=== PATIENT | male | born 1950 | race Caucasian/White ===

== ENCOUNTER 2016-10-28 01:04 | Emergency (ER) | payer MEDICARE ==
--- NOTE | 2016-10-28 02:23 | ED ---
Luz Maria Costello Edward, scribed for Gus Jernigan MD on 10/28/16 at 0125 . GI/ HPI - HPI Summary HPI Summary: 66 y/o male presents to ED c/o gastrostomy tube problems earlier tonight. Pt flushed G-tube this afternoon and had no problems; this evening the pt was trying to push his evening meds into the tube and it would not flush. Denies pain. - History of Current Complaint Chief Complaint: EDGeneral Stated Complaint: PROBLEM WITH PORT Hx Obtained From: Patient Onset/Duration: Started Hours Ago, Still Present Timing: Constant Pain Intensity: 0 Associated Signs and Symptoms: Positive: Other: - No pain - Additional Pertinent History Primary Care Physician: [id number] - Allergy/Home Medications Allergies/Adverse Reactions: Allergies Allergy/AdvReac Type Severity Reaction Status Date / Time Sulfamethoxazole Allergy Intermediate Rash Verified 11/24/14 17:35 w/Trimethoprim [From Bactrim] PMH/Surg Hx/FS Hx/Imm Hx Endocrine/Hematology History: Reports: Hx Thyroid Disease Denies: Hx Diabetes Cardiovascular History: Denies: Hx Congestive Heart Failure, Hx Hypertension, Hx Pacemaker/ICD GI History: Reports: Other GI Disorders - PEG tube tube in place History: Denies: Hx Renal Disease Musculoskeletal History: Reports: Hx Arthritis Sensory History: Reports: Hx Contacts or Glasses Denies: Hx Hearing Aid Opthamlomology History: Reports: Hx Contacts or Glasses Psychiatric History: Denies: Hx Panic Disorder - Cancer History Cancer Type, 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, 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: Yes - DONE - Surgical History Surgery Procedure, Year, and Place: mandible Infectious Disease History: No Infectious Disease History: Denies: Traveled Outside the [place] in Last 30 Days - Social History Alcohol Use: None Substance Use Type: Reports: None Smoking Status (MU): Former Smoker Review of Systems Constitutional: Negative Eyes: Negative ENT: Negative Cardiovascular: Negative Respiratory: Negative Gastrointestinal: Other - G-tube can't flush Genitourinary: Negative Musculoskeletal: Negative Skin: Negative Neurological: Negative Psychological: Normal All Other Systems Reviewed And Are Negative: Yes Physical Exam Triage Information Reviewed: Yes Vital Signs On Initial Exam: Initial Vitals Temp Pulse Resp BP Pulse Ox 97.7 F 59 16 108/59 96 10/28/16 01:07 10/28/16 01:07 10/28/16 01:07 10/28/16 01:07 10/28/16 01:07 Vital Signs Reviewed: Yes Appearance: Positive: No Pain Distress, Thin Skin: Positive: Warm Head/Face: Positive: Normal Head/Face Inspection Eyes: Positive: SANA Respiratory/Lung Sounds: Positive: Breath Sounds Present Abdomen Description: Positive: Soft, Other: - lester button in place Musculoskeletal: Positive: Strength/ROM Intact Neurological: Positive: Alert, Oriented to Person Place, Time Diagnostics - Vital Signs Vital Signs Temp Pulse Resp BP Pulse Ox 10/28/16 01:18 98.2 F 56 16 127/70 96 10/28/16 01:07 97.7 F 59 16 108/59 96 - Laboratory Lab Statement: Any lab studies that have been ordered have been reviewed, and results considered in the medical decision making process. Re-Evaluation - Re-Evaluation 1 Re-Evaluation Time: 02:20 Comment: unable to fix/replace lester button at night, offered pt choice of remaining in ed till morning and see gi then. pt states wants to go home and f/ u with GI in the morning GIGU Course/Dx - Course Assessment/Plan: 66 y/o male presents to ED c/o G-tube problems earlier tonight. Pt flushed G-tube this afternoon and had no problems; this evening the pt was trying to push his evening meds into the tube and it would not flush. Denies pain. Pt will be d/c home with f/u with GI in the morning. - Diagnoses Provider Diagnoses: Malfunction of gastrostomy tube Discharge - Discharge Plan Condition: Stable Disposition: HOME Patient Education Materials: How to Use and Care for Your PEG Tube (ED) Referrals: Bhanu Palacios MD [Medical Doctor] - 1 Day (Please call and f/u in the morning ) The documentation as recorded by the Luz Maria kam Edward accurately reflects the service I personally performed and the decisions made by me, Gus Jernigan MD.
[2016-10-28 02:43] VITALS: BP 99/75
== END 2016-10-28 02:43 | disposition home or self-care (01) ==
LOC: ED 01:04
DX: K94.23 Gastrostomy malfunction (principal)
CPT/HCPCS: 99211; 99282; G0463

== ENCOUNTER 2016-10-28 10:14 | Emergency (ER) | payer MEDICARE ==
[2016-10-28 10:18] VITALS: BP 131/68
--- NOTE | 2016-10-28 12:13 | RAD ---
INDICATION: Leaking PEG tube COMPARISON: None TECHNIQUE: Erect and supine views of the abdomen are submitted. FINDINGS: Bones: There are no acute bony findings. A peg tube is not identified. Soft tissues: The soft tissues appear normal. The psoas margins are sharp. Bowel gas pattern: There is large amount retained stool throughout the colon Calcifications: There are no abnormal calcifications. Other: None IMPRESSION: RETAINED STOOL.
--- NOTE | 2016-10-29 03:34 | PRO ---
DATE: 10/28/16 - EMERGENCY DEPT REFERRING PHYSICIAN: Kiet Sauceda* PROCEDURE: Low profile gastrostomy feeding implant replacement with Betancur catheter. 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 When he came to the emergency room, perception was that the irrigation was rejected or was not working, but that was not the case. There was no vomiting, fever, or abdominal pain. Since the inability to flush the device has occurred , he has had essentially no oral intake. He has not fainted. Exam - his abdomen is flat. Bowel sounds are positive. He is nontender. There is leakage when fluid is put in the Mihai-Bowser device. It is an 18-[place] 2.5 cm device. The only similar device in stock is 2 cm and thus at this time the only option is to place a Betancur catheter and this was reviewed with the patient and accepted. The prior device had its 5 cc balloon deflated. A Betancur catheter was tested 18- libyan 30 cc. It was inserted and accepted 8cc and was marked 3 cm from the skin surface during gentle retraction, so that the possibility of pyloric occlusion would be reduced. The skin around the stoma appeared healthy in general. IMPRESSION: Replacement of a malfunctioning Mihai-Bowser low profile device with the Betancur catheter. The device of his size will be ordered and it is suggested that a second backup item be kept in stock. He may private purchase that if that is the only practical way to accomplish that goal. [id number]/CPS #: [id number] PARVIZ
--- NOTE | 2016-11-10 15:14 | ED ---
Chino Costello Benjamin, scribed for Jone Mo MD on 10/28/16 at 1049 . Abdominal Pain/Male - HPI Summary HPI Summary: 66yo male with a feeding tube in place comes to ED for feeding tube problems. Pt states that she thinks his feeding tube might be broke and contents are leaking since yesterday afternoon. Pt reports burning pain around the tube inserted area. Last nourishment was yesterday afternoon and pt was seen last [place] [facility] [place] returns this morning. Pt has surgical hx of mandible removal s/p mandible CA. - History of Current Complaint Chief Complaint: EDGeneral Stated Complaint: FEEDING TUBE ISSUE Time Seen by Provider: 10/28/16 10:30 Hx Obtained From: Patient, Family/[employer] Work[employer] - friend Onset/Duration: Sudden Onset, Lasting Hours, Still Present Timing: Constant Severity Initially: Mild Severity Currently: Mild Location: Umbilical Radiates: No Character: Burning Aggravating Factor(s): Nothing Alleviating Factor(s): Nothing Associated Signs And Symptoms: Positive: Negative - Allergies/Home Medications Allergies/Adverse Reactions: Allergies Allergy/AdvReac Type Severity Reaction Status Date / Time Sulfamethoxazole Allergy Intermediate Rash Verified 10/31/16 15:52 w/Trimethoprim [From Bactrim] PMH/Surg Hx/FS Hx/Imm Hx Endocrine/Hematology History: Reports: Hx Thyroid Disease Denies: Hx Diabetes Cardiovascular History: Denies: Hx Congestive Heart Failure, Hx Hypertension, Hx Pacemaker/ICD GI History: Reports: Other GI Disorders - PEG tube tube in place History: Denies: Hx Renal Disease Musculoskeletal History: Reports: Hx Arthritis Sensory History: Reports: Hx Contacts or Glasses Denies: Hx Hearing Aid Opthamlomology History: Reports: Hx Contacts or Glasses Psychiatric History: Denies: Hx Panic Disorder - Cancer History Cancer Type, 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 Negative: Nausea Negative: dysuria, hematuria Negative: Edema Negative: Rash Neurological: Other - negative - dizziness Psychological: Normal All Other Systems Reviewed And Are Negative: Yes Physical Exam Triage Information Reviewed: Yes Vital Signs On Initial Exam: Initial Vitals Temp Pulse Resp BP Pulse Ox 97.4 F 50 18 131/68 98 10/28/16 10:15 10/28/16 10:15 10/28/16 10:15 10/28/16 10:15 10/28/16 10:15 Vital Signs Reviewed: Yes Appearance: Positive: Well-Appearing, Well-Nourished, Pain Distress - mild Skin: Positive: Warm, Skin Color Reflects Adequate Perfusion Head/Face: Positive: Normal Head/Face Inspection Eyes: Positive: Conjunctiva Clear ENT: Positive: Normal ENT inspection Neck: Positive: Supple, Nontender, No Lymphadenopathy, Other: - (-) JVD, (-) Stridor, (-) Tracheal deviation Respiratory/Lung Sounds: Positive: Clear to Auscultation, Breath Sounds Present. Negative: Rales, Rhonchi, Wheezes Cardiovascular: Positive: RRR, Pulses are Symmetrical in both Upper and Lower Extremities. Negative: Murmur Abdomen Description: Positive: No Organomegaly, Soft, Other: - PEG tube in place with cutaneous drainage around it. Musculoskeletal: Negative: Edema Left, Edema Right Neurological: Positive: Alert, Oriented to Person Place, Time Psychiatric: Positive: Affect/Mood Appropriate Diagnostics - Vital Signs Vital Signs Temp Pulse Resp BP Pulse Ox 10/28/16 10:15 97.4 F 50 18 131/68 98 - Laboratory Lab Statement: Any lab studies that have been ordered have been reviewed, and results considered in the medical decision making process. Abdominal Pain Fem Course/Dx - Course Course Of Treatment: Reviewed pts medication and allergy lists. Discussed with GI Office at 10:49. Dr. Harrington will come in to evaluate the pt. Dr. Harrington wants Abdominal XR order on the pt. GI put a claloway in since there weren t any permanent tube available. Advised pt to f/u with Dr. Matute for permanent tube replacement. GI service flushed the tube. - Diagnoses Provider Diagnoses: Malfunction of gastrostomy tube Discharge - Discharge Plan Condition: Stable Disposition: HOME Patient Education Materials: How to Use and Care for Your PEG Tube (ED), [place] Catheter Placement and Care (ED) Referrals: Kiet Sauceda MD [Primary Care Provider] - Evan Matute MD [Medical Doctor] - 2 Days Additional Instructions: RETURN TO THE EMERGENCY DEPARTMENT FOR CHANGING OR WORSENING SYMPTOMS. The documentation as recorded by the Chino kam Benjamin accurately reflects the service I personally performed and the decisions made by , Jone Mo MD.
== END 2016-10-28 14:10 | disposition home or self-care (01) ==
LOC: ED 10:14
DX: K94.23 Gastrostomy malfunction (principal); Z87.891 Personal history of nicotine dependence; R10.9 Unspecified abdominal pain
CPT/HCPCS: 74020; 99282

== ENCOUNTER 2017-05-12 13:14 | Emergency (ER) | payer MEDICARE ==
--- OUTSIDE RECORDS SUMMARY | 2017-05-12 13:31 | XMS REPORT ---
:1950 External Reference #:[id number] Author Organization [facility] Address [address] [address] Phone [phone] Care Team Providers Name Role Phone Kiet Sauceda MD Primary Care Physician Unavailable Payers Type Date Identification Numbers Payment Provider Subscriber Health Maintenance Policy Number: Medicare Blue o Joseph Harman (O) [id number] [employer] Number: [id number] [address] [address] PayID: [id number] [place] [address] Problems Date Description Provider Status Onset: 01/08/2016 Paroxysmal atrial fibrillation Jordan Iyer M.D., FACP Active Onset: 12/19/2014 Atrial paroxysmal tachycardia Joseph Rosen M.D. Active Onset: 12/19/2014 Malignant neoplasm of mandible Joseph Rosen M.D. Active Onset: 09/03/2015 Hypothyroidism Kiet Sauceda M.D. Active Onset: 09/03/2015 Gastroesophageal reflux disease Kiet Sauceda M.D. Active Onset: 09/03/2015 Brachial neuritis Kiet Sauceda M.D. Active Onset: 12/18/2015 Cervical radiculopathy Jordan Iyer M.D.,FACP Active Note: bilat nerve impingement on NCS Onset: 12/28/2015 Subdural hemorrhage Guero Yu M.D. Active Onset: 03/28/2016 Inflammatory disorder of jaw Kiet Sauceda M.D. Active region Onset: 08/26/2016 Chronic obstructive lung disease Jordan Iyer M.D., FACP Active Note: suspect on CXR Onset: 11/18/2016 Weight decreased Kiet Sauceda M.D. Active Onset: 11/18/2016 Unilateral recurrent simple Kiet Sauceda M.D. Active inguinal hernia Onset: 12/10/2014 Paroxysmal atrial fibrillation Apryl Moreira M.D. Inactive Inactive: 12/19/2014 Family History Date Family Member(s) Problem(s) Comments General Diabetes : (age 73 Years) Father due to Colon cancer : (age 84 Years) Mother due to Unknown reason Mother Diabetes Social History Type Date Description Comments Marital Status Marital Status 08/23/2016 july Lives With Occupation Retired. [employer] Cigarette Use Former Cigarette Smoker Pt denies use of cigar, pipe, e-cigarettes, or chewing tobacco. Quit end ETOH Use consumed 1-2 beers per day Quit 1996. Recreational Drug Use Denies Drug Use Smoking Patient is a former smoker Daily Caffeine Does Not Consume Caffeine Exercise Type/Frequency Exercises regularly General Hx Text Allergies, Adverse Reactions, Alerts Date Description Reaction Status Severity Comments 12/10/2014 Bactrim rash active Medications Medication Date Status Form Strength Qnty SIG Indications Ordering Provider Jevity 1.5 11/18/ Active Liquid 270un R63.4 Kiet Dave/Fiber 2017 its Channing Sauceda Levothyroxine 08/26/ Active Tablets 137mcg 30tab 1 by E03.9 Jordan Banuelos s arsalan Iyer, every day M.DJulian,FACP Multaq 04/01/ Active Tablets 400mg 60tab 1 by Apryl 2016 s mouth Lillie, twice a M.D. day Ranitidine HCL 02/08/ Active Tablets 150mg 60tab take one K21.9 Kiet 2015 s tablet by Komal arriaza M.D. twice a day Tylenol 11/09/ Active Tablets 325mg 90tab 2 by Kiet 2015 s mouth 8 h Komal as needed Channing (pt is taking 1- 500mg tab daily) Jevity 1 Tenzin 01/20/ Active Liquid 279un 9 cans Kiet 2014 its per day Pachikara via , M.D. feeding tube Lactulose 09/23/ Active Solution 10GM/15ML 500ml take as Wily 2015 directed DJulian Cottrell M.D. Amoxicillin / Active Tablets 500mg 60tab 1 tab via M27.2 Wily Adams s peg twice D. daily Channing Cottrell Flagyl 03/14/ Hx Tablets 500mg 30tab 1 tab by Wily 2017 - s mouth 3 D. 03/28/ times Chepe, 2017 daily x M.D. 10 days Flagyl 03/03/ Hx Tablets 500mg 30tab 1 tab by Wily 2017 - s mouth 3 D. 03/06/ times Chepe2016 daily x M.D. 10 days Amoxicillin/Cla 02/13/ Hx Tablets 875-125mg 30tab take 1 M27.2 Wily vulanate 2016 - tablet D. Potassium 03/02/ twice a Chepe2016 day via M.DJulian peg tube Amoxicillin 12/23/ Hx Tablets 500mg 60tab 1 tab via M27.2 Wily 2016 - s peg twice D. 03/09/ daily Chepe2016 M.D. Alfuzosin HCL 08/31/ Hx Tablets ER 10mg 1 po qd Jordan HUTTON 2016 - 24HR Derek Iyer, 09/02/ M.D.,FACP 2016 Tamsulosin HCL 08/26/ Hx Capsules 0.4mg 30cap 1 by Jordan 2016 - s mouth Derek Iyer, 11/21/ every M.D.,FACP 2016 evening Synthroid 08/26/ Hx Tablets 150mcg 30tab 1 by E03.9 Jordan 2016 - s mouth Derek Iyer, 08/26/ every day M.D.,FACP 2016 Metoprolol 05/12/ Hx Tablets 25mg 30tab 1/2 tab I48.0 Kiet Tartrate 2016 - s by mouth Pachikara 07/26/ twice a , M.D. 2016 day Amoxicillin 05/09/ Hx Tablets 500mg 90tab 1 by M27.2 Wily 2016 - s mouth two D. 11/18/ times a Chepe, 2016 day M.D. please dispense tablets not capsules Amoxicillin 04/01/ Hx Tablets 500mg 90tab 1 tab via M27.2 Wily 2017 - s peg twice D. 07/08/ daily Lakisha Cottrell M.D. Amoxicillin/Cla 03/28/ Hx Suspension 600-42.9mg 225ml 1 tsp bid M27.2 Kiet whittington 2017 - Rec /5ML 3 weeks Pachikara Potassium 05/08/ , M.D. 2016 Ranitidine HCL 02/08/ Hx Capsules 150mg 60cap 1 tablet K21.9 Kiet 2015 - s by mouth Pachikara 02/08/ twice , M.D. 2015 daily Metoprolol 02/01/ Hx Tablets ER 25mg 30tab 1 by Kiet Succinate ER 2015 - 24HR s mouth Pachikara 05/12/ every day , M.D. 2016 Synthroid 10/26/ Hx Tablets 150mcg 90tab 1 by E03.9 Kiet 2015 - s mouth Pachikara 10/26/ every day , M.D. 2015 Synthroid 10/26/ Hx Tablets 125mcg 30tab every day E03.9 Kiet 2015 - s in in the Pachikara 08/26/ morning , M.DJulian 2016 in the empty stomach Warfarin Sodium 02/11/ Hx Tablets 5mg 100ta take 1.5 Kiet Valentin - estela tabs Pachikara 02/08/ daily ( , M.D. 2015 On Hold) Metoprolol 01/09/ Hx Tablets 25mg 60tab 1 by Jordan Tarnestor 2014 - s mouth D. [place], 02/01/ twice a M.D.,FACP 2015 day Synthroid 01/09/ Hx Tablets 137mcg 30tab 1 by E03.9 Kiet 2014 - s mouth Pachikara 10/26/ every day , M.D. 2015 Metoprolol 12/17/ Hx Tablets 50mg 60tab 1 by Apryl Alba 2014 - s mouth [place], 01/09/ twice a M.D. 2014 day Cardizem 12/08/ Hx Tablets 30mg 120ta 1 by Jamaal Pink 2014 - bs tube q 6 Lillie, 12/10/ hours. M.D. 2014 Augmentin / Hx Tablets one by Unknown 0000 - mouth 04/11/ every 12 2014 hours for ten days Lovenox / Hx Solution 80mg/0.8ML sc every Unknown 0000 - 12 hours 2014 Pepcid / Hx Tablets 20mg 1 by Unknown 0000 - mouth every day 2014 Lactulose / Hx prn Unknown 0000 - 2014 Synthroid / Hx Tablets 125mcg 1 by Unknown 0000 - mouth every day 2014 Metoprolol / Hx Tablets 25mg 180ta 2 tabs by Unknown Tartrate 0000 - bs mouth 12/17/ twice a 2014 day Coumadin / Hx as Rosen, 0000 - directed Joseph 02/11/ Channing 2014 Ranitidine HCL / Hx Syrup 15mg/ml 600ml take as Eden 0000 - directed Pachikara 02/08/ , Channing 2015 Augmentin / Hx Suspension 250-62.5mg 800 mg Unknown 0000 - Rec /5ML solution 01/09/ via Peg 2014 twice daily for 6 wks Testosterone / Hx Powder 2 Caps Unknown Cypionate OTC 0000 - Daily 2016 Amoxicillin/Cla / Hx Suspension 600-42.9mg 1 Unknown vulanate 0000 - Rec /5ML teaspoon Potassium 05/09/ twice a 2016 day 3 weeks Immunizations CPT Code Status Date Vaccine Lot # [id number] Given 01/08/2016 Pneumococcal Conjugate Vaccine 13 Valent For [id number] Intramuscular Use Vital Signs Date Vital Result Comment 04/06/2017 Height 75 inches 6'3" Weight 173.00 lb Heart Rate 64 /min BP Systolic Sitting 110 mmHg Rue reg cuff BP Diastolic Sitting 70 mmHg Rue reg cuff BP Systolic Standing 106 mmHg Rue BP Diastolic Standing 70 mmHg Rue Respiratory Rate 16 /min BMI (Body Mass Index) 21.6 kg/m2 Ejection Fraction 50-55% 11/25/14 02/13/2017 Height 75 inches 6'3" Weight 173.12 lb Heart Rate 60 /min BP Systolic Sitting 110 mmHg BP Diastolic Sitting 56 mmHg Respiratory Rate 14 /min Body Temperature 98.1 F BMI (Body Mass Index) 21.6 kg/m2 12/23/2016 Height 75 inches 6'3" Weight 167.12 lb Heart Rate 60 /min BP Systolic Sitting 114 mmHg BP Diastolic Sitting 58 mmHg Respiratory Rate 14 /min Body Temperature 97.2 F BMI (Body Mass Index) 20.9 kg/m2 11/22/2016 Height 75 inches 6'3" Weight 160.25 lb Heart Rate 60 /min BP Systolic Sitting 114 mmHg BP Diastolic Sitting 60 mmHg Respiratory Rate 14 /min Body Temperature 97.0 F BMI (Body Mass Index) 20.0 kg/m2 11/18/2016 Height 75 inches 6'3" Weight 163.00 lb Heart Rate 63 /min BP Systolic 108 mmHg BP Diastolic 62 mmHg Body Temperature 97.6 F O2 % BldC Oximetry 98 % BMI (Body Mass Index) 20.4 kg/m2 08/26/2016 Weight 159.50 lb Heart Rate 56 /min BP Systolic Sitting 126 mmHg BP Diastolic Sitting 62 mmHg Body Temperature 96.9 F O2 % BldC Oximetry 98 % 08/23/2016 Height 73 inches 6'1" Weight 166.00 lb with shoes Heart Rate 56 /min BP Systolic Sitting 108 mmHg Lue reg cuff BP Diastolic Sitting 60 mmHg Lue reg cuff BP Systolic Standing 98 mmHg Lue reg cuff BP Diastolic Standing 60 mmHg Lue reg cuff Respiratory Rate 17 /min BMI (Body Mass Index) 21.9 kg/m2 Ejection Fraction 50-55% 11/25/2014-echo 07/26/2016 Weight 168.00 lb with shoes Heart Rate 56 /min BP Systolic Sitting 90 mmHg Rue reg cuff BP Diastolic Sitting 54 mmHg Rue reg cuff BP Systolic Standing 98 mmHg Rue reg cuff BP Diastolic Standing 50 mmHg Rue reg cuff Ejection Fraction 55-60% date 11/25/2014 ECHO 07/08/2016 Weight 168.00 lb Heart Rate 64 /min BP Systolic Sitting 92 mmHg BP Diastolic Sitting 58 mmHg Body Temperature 97.7 F Pain Level 3 05/12/2016 Weight 171.00 lb Heart Rate 57 /min BP Systolic Sitting 122 mmHg BP Diastolic Sitting 56 mmHg Respiratory Rate 14 /min Body Temperature 98.0 F O2 % BldC Oximetry 97 % 05/09/2016 Height 73 inches 6'1" Weight 170.38 lb Heart Rate 60 /min BP Systolic Sitting 110 mmHg BP Diastolic Sitting 60 mmHg Respiratory Rate 14 /min Body Temperature 97.9 F BMI (Body Mass Index) 22.5 kg/m2 04/21/2016 Height 73 inches 6'1" Weight 171.50 lb with shoes Heart Rate 56 /min BP Systolic Sitting 94 mmHg Lue reg cuff BP Diastolic Sitting 56 mmHg Lue reg cuff BP Systolic Standing 92 mmHg Lue reg cuff BP Diastolic Standing 54 mmHg Lue reg cuff Respiratory Rate 17 /min BMI (Body Mass Index) 22.6 kg/m2 Ejection Fraction 50-55% 11/25/2014 echo 04/05/2016 Height 73 inches 6'1" Weight 168.00 lb Heart Rate 82 /min BP Systolic Sitting 122 mmHg BP Diastolic Sitting 58 mmHg Body Temperature 96.8 F O2 % BldC Oximetry 97 % BMI (Body Mass Index) 22.2 kg/m2 04/01/2016 Height 73 inches 6'1" Weight 166.00 lb Heart Rate 60 /min BP Systolic Sitting 100 mmHg BP Diastolic Sitting 58 mmHg Respiratory Rate 14 /min Body Temperature 97.9 F BMI (Body Mass Index) 21.9 kg/m2 03/28/2016 Weight 169.00 lb Heart Rate 68 /min BP Systolic Sitting 122 mmHg BP Diastolic Sitting 68 mmHg Body Temperature 98.2 F O2 % BldC Oximetry 93 % 02/16/2016 Weight 169.00 lb Heart Rate 60 /min BP Systolic Sitting 118 mmHg Ra reg cuff BP Diastolic Sitting 60 mmHg Ra reg cuff BP Systolic Standing 104 mmHg Ra BP Diastolic Standing 66 mmHg Ra Respiratory Rate 14 /min Ejection Fraction 50-55% 11/25/14 02/09/2016 Weight 170.00 lb Heart Rate 54 /min BP Systolic Sitting 106 mmHg BP Diastolic Sitting 60 mmHg Body Temperature 97.1 F O2 % BldC Oximetry 96 % 02/02/2016 Height 73 inches 6'1" Weight 164.00 lb without shoes Heart Rate 64 /min BP Systolic Sitting 94 mmHg R arm , reg cuff. BP Diastolic Sitting 60 mmHg R arm , reg cuff. BP Systolic Standing 100 mmHg BP Diastolic Standing 60 mmHg Respiratory Rate 18 /min BMI (Body Mass Index) 21.6 kg/m2 01/18/2016 Height 73 inches 6'1" Weight 170.00 lb Heart Rate 66 /min BP Systolic Sitting 122 mmHg BP Diastolic Sitting 70 mmHg Pain Level 0 BMI (Body Mass Index) 22.4 kg/m2 01/08/2016 Weight 170.00 lb Heart Rate 57 /min BP Systolic Sitting 107 mmHg BP Diastolic Sitting 62 mmHg Body Temperature 98.0 F O2 % BldC Oximetry 98 % 12/28/2015 Height 73 inches 6'1" Weight 155.00 lb BP Systolic Sitting 122 mmHg BP Diastolic Sitting 80 mmHg Pain Level 3 BMI (Body Mass Index) 20.4 kg/m2 11/17/2015 Weight 167.25 lb Heart Rate 71 /min BP Systolic Sitting 120 mmHg BP Diastolic Sitting 56 mmHg Body Temperature 98.0 F O2 % BldC Oximetry 96 % 11/06/2015 Height 74 inches 6'2" Weight 161.12 lb Heart Rate 67 /min BP Systolic 132 mmHg BP Diastolic 74 mmHg Body Temperature 98.4 F O2 % BldC Oximetry 98 % BMI (Body Mass Index) 20.7 kg/m2 10/20/2015 Height 74 inches 6'2" Weight 164.00 lb Heart Rate 60 /min BP Systolic Sitting 122 mmHg Ra reg cuff BP Diastolic Sitting 72 mmHg Ra reg cuff BP Systolic Standing 104 mmHg Ra BP Diastolic Standing 70 mmHg Ra Respiratory Rate 16 /min BMI (Body Mass Index) 21.1 kg/m2 Ejection Fraction 50-55% 11/25/14 10/13/2015 Height 76 inches 6'4" Heart Rate 54 /min BP Systolic Sitting 100 mmHg BP Diastolic Sitting 60 mmHg Body Temperature 97.1 F O2 % BldC Oximetry 98 % 09/03/2015 Height 76 inches 6'4" Heart Rate 51 /min BP Systolic Sitting 124 mmHg BP Diastolic Sitting 62 mmHg Body Temperature 97.1 F O2 % BldC Oximetry 96 % 07/23/2015 Height 76 inches 6'4" Weight 169.00 lb Heart Rate 60 /min BP Systolic Sitting 100 mmHg BP Diastolic Sitting 50 mmHg Body Temperature 97.2 F O2 % BldC Oximetry 94 % BMI (Body Mass Index) 20.6 kg/m2 04/07/2015 Height 76 inches 6'4" Weight 169.00 lb BP Systolic Sitting 98 mmHg BP Diastolic Sitting 76 mmHg Body Temperature 98.2 F BMI (Body Mass Index) 20.6 kg/m2 03/23/2015 Height 76 inches 6'4" Weight 170.00 lb Heart Rate 62 /min BP Systolic Sitting 116 mmHg BP Diastolic Sitting 62 mmHg Respiratory Rate 14 /min Body Temperature 98.2 F BMI (Body Mass Index) 20.7 kg/m2 02/09/2015 Height 76 inches 6'4" Weight 167.12 lb Heart Rate 63 /min BP Systolic Sitting 110 mmHg BP Diastolic Sitting 58 mmHg Body Temperature 97.8 F O2 % BldC Oximetry 98 % BMI (Body Mass Index) 20.3 kg/m2 01/19/2015 Height 76 inches 6'4" Weight 166.38 lb Heart Rate 64 /min BP Systolic Sitting 104 mmHg BP Diastolic Sitting 58 mmHg Respiratory Rate 14 /min Body Temperature 98.4 F BMI (Body Mass Index) 20.2 kg/m2 01/09/2015 Height 76 inches 6'4" Weight 167.00 lb Heart Rate 56 /min BP Systolic Sitting 100 mmHg BP Diastolic Sitting 56 mmHg Body Temperature 98.3 F O2 % BldC Oximetry 96 % BMI (Body Mass Index) 20.3 kg/m2 12/24/2014 Height 76 inches 6'4" Weight 162.00 lb with shoes Heart Rate 72 /min BP Systolic Sitting 108 mmHg LA, reg cuff BP Diastolic Sitting 66 mmHg LA, reg cuff BP Systolic Standing 98 mmHg LA BP Diastolic Standing 64 mmHg LA Respiratory Rate 14 /min BMI (Body Mass Index) 19.7 kg/m2 Ejection Fraction 50-55% 11/25/2014 12/19/2014 Height 76 inches 6'4" Weight 165.25 lb Heart Rate 88 /min BP Systolic Sitting 108 mmHg BP Diastolic Sitting 60 mmHg Body Temperature 97.6 F O2 % BldC Oximetry 91 % BMI (Body Mass Index) 20.1 kg/m2 12/17/2014 Height 76 inches 6'4" Weight 167.50 lb Heart Rate 65 /min BP Systolic Sitting 102 mmHg BP Diastolic Sitting 60 mmHg Respiratory Rate 16 /min Body Temperature 97.6 F BMI (Body Mass Index) 20.4 kg/m2 12/10/2014 Height 76 inches 6'4" Weight 164.00 lb w/o shoes Heart Rate 58 /min reg BP Systolic Sitting 100 mmHg Rue, reg cuff BP Diastolic Sitting 50 mmHg Rue, reg cuff BP Systolic Standing 90 mmHg Rue BP Diastolic Standing 56 mmHg Rue Respiratory Rate 18 /min BMI (Body Mass Index) 20.0 kg/m2 Ejection Fraction 50-55% as of 11/25/14 echo Results Test Date Test Result H/L Range Note Laboratory test 03/03/2017 C Difficile PCR SEE RESULT 1 finding BELOW Laboratory test 03/03/2017 Blood Urea Nitrogen 21 mg/dL 6-24 finding BUN Creatinine 03/03/2017 Creatinine 0.87 mg/dL 0.67-1.17 Egfr Non- 87.0 >60 Egfr 111.9 >60 2 Laboratory test finding 11/22/2016 C Reactive Protein 1.97 mg/L < 5.00 3 Laboratory test finding 10/20/2016 TSH (Thyroid Stim Horm) 2.86 mcIU/mL 0.34-5.60 Ua Routine 08/26/2016 Ua Specific [place] 1.015 Ua PH 7 Ua Color dark yellow Ua Appera clear Ua WBC neg Ua Protein trace Ua Glucose normal Ua Ketones neg Ua Bilirubin neg Ua Urobilinogen norm Ua Nitrite neg Ua Occult Blood neg Comp Metabolic Panel 08/26/2016 Sodium 136 mmol/L 133-145 Potassium 4.1 mmol/L 3.5-5.0 Chloride 102 mmol/L 101-111 Co2 Carbon Dioxide 29 mmol/L 22-32 Anion Gap 5 mmol/L 2-11 Glucose 81 mg/dL 70-100 Blood Urea Nitrogen 13 mg/dL 6-24 Creatinine 0.80 mg/dL 0.67-1.17 BUN/Creatinine Ratio 16.3 8-20 Calcium 9.5 mg/dL 8.6-10.3 Total Protein 7.2 g/dL 6.4-8.9 Albumin 4.1 g/dL 3.2-5.2 Globulin 3.1 g/dL 2-4 Albumin/Globulin Ratio 1.3 1-3 Total Bilirubin 1.20 mg/dL High 0.2-1.0 Alkaline Phosphatase 81 U/L 34-104 Alt 26 U/L 7-52 Ast 34 U/L 13-39 Egfr Non- 96.1 >60 Egfr 123.6 >60 4 Laboratory test finding 08/26/2016 Magnesium 2.3 mg/dL 1.9-2.7 5 TSH (Thyroid Stim Horm) 9.28 mcIU/mL High 0.34-5.60 6 Urine Culture And 08/26/2016 Urine Culture SEE RESULT BELOW 7 Sensitivities Comp Metabolic Panel 04/01/2016 Sodium 135 mmol/L 133-145 Potassium 4.4 mmol/L 3.5-5.0 Chloride 100 mmol/L Low 101-111 Co2 Carbon Dioxide 32 mmol/L 22-32 Anion Gap 3 mmol/L 2-11 Glucose 70 mg/dL 70-100 Blood Urea Nitrogen 14 mg/dL 6-24 Creatinine 0.72 mg/dL 0.67-1.17 BUN/Creatinine Ratio 19.4 8-20 Calcium 9.2 mg/dL 8.6-10.3 Total Protein 7.7 g/dL 6.4-8.9 Albumin 3.2 g/dL 3.2-5.2 Globulin 4.5 g/dL High 2-4 Albumin/Globulin Ratio 0.7 Low 1-3 Total Bilirubin 0.60 mg/dL 0.2-1.0 Alkaline Phosphatase 71 U/L 34-104 Alt 19 U/L 7-52 Ast 26 U/L 13-39 Egfr Non- 108.6 >60 Egfr 139.6 >60 8 CBC Auto Diff 03/28/2016 White Blood Count 9.7 10^3/uL 3.5-10.8 Red Blood Count 4.16 10^6/uL 4.0-5.4 Hemoglobin 13.9 g/dL Low 14.0-18.0 Hematocrit 41 % Low 42-52 Mean Corpuscular Volume 100 fL High 80-94 Mean Corpuscular Hemoglobin 34 pg High 27-31 Mean Corpuscular HGB Conc 34 g/dL 31-36 Red Cell Distribution Width 12 % 10.5-15 Platelet Count 264 10^3/uL 150-450 Mean Platelet Volume 9 um3 7.4-10.4 Abs Neutrophils 7.5 10^3/uL 1.5-7.7 Abs Lymphocytes 1.1 10^3/uL 1.0-4.8 Abs Monocytes 0.9 10^3/uL High 0-0.8 Abs Eosinophils 0.3 10^3/uL 0-0.6 Abs Basophils 0 10^3/uL 0-0.2 Abs Nucleated RBC 0 10^3/uL Granulocyte % 76.5 % 38-83 Lymphocyte % 11.0 % Low 25-47 Monocyte % 9.3 % High 1-9 Eosinophil % 2.8 % 0-6 Basophil % 0.4 % 0-2 Nucleated Red Blood Cells % 0 Laboratory test 03/28/2016 Erythrocyte Sed Rate 95 mm/Hr High 0-40 finding Wound Culture/Sensi 03/28/2016 Wound/Misc SEE RESULT BELOW 9 Culture-Gram Stain Inr/Protime 11/06/2015 Inr 2.99 High 0.89-1.11 Laboratory test 11/06/2015 Partial Thrombo Time 43.2 seconds High 26.0- 36.3 finding PTT Comp Metabolic Panel 11/06/2015 Sodium 136 mmol/L 133-145 Potassium 4.9 mmol/L 3.5-5.0 Chloride 100 mmol/L Low 101-111 Co2 Carbon Dioxide 32 mmol/L 22-32 Anion Gap 4 mmol/L 2-11 Glucose 93 mg/dL 70-100 Blood Urea Nitrogen 15 mg/dL 6-24 Creatinine 0.75 mg/dL 0.67-1.17 BUN/Creatinine Ratio 20.0 8-20 Calcium 10.0 mg/dL 8.6-10.3 Total Protein 7.7 g/dL 6.4-8.9 Albumin 4.0 g/dL 3.2-5.2 Globulin 3.7 g/dL 2-4 Albumin/Globulin Ratio 1.1 1-3 Total Bilirubin 1.40 mg/dL High 0.2-1.0 Alkaline Phosphatase 75 U/L 34-104 Alt 18 U/L 7-52 Ast 25 U/L 13-39 Egfr Non- 103.9 >60 Egfr 133.6 >60 10 CBC Auto Diff 11/06/2015 White Blood Count 7.0 10^3/uL 3.5-10.8 Red Blood Count 4.51 10^6/uL 4.0-5.4 Hemoglobin 15.1 g/dL 14.0-18.0 Hematocrit 45 % 42-52 Mean Corpuscular Volume 99 fL High 80-94 Mean Corpuscular Hemoglobin 33 pg High 27-31 Mean Corpuscular HGB Conc 34 g/dL 31-36 Red Cell Distribution Width 13 % 10.5-15 Platelet Count 143 10^3/uL Low 150-450 Mean Platelet Volume 9 um3 7.4-10.4 Abs Neutrophils 5.2 10^3/uL 1.5-7.7 Abs Lymphocytes 1.1 10^3/uL 1.0-4.8 Abs Monocytes 0.6 10^3/uL 0-0.8 Abs Eosinophils 0.2 10^3/uL 0-0.6 Abs Basophils 0 10^3/uL 0-0.2 Abs Nucleated RBC 0 10^3/uL Granulocyte % 73.4 % 38-83 Lymphocyte % 15.8 % Low 25-47 Monocyte % 8.1 % 1-9 Eosinophil % 2.2 % 0-6 Basophil % 0.5 % 0-2 Nucleated Red Blood Cells % 0.1 Laboratory test 11/06/2015 Erythrocyte Sed Rate 35 mm/Hr 0-40 finding Thyroid Panel 10/27/2015 Free T4 (Free 1.19 ng/dL High 0.61-1.12 11 Thyroxine) Thyroxine 8.73 ?g/dL 6.09-12.23 12 TSH (Thyroid Stim Horm) 3.88 mcIU/mL 0.34-5.60 13 Protime W/ Inr 10/13/2015 Prothrombin Time 27.0 Inr 2.3 Protime W/ Inr 09/24/2015 Prothrombin Time 29.2 Inr 2.4 Protime W/ Inr 09/17/2015 Prothrombin Time 20.3 Inr 1.7 Laboratory test finding 09/07/2015 PSA Screening 1.340 ng/mL 0-4.000 14 Comp Metabolic Panel 09/07/2015 Sodium 136 mmol/L 133-145 Potassium 4.5 mmol/L 3.5-5.0 Chloride 100 mmol/L Low 101-111 Co2 Carbon Dioxide 24 mmol/L 22-32 Anion Gap 12 mmol/L High 2-11 Glucose 80 mg/dL 70-100 Blood Urea Nitrogen 15 mg/dL 6-24 Creatinine 0.83 mg/dL 0.67-1.17 BUN/Creatinine Ratio 18.1 8-20 Calcium 9.5 mg/dL 8.6-10.3 Total Protein 7.3 g/dL 6.4-8.9 Albumin 4.0 g/dL 3.2-5.2 Globulin 3.3 g/dL 2-4 Albumin/Globulin Ratio 1.2 1-3 Total Bilirubin 1.10 mg/dL High 0.2-1.0 Alkaline Phosphatase 81 U/L 34-104 Alt 16 U/L 7-52 Ast 31 U/L 13-39 Egfr Non- 92.4 >60 Egfr 118.8 >60 15 Protime W/ Inr 09/03/2015 Prothrombin Time 22.7 Inr 1.9 Lipid Profile (Trig/Chol/HDL) 08/28/2015 Triglycerides 77 mg/dL 16 Cholesterol 118 mg/dL 17 HDL Cholesterol 43.7 mg/dL 18 LDL Cholesterol 59 mg/dL 19 Protime W/ Inr 08/27/2015 Prothrombin Time 35.3 Inr 2.9 Protime W/ Inr 08/13/2015 Prothrombin Time 29.4 Inr 2.4 Protime W/ Inr 07/30/2015 Prothrombin Time 37.7 Inr 3.1 Protime W/ Inr 07/23/2015 Prothrombin Time 19.7 Inr 1.6 Protime W/ Inr 07/17/2015 Prothrombin Time 13.3 Inr 1.1 Protime W/ Inr 07/09/2015 Prothrombin Time 29.9 Inr 2.5 Protime W/ Inr 06/17/2015 Prothrombin Time 29.7 Inr 2.5 Protime W/ Inr 06/04/2015 Prothrombin Time 22.6 Inr 1.9 Protime W/ Inr 05/06/2015 Prothrombin Time 24.9 Inr 2.1 Protime W/ Inr 04/07/2015 Prothrombin Time 31.2 Inr 2.6 Laboratory test finding 03/23/2015 C Reactive Protein 4.84 mg/L < 5.00 20 Protime W/ Inr 03/16/2015 Inr 2.5 CBC Auto Diff 03/11/2015 White Blood Count 6.2 10^3/uL 3.5-10.8 Red Blood Count 4.59 10^6/uL 4.0-5.4 Hemoglobin 15.6 g/dL 14.0-18.0 Hematocrit 47 % 42-52 Mean Corpuscular Volume 102 fL High 80-94 Mean Corpuscular Hemoglobin 34 pg High 27-31 Mean Corpuscular HGB Conc 33 g/dL 31-36 Red Cell Distribution Width 13 % 10.5-15 Platelet Count 149 10^3/uL Low 150-450 Mean Platelet Volume 9 um3 7.4-10.4 Abs Neutrophils 3.9 10^3/uL 1.5-7.7 Abs Lymphocytes 1.2 10^3/uL 1.0-4.8 Abs Monocytes 0.6 10^3/uL 0-0.8 Abs Eosinophils 0.4 10^3/uL 0-0.6 Abs Basophils 0 10^3/uL 0-0.2 Abs Nucleated RBC 0.01 10^3/uL Granulocyte % 63.6 % 38-83 Lymphocyte % 19.0 % Low 25-47 Monocyte % 9.9 % High 1-9 Eosinophil % 7.0 % High 0-6 Basophil % 0.5 % 0-2 Nucleated Red Blood Cells % 0.1 Comp Metabolic Panel 03/11/2015 Sodium 139 mmol/L 133-145 Potassium 4.3 mmol/L 3.5-5.0 Chloride 102 mmol/L 101-111 Co2 Carbon Dioxide 33 mmol/L High 22-32 Anion Gap 4 mmol/L 2-11 Glucose 81 mg/dL 70-100 Blood Urea Nitrogen 14 mg/dL 6-24 Creatinine 0.83 mg/dL 0.67-1.17 BUN/Creatinine Ratio 16.9 8-20 Calcium 9.4 mg/dL 8.6-10.3 Total Protein 7.1 g/dL 6.4-8.9 Albumin 3.9 g/dL 3.2-5.2 Globulin 3.2 g/dL 2-4 Albumin/Globulin Ratio 1.2 1-3 Total Bilirubin 1.20 mg/dL High 0.2-1.0 Alkaline Phosphatase 78 U/L 34-104 Alt 15 U/L 7-52 Ast 24 U/L 13-39 Egfr Non- 92.4 >60 Egfr 118.8 >60 21 Laboratory test finding 03/11/2015 TSH (Thyroid Stim Horm) 3.51 ?IU/mL 0.34-5.60 Laboratory test finding 02/09/2015 TSH (Thyroid Stim Horm) 3.45 ?IU/mL 0.34-5.60 Protime W/ Inr 02/09/2015 Prothrombin Time 26.7 Inr 2.2 Laboratory test finding 01/02/2015 TSH (Thyroid Stim 6.06 ?IU/mL High 0.34 -5.60 Horm) CBC Auto Diff 01/02/2015 White Blood Count 4.7 10^3/uL Low 4.8-10.8 Red Blood Count 4.19 10^6/uL 4.0-5.4 Hemoglobin 14.3 g/dL 14.0-18.0 Hematocrit 43 % 42-52 Mean Corpuscular Volume 103 fL High 80-94 Mean Corpuscular Hemoglobin 34 pg High 27-31 Mean Corpuscular HGB Conc 33 g/dL 31-36 Red Cell Distribution Width 13 % 10.5-15 Platelet Count 158 10^3/uL 150-450 Mean Platelet Volume 10 um3 7.4-10.4 Abs Neutrophils 2.7 10^3/uL 1.5-7.7 Abs Lymphocytes 1.2 10^3/uL 1.0-4.8 Abs Monocytes 0.4 10^3/uL 0-0.8 Abs Eosinophils 0.4 10^3/uL 0-0.6 Abs Basophils 0 10^3/uL 0-0.2 Abs Nucleated RBC 0.01 10^3/uL Granulocyte % 58.2 % 38-83 Lymphocyte % 24.7 % Low 25-47 Monocyte % 8.4 % 1-9 Eosinophil % 7.9 % High 0-6 Basophil % 0.8 % 0-2 Nucleated Red Blood Cells % 0.1 Comp Metabolic Panel 01/02/2015 Sodium 136 mmol/L 133-145 Potassium 4.5 mmol/L 3.5-5.0 Chloride 101 mmol/L 101-111 Co2 Carbon Dioxide 33 mmol/L High 22-32 Anion Gap 2 mmol/L 2-11 Glucose 76 mg/dL 70-100 Blood Urea Nitrogen 18 mg/dL 6-24 Creatinine 0.78 mg/dL 0.67-1.17 BUN/Creatinine Ratio 23.1 High 8-20 Calcium 9.2 mg/dL 8.6-10.3 Total Protein 7.1 g/dL 6.4-8.9 Albumin 3.7 g/dL 3.2-5.2 Globulin 3.4 g/dL 2-4 Albumin/Globulin Ratio 1.1 1-3 Total Bilirubin 0.90 mg/dL 0.2-1.0 Alkaline Phosphatase 83 U/L 34-104 Alt 24 U/L 7-52 Ast 30 U/L 13-39 Egfr Non- 99.6 >60 Egfr 128.1 >60 22 Laboratory test finding 12/17/2014 C Reactive Protein 14.40 mg/L High &lt ; 5.00 23 1 SEE RESULT BELOW Name: JOSEPH BYRNE : [address]: Wily Cottrell MD Acct: [id number] Unit: [id number] AGE: 67 Location: [facility] Re03/03/17 SEX: M Status: REG REF SPEC: [id number] JUSTIN: 03/03/[address] [facility] [address]: Wily Cottrell MD REQ: [id number] RECD: 03/03/17 STATUS: COMP _ SOURCE: STOOL SPDESC: ORDERED: C. diff PCR Procedure Result Reported Site Stool Specimen Description Final 03/03/17- 1700 ML Stool Color Brown Stool Form Nonformed Stool Consistency Liquid C. difficile PCR Final 03/03/17- 1744 ML Organism 1 027 Presumptive NEGATIVE Organism 2 Toxigenic C.diff NEGATIVE * ML - MAIN LAB ([facility]) . END OF REPORT * ML=Testing performed at Main Lab DEPARTMENT OF PATHOLOGY, [address] [place] [address] Lei Sellers M.D. Director [facility] # [id number] 2 Because ethnic data is not always readily available, this report includes an eGFR for both -Americans and non- Americans. The National Kidney Disease Education Program (NKDEP) does not endorse the use of the MDRD equation for patients that are not between the ages of 18 and 70, are , have extremes of body size, muscle mass, or nutritional status, or are non- or non-. According to the National Kidney Foundation, irrespective of diagnosis, the stage of the disease is based on the level of kidney function: Stage Description GFR(mL/min/1.73 m(2)) 1 Kidney damage with normal or decreased GFR 90 2 Kidney damage with mild decrease in GFR 60-89 3 Moderate decrease in GFR 30-59 4 Severe decrease in GFR 15-29 5 Kidney failure <15 (or dialysis) 3 Acute inflammation: >10.00 4 Because ethnic data is not always readily available, this report includes an eGFR for both -Americans and non- Americans. The National Kidney Disease Education Program (NKDEP) does not endorse the use of the MDRD equation for patients that are not between the ages of 18 and 70, are , have extremes of body size, muscle mass, or nutritional status, or are non- or non-. According to the National Kidney Foundation, irrespective of diagnosis, the stage of the disease is based on the level of kidney function: Stage Description GFR(mL/min/1.73 m(2)) 1 Kidney damage with normal or decreased GFR 90 2 Kidney damage with mild decrease in GFR 60-89 3 Moderate decrease in GFR 30-59 4 Severe decrease in GFR 15-29 5 Kidney failure <15 (or dialysis) 5 tomorrow 08/26/16 non-fasting ok CC: PMD 6 tomorrow 08/26/16 non-fasting ok CC: PMD 7 SEE RESULT BELOW Name: JOSEPH BYRNE : [address]: Greg Iyer MD Acct: [id number] Unit: [id number] AGE: 66 Location: [facility] Re08/26/16 SEX: M Status: REG REF SPEC: [id number] JUSTIN: 08/26/[address] [facility] [address]: Jordan Iyer MD REQ: [id number] RECD: 08/26/16 STATUS: COMP _ SOURCE: URINE SPDESC: ORDERED: Urine Culture COMMENTS: [id number] Procedure Result Reported Site Urine Culture Final 08/27/16- 1331 ML No Growth (<1,000 CFU/mL) * ML - MAIN LAB ([facility]) . END OF REPORT * ML=Testing performed at Main Lab DEPARTMENT OF PATHOLOGY, [address] [place] [address] Lei Sellers M.D. Director [facility] # [id number] 8 Because ethnic data is not always readily available, this report includes an eGFR for both -Americans and non- Americans. The National Kidney Disease Education Program (NKDEP) does not endorse the use of the MDRD equation for patients that are not between the ages of 18 and 70, are , have extremes of body size, muscle mass, or nutritional status, or are non- or non-. According to the National Kidney Foundation, irrespective of diagnosis, the stage of the disease is based on the level of kidney function: Stage Description GFR(mL/min/1.73 m(2)) 1 Kidney damage with normal or decreased GFR 90 2 Kidney damage with mild decrease in GFR 60-89 3 Moderate decrease in GFR 30-59 4 Severe decrease in GFR 15-29 5 Kidney failure <15 (or dialysis) 9 SEE RESULT BELOW Name: JOSEPH BYRNE : [address]: Kiet Sauceda MD Acct: [id number] Unit: [id number] AGE: 66 Location: [facility] Re03/28/16 SEX: M Status: REG REF SPEC: [id number] JUSTIN: 03/28/16-[address] [facility] [address]: Kiet Sauceda MD REQ: [id number] RECD: 03/28/16 STATUS: COMP _ SOURCE: WOUND SPDESC: ORDERED: Culture Stain COMMENTS: [id number] Verbal to JHOANA Serrano (DRS OFFICE) by [id number] at 1231 on 03/29/16. Results read back accurately. Specimen Description draining from mandible Procedure Result Reported Site Wound/Misc Gram Stain Final 03/29/16- 722 ML 3+ Epithelial Cells 1+ Neutrophils 3+ Gram Positive Cocci Wound/Misc Culture Final 03/31/16- 821 ML Organism 1 STREP PYOGENES (GRP A) Quantity 1+ 1. STREP PYOGENES (GRP A) M.I.C. RX --------- ------ Chloramphenicol 4 S Ampicillin <=0.06 S Penicillin <=0.03 S Cefepime <=0.25 S * Cefotaxime <=0.25 S Ceftriaxone <=0.25 S Levofloxacin 0.5 S Azithromycin >2 R Clindamycin >0.5 R Erythromycin >0.5 R CONTINUED ON NEXT PAGE * ML=Testing performed at Main Lab DEPARTMENT OF PATHOLOGY, [address] [place] [address] Lei Sellers M.D. Director [facility] # [id number] Patient: JOSEPH BYRNE [id number] (Continued) Specimen: [id number] Collected: 03/28/16 Received: 03/28/16 (Continued) Procedure Result Reported Site Wound/Misc Culture Final (continued) 03/31/16821 1. STREP PYOGENES (GRP A) (continued) M.I.C. RX --------- ------ Tetracycline >4 R Vancomycin 0.5 S * ML - MAIN LAB ([facility]) . END OF REPORT * ML=Testing performed at Main Lab DEPARTMENT OF PATHOLOGY, [address] [place] [address] Lei Sellers M.D. Director [facility] # [id number] 10 Because ethnic data is not always readily available, this report includes an eGFR for both -Americans and non- Americans. The National Kidney Disease Education Program (NKDEP) does not endorse the use of the MDRD equation for patients that are not between the ages of 18 and 70, are , have extremes of body size, muscle mass, or nutritional status, or are non- or non-. According to the National Kidney Foundation, irrespective of diagnosis, the stage of the disease is based on the level of kidney function: Stage Description GFR(mL/min/1.73 m(2)) 1 Kidney damage with normal or decreased GFR 90 2 Kidney damage with mild decrease in GFR 60-89 3 Moderate decrease in GFR 30-59 4 Severe decrease in GFR 15-29 5 Kidney failure <15 (or dialysis) 11 Copy Result to: KIET SAUCEDA ([id number]) 12 Copy Result to: KIET SAUCEDA ([id number]) 13 Copy Result to: KIET SAUCEDA ([id number]) 14 Serum levels of PSA measured using the [employer] DXI Hybritech immunoassay should not be interpreted as absolute evidence of the presence or absence of disease. The PSA value should be used in conjunction with other pertinent clinical diagnostic procedures. The values obtained with different assay methods or kits cannot be used interchangeably. 15 Because ethnic data is not always readily available, this report includes an eGFR for both -Americans and non- Americans. The National Kidney Disease Education Program (NKDEP) does not endorse the use of the MDRD equation for patients that are not between the ages of 18 and 70, are , have extremes of body size, muscle mass, or nutritional status, or are non- or non-. According to the National Kidney Foundation, irrespective of diagnosis, the stage of the disease is based on the level of kidney function: Stage Description GFR(mL/min/1.73 m(2)) 1 Kidney damage with normal or decreased GFR 90 2 Kidney damage with mild decrease in GFR 60-89 3 Moderate decrease in GFR 30-59 4 Severe decrease in GFR 15-29 5 Kidney failure <15 (or dialysis) 16 Desirable <150 Borderline high 150-199 High 200-499 Very High >500 17 Desirable <200 Borderline high 200-239 High >239 18 Low <40 Desirable: 40-60 High: >60 19 Desirable: <100 mg/dL Near Optimal: 100-129 mg/dL Borderline High: 130-159 mg/dL High: 160-189 mg/dL Very High: >189 mg/dL 20 Acute inflammation: >10.00 21 Because ethnic data is not always readily available, this report includes an eGFR for both -Americans and non- Americans. The National Kidney Disease Education Program (NKDEP) does not endorse the use of the MDRD equation for patients that are not between the ages of 18 and 70, are , have extremes of body size, muscle mass, or nutritional status, or are non- or non-. According to the National Kidney Foundation, irrespective of diagnosis, the stage of the disease is based on the level of kidney function: Stage Description GFR(mL/min/1.73 m(2)) 1 Kidney damage with normal or decreased GFR 90 2 Kidney damage with mild decrease in GFR 60-89 3 Moderate decrease in GFR 30-59 4 Severe decrease in GFR 15-29 5 Kidney failure <15 (or dialysis) 22 Because ethnic data is not always readily available, this report includes an eGFR for both -Americans and non- Americans. The National Kidney Disease Education Program (NKDEP) does not endorse the use of the MDRD equation for patients that are not between the ages of 18 and 70, are , have extremes of body size, muscle mass, or nutritional status, or are non- or non-. According to the National Kidney Foundation, irrespective of diagnosis, the stage of the disease is based on the level of kidney function: Stage Description GFR(mL/min/1.73 m(2)) 1 Kidney damage with normal or decreased GFR 90 2 Kidney damage with mild decrease in GFR 60-89 3 Moderate decrease in GFR 30-59 4 Severe decrease in GFR 15-29 5 Kidney failure <15 (or dialysis) 23 Acute inflammation: >10.00 Procedures Date CPT Code Description Status Comment 04/13/2017 38340 Implantable Cardio System Loop Recorder Sys Completed [employer] Acquist[employer] 04/13/2017 49745 Interrogation Dev Loop Recorder Incl Physician Completed Analysis,Rev,Repor 04/06/2017 81721 EKG Tracing & Interpretation Completed 03/13/2017 39188 Implantable Cardio System Loop Recorder Sys Completed [employer] 03/13/2017 60161 Interrogation Dev Loop Recorder Incl Physician Completed Analysis,Rev,Repor 02/10/2017 44624 Implantable Cardio System Loop Recorder Sys Completed [employer] 02/10/2017 10161 Interrogation Dev Loop Recorder Incl Physician Completed Analysis,Rev,Repor 01/10/2017 73278 Implantable Cardio System Loop Recorder Sys Completed [employer] 01/10/2017 45851 Interrogation Dev Loop Recorder Incl Physician Completed Analysis,Rev,Repor 12/10/2016 05756 Implantable Cardio System Loop Recorder Sys Completed [employer] 12/10/2016 95517 Interrogation Dev Loop Recorder Incl Physician Completed Analysis,Rev,Repor 11/09/2016 58480 Interrogation Dev Loop Recorder Incl Physician Completed Analysis,Rev,Repor 11/09/2016 27134 Implantable Cardio System Loop Recorder Sys Completed [employer] 10/09/2016 09545 Implantable Cardio System Loop Recorder Sys Completed [employer] 10/09/2016 75031 Interrogation Dev Loop Recorder Incl Physician Completed Analysis,Rev,Repor 09/08/2016 26247 Implantable Cardio System Loop Recorder Sys Completed [employer] 09/08/2016 14938 Interrogation Dev Loop Recorder Incl Physician Completed Analysis,Rev,Repor 08/23/2016 29583 EKG Tracing & Interpretation Completed 08/23/2016 85933 EKG Tracing & Interpretation Completed 08/08/2016 92971 Implantable Cardio System Loop Recorder Sys Completed [employer] 08/08/2016 05816 Interrogation Dev Loop Recorder Incl Physician Completed Analysis,Rev,Repor 07/26/2016 97237 EKG Tracing & Interpretation Completed 07/08/2016 41717 Implantable Cardio System Loop Recorder Sys Completed [employer] 07/08/2016 44864 Interrogation Dev Loop Recorder Incl Physician Completed Analysis,Rev,Repor 06/07/2016 89607 Interrogation Dev Loop Recorder Incl Physician Completed Analysis,Rev,Repor 06/07/2016 72260 Implantable Cardio System Loop Recorder Sys Completed [employer] 05/07/2016 38335 Implantable Cardio System Loop Recorder Sys Completed [employer] 05/07/2016 37765 Interrogation Dev Loop Recorder Incl Physician Completed Analysis,Rev,Repor 04/21/2016 82824 EKG Tracing & Interpretation Completed 04/06/2016 05515 Implantable Cardio System Loop Recorder Sys Completed [employer] 04/06/2016 09371 Interrogation Dev Loop Recorder Incl Physician Completed Analysis,Rev,Repor 03/06/2016 76209 Implantable Cardio System Loop Recorder Sys Completed [employer] 03/06/2016 19078 Interrogation Dev Loop Recorder Incl Physician Completed Analysis,Rev,Repor 02/16/2016 61493 Loop Recorder Device Eval W/Iterative Adj Completed Implant Loop Recorder 02/03/2016 90529 Implant Cardiac Loop Recorder Completed 02/02/2016 57002 EKG Tracing & Interpretation Completed 01/31/2016 12923 ECHO Transthorasic Realtime 2D W Doppler & Completed [facility] 10/27/2015 50978 Needle Electromyography Complete, Five Or More Completed Muscles Studied 10/27/2015 54689 Nerve Conduction 07-08 Studies Completed 12/24/2014 38858 EKG Tracing & Interpretation Completed 12/24/2014 24731 EKG Tracing & Interpretation Completed 12/10/2014 43509 EKG Tracing & Interpretation Completed 11/27/2014 78808 EKG, Interpretation Only Completed 11/25/2014 04677 ECHO Transthorasic Realtime 2D W Doppler & Completed [facility] 11/25/2014 41940 EKG, Interpretation Only Completed 02/26/2010 21470 Color Flow Doppler/Interp & Reprt Completed 02/26/2010 46170 Pulse Wave/Continuous-Interp.RPT Completed 02/26/2010 27892 ECHO Transthorasic Realtime 2D W Doppler & Completed [facility] 2010 41519 ECHO Transthorasic Realtime 2D W Doppler & Completed [facility] 03/20/2008 Colonoscopy Completed Normal Encounters Type Date Location Provider CPT E/M Dx Office Visit 04/06/2017 2:40p [facility] Apryl Moreira M.D. 46184 I48.0 [facility] Z95.818 I95.1 Office Visit 02/13/2017 3:00p [facility] Shilo Reed 38718 L03.211 Infectious Diseases Channing Cottrell M27.2 Office Visit 12/23/2016 10:30a [facility] Shilo Cottrell, 31943 M27.2 Infectious Diseases Channing Z79.2 Office Visit 11/22/2016 2:40p [facility] Shilo Cottrell, 10022 M27.2 Infectious Diseases Channing Z79.2 Office Visit 08/26/2016 9:00a [facility] Internal Medicine Jordan Iyer, 95270 R30.0 - [place] Snell,FACP R07.89 I48.0 Office Visit 08/23/2016 2:30p [facility] NALINI Hernandez 40014ONX I48.0 Z95.818 Office Visit 07/26/2016 11:15a [facility] Apryl Moreira M.D. 18544 I48.0 [facility] Z95.818 I95.1 R07.89 Office Visit 07/08/2016 10:30a [facility] Wily Cottrell, 44038 M27.2 Infectious Diseases M.D. Z79.2 Office Visit 05/12/2016 11:20a [facility] Internal Kiet Sauceda M.D. 27147 I48.0 Medicine - [address] E03.9 K21.9 N48.89 Office Visit 05/09/2016 2:20p [facility] Wily Cottrell, 56932 M27.2 Infectious Diseases M.D. Office Visit 04/21/2016 2:30p [facility] Apryl Moreira M.D. 38195 I48.0 [facility] Office Visit 04/05/2016 10:20a [facility] Internal Medicine Kiet Sauceda, 01793 M27.2 - [address] M.D. Office Visit 04/01/2016 10:10a [facility] Wily Cottrell, 27524 M27.2 Infectious Diseases M.D. Office Visit 03/28/2016 1:40p [facility] Internal Medicine Kiet Sauceda, 20488 M27.2 - [address] M.D. Office Visit 02/09/2016 10:00a [facility] Internal Medicine Kiet Sauceda, 23342 I48.0 - [address] M.D. E03.9 K21.9 I62.00 Office Visit 02/02/2016 1:00p [facility] Apryl Moreira M.D. 27826 I48.0 [facility] I62.00 F52.21 Office Visit 01/18/2016 10:45a [facility] Guero Yu, 49961 I62.00 Of Training Consultant M.D. Office Visit 01/08/2016 2:40p [facility] Internal Medicine - Jordan Iyer, [address] M.D.,FACP I62.00 Z23 Office Visit 12/28/2015 11:00a [facility] Guero Yu, 10598 I62.00 Of [facility] M.D. I62.02 Office Visit 11/17/2015 10:40a [facility] Internal Kiet Sauceda, 42435 I62.00 Medicine - [address] M.Derek I48.0 E03.9 K21.9 Office Visit 11/09/2015 2:28p [facility] Guero Yu, 54259 I62.00 Of Kinga Snell R51 Office Visit 11/09/2015 10:06a [facility], Josh Sauceda M.D. 56748 I62.00 Hospitalists I48.2 E03.8 Z85.819 Office Visit 11/08/2015 10:05a [facility], Josh Sauceda M.D. 36064 I62.00 Hospitalists I48.2 E03.8 Z85.819 Office Visit 11/08/2015 1:39p [facility] Guero Yu, 00433 I62.00 Of [place]a Snell R51 Z79.01 Office Visit 11/07/2015 7:00a [facility] Guero Yu, 19070 I62.00 Of Kinga Snell R51 I48.91 Z79.01 Z85.830 Office Visit 11/06/2015 10:04[facility] [place] [address] I62.00 Assoc, Hospitalists MAlfa I48.2 E03.8 Z85.819 Office Visit 11/06/2015 4:20p [facility] Internal Medicine Kiet Sauceda, 05199 R51 - [address] M.DJulian Office Visit 10/20/2015 1:30p [facility] Apryl Moreira M.D. 22654 I48.0 [facility] I95.1 H54.2 E03.9 Office Visit 10/13/2015 10:00a [facility] Internal Kiet Sauceda, 42733 Z79.01 Medicine - [address] M.DJulian I48.0 M54.12 Office Visit 07/23/2015 11:20a [facility] Internal Kiet Sauceda, 10649 Z79.01 Medicine - [address] M.DJulian I48.0 M79.672 E03.9 K21.9 Office Visit 04/07/2015 2:20p [facility] Internal Medicine Joseph Rosen M.D. 51883 I48.0 - [address] Z79.01 E03.8 C10.9 Z93.1 E03.9 Z85.819 Office Visit 03/23/2015 1:40p [facility] Wily Cottrell, 91825 M86.28 Infectious Diseases M.D. K02.9 M27.2 Office Visit 02/09/2015 1:40p [facility] Internal Medicine Joseph Rosen M.D. 77816 I48.0 - [address] Z79.01 E03.8 M86.28 C10.9 Z93.1 F17.218 E03.9 Z85.830 M27.2 Office Visit 01/19/2015 1:40p [facility] Wily Cottrell, 27717 M86.28 Infectious Diseases M.D. M27.2 Office Visit 01/09/2015 2:20p [facility] Internal Medicine Joseph Rsoen M.D. 63664 I48.0 - [address] Z79.01 E03.9 M86.28 R19.7 C10.9 Z93.1 F17.218 M27.2 Z85.819 Office Visit 12/24/2014 2:30p [facility] NALINI Hernandez 87677TIN I48.0 E03.9 Z79.01 Office Visit 12/19/2014 11:00a [facility] Internal Medicine Joseph Rosen M.D. 98465 I48.0 - [address] Z79.01 E03.9 M86.28 R19.7 C10.9 C41.1 Z93.1 M27.2 Z85.830 Z85.819 Office Visit 12/17/2014 2:20p [facility] Wily Cottrell, 24635 M86.28 Infectious Diseases M.D. M27.2 Office Visit 12/10/2014 3:00p [facility] Apryl Moreira M.D. 70879 I48.0 [facility] C41.1 Z72.0 R94.31 Office Visit 11/28/2014 2:07p [facility]oc, Krystyna Adams, 35054 V44.1 Hospitalists MAlfa 244.9 427.31 526.4 Office Visit 11/27/2014 1:26p [facility] Apryl Moreira M.D. 96277 427.31 [facility] Office Visit 11/27/2014 2:06p [facility] Krystyna Hohn, 56627 V44.1 Assoc,pc Hospitalists MAlfa 244.9 526.4 427.31 Office Visit 11/26/2014 11:20a [facility] Wily Cottrell, 43940 526.4 Infectious Diseases M.Derek 239.0 Office Visit 11/26/2014 2:06p [facility], Krystyna Adams, 94335 V44.1 Hospitalists MAlfa 244.9 526.4 427.31 Office Visit 11/25/2014 2:04p [facility], Krystyna Adams, 40137 V44.1 Hospitalists MAlfa 244.9 427.31 526.4 Office Visit 11/24/2014 2:03p [facility] Tatiana Torres, 50881 V44.1 Assoc,pc N.P. Hospitalists 244.9 427.31 526.4 Plan of Care Future Appointment(s):05/16/2017 11:40 am - Kiet Sauceda M.D. at [facility] Internal Medicine - [address]06/26/2017 1:40 pm - Wily Cottrell M.D. at [facility] Infectious Irofigyc74/18/2018 - Apryl Moreira M.D.I48.0 Paroxysmal atrial fibrillationFollow up:6 months [employer] or Lillie w/ ECGRecommendations:Continue Multaq 400mg BIDZ95.818 Presence of other cardiac implants and graftsRecommendations:Continue monthly downloads.I95.1 Orthostatic hypotensionRecommendations:Take position changes slowly especially from crouching on the floor to standing. Notify us if symptoms worsen.
[2017-05-12 13:37] VITALS: BP 97/45
--- NOTE | 2017-05-12 14:12 | UC ---
Knee Pain HPI - HPI Summary HPI Summary: Pt presents with left knee redness and swelling for the last week. He is currently on an amoxicillin for cellulitis of his left cheek. He tells me that he thinks he hit his knee on something and sustained a puncture wound to the area 7 days ago. Denies fever, chills, or decreased ROM. - History of Current Complaint Chief Complaint: UCSkin Stated Complaint: FB IN KNEE Time Seen by Provider: 05/12/17 14:12 Hx Obtained From: Patient Onset/Duration: Gradual Onset Severity Initially: Mild Severity Currently: Mild Pain Intensity: 3 Pain Scale Used: 0-10 Numeric Character: Aching, Stiffness Aggravating Factor(s): Movement, Weight Bearing Alleviating Factor(s): Rest - Allergies/Home Medications Allergies/Adverse Reactions: Allergies Allergy/AdvReac Type Severity Reaction Status Date / Time sulfamethoxazole Allergy Rash Verified 05/12/17 13:26 [From Bactrim] trimethoprim [From Bactrim] Allergy Rash Verified 05/12/17 13:26 Home Medications: Home Medications Amoxicillin PO (*) [Amoxicillin 500 MG CAP*] 500 mg PEG TUBE Q12H 05/12/17 [ History Confirmed 05/12/17] Dronedarone TAB* [Multaq TAB*] 400 mg PO BID 05/12/17 [History Confirmed ] PMH/Surg Hx/FS Hx/Imm Hx Endocrine History: Hypothyroidism - Surgical History Surgical History: Yes Surgery Procedure, Year, and Place: mandible, [employer] - Family History Known Family History: Positive: Unknown - Social History Lives: Alone Alcohol Use: None Substance Use Type: None Smoking Status (MU): Former Smoker - Immunization History Most Recent Influenza Vaccination: none Most Recent Tetanus Shot: <5yrs Most Recent Pneumonia Vaccination: none Review of Systems Constitutional: Negative Skin: Other - Redness and swelling above left knee Respiratory: Negative Cardiovascular: Negative Neurological: Negative Psychological: Negative All Other Systems Reviewed And Are Negative: Yes Physical Exam Triage Information Reviewed: Yes Appearance: Well-Appearing, No Pain Distress, Well-Nourished Vital Signs: Initial Vital Signs Temp 98.5 F 05/12/17 13:24 Pulse 64 05/12/17 13:24 Resp 18 05/12/17 13:24 BP 97/45 05/12/17 13:24 Pulse Ox 98 05/12/17 13:24 Vital Signs Reviewed: Yes Neck: Positive: Supple, Nontender, No Lymphadenopathy Respiratory: Positive: Lungs clear, Normal breath sounds, No respiratory distress, No accessory muscle use Cardiovascular: Positive: RRR, No Murmur, Pulses Normal Musculoskeletal: Positive: Strength Intact - Left knee, ROM Intact - Left knee, No Edema - Left knee Neurological: Positive: Alert, Other: - Sensations intact left LE Psychological: Positive: Age Appropriate Behavior Skin: Positive: Other - Area of moderate erythema and scant discharge just superior to the left patella. Mild warmth to touch and edema. No induration, fluctuance, streaking, or ecchymosis. Knee Pain Course/Dx - Course Course Of Treatment: XR: IMPRESSION: SUSPECT CELLULITIC RESPONSE ANTERIOR DISTAL THIGH. NO FOREIGN BODY. Suspect abscess vs. cellulitis vs septic bursitis. He currently sees Dr. Cottrell for repetitive infections. I will cover him with Clindamycin and have him f/u with Dr. Cottrell. I spoke with Dr. Rogers of Orthopedics regarding this plan and she was in agreement - she we will him in follow up on Monday. - Differential Dx/Diagnosis Provider Diagnoses: Left knee cellulitis Discharge - Discharge Plan Condition: Stable Disposition: HOME Prescriptions: Clindamycin Oral SOLUTION* [Clindamycin 75 MG/5 ML SOLUTION*] 20 ml PO TID #420 ml Patient Education Materials: Cellulitis (DC) Referrals: Kiet Sauceda MD [Primary Care Provider] - Paulette Roche MD [Medical Doctor] - 05/15/17 Additional Instructions: If you develop a fever, shortness of breath, chest pain, new or worsening symptoms - please call your PCP or go to the ED. 1) Please follow up with Orthopedics on Monday05/15/17 at 8:30am with Dr. Roche.
--- NOTE | 2017-05-12 14:41 | RAD ---
INDICATION: Left knee pain. Cellulitis anterior lower thigh COMPARISON: None TECHNIQUE: AP, lateral, tunnel, and sunrise views were obtained. FINDINGS: There is no acute bony change. 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 There is benign sclerotic change involving the tibial metaphysis. The knee articulates normally. There is no joint effusion. There is simultaneous edema in the anterior distal thigh with skin thickening. There is no radiopaque foreign body. IMPRESSION: SUSPECT CELLULITIC RESPONSE ANTERIOR DISTAL THIGH. NO FOREIGN BODY
--- NOTE | 2017-05-14 21:33 | UC ---
- Progress Note Progress Note: Pt wound culture with positive MRSA and Staph. MRSA is susceptible to Clindamycin, which he was placed on - in addition to his Amoxicillin. He also has a follow up upcoming with Dr. Cottrell. No change.
== END 2017-05-12 15:55 | disposition home or self-care (01) ==
LOC: UCEAST 13:14
DX: L03.116 Cellulitis of left lower limb (principal); B95.62 Methicillin resistant Staphylococcus aureus infection as the cause of diseases classified elsewhere; E03.9 Hypothyroidism, unspecified; Z88.1 Allergy status to other antibiotic agents; Z88.2 Allergy status to sulfonamides; Z87.891 Personal history of nicotine dependence
CPT/HCPCS: 87070; 87077; 87186; 87205; 87640; 87641; 99212; G0463

== ENCOUNTER 2017-05-15 09:48 | Inpatient (IN) | payer MEDICARE ==
[2017-05-15] MEDS ORDERED: Morphine INJ* 4 MG/ML 1 ML CARPUJECT IV PRN (11:26)
[2017-05-15] MEDS ORDERED: Magnesium Hydroxide LIQ* 30 ML UDC PO PRN (11:26)
[2017-05-15] MEDS ORDERED: Morphine INJ* 2 MG/ML 1 ML CARPUJECT IV PRN (11:26)
[2017-05-15] MEDS ORDERED: oxyCODONE TAB* 5 MG TAB PO PRN (11:26)
[2017-05-15] MEDS ORDERED: Docusate CAP* 100 MG PO PRN (11:26)
[2017-05-15] MEDS ORDERED: oxyCODONE/Acetamin 5/325 MG* TAB PO PRN ×2 (11:26)
[2017-05-15] MEDS ORDERED: diPHENhydraMINE IV* 50 MG/ML 1 ml VIAL (BENADRYL) IV PRN (11:26)
[2017-05-15] MEDS ORDERED: Acetaminophen TAB* 325 MG PO PRN (11:26)
[2017-05-15] MEDS ORDERED: Vancomycin per Pharmacy* NOTE FOLLOW UP SCH (12:00)
[2017-05-15] MEDS ORDERED: Vancomycin(*) 1,250 MG IV x ONCE IVPB ONE ×2 (12:30)
[2017-05-15] MEDS ORDERED: NS 0.9% 1000 ML* 1,000 ML IV SCH (12:45)
--- NOTE | 2017-05-15 13:15 | RAD ---
INDICATION: Atrial fibrillation COMPARISON: August 26, 2016 TECHNIQUE: An AP portable view obtained at 1257 hours is submitted. FINDINGS: Bones/Soft Tissues: There are no acute bony findings. Cardiomediastinal: The cardiomediastinal silhouette is normal. Lungs: There are no infiltrates. There is hyperinflation Pleura: There are no pleural effusions. Other: None IMPRESSION: HYPERINFLATION. NO ACTIVE DISEASE
[2017-05-15] MEDS ORDERED: Buffered Lidocaine 0.9% SYRIN* 5 ML/SYR SYRINGE INTRADERM ONE (14:34)
[2017-05-15 16:12] LABS: ABS Basophils 0.1 10^3/ul (0-0.2); ABS Eosinophils 0.4 10^3/ul (0-0.6); ABS Monocytes 0.5 10^3/ul (0-0.8); ABS Neutrophils 3.8 10^3/ul (1.5-7.7); ABS Nucleated RBC 0 10^3/ul; Eosinophil % 6.1 % (0-6); Hematocrit 46 % (42-52); Hemoglobin 15.8 g/dl (14.0-18.0); Lymphocyte % 17.8 % (25-47); Mean Corpuscular HGB Conc 35 g/dl (31-36); Mean Corpuscular Hemoglobin 35 pg (27-31); Mean Corpuscular Volume 101 fL (80-94); Mean Platelet Volume 9 um3 (7.4-10.4); Nucleated Red Blood Cells % 0.1; Platelet Count 176 10^3/ul (150-450); Red Cell Distribution Width 13 % (10.5-15); White Blood Count 5.7 10^3/ul (3.5-10.8)
[2017-05-15 16:26] LABS: EGFR Non-African American 97.2 (>60)
--- NOTE | 2017-05-15 16:32 | HP ---
HISTORY AND PHYSICAL: DATE OF ADMISSION/SURGERY: 05/15/17. DATE OF OFFICE VISIT: 05/15/17. SURGEON: Paulette Roche MD.* (DICTATED BY NALINI MOBLEY) PROCEDURE: Left knee bursa I and D. CHIEF COMPLAINT: Left knee pain. HISTORY OF PRESENT ILLNESS: Mr. Haney is a 67-year-old gentleman with a one- week history of left knee pain, swelling and redness. He was seen at [facility] on Monday and was given a prescription for clindamycin and has some wound cultures and blood work drawn. He is coming in today for a followup. 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 He is a patient of Dr. Cotterll. He is on chronic amoxicillin for suppression therapy. He reports no injury to the left knee. Approximately we week ago, he started having increased left superior anterior knee pain, developed redness, swelling, and then the area started draining thick serosanguineous drainage. He denies any recent fever, shakes or chills. PAST MEDICAL HISTORY: AFib, heart disease, hypothyroidism, mandible cancer. PAST SURGICAL HISTORY: Surgery on his mandible. Feeding tube placement. CURRENT MEDICATIONS: 1. Clindamycin 75 mg 3 times a day. 2. Amoxicillin 500 mg via PEG twice a day. 3. Levothyroxine 137 micrograms daily. 4. Jevity 1 ellie, 9 cans per day via feeding tube. 5. Tylenol 325 every 8 hours as needed. 6. Ranitidine 150 mg twice a day. 7. Jevity 1.5 ellie for fiber. 8. Multaq 400 mg twice a day. ALLERGIES: BACTRIM. FAMILY HISTORY: Diabetes, high blood pressure, heart disease, stroke and cancer. SOCIAL HISTORY: He is a 67-year-old gentleman. 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 He quit approximately 2-1/2 years ago. He denies the use of illicit drugs. REVIEW OF SYSTEMS: A complete 14-point review of systems was reviewed with the patient. It was all negative and noncontributory. PHYSICAL EXAMINATION GENERAL: Well-developed, well-nourished in no acute distress. VITAL SIGNS: He stands 6 feet 3 inches tall, weighs 183 pounds. His blood pressure was 118/70, his heart rate 60, his temperature was 97.5. HEENT: Normocephalic, atraumatic. His mandible has been removed. No palpable lymph nodes. NECK: Supple. PULMONARY: The lungs are clear to auscultation bilaterally. CARDIO: Regular rate and rhythm. ABDOMEN: Soft, nontender, nondistended. MUSCULOSKELETAL: Left lower extremity, there is an area of anterosuperior aspect of the left knee, significantly red with swelling and there is active thick purulent drainage. He has full range of motion of the left knee. There is 2+ dorsalis pedis pulses. He has intact sensation in his lower extremities. Muscle strength is intact at 5/5. LAB DATA: Wound cultures taken on 05/12 positive for staph aureus and MRSA. ASSESSMENT AND PLAN: Mr. Haney is a 67-year-old gentleman with a one- week history of left anterior knee pain, swelling and redness with active purulent drainage. He was seen at [facility] on Monday, had wound cultures taken which were positive for methicillin-resistant Staphylococcus aureus. He is currently on prescription for clindamycin. He also has a chronic jaw infection which Dr. Cottrell is treating with chronic suppression therapy with amoxicillin. He is afebrile at today's visit; however, we are sending him into the hospital for a direct admit and Dr. Roche plans on doing an I and D of the left knee bursa tomorrow afternoon. We are going to start him on vancomycin 1 g every 12 hours and we are requesting a Hospitalist consult for medical clearance. He will be n.p.o. after midnight for his planned procedure tomorrow. NALINI MOBLEY [id number]/[facility] #: [id number] PARVIZ
--- NOTE | 2017-05-15 18:52 | CONS ---
CC: Dr. Sauceda; Dr. Roche; Dr. Cottrell * CONSULTATION REPORT: DATE OF CONSULTATION: 05/15/17 PRIMARY CARE PROVIDER: Dr. Sauceda. ATTENDING PHYSICIAN WHILE IN THE HOSPITAL: Reinier Solo MD (report dictated by Rafal Zimmerman NP). REQUESTING PHYSICIAN FOR CONSULT: Dr. Roche. CONSULTING ID SPECIALIST: Dr. Cottrell. REASON FOR MEDICAL CONSULTATION: Evaluation of comorbid medical problems and perioperative risk stratification. HISTORY OF PRESENT ILLNESS: I will refer you to Dr. Roche's H and P for further details. In short, Mr. Byrne is a 67-year-old male patient. He has a history of AFib. He has had a history of subdural hematoma in the setting of warfarin use for the AFib, which he is no longer taking. He has a history of jaw and throat cancer status post radical neck dissection and mandibulectomy. He has a G-tube now in place. He has a history of hypothyroidism and GERD. He comes into the hospital today after being referred here by Dr. Roche. The patient noted that last week sometime, he had an episode where his left knee was itching, so he scratched it. He noticed on Monday that he was having some redness and swelling and it looked like he had a boil formation there. He went to urgent care. He was evaluated there. He had a culture obtained. He was started on clindamycin and he was referred to Dr. Roche for further evaluation. He states that he has not had any chills or any fevers noted. He states that most of the pain is really when he goes to stand on the knee. He states the swelling was not getting any better. The erythema was not going beyond the dov, but there was concern because of the location of this abscess and cellulitis. Given the proximity of the knee, he was seen by Dr. Roche today who felt that he would require IV antibiotics and I and D, so he was sent to the hospital today. Because of his medical complexity , we were asked to evaluate for consult. PAST MEDICAL HISTORY: Significant for: 1. AFib. 2. Subdural hematoma. 3. Throat and jaw cancer. 4. Hypothyroidism. 5. GERD. 6. Chronic osteomyelitis of the left jaw when he is on chronic suppression therapy and he follows up with Dr. Cottrell for this. PAST SURGICAL HISTORY: He has had a radical neck dissection and a mandibulectomy. He has had a G-tube placement and he has had a loop recorder placement. MEDICATIONS: The home meds according to the list that he provided us include: 1. Clindamycin 20 cc p.o. t.i.d. 2. Amoxicillin 500 mg twice a day. 3. Tylenol 650 mg every 6 hours as needed. 4. Jevity 1 can via G-tube as directed. 5. Synthroid 137 mcg daily. 6. Multaq 400 mg twice a day. 7. Zantac 150 G-tube b.i.d. ALLERGIES TO MEDICATIONS: Include BACTRIM. FAMILY HISTORY: His mother has a history of AFib. Father had a history of colon cancer. SOCIAL HISTORY: He does not smoke. He does not drink alcohol. Surrogate decision maker is his brother. REVIEW OF SYSTEMS: There is no documented fever. He denied having any significant weight change. No double vision. No ear discharge. He denies having any rhinorrhea. No sore throat. No thyroid enlargement. He denies having any chest pain. There was no orthopnea. He denies having any nocturnal dyspnea. There was no again abdominal pain. No nausea. No vomiting. No dysuria. No frequency. There was no seizure. No loss of consciousness. No pruritus and no skin ulcerations. Review of 14 systems completed. All others negative. PHYSICAL EXAMINATION: Vital Signs: Blood pressure of 127/65 with a pulse of 65 , respirations were 18, his O2 sat 99%, temperature 98.4. Generally, at this time, Mr. Byrne is a 67-year-old male patient. He is cachectic appearing. He is chronically ill appearing. He does not appear to be in any acute distress. HEENT: Head atraumatic, normocephalic. Eyes, EOMs are intact. Sclerae anicteric and not pale. Neck: Supple. Throat: Oral mucosa appears to be dry. No oropharyngeal erythema. Heart: Sounds S1, S2. Regular rate and rhythm. No murmurs, rubs, or gallops. Lungs: Clear to auscultation bilaterally. No wheezes, rales, or rhonchi. Abdomen: Soft, flat, nontender. Bowel sounds were present. He does have a G-tube in place. Extremities: Pulses were 2+ throughout. He is moving all 4 extremities with 5/5 strength. He does have pain in the left knee when he bears weight to it, but he does have full range of motion to the knee. There is no tenderness or pain with moving of the joint. Neurologically, he is awake, he is alert, he is oriented x3. He had no gross focal deficits. His skin is intact with exception to the left knee, he has an area of induration and swelling noted to the top of the knee. There is some discharge noted that appears to be purulent , otherwise skin is intact. LABORATORY DATA/DIAGNOSTIC STUDIES: Labs are pending from today. Last labs I have are from a year ago and at that point, his white count was 9.7, RBC 4.16, hemoglobin 13.9, hematocrit 41, his platelets were 264. His sodium again was over a year ago as well 136, potassium 4.1, chloride 102, his bicarb was 29, BUN 21, creatinine 0.87. His old medical records were reviewed. He did have a knee x-ray on 05/12/17 and suspect cellulitic response in anterior to distal thigh. No foreign body. ASSESSMENT AND PLAN: Mr. Byrne is a 67-year-old male patient coming into the hospital today with complaints of again swelling, worsening, redness of his knee over the last week and again now found to have on cultures based off of urgent care visit on Monday found to have MRSA. He was evaluated by Dr. Roche who felt that he will require I and D. We were asked to evaluate in consult and recommendations at this point are: 1. Left knee cellulitis what appears to be also an abscess formation. We will defer management to Dr. oRche. Also, I am getting involved with Dr. Cottrell. I would recommend vancomycin. He has a history of chronic osteomyelitis, so at this point we will hold his amoxicillin. He is going to be on vanco and we will get further recommendations from Dr. Cottrell and we will continue to follow. 2. Atrial fibrillation. Continue the Multaq. 3. History of subdural hematoma. Not an active issue currently. 4. History of mandibular and throat cancer. At this point, continue following his primary. 5. Gastroesophageal reflux disease. Continue his Zantac. 6. Hypothyroidism. Continue his Synthroid. 7. DVT prophylaxis. I will defer to the primary team. I would at this point just recommend SCDs. Given the history of subdural hematoma, it would be prudent to avoid blood thinners. 8. Code status. Full code. 9. Fluids, electrolytes, and nutrition. I will continue his Jevity for the time being. He will be n.p.o. after midnight with normal saline at 100 when he is n.p.o. I am also getting a nutrition consult as his calorie requirement may increase with the active infection. TIME SPENT: Time spent on consult 60 minutes, greater than half that time was spent [id number] with the patient obtaining my history and physical, the other half time was spent going over the plan of care with the patient, implementing the plan of care. I did discuss the plan of care with my attending, Dr. Solo, he is in agreement. RAFAL ZIMMERMAN, SURAJ [id number]/[facility] #: [id number] PARVIZ
[2017-05-15] MEDS: Dronedarone TAB* 400 MG PO SCH (21:51)
[2017-05-15] MEDS: Lansoprazole susp Kit 3 MG/ML (30 MG = 10 ML) G TUBE SCH (21:55)
[2017-05-15] MEDS: Magnesium Hydroxide LIQ* 30 ML UDC PO SCH (22:05)
[2017-05-15] MEDS: Vancomycin(*) 1,000 MG in NS 0.9% 250 ML* 250 ML IVPB SCH (22:07)
[2017-05-16 05:25] LABS: ABS Basophils 0 10^3/ul (0-0.2); ABS Eosinophils 0.5 10^3/ul (0-0.6); ABS Lymphocytes 1.2 10^3/ul (1.0-4.8); ABS Monocytes 0.6 10^3/ul (0-0.8); ABS Neutrophils 3.2 10^3/ul (1.5-7.7); ABS Nucleated RBC 0 10^3/ul; Eosinophil % 9.2 % (0-6); Hematocrit 41 % (42-52); Hemoglobin 14.3 g/dl (14.0-18.0); Lymphocyte % 22.1 % (25-47); Mean Corpuscular HGB Conc 35 g/dl (31-36); Mean Corpuscular Hemoglobin 35 pg (27-31); Mean Corpuscular Volume 101 fL (80-94); Mean Platelet Volume 9 um3 (7.4-10.4); Nucleated Red Blood Cells % 0.1; Platelet Count 164 10^3/ul (150-450); Red Blood Count 4.03 10^6/ul (4.0-5.4); Red Cell Distribution Width 12 % (10.5-15); White Blood Count 5.6 10^3/ul (3.5-10.8)
[2017-05-16 05:40] LABS: EGFR Non-African American 106.5 (>60)
[2017-05-16] MEDS: Vancomycin(*) 1,000 MG in NS 0.9% 250 ML* 250 ML IVPB SCH ×3 (05:57→22:49)
[2017-05-16] MEDS ORDERED: Famotidine IV* 10 MG/ML 2 ML (20 mg) IV ONE (06:00)
--- NOTE | 2017-05-16 07:26 | PN ---
Progress Note - Progress Note Date of Service: 05/16/17 SOAP: Subjective: Pt. reports moderate pain left knee. Objective: LLE - open wound with purulent drainage on L anterior knee. Minimal effusion at knee, 10-130 ROM at knee with minimal pain. distally nvi. Erythema improving. Vital Signs: Temp Pulse Resp BP Pulse Ox 98.7 F 59 18 118/50 97 05/16/17 04:44 05/16/17 04:44 05/16/17 04:44 05/16/17 04:44 05/16/17 04:44 Laboratory Results - last 24 hr 05/15/17 05/15/17 05/16/17 16:02 16:02 05:10 WBC 5.7 5.6 RBC 4.50 4.03 Hgb 15.8 14.3 Hct 46 41 L MCV 101 H 101 H MCH 35 H 35 H MCHC 35 35 RDW 13 12 Plt Count 176 164 MPV 9 9 Neut % (Auto) 65.9 57.7 Lymph % (Auto) 17.8 L 22.1 L [place] % (Auto) 8.9 H 10.4 H Eos % (Auto) 6.1 H 9.2 H Baso % (Auto) 1.3 0.6 Absolute Neuts (auto) 3.8 3.2 Absolute Lymphs (auto) 1.0 1.2 Absolute Monos (auto) 0.5 0.6 Absolute Eos (auto) 0.4 0.5 Absolute Basos (auto) 0.1 0 Absolute Nucleated RBC 0 0 Nucleated RBC % 0.1 0.1 ESR 30 Sodium 135 Potassium 3.9 Chloride 100 L Carbon Dioxide 33 H Anion Gap 2 BUN 18 Creatinine 0.79 Est GFR ( Amer) 125.1 Est GFR (Non-Af Amer) 97.2 BUN/Creatinine Ratio 22.8 H Glucose 60 L Calcium 9.6 Total Bilirubin 0.80 AST 28 ALT 17 Alkaline Phosphatase 75 C-Reactive Protein 10.73 H Total Protein 7.4 Albumin 3.7 Globulin 3.7 Albumin/Globulin Ratio 1.0 05/16/17 05:10 WBC RBC Hgb Hct MCV MCH MCHC RDW Plt Count MPV Neut % (Auto) Lymph % (Auto) [place] % (Auto) Eos % (Auto) Baso % (Auto) Absolute Neuts (auto) Absolute Lymphs (auto) Absolute Monos (auto) Absolute Eos (auto) Absolute Basos (auto) Absolute Nucleated RBC Nucleated RBC % ESR Sodium 137 Potassium 4.2 Chloride 106 Carbon Dioxide 30 Anion Gap 1 L BUN 17 Creatinine 0.73 Est GFR ( Amer) 137.0 Est GFR (Non-Af Amer) 106.5 BUN/Creatinine Ratio 23.3 H Glucose 64 L Calcium 8.9 Total Bilirubin AST ALT Alkaline Phosphatase C-Reactive Protein Total Protein Albumin Globulin Albumin/Globulin Ratio Assessment: 67 yo M with L knee infected prepatellar bursa - wound cultures + MRSA Plan: NPO Plan formal I and D L knee today in OR IV Vanco ID consult
[2017-05-16] MEDS: Magnesium Hydroxide LIQ* 30 ML UDC PO SCH ×2 (08:06→22:40)
[2017-05-16] MEDS: Lansoprazole susp Kit 3 MG/ML (30 MG = 10 ML) G TUBE SCH ×2 (08:10→22:30)
[2017-05-16] MEDS: Dronedarone TAB* 400 MG PO SCH ×2 (08:10→22:25)
[2017-05-16] MEDS: Levothyroxine TAB* 137 MCG TAB G TUBE SCH (08:10)
--- NOTE | 2017-05-16 12:34 | HP ---
ADMISSION HISTORY AND PHYSICAL: DATE OF ADMISSION: 05/15/17 I have assessed Mr. Byrne. I have read NALINI Herring's full H and P and I agree with all the recommendations. CHIEF COMPLAINT: Left knee pain and drainage. HISTORY OF PRESENT ILLNESS: Mr. Byrne is a 67-year-old gentleman with 1- week history of left knee pain, swelling and redness. He had no obvious trauma to the knee. He developed swelling, erythema, and warmth. He went to [facility] care on 05/12/17, had some wound cultures, blood work and was given clindamycin for prepatellar bursitis. He came to my office as an outpatient early in the morning on 05/15/17. He was found to have purulent drainage with infected prepatellar bursitis. I did decide to send him for a direct admission to [facility]. We discussed an open irrigation and debridement of the infected prepatellar bursa and he agreed to move forward. The patient has significant past medical history for jaw cancer, throat cancer with traumatic excision and he does have some communication difficulty. He has a feeding tube. PAST MEDICAL HISTORY: 1. Atrial fibrillation. 2. Heart disease. 3. Hypothyroidism. 4. Mandibular cancer. PAST SURGICAL HISTORY: 1. Mandibular excision. 2. Throat cancer surgery. 3. Feeding tube placement. HOME MEDICATIONS: 1. Clindamycin 75 mg p.o. t.i.d. 2. Amoxicillin 500 mg via PEG twice a day. 3. Levothyroxine 137 mcg p.o. daily. 4. Jevity 9 cans per day via feeding tube. 5. Tylenol 325 q.8 hours p.r.n. 6. Ranitidine 150 mg p.o. b.i.d. 7. Jevity 1.5 ellie for fiber. 8. Multaq 400 mg b.i.d. ALLERGIES: BACTRIM. FAMILY HISTORY: Diabetes, hypertension, heart disease, stroke, cancer. SOCIAL HISTORY: The patient is a 67-year-old gentleman. 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 Denies the use of recreational drugs and alcohol. REVIEW OF SYSTEMS: Fourteen systems reviewed with the patient, positive for the left knee pain, swelling, erythema, and drainage. Positive for the chronic mandibular infection, which he takes amoxicillin and sees Dr. Cottrell for. Negative for fevers, chills, chest pain, shortness of breath. Otherwise, the patient reports review of systems is negative or not relevant. PHYSICAL EXAMINATION GENERAL: The patient is a well-nourished male, in no apparent distress. Alert and oriented x3, pleasant mood and appropriate affect. VITAL SIGNS: Temperature 98.7, heart rate 59, blood pressure 118/50. HEENT: The patient has no obvious trauma around the face. He has the chronic abnormal mandibular region where he had his mandible removed. LUNGS: Clear to auscultation bilaterally in all lung love. No wheezes, rales , or rhonchi. HEART: S1, S2. ABDOMEN: He has a feeding tube. Soft, nontender, nondistended. EXTREMITIES: Left lower extremity: The patient's skin has an open wound along the prepatellar bursa. There is some surrounding cellulitis and warmth. There is a thick purulent drainage from an open wound here. He has 5 to 130 degrees of flexion at the knee with minimal effusion and minimal pain. No varus or valgus instability. Distally, he is neurovascularly intact. GAIT: The patient's gait is antalgic, favoring the left lower extremity. He ambulates independently. Balance normal. Coordination normal. LABORATORY DATA: Wound cultures from 05/12/17 are positive for MRSA. labs show white blood cell 5.6, hematocrit 41, platelets 164. Sodium 137, potassium 4.2, chloride 106. BUN and creatinine 17 and 0.73. CRP 10.73. ESR 30. ASSESSMENT AND PLAN: Mr. Byrne is a 67-year-old gentleman with 1 week of increasingly severe infection of the left prepatellar bursa. At this time, I do not feel that he has a septic knee. His cultures were positive for methicillin- resistant Staphylococcus aureus. He has purulent drainage from an open wound. I discussed with the patient that my best recommendation would be to formally wash this out in the operating room. He was direct admitted yesterday on to [facility]. Hospitalist group has graciously consulted and will help us to manage his feeding tube especially. We plan to consult Dr. Wily Cottrell of Infectious Disease for future recommendations. He will be n.p.o. now and we will plan an open I and D of the left infected prepatellar bursitis today. [id number]/[facility] #: [id number] [facility]ERS[facility]phen
[2017-05-16] MEDS ORDERED: Midazolam* 1 MG/ML 5 ML VIAL (5 MG) ONE (14:15)
[2017-05-16] MEDS ORDERED: fentaNYL* 50 MCG/ML 2 ML VIAL (100 MCG VIAL) ONE (14:15)
[2017-05-16] MEDS ORDERED: KETAMINE HCL* 50 MG/ML 10 ML VIAL ONE (14:15)
[2017-05-16] MEDS ORDERED: Bupivacaine 0.5% SDV PF* 10-30ML VIAL ONE ×2 (15:20→16:16)
[2017-05-16] MEDS ORDERED: methylPREDNISolone ACETATE 80* 80 MG/ML 1 ML VIAL ONE (15:20)
[2017-05-16] MEDS ORDERED: Ondansetron INJ* 2 MG/ML VIAL ONE (16:25)
[2017-05-16] MEDS ORDERED: Propofol* 10 MG/ML 20 ML BTL IV PUSH ONE (16:25)
[2017-05-16] MEDS ORDERED: Ketorolac INJ* 30 MG/ML 1 ML VIAL ONE (16:25)
[2017-05-16] MEDS ORDERED: oxyCODONE TAB* 5 MG TAB PO PRN (17:07)
[2017-05-16] MEDS ORDERED: Naloxone* 0.4 MG/ML 1 ML VIAL IV PRN (17:07)
[2017-05-16] MEDS ORDERED: Acetaminophen TAB* 325 MG PO PRN (17:07)
--- NOTE | 2017-05-16 23:35 | PN ---
Subjective Date of Service: 05/16/17 Interval History: Mr. Byrne reports that he is tired but denies other complaint. He reports his knee pain is well controlled. He denies chest pain, SOB, nausea, or abdominal pain. Objective Active Medications: Acetaminophen (Tylenol Tab*) 650 mg PO Q4H PRN Aspirin (Aspirin Tab*) 325 mg PO DAILY HERMAN Diphenhydramine HCl (Benadryl Iv*) 12.5 mg IV Q6H PRN Docusate Sodium (Colace Cap*) 100 mg PO BID PRN Dronedarone (Multaq Tab*) 400 mg PO BID HERMAN Vancomycin HCl 1,000 mg/ (Sodium Chloride) 250 mls @ 166.667 mls/hr IVPB Q8HR HERMAN Lactated Ringer's (Lactated Ringers 1000 Ml Bag*) 1,000 mls @ 100 mls/hr IV PER RATE HERMAN Lansoprazole (Lansoprazole Susp Kit) 30 mg G TUBE BID HERMAN Levothyroxine Sodium (Synthroid Tab*) 137 mcg G TUBE DAILY HERMAN Magnesium Hydroxide (Milk Of Magnesia Liq*) 30 ml PO BID HERMAN Magnesium Hydroxide (Milk Of Magnesia Liq*) 30 ml PO Q6H PRN Morphine Sulfate (Morphine Inj (Syringe)*) 2 mg IV Q2H PRN Morphine Sulfate (Morphine Inj (Syringe)*) 4 mg IV Q2H PRN Oxycodone HCl (Roxycodone Tab*) 10 mg PO Q4H PRN Oxycodone/Acetaminophen (Percocet 5/325 Tab*) 2 tab PO Q4H PRN Oxycodone/Acetaminophen (Percocet 5/325 Tab*) 1 tab PO Q4H PRN Pharmacy Consult (Vancomycin Per Pharmacy*) 1 note FOLLOW UP .VANC PER PHARMACY [facility] Pharmacy Profile Note (Vancomycin Trough Check) 1 note FOLLOW UP ONCE ONE Vital Signs: Temp Pulse Resp BP Pulse Ox 97.4 F 51 15 149/71 99 05/16/17 17:40 05/16/17 17:40 05/16/17 17:40 05/16/17 17:40 05/16/17 17:40 Oxygen Devices in Use Now: None Appearance: Male sitting up in bed in NAD Eyes: No Scleral Icterus Ears/Nose/Mouth/Throat: Mucous Membranes Moist, - - stigmata of jaw and throat cancer Neck: Trachea Midline Respiratory: Symmetrical Chest Expansion and Respiratory Effort, Clear to Auscultation Cardiovascular: NL Sounds; No Murmurs; No JVD, No Edema Abdominal: NL Sounds; No Tenderness; No Distention Lymphatic: No Cervical Adenopathy Extremities: No Edema Skin: No Rash or Ulcers Neurological: Alert and Oriented x 3, NL Muscle Strength and Tone Nutrition: Taking PO's Result Diagrams: 05/16/17 05:10 05/16/17 05:10 Microbiology and Other Data: Microbiology 05/16/17 16:18 Skin and Soft Tissue MRSA/MSSA (PCR - Final Knee Left Mrsa Positive S.aureus Positive Gram Stain - Preliminary 05/15/17 16:02 Aerobic Blood Culture - Preliminary Blood Venous No Growth Day 1 Anaerobic Blood Culture - Preliminary No Growth Day 1 05/15/17 16:02 Aerobic Blood Culture - Preliminary Blood Venous No Growth Day 1 Anaerobic Blood Culture - Preliminary No Growth Day 1 Assess/Plan/Problems-Billing Assessment: Mr. Byrne is a 67 yo male with a PMH of jaw and throat cancer, afin, SDH who was admitted by ortho for infected prepatellar bursitis with MRSA. - Patient Problems (1) Other infective bursitis, left knee Comment: - No clear source of injury or trauma. - To OR for washout with Dr. Roche today. - Culture with MRSA. - Continue vancomycin. - ID consulted. (2) Afib Comment: - Remains in SR. - Continue multaq. (3) Hypothyroidism Comment: - Stable. - Continue synthroid. (4) DVT prophylaxis Comment: - SCDs (5) Full code status Status and Disposition: Inpatient with disposition per ortho.
[2017-05-17] MEDS ORDERED: Vancomycin Trough Check NOTE FOLLOW UP ONE (05:30)
[2017-05-17 05:51] LABS: Hematocrit 41 % (42-52); Hemoglobin 14.2 g/dl (14.0-18.0); Mean Platelet Volume 9 um3 (7.4-10.4); Platelet Count 144 10^3/ul (150-450)
[2017-05-17] MEDS: Vancomycin(*) 1,000 MG in NS 0.9% 250 ML* 250 ML IVPB SCH ×3 (06:20→22:01)
[2017-05-17] MEDS: Lansoprazole susp Kit 3 MG/ML (30 MG = 10 ML) G TUBE SCH ×2 (08:19→22:01)
[2017-05-17] MEDS: Levothyroxine TAB* 137 MCG TAB G TUBE SCH (08:20)
[2017-05-17] MEDS: Magnesium Hydroxide LIQ* 30 ML UDC PO SCH ×2 (08:20→19:23)
[2017-05-17] MEDS: Dronedarone TAB* 400 MG PO SCH ×2 (08:20→22:03)
--- NOTE | 2017-05-17 11:58 | PN ---
Progress Note - Progress Note Date of Service: 05/17/17 SOAP: Subjective: []Patient was seen at bedside. His left knee pain is well controlled. He has been up walking around without difficulty. He denies fever, chills, CP, SOB. He desires to discharge today. Objective: [] Vital Signs Temp 98.7 F 05/17/17 11:19 Pulse 66 05/17/17 11:19 Resp 16 05/17/17 11:19 BP 145/48 05/17/17 11:19 Pulse Ox 97 05/17/17 11:19 Intake & Output 05/16/17 05/17/17 05/17/17 18:59 06:59 18:59 Intake Total 1803 913 Output Total 097 593 5060 Balance 828 538 -1600 Weight 168 lb 14.4 oz 183 lb 4.8 oz Intake: IV Fluids 1538 913 LR 655 NS (0.9%) 1038 Vanco 258 lr 500 IVPB 265 Vanco 265 Oral 0 Output: Urine 360 345 6876 Laboratory Last Values WBC 5.6 10^3/ul (3.5-10.8) 05/16/17 05:10 RBC 4.03 10^6/ul (4.0-5.4) 05/16/17 05:10 Hgb 14.2 g/dl (14.0-18.0) 05/17/17 05:40 Hct 41 % (42-52) L 05/17/17 05:40 MCV 101 fL (80-94) H 05/16/17 05:10 MCH 35 pg (27-31) H 05/16/17 05:10 MCHC 35 g/dl (31-36) 05/16/17 05:10 RDW 12 % (10.5-15) 05/16/17 05:10 Plt Count 144 10^3/ul (150-450) L 05/17/17 05:40 MPV 9 um3 (7.4-10.4) 05/17/17 05:40 Neut % (Auto) 57.7 % (38-83) 05/16/17 05:10 Lymph % (Auto) 22.1 % (25-47) L 05/16/17 05:10 Harrison % (Auto) 10.4 % (0-7) H 05/16/17 05:10 Eos % (Auto) 9.2 % (0-6) H 05/16/17 05:10 Baso % (Auto) 0.6 % (0-2) 05/16/17 05:10 Absolute Neuts (auto) 3.2 10^3/ul (1.5-7.7) 05/16/17 05:10 Absolute Lymphs (auto) 1.2 10^3/ul (1.0-4.8) 05/16/17 05:10 Absolute Monos (auto) 0.6 10^3/ul (0-0.8) 05/16/17 05:10 Absolute Eos (auto) 0.5 10^3/ul (0-0.6) 05/16/17 05:10 Absolute Basos (auto) 0 10^3/ul (0-0.2) 05/16/17 05:10 Absolute Nucleated RBC 0 10^3/ul 05/16/17 05:10 Nucleated RBC % 0.1 05/16/17 05:10 ESR 30 mm/Hr (0-40) 05/15/17 16:02 Sodium 137 mmol/L (133-145) 05/16/17 05:10 Potassium 4.2 mmol/L (3.5-5.0) 05/16/17 05:10 Chloride 106 mmol/L (101-111) 05/16/17 05:10 Carbon Dioxide 30 mmol/L (22-32) 05/16/17 05:10 Anion Gap 1 mmol/L (2-11) L 05/16/17 05:10 BUN 17 mg/dL (6-24) 05/16/17 05:10 Creatinine 0.73 mg/dL (0.67-1.17) 05/16/17 05:10 Est GFR ( Amer) 137.0 (>60) 05/16/17 05:10 Est GFR (Non-Af Amer) 106.5 (>60) 05/16/17 05:10 BUN/Creatinine Ratio 23.3 (8-20) H 05/16/17 05:10 Glucose 64 mg/dL (70-100) L 05/16/17 05:10 Calcium 8.9 mg/dL (8.6-10.3) 05/16/17 05:10 Total Bilirubin 0.80 mg/dL (0.2-1.0) 05/15/17 16:02 AST 28 U/L (13-39) 05/15/17 16:02 ALT 17 U/L (7-52) 05/15/17 16:02 Alkaline Phosphatase 75 U/L (34-104) 05/15/17 16:02 C-Reactive Protein 10.73 mg/L (< 5.00) H 05/15/17 16:02 Total Protein 7.4 g/dL (6.4-8.9) 05/15/17 16:02 Albumin 3.7 g/dL (3.2-5.2) 05/15/17 16:02 Globulin 3.7 g/dL (2-4) 05/15/17 16:02 Albumin/Globulin Ratio 1.0 (1-3) 05/15/17 16:02 Vancomycin Trough 13.4 mcg/mL 05/17/17 05:40 General: Well appearing, NAD LLE: packing pulled from wound. Wound edges are well approximated with open area only where packing was pulled, no drainage. Wound with erythema surrounding , receding from marked outline and with no streaking. Knee is not hot to touch. Patient actively flexing and extending his knee. Calf is supple and nontender without erythema, edema or palpable cords. 2+ DP pulse. Sensation intact and capillary refill brisk distally RLE: Calf supple and nontender without erythema or palpable cords. Assessment: []POD 1 S/P I&D left knee 05/16 Dr Roche Plan: []WBAT PT/OT ID consult Plan for D/C once home antibiotic plan in place
[2017-05-17] MEDS: Aspirin TAB* 325 MG PO SCH (12:57)
--- NOTE | 2017-05-17 16:16 | OP ---
DATE OF OPERATION: 05/16/17 - ROOM #341 DATE OF : 46 ATTENDING SURGEON: Paulette Roche MD EXERCISE SPECIALIST: NALINI Herring. Ms. Julian did help throughout the procedure with preparation of the leg, wound retraction, manipulation, holding retractors , and wound closure. ANESTHESIOLOGIST: Dr. Stewart. ANESTHESIA: Low MAC with local 0.5% Marcaine 20 cc. PRE-OP DIAGNOSIS: Left infected prepatellar bursa, positive for Methicillin- resistant Staphylococcus aureus. POST-OP DIAGNOSIS: Left infected prepatellar bursa, positive for Methicillin- resistant Staphylococcus aureus. OPERATIVE PROCEDURE: Incision and drainage with irrigation and debridement of the left knee infected prepatellar bursa. COMPLICATIONS: None. SPECIMENS: Multiple culture swabs obtained from the wound and sent to pathology for cultures and sensitivities. ESTIMATED BLOOD LOSS: Less than 50 cc. BRIEF HISTORY/INDICATION: Mr. Byrne is a 67-year-old gentleman with 1 week of increasingly severe pain and swelling and erythema around his left superior patellar region. He was seen in convenient care and a wound culture showed MRSA growth. He followed up with me in clinic on 05/15/17. This was the first time I saw the patient, he was draining purulent material from a clearly infected left prepatellar bursa. He had no evidence on physical exam of septic knee joint. He had full range of motion with minimal pain. The patient and I discussed his options and he wished to move forward with an open I and D of the infected prepatellar bursa with some IV antibiotics. He was direct admitted to [facility] on 05/15/17. He was seen by the hospitalist and cleared for surgery today. Informed consent was obtained from the patient. He understands the risks of surgery include, but are not limited to bleeding, infection, damage to nearby structures, continued pain, need for further surgery, continued infection, advancement of the infection, stroke, heart attack, blood clot and . He wishes to proceed. INTRAOPERATIVE FINDINGS: Intraoperatively, the patient was noted to have an infected prepatellar bursa. There was no communication with the knee joint. DESCRIPTION OF PROCEDURE: Mr. Byrne was identified in the preanesthesia unit. His left lower extremity was marked as the correct operative side. Informed consent was signed and placed in the chart. The patient was taken to the operating room and placed under low MAC anesthesia. The left lower extremity was prepped and draped in the usual sterile fashion. Preop time-out was made to correctly identify the patient's side and site. Appropriate perioperative antibiotics were not given since the patient had been placed on IV vancomycin upon admission to the hospital. A 20 cc of 0.5% Marcaine was used for local anesthesia. A 5-cm incision was made directly over the area that appeared to be an abscess of the prepatellar bursa. Purulent material was expressed and this was collected with culture swabs and sent for aerobic and anaerobic cultures and sensitivities. Tenotomies were used to dissect down to the extensor mechanism. Probing of the extensor mechanism showed no communication with the knee joint. The wound had any purulent debris removed with either a curette or a rongeur. The wound and prepatellar bursa area was then copiously irrigated with 3 L of sterile saline. Loose interrupted 3-0 nylon sutures were used to reapproximate the wound and the wound was packed with iodoform. This was covered with a sterile dry dressing. The patient's anesthesia was reversed without difficulty and he was taken to the PACU in stable condition. Intended weightbearing will be weightbearing as tolerated. We will continue IV vancomycin and we have an Infectious Disease consult with Dr. Cottrell pending. I plan 24 to 48 hours of IV antibiotics and home on p.o. antibiotics, but we will of course wait for Dr. Cottrell's instructions. [id number]/[facility] #: [id number] MTDD
--- NOTE | 2017-05-17 17:57 | PN ---
Subjective Date of Service: 05/17/17 Interval History: Patient seen and examined at bedside. Denies fever, chills, shortness of breath , chest discomfort, N/V/D. He reports that the pain in his knee is controlled. Family History: Unchanged from Admission Social History: Unchanged from Admission Past Medical History: Unchanged from Admission Objective Active Medications: Acetaminophen (Tylenol Tab*) 650 mg PO Q4H PRN Reason: FEVER/PAIN Aspirin (Aspirin Tab*) 325 mg PO DAILY HERMAN Diphenhydramine HCl (Benadryl Iv*) 12.5 mg IV Q6H PRN Reason: PRURITIS Docusate Sodium (Colace Cap*) 100 mg PO BID PRN Reason: CONSTIPATION Dronedarone (Multaq Tab*) 400 mg PO BID HERMAN Vancomycin HCl 1,000 mg/ (Sodium Chloride) 250 mls @ 166.667 mls/hr IVPB Q8HR HERMAN Lactated Ringer's (Lactated Ringers 1000 Ml Bag*) 1,000 mls @ 100 mls/hr IV PER RATE HERMAN Lansoprazole (Lansoprazole Susp Kit) 30 mg G TUBE BID HERMAN Levothyroxine Sodium (Synthroid Tab*) 137 mcg G TUBE DAILY HERMAN Magnesium Hydroxide (Milk Of Magnesia Liq*) 30 ml PO BID HERMAN Magnesium Hydroxide (Milk Of Magnesia Liq*) 30 ml PO Q6H PRN Reason: constipation Morphine Sulfate (Morphine Inj (Syringe)*) 2 mg IV Q2H PRN Reason: PAIN - UNCONTROLLED Morphine Sulfate (Morphine Inj (Syringe)*) 4 mg IV Q2H PRN Reason: PAIN - UNRELIEVED Oxycodone HCl (Roxycodone Tab*) 10 mg PO Q4H PRN Reason: PAIN - SEVERE Oxycodone/Acetaminophen (Percocet 5/325 Tab*) 2 tab PO Q4H PRN Reason: PAIN - MODERATE TO SEVERE Oxycodone/Acetaminophen (Percocet 5/325 Tab*) 1 tab PO Q4H PRN Reason: PAIN - MILD TO MODERATE Pharmacy Consult (Vancomycin Per Pharmacy*) 1 note FOLLOW UP .VANC PER [facility]Y [facility] Pharmacy Profile Note (Vancomycin Trough Check) 1 note FOLLOW UP 05 ONE Stop: 05/19/17 05:31 Vital Signs - 8 hr 05/17/17 05/17/17 05/17/17 11:13 11:19 15:39 Temperature 98.6 F 98.7 F 98.4 F Pulse Rate 64 66 59 Respiratory 18 16 19 Rate Blood Pressure 117/58 145/48 122/54 (mmHg) O2 Sat by Pulse 97 97 99 Oximetry Oxygen Devices in Use Now: None Appearance: NAD, sitting up in bed Ears/Nose/Mouth/Throat: Mucous Membranes Moist Respiratory: Symmetrical Chest Expansion and Respiratory Effort, Clear to Auscultation Cardiovascular: NL Sounds; No Murmurs; No JVD, RRR Abdominal: NL Sounds; No Tenderness; No Distention Extremities: No Edema Skin: - - Dressing to left knee clean, dry and intact Neurological: Alert and Oriented x 3, NL Muscle Strength and Tone Lines/Tubes/Other Access: Clean, Dry and Intact Peripheral IV - site benign Nutrition: Taking PO's Result Diagrams: 05/17/17 05:40 05/16/17 05:10 Microbiology and Other Data: Microbiology 05/16/17 16:18 Skin and Soft Tissue MRSA/MSSA (PCR - Final Knee Left Mrsa Positive S.aureus Positive Gram Stain - Preliminary 05/15/17 16:02 Aerobic Blood Culture - Preliminary Blood Venous No Growth Day 1 Anaerobic Blood Culture - Preliminary No Growth Day 1 05/15/17 16:02 Aerobic Blood Culture - Preliminary Blood Venous No Growth Day 1 Anaerobic Blood Culture - Preliminary No Growth Day 1 Assess/Plan/Problems-Billing Assessment: Mr. Byrne is a 67 yo male with a PMH of jaw and throat cancer, afib, and SDH who was admitted by ortho for an infected prepatellar bursitis with MRSA. - Patient Problems (1) Other infective bursitis, left knee Code(s): M71.162 - OTHER INFECTIVE BURSITIS, LEFT KNEE SNOMED Code(s): 378800571 Comment: - No clear source of injury or trauma. - S/P washout with Dr. Roche, POD #1. - Culture with MRSA. - Continue vancomycin. - ID consult, pending. (2) Afib Code(s): I48.91 - UNSPECIFIED ATRIAL FIBRILLATION SNOMED Code(s): 85494504 Comment: - Heart rate regular. - Continue multaq. (3) Hypothyroidism Code(s): E03.9 - HYPOTHYROIDISM, UNSPECIFIED SNOMED Code(s): 85990064 Comment: - Stable. - Continue synthroid. (4) CHF (congestive heart failure) Code(s): I50.9 - HEART FAILURE, UNSPECIFIED SNOMED Code(s): 20836502 Comment: - Hx systolic (5) GERD (gastroesophageal reflux disease) Code(s): K21.9 - GASTRO-ESOPHAGEAL REFLUX DISEASE WITHOUT ESOPHAGITIS SNOMED Code(s): 945283412 Comment: - Continue lansoprazol (6) History of throat cancer Code(s): Z85.819 - PRSNL HX OF MALIG NEOPLM OF UNSP SITE LIP,ORAL CAV,& PHARYNX SNOMED Code(s): 241057812 (7) DVT prophylaxis Code(s): BGX5183 - SNOMED Code(s): 923133249 Comment: - SCDs (8) Full code status Code(s): Z78.9 - OTHER SPECIFIED HEALTH STATUS SNOMED Code(s): 349770907 Status and Disposition: Inpatient. Disposition per ortho.
[2017-05-18] MEDS: Vancomycin(*) 1,000 MG in NS 0.9% 250 ML* 250 ML IVPB SCH (05:46)
[2017-05-18 06:18] LABS: Hematocrit 40 % (42-52); Hemoglobin 13.9 g/dl (14.0-18.0); Mean Platelet Volume 9 um3 (7.4-10.4); Platelet Count 154 10^3/ul (150-450)
[2017-05-18] MEDS: Lansoprazole susp Kit 3 MG/ML (30 MG = 10 ML) G TUBE SCH (08:02)
[2017-05-18] MEDS: Dronedarone TAB* 400 MG PO SCH (08:02)
[2017-05-18] MEDS: Aspirin TAB* 325 MG PO SCH (08:02)
[2017-05-18] MEDS: Levothyroxine TAB* 137 MCG TAB G TUBE SCH (08:02)
[2017-05-18] MEDS: Magnesium Hydroxide LIQ* 30 ML UDC PO SCH (08:03)
--- NOTE | 2017-05-18 08:40 | PN ---
Subjective Date of Service: 05/18/17 Interval History: Patient seen and examined at bedside. Denies fever, chills, shortness of breath , chest discomfort, N/V/D. Pt states that he still has pain in the back of his left knee, but the pain is controlled. Family History: Unchanged from Admission Social History: Unchanged from Admission Past Medical History: Unchanged from Admission Objective Active Medications: Acetaminophen (Tylenol Tab*) 650 mg PO Q4H PRN Reason: FEVER/PAIN Aspirin (Aspirin Tab*) 325 mg PO DAILY HERMAN Diphenhydramine HCl (Benadryl Iv*) 12.5 mg IV Q6H PRN Reason: PRURITIS Docusate Sodium (Colace Cap*) 100 mg PO BID PRN Reason: CONSTIPATION Dronedarone (Multaq Tab*) 400 mg PO BID HERMAN Vancomycin HCl 1,000 mg/ (Sodium Chloride) 250 mls @ 166.667 mls/hr IVPB Q8HR HERMAN Lactated Ringer's (Lactated Ringers 1000 Ml Bag*) 1,000 mls @ 100 mls/hr IV PER RATE HERMAN Lansoprazole (Lansoprazole Susp Kit) 30 mg G TUBE BID HERMAN Levothyroxine Sodium (Synthroid Tab*) 137 mcg G TUBE DAILY HERMAN Magnesium Hydroxide (Milk Of Magnesia Liq*) 30 ml PO BID HERMAN Magnesium Hydroxide (Milk Of Magnesia Liq*) 30 ml PO Q6H PRN Reason: constipation Morphine Sulfate (Morphine Inj (Syringe)*) 2 mg IV Q2H PRN Reason: PAIN - UNCONTROLLED Morphine Sulfate (Morphine Inj (Syringe)*) 4 mg IV Q2H PRN Reason: PAIN - UNRELIEVED Oxycodone HCl (Roxycodone Tab*) 10 mg PO Q4H PRN Reason: PAIN - SEVERE Oxycodone/Acetaminophen (Percocet 5/325 Tab*) 2 tab PO Q4H PRN Reason: PAIN - MODERATE TO SEVERE Oxycodone/Acetaminophen (Percocet 5/325 Tab*) 1 tab PO Q4H PRN Reason: PAIN - MILD TO MODERATE Pharmacy Consult (Vancomycin Per Pharmacy*) 1 note FOLLOW UP .VANC PER PHARMACY [facility] Pharmacy Profile Note (Vancomycin Trough Check) 1 note FOLLOW UP 05 ONE Stop: 05/19/17 05:31 Vital Signs - 8 hr 05/18/17 03:42 Temperature 98.3 F Pulse Rate 51 Respiratory 16 Rate Blood Pressure 115/45 (mmHg) O2 Sat by Pulse 96 Oximetry Oxygen Devices in Use Now: None Appearance: NAD, laying in bed Ears/Nose/Mouth/Throat: Mucous Membranes Moist Respiratory: Symmetrical Chest Expansion and Respiratory Effort, Clear to Auscultation Cardiovascular: NL Sounds; No Murmurs; No JVD, RRR Abdominal: NL Sounds; No Tenderness; No Distention Extremities: - - Left LE edema Skin: - - Dressing to left knee clean, dry, and intact Neurological: Alert and Oriented x 3, NL Muscle Strength and Tone Lines/Tubes/Other Access: Clean, Dry and Intact Peripheral IV - site bengin Nutrition: Taking PO's Result Diagrams: 05/18/17 05:15 05/16/17 05:10 Microbiology and Other Data: Microbiology 05/16/17 16:18 Skin and Soft Tissue MRSA/MSSA (PCR - Final Knee Left Mrsa Positive S.aureus Positive Gram Stain - Preliminary 05/15/17 16:02 Aerobic Blood Culture - Preliminary Blood Venous No Growth Day 1 Anaerobic Blood Culture - Preliminary No Growth Day 1 05/15/17 16:02 Aerobic Blood Culture - Preliminary Blood Venous No Growth Day 1 Anaerobic Blood Culture - Preliminary No Growth Day 1 Assess/Plan/Problems-Billing Assessment: Mr. Byrne is a 67 yo male with a PMH of jaw and throat cancer, afib, and SDH who was admitted by ortho for an infected prepatellar bursitis with MRSA. - Patient Problems (1) Other infective bursitis, left knee Code(s): M71.162 - OTHER INFECTIVE BURSITIS, LEFT KNEE SNOMED Code(s): 886143903 Comment: - No clear source of injury or trauma. - S/P washout and I+D with Dr. Roche, POD #2. - Culture with MRSA. - Continue vancomycin. Change to Linezolid 600 mg crushed trhough G-tube BID for 3 weeks at discharge. - ID consult, input appreciated. (2) Afib Code(s): I48.91 - UNSPECIFIED ATRIAL FIBRILLATION SNOMED Code(s): 86537346 Comment: - Heart rate regular. - Continue multaq. (3) Hypothyroidism Code(s): E03.9 - HYPOTHYROIDISM, UNSPECIFIED SNOMED Code(s): 69370048 Comment: - Stable. - Continue synthroid. (4) CHF (congestive heart failure) Code(s): I50.9 - HEART FAILURE, UNSPECIFIED SNOMED Code(s): 11541132 Comment: - Hx systolic (5) GERD (gastroesophageal reflux disease) Code(s): K21.9 - GASTRO-ESOPHAGEAL REFLUX DISEASE WITHOUT ESOPHAGITIS SNOMED Code(s): 605103777 Comment: - Resume home ranitidine (6) History of throat cancer Code(s): Z85.819 - PRSNL HX OF MALIG NEOPLM OF UNSP SITE LIP,ORAL CAV,& PHARYNX SNOMED Code(s): 538144131 (7) DVT prophylaxis Code(s): BYX5044 - SNOMED Code(s): 777131502 Comment: - SCDs (8) Full code status Code(s): Z78.9 - OTHER SPECIFIED HEALTH STATUS SNOMED Code(s): 407390165 Status and Disposition: Inpatient. Disposition per ortho, possible discharge today.
[2017-05-18 09:03] VITALS: BP 122/56
--- NOTE | 2017-05-18 09:09 | PN ---
Progress Note - Progress Note Date of Service: 05/18/17 SOAP: Subjective: []Patient seen this morning. He was feeling well with 4/10 left knee pain controlled with tylenol. He denies fever or chills and desires DC home. Objective: [] Vital Signs Temp 98.5 F 05/18/17 07:24 Pulse 46 05/18/17 07:24 Resp 20 05/18/17 08:00 BP 122/56 05/18/17 07:24 Pulse Ox 97 05/18/17 07:24 Intake & Output 05/17/17 05/18/17 05/18/17 18:59 06:59 18:59 Intake Total 2696 Output Total 1999 1350 800 Balance -1999 1346 -800 Weight 181 lb 1.6 oz Intake: IV Fluids 1485 LR 985 Vanco 500 Oral 0 Tube Feeding 711 Tube Feeding Flush Amount 500 Output: Urine 1999 1350 800 Laboratory Last Values WBC 5.6 10^3/ul (3.5-10.8) 05/16/17 05:10 RBC 4.03 10^6/ul (4.0-5.4) 05/16/17 05:10 Hgb 13.9 g/dl (14.0-18.0) L 05/18/17 05:15 Hct 40 % (42-52) L 05/18/17 05:15 MCV 101 fL (80-94) H 05/16/17 05:10 MCH 35 pg (27-31) H 05/16/17 05:10 MCHC 35 g/dl (31-36) 05/16/17 05:10 RDW 12 % (10.5-15) 05/16/17 05:10 Plt Count 154 10^3/ul (150-450) 05/18/17 05:15 MPV 9 um3 (7.4-10.4) 05/18/17 05:15 Neut % (Auto) 57.7 % (38-83) 05/16/17 05:10 Lymph % (Auto) 22.1 % (25-47) L 05/16/17 05:10 Taylor % (Auto) 10.4 % (0-7) H 05/16/17 05:10 Eos % (Auto) 9.2 % (0-6) H 05/16/17 05:10 Baso % (Auto) 0.6 % (0-2) 05/16/17 05:10 Absolute Neuts (auto) 3.2 10^3/ul (1.5-7.7) 05/16/17 05:10 Absolute Lymphs (auto) 1.2 10^3/ul (1.0-4.8) 05/16/17 05:10 Absolute Monos (auto) 0.6 10^3/ul (0-0.8) 05/16/17 05:10 Absolute Eos (auto) 0.5 10^3/ul (0-0.6) 05/16/17 05:10 Absolute Basos (auto) 0 10^3/ul (0-0.2) 05/16/17 05:10 Absolute Nucleated RBC 0 10^3/ul 05/16/17 05:10 Nucleated RBC % 0.1 05/16/17 05:10 ESR 30 mm/Hr (0-40) 05/15/17 16:02 Sodium 137 mmol/L (133-145) 05/16/17 05:10 Potassium 4.2 mmol/L (3.5-5.0) 05/16/17 05:10 Chloride 106 mmol/L (101-111) 05/16/17 05:10 Carbon Dioxide 30 mmol/L (22-32) 05/16/17 05:10 Anion Gap 1 mmol/L (2-11) L 05/16/17 05:10 BUN 17 mg/dL (6-24) 05/16/17 05:10 Creatinine 0.73 mg/dL (0.67-1.17) 05/16/17 05:10 Est GFR ( Amer) 137.0 (>60) 05/16/17 05:10 Est GFR (Non-Af Amer) 106.5 (>60) 05/16/17 05:10 BUN/Creatinine Ratio 23.3 (8-20) H 05/16/17 05:10 Glucose 64 mg/dL (70-100) L 05/16/17 05:10 Calcium 8.9 mg/dL (8.6-10.3) 05/16/17 05:10 Total Bilirubin 0.80 mg/dL (0.2-1.0) 05/15/17 16:02 AST 28 U/L (13-39) 05/15/17 16:02 ALT 17 U/L (7-52) 05/15/17 16:02 Alkaline Phosphatase 75 U/L (34-104) 05/15/17 16:02 C-Reactive Protein 10.73 mg/L (< 5.00) H 05/15/17 16:02 Total Protein 7.4 g/dL (6.4-8.9) 05/15/17 16:02 Albumin 3.7 g/dL (3.2-5.2) 05/15/17 16:02 Globulin 3.7 g/dL (2-4) 05/15/17 16:02 Albumin/Globulin Ratio 1.0 (1-3) 05/15/17 16:02 Vancomycin Trough 13.4 mcg/mL 05/17/17 05:40 General: Well appearing, NAD LLE: Dressing changed. Slight bleeding from incision where packing was removed yesterday. Incision is clean, dry and intact otherwise. Erythema surrounding incision is much improved. No warmth of knee. Able to flex and extend knee well , walking around his room with a normal gait and no apparent discomfort. Assessment: []SP left knee I&D Plan: []WBAT DC today ABX per ID Linezolid 600 mg BID x 3 weeks crushed through G tube
--- NOTE | 2017-05-19 03:55 | CONS ---
CONSULTATION REPORT: DATE OF CONSULT: 05/18/17 REQUESTING PHYSICIAN: Dr. Roche. CONSULTING SERVICE: Infectious Disease. REASON FOR CONSULTATION: Prepatellar bursitis, septic of left knee. IMPRESSION: 1. Left septic prepatellar bursitis due to methicillin-resistant Staphylococcus aureus, status post incision and debridement with improvement in pain, swelling, and range of motion. There was not found to be any joint involvement. 2. Allergy to SULFA. 3. Chronic left mandible osteomyelitis. RECOMMENDATION: Linezolid 600 mg via the PEG tube twice a day, he can either have crushed the tablets up and put through the PEG tube or there is a liquid formulation whichever he prefers. We will plan on 3 weeks of that and I will see him in the office in the next week. We discussed that since he has had surgery and a decent course of antibiotics, there is a low risk for recurrence, but if it does and he has worsening pain, swelling, or redness, he should call me or Dr. Roche and/or proceed to the emergency room if it is getting worse rapidly. HISTORY OF PRESENT ILLNESS: This is a 67-year-old man admit with left knee pain and swelling. It had been present for a few days. He was seen in urgent care where he was prescribed clindamycin that he had started taking, but because of worsening pain and swelling, he saw Dr. Roche who recommended he come to the hospital and on the 05/16/17, she took him to the operating room for irrigation and debridement of the prepatellar bursa. Cultures growing MRSA. He has been on vancomycin here, tolerating well. The pain, swelling, and redness are improving. He is able to bear weight without pain now, which was not the case few days ago. PAST MEDICAL HISTORY: 1. Atrial fibrillation. 2. Coronary artery disease. 3. Hypothyroidism. 4. Left mandible cancer, status post excision of the mandible, treated with chemotherapy and radiation, complicated by osteomyelitis and chronic oral antibiotic suppression. 5. Status post G-tube placement. ALLERGIES: SULFA. MEDICATIONS: 1. Tylenol. 2. Aspirin. 3. Docusate. 4. Dronedarone. 5. Lansoprazole. 6. Levothyroxine. 7. Magnesium. 8. Morphine. 9. Oxycodone. 10. Vancomycin 1 g IV every 8 hours. SOCIAL HISTORY: He is a . He has no travel or sick contacts. FAMILY HISTORY: No recurrent infections. REVIEW OF SYSTEMS: All negative to a 14-point review of systems except as noted above. PHYSICAL EXAM: Vital Signs: Temperature 37, heart rate 50, respiratory rate 18 , blood pressure 120/50, oxygen saturation 97% on room air. In general, he is awake, not in distress. Neurologic: He is oriented and follows all commands. HEENT: There is no conjunctival hemorrhage. He has a surgically absent mandible with sclerotic oral mucosa. Neck: There is no mass. There is induration. Heart is regular rate and rhythm without murmurs, rubs, or gallops. Lungs are clear to auscultation bilaterally. Abdomen: Soft, nontender, nondistended. There are bowel sounds present. Skin: There is no rash or splinter hemorrhages. Musculoskeletal: There is no spine tenderness to palpation. Left knee - there is anterior mild erythema, warmth, induration, incision in the midst of it is intact. There is no crepitus or fluctuance. LABORATORY DATA: White blood cell count 5, hemoglobin 14, platelets 164. Creatinine is 0.7. Please see impressions and recommendations outlined above which I have discussed with Virgen Craft NP. Thank you for asking me to see Mr. Byrne in consultation. [id number]/[facility] #: [id number]
[2017-05-19] MEDS ORDERED: Vancomycin Trough Check NOTE FOLLOW UP ONE (05:30)
--- NOTE | 2017-05-19 13:40 | DS ---
DISCHARGE SUMMARY: DATE OF ADMISSION: 05/15/17 DATE OF DISCHARGE: 05/18/17 DATE OF OPERATION: 05/16/17 ATTENDING SURGEON: Dr. Paulette Roche* (dictated by NALINI Armijo). [employer] MANAGER: NALINI Herring PRE-OP DIAGNOSES: Left infected prepatellar bursa, positive for methicillin- resistant Staphylococcus aureus. OPERATIVE PROCEDURE: Incision and drainage with irrigation and debridement of the left knee infected prepatellar bursa. HISTORY: Mr. Byrne is a 67-year-old gentleman with 1-week of increasingly severe pain and swelling and erythema around his left superior patellar region. He was seen in [facility] and a wound culture showed MRSA growth. He followed up with me in clinic on 05/15/17. This was the first time I saw the patient. He was draining purulent material, having clearly infected left prepatellar bursa. He had no evidence on physical exam of a septic knee joint. He had full range of motion with minimal pain. The patient and I discussed his options. He wished to move forward with open I and D of the infected prepatellar bursa with some IV antibiotics. HOSPITAL COURSE: On 05/15/17, the patient was direct admitted to [facility]. He was seen by the hospitalist and cleared for surgery. Informed consent was obtained from the patient and risks of surgery were discussed. The patient underwent an incision and drainage with irrigation and debridement of the left knee infected prepatellar bursa, which he tolerated well. He recovered briefly in the PACU and then was transferred in stable condition to the short-stay surgical unit. He was seen on postop day 1, he is well appearing, no acute distress. Packing was pulled from the wound. The wound edges are well approximated with open area only where the packing had been pulled out with no drainage. Wound with surrounding erythema with the erythema reciting from the marked outline with no streaking. It was not hot to touch. The patient was actively flexing and extending the knee. He was walking on the floor without difficulty. Calves are supple and nontender without erythema, edema or palpable cords. He has +2 dorsalis pedis pulses. Sensation intact. Capillary refill brisk distally. Labs: Hemoglobin 14.2, hematocrit 41, white blood cell count 5.6. Postop day 2, the patient was seen at bedside. He is well appearing, no acute distress. His dressing was changed. He had slight bleeding from the incision where packing was pulled yesterday. Incision was clean, dry, and intact. Otherwise, erythema surrounding the incision is much improved. No warmth of the knee. Able to flex and extend the knee. Walking around his room with normal gait and no apparent discomfort. Hemoglobin 13.9, hemoglobin 40, white blood cell count 5.6. The patient was also seen by the hospitalist service as well as Infectious Disease. Infectious Disease recommends linezolid 600 mg p.o. b.i.d. for 3 weeks via G-tube. The patient is medically and orthopedically stable to discharge home. DISCHARGE MEDICATIONS: 1. Levothyroxine 137 mcg per G-tube daily. 2. Ranitidine 150 mg per G-tube b.i.d. 3. Jevity 1 can G-tube per instructions. 4. Acetaminophen 650 mg p.o. q.6 hours p.r.n. 5. Amoxicillin held until the patient is done with linezolid. 6. Multaq tab 100 mg p.o. b.i.d. 7. Aspirin 325 mg p.o. daily for 1 month. 8. Linezolid 600 mg via G-tube b.i.d. for 21 days. DISCHARGE INSTRUCTIONS: Weightbearing as tolerated. Keep the knee dressed with gauze and Low wraps. Keep clean, dry, and intact. Do not submerge the wound. Do not shower until the wound is fully closed. May wash the operative site with a soapy cloth after 05/20/17. Come to our office with increased pain , drainage, swelling, or fevers. Go to the emergency room with chest pain or shortness of breath. Linezolid 600 mg p.o. every 12 hours for 3 weeks, administered crushed through the G-tube. Hold amoxicillin while on linezolid. He may restart thereafter. Aspirin 325 mg p.o. daily for 30 days. Tylenol for pain over-the- counter, max daily dose of 4000 mg by mouth. Follow up with Dr. Roche within 10 days. Follow up with Dr. Cottrell as directed. NALINI GILLIS [id number]/[facility] #: [id number] MTDD
== END 2017-05-18 10:45 | disposition home or self-care (01) | DRG 502 ==
LOC: SSU 11:28
PROVIDERS: ADMIT Orthopaedic Surgery Adult Reconstructive Orthopaedic Surgery; ATTEND Orthopaedic Surgery Adult Reconstructive Orthopaedic Surgery
PROC: 0MBP0ZZ Excision of Left Knee Bursa and Ligament, Open Approach (ICD-10-PCS; principal; 2017-05-16 15:30)
DX: M71.062 Abscess of bursa, left knee (principal); I48.91 Unspecified atrial fibrillation; I50.9 Heart failure, unspecified; Z93.1 Gastrostomy status; B95.62 Methicillin resistant Staphylococcus aureus infection as the cause of diseases classified elsewhere; E03.9 Hypothyroidism, unspecified; M27.2 Inflammatory conditions of jaws; Z85.89 Personal history of malignant neoplasm of other organs and systems; Z79.2 Long term (current) use of antibiotics; Z79.1 Long term (current) use of non-steroidal anti-inflammatories (NSAID); Z79.899 Other long term (current) drug therapy; Z88.8 Allergy status to other drugs, medicaments and biological substances; Z83.3 Family history of diabetes mellitus; Z82.49 Family history of ischemic heart disease and other diseases of the circulatory system; Z82.3 Family history of stroke; Z87.891 Personal history of nicotine dependence; Z85.819 Personal history of malignant neoplasm of unspecified site of lip, oral cavity, and pharynx; Z88.2 Allergy status to sulfonamides; Z92.21 Personal history of antineoplastic chemotherapy; Z92.3 Personal history of irradiation; Z80.0 Family history of malignant neoplasm of digestive organs
CPT/HCPCS: 36415; 71045; 80048; 80053; 80202; 85014; 85018; 85025; 85049; 85652; 86140; 87040; 87070; 87073; 87077; 87186; 87205; 87640; 87641; 93005; 94760; A9270-GY; J1040; J1885; J2250; J2405; J2704; J3010; J3370

== ENCOUNTER 2018-02-27 11:13 | Emergency (ER) | payer MEDICARE ==
--- OUTSIDE RECORDS SUMMARY | 2018-02-27 11:19 | XMS REPORT | Continuity of Care Document ---
:1950 External Reference #:[id number] Author Name Omega Morejon Care Team Providers Name Role Phone Kiet Sauceda MD Primary Care Physician Unavailable Payers Type Date Identification Numbers Payment Provider Subscriber Effective: Policy Number: Medicare Blue Ppo Joseph Byrne 2016 [id number] Group Number: [id number] [address] [id number] PayID: [id number] [place] [address] Advance Directives Description No Information Available Problems Date Description Provider Status Onset: 01/08/2016 [...] Kiet Sauceda M.D. Active inguinal hernia Onset: 05/15/2017 Abscess of bursa of left knee Paulette Roche M.D. Active Onset: 01/17/2018 Shoulder joint pain Kiet Sauceda M.D. Active Onset: 01/17/2018 Carpal tunnel syndrome of right Kiet Sauceda M.D. Active wrist Onset: 12/10/2014 Paroxysmal atrial fibrillation Apryl Moerira M.D. Inactive Inactive: 12/19/2014 Family History Date Family Member(s) Problem(s) Comments General Diabetes General Heart Disease General Hypertension General Stroke General Cancer : (age 73 Years) Father due to Colon cancer : (age 84 Years) Mother due to Unknown reason Mother Diabetes Social History Type Date Description Comments Sex Unknown Marital Status Marital Status 08/23/2016 july Lives With Alone Occupation Retired. [employer] Tobacco Use Start: Unknown End: Former Cigarette Smoker Pt denies use of Unknown cigar, pipe, e-cigarettes, or chewing tobacco. Quit end Smoking Status Reviewed: 02/21/18 Former Cigarette Smoker Pt denies use of cigar, pipe, e-cigarettes, or chewing tobacco. Quit end ETOH Use consumed 1-2 beers per Quit 1996. day Recreational Drug Use Denies Drug Use Tobacco Use Start: Unknown End: Patient is a former Unknown smoker Exercise Type/Frequency Exercises regularly Allergies, Adverse Reactions, Alerts Date Description Reaction Status Severity Comments 12/10/2014 Bactrim rash Active Medications Medication Date Status Form Strength Qnty SIG Indications Ordering Provider Jevity 1.5 11/18/ Active Liquid 270un R63.4 Kiet Tenzin/Fiber 2017 its Channing Sauceda Levothyroxine 08/26/ Active Tablets 137mcg 30tab 1 by E03.9 Kiet Sodium 2017 s mouth [place] every day , M.D. Multaq 04/01/ Active Tablets 400mg 60tab 1 by Kiet Banuelos s mouth [place] twice a , M.D. day Ranitidine HCL 02/08/ Active Tablets 150mg 60tab take one K21.9 Kiet 2016 s tablet by Komal arriaza , MJulianDJulian twice a day Tylenol 11/09/ Active Tablets 325mg 90tab 2 by Kiet 2015 s mouth 4 Pachikara hrs as , M.D. needed, MDD 4000mg Jevity 1 Tenzin 01/20/ Active Liquid 279un 9 cans Kiet 2014 its per day Pachikara via , M.D. feeding tube Amoxicillin 07/31/ Hx Tablets 500mg 90tab 1 tab via M27.2 Wily 2017 - s Peg tube D. 09/06/ two times 2017 a day M.D. please dispense tablets not capsules Imodium A-D 05/24/ Hx Tablets 2mg 30tab OTC 1 tab Wily 2017 - s crushed D. 05/25/ via peg 2017 1-2 times M.D. daily as needed Linezolid 05/18/ Hx Tablets 600mg 42tab crush one Unknown 2017 - tab via G 06/02/ tube bid 2018 x 21 days Clindamycin HCL 05/12/ Hx Capsules 300mg 1 tabs by Unknown 2018 - mouth 3 05/22/ times a 2017 day x 10 days Flagyl 03/14/ Hx Tablets 500mg 30tab 1 tab by Wily 2016 - s mouth 3 D. 03/28/ times 2017 daily x M.D. 10 days Flagyl 03/03/ Hx Tablets 500mg 30tab 1 tab by Wily 2016 - s mouth 3 D. 03/06/ times 2016 daily x M.D. 10 days Amoxicillin/Cla 02/13/ Hx Tablets 875-125mg 30tab take 1 M27.2 Wily vulanate 2016 - s tablet D. Potassium 03/02/ twice a 2016 day via M.D. peg tube Amoxicillin 12/23/ Hx Tablets 500mg 60tab 1 tab via M27.2 Wily 2016 - s peg twice D. 03/09/ daily 2016 M.D. Alfuzosin HCL 08/31/ Hx Tablets ER 10mg 1 po qd Jordan HUTTON 2017 - 24HR Derek Iyer, 09/02/ M.DJulian,FACP 2016 Tamsulosin HCL 08/26/ Hx Capsules 0.4mg 30cap 1 by Jordan 2017 - s mouth DJulian Raphaeld, 11/21/ every M.D.,[facility] 2017 evening Synthroid 08/26/ Hx Tablets 150mcg 30tab 1 by E03.9 Jordan 2017 - s mouth Derek [place], 08/26/ every day M.D.,[facility] 2017 Metoprolol 05/12/ Hx Tablets 25mg 30tab 1/2 tab I48.0 Kiet Sheldontrate 2016 - s by mouth [place]ikara 07/26/ twice a , M.D. 2016 day Amoxicillin 05/09/ Hx Tablets 500mg 90tab 1 by M27.2 Wily 2017 - s mouth two D. 11/18/ times a [facility], 2016 day M.D. please dispense tablets not capsules Amoxicillin 04/01/ Hx Tablets 500mg 90tab 1 tab via M27.2 Wily 2017 - s peg twice D. 07/08/ daily Chepe 2016 M.D. Amoxicillin/Cla 03/28/ Hx Suspension 600-42.9mg 225ml 1 tsp bid M27.2 Kiet [place]itting[place] 2017 - Rec /5ML 3 weeks P[place]ikara Potassium 05/08/ , M.D. 2016 Ranitidine HCL 02/08/ Hx Capsules 150mg 60cap 1 tablet K21.9 Kiet 2015 - s by mouth [place] 02/08/ twice , M.D. 2016 daily Metoprolol 02/01/ Hx Tablets ER 25mg 30tab 1 by Kiet Succinate ER 2015 - 24HR s mouth P[place]ara 05/12/ every day , M.D. 2016 Synthroid 10/26/ Hx Tablets 150mcg 90tab 1 by E03.9 Kiet 2016 - s mouth [place] 10/26/ every day , M.D. 2016 Synthroid 10/26/ Hx Tablets 125mcg 30tab every day E03.9 Kiet 2015 - s in in the [place] 08/26/ morning , M.D. 2017 in the empty stomach Warfarin Sodium 02/11/ Hx Tablets 5mg 100ta take 1.5 Kiet 2015 - bs tabs [place] 02/08/ daily ( , M.D. 2015 On Hold) Metoprolol 01/09/ Hx Tablets 25mg 60tab 1 by Jordan Alba 2014 - s mouth DJulian Iyer, 02/01/ twice a M.D.,FACP 2015 Synthroid 01/09/ Hx Tablets 137mcg 30tab 1 by E03.9 Kiet 2014 - s mouth [place] 10/26/ every day , MAlysia. 2015 Metoprolol 12/17/ Hx Tablets 50mg 60tab 1 by Apryl Alba 2014 - s mouth [place], 01/09/ twice a M.D. 2014 Lactulose 12/10/ Hx Solution 10GM/15ML 500ml take as Wily 2014 - directed Derek 05/25/ Chepe, 2017 M.D. Cardizem 12/08/ Hx Tablets 30mg 120ta 1 by Jamaal Pink 2014 - bs tube q 6 Lillie, 12/10/ hours. M.D. 2014 Augmentin /00/ Hx Tablets one by Unknown 0000 - mouth every 2014 hours for ten days Lovenox / Hx Solution 80mg/0.8ML sc every Unknown 0000 - 12 hours 2014 Pepcid / Hx Tablets 20mg 1 by Unknown 0000 - mouth day 2014 Lactulose // Hx prn Unknown 0000 - 2014 Synthroid / Hx Tablets 125mcg 1 by Unknown 0000 - mouth day 2014 Metoprolol / Hx Tablets 25mg 180ta 2 tabs by Unknown Tartrate 0000 - bs mouth 12/17/ twice a 2014 day Coumadin / Hx as Silas 0000 - directed Joseph 02/11/ MAlfa 2014 Ranitidine HCL / Hx Syrup 15mg/ml 600ml take as Kiet 0000 - directed Pachikara 02/08/ , M.D. 2015 Augmentin /00/ Hx Suspension 250-62.5mg 800 mg Unknown 0000 - Rec /5ML solution 01/09/ via Peg 2014 twice daily for 6 wks Testosterone // Hx Powder 2 Caps Unknown Cypionate OTC 0000 - Daily 2016 Amoxicillin/Cla /00/ Hx Suspension 600-42.9mg 1 Unknown vulanate 0000 - Rec /5ML teaspoon Potassium 05/09/ twice a 2016 day 3 weeks Amoxicillin 00/00/ Hx Tablets 500mg 60tab 1 tab via M27.2 Wily 0000 - s peg twice D. 05/18/ daily Macque2017 M.D. Aspirin / Hx Tablets 325mg take 1 by Unknown 0000 - mouth 11/02/ once a 2018 day Medications Administered in Office Medication Date Status Form Strength Qnty SIG Indications Ordering Provider Inj, Administered Injection Ryan S. Regadenoson, 018 Rogers, DO 0.1 MG FACC Thallium Administered Injection Ryan S. 018 Rogers, DO FACC Immunizations CPT Code Status Date Vaccine Reaction Lot # [id number] Given 06/06/2017 Zoster (Zostavax) no reaction [id number] Given 06/06/2017 Pneumonia Vaccine pt tolerated well [id number] Given 01/08/2016 Pneumococcal Conjugate Vaccine [id number] Valent For Intramuscular Use Vital Signs Date Vital Result Comment 02/21/2018 11:07am Height 75 inches 6'3" Weight 206.00 lb Heart Rate 61 /min BP Systolic Sitting 110 mmHg BP Diastolic Sitting 60 mmHg O2 % BldC Oximetry 94 % BMI (Body Mass Index) 25.7 kg/m2 02/01/2018 12:50pm Height 75 inches 6'3" Weight 203.00 lb with shoes Heart Rate 60 /min BP Systolic Sitting 110 mmHg Lue reg cuff BP Diastolic Sitting 70 mmHg Lue reg cuff BP Systolic Standing 102 mmHg Lue reg cuff BP Diastolic Standing 60 mmHg Lue reg cuff Respiratory Rate 16 /min BMI (Body Mass Index) 25.4 kg/m2 01/17/2018 3:56pm Height 75 inches 6'3" Weight 198.00 lb Heart Rate 62 /min BP Systolic Sitting 122 mmHg BP Diastolic Sitting 68 mmHg O2 % BldC Oximetry 94 % BMI (Body Mass Index) 24.7 kg/m2 12/26/2017 10:24am Height 75 inches 6'3" Weight 197.12 lb Heart Rate 60 /min BP Systolic Sitting 108 mmHg BP Diastolic Sitting 58 mmHg Respiratory Rate 14 /min Body Temperature 97.2 F BMI (Body Mass Index) 24.6 kg/m2 11/03/2017 2:14pm Height 75 inches 6'3" Weight 194.00 lb with sandals Heart Rate 60 /min BP Systolic Sitting 110 mmHg Lue lg cuff BP Diastolic Sitting 54 mmHg Lue lg cuff BP Systolic Standing 94 mmHg Lue lg cuff BP Diastolic Standing 66 mmHg Lue lg cuff Respiratory Rate 16 /min BMI (Body Mass Index) 24.2 kg/m2 Ejection Fraction 50-55% date 11/25/2014 ECHO 09/15/2017 11:05am Height 75 inches 6'3" Weight 191.25 lb Heart Rate 60 /min BP Systolic Sitting 110 mmHg BP Diastolic Sitting 70 mmHg Respiratory Rate 14 /min Body Temperature 96.9 F BMI (Body Mass Index) 23.9 kg/m2 09/07/2017 11:49am Height 75 inches 6'3" Weight 189.00 lb Heart Rate 63 /min BP Systolic Sitting 100 mmHg BP Diastolic Sitting 60 mmHg O2 % BldC Oximetry 93 % BMI (Body Mass Index) 23.6 kg/m2 08/15/2017 3:01pm Height 75 inches 6'3" Weight 185.50 lb Heart Rate 72 /min BP Systolic Sitting 104 mmHg BP Diastolic Sitting 72 mmHg Respiratory Rate 14 /min Body Temperature 97.8 F BMI (Body Mass Index) 23.2 kg/m2 06/26/2017 1:40pm Height 75 inches 6'3" Weight 187.00 lb Heart Rate 72 /min BP Systolic Sitting 110 mmHg BP Diastolic Sitting 60 mmHg Respiratory Rate 14 /min Body Temperature 96.7 F BMI (Body Mass Index) 23.4 kg/m2 06/16/2017 10:16am Height 75 inches 6'3" Weight 182.00 lb Heart Rate 64 /min BP Systolic Sitting 102 mmHg BP Diastolic Sitting 64 mmHg Respiratory Rate 16 /min Pain Level 0 BMI (Body Mass Index) 22.7 kg/m2 06/06/2017 4:10pm Height 75 inches 6'3" Weight 182.00 lb Heart Rate 70 /min BP Systolic 130 mmHg BP Diastolic 50 mmHg Body Temperature 98.2 F O2 % BldC Oximetry 95 % BMI (Body Mass Index) 22.7 kg/m2 05/31/2017 9:09am Height 75 inches 6'3" Weight 178.38 lb Heart Rate 60 /min BP Systolic Sitting 100 mmHg BP Diastolic Sitting 60 mmHg Respiratory Rate 14 /min Body Temperature 97.3 F BMI (Body Mass Index) 22.3 kg/m2 05/29/2017 9:48am Height 75 inches 6'3" Heart Rate 69 /min BP Systolic 126 mmHg BP Diastolic 76 mmHg Respiratory Rate 17 /min Body Temperature 96.9 F Pain Level 6 05/25/2017 1:01pm Height 75 inches 6'3" Weight 183.00 lb Heart Rate 68 /min BP Systolic 120 mmHg BP Diastolic 72 mmHg Respiratory Rate 14 /min Body Temperature 96.9 F Pain Level 0 BMI (Body Mass Index) 22.9 kg/m2 05/15/2017 9:24am Height 75 inches 6'3" Weight 183.00 lb Heart Rate 60 /min BP Systolic 118 mmHg BP Diastolic 70 mmHg Body Temperature 97.5 F BMI (Body Mass Index) 22.9 kg/m2 04/06/2017 2:27pm Height 75 inches 6'3" Weight 173.00 lb Heart Rate 64 /min BP Systolic Sitting 110 mmHg Rue reg cuff BP Diastolic Sitting 70 mmHg Rue reg cuff BP Systolic Standing 106 mmHg Rue BP Diastolic Standing 70 mmHg Rue Respiratory Rate 16 /min BMI (Body Mass Index) 21.6 kg/m2 Ejection Fraction 50-55% 11/25/14 02/13/2017 2:51pm Height 75 inches 6'3" Weight 173.12 lb Heart Rate 60 /min BP Systolic Sitting 110 mmHg BP Diastolic Sitting 56 mmHg Respiratory Rate 14 /min Body Temperature 98.1 F BMI (Body Mass Index) 21.6 kg/m2 12/23/2016 10:36am Height 75 inches 6'3" Weight 167.12 lb Heart Rate 60 /min BP Systolic Sitting 114 mmHg BP Diastolic Sitting 58 mmHg Respiratory Rate 14 /min Body Temperature 97.2 F BMI (Body Mass Index) 20.9 kg/m2 11/22/2016 2:20pm Height 75 inches 6'3" Weight 160.25 lb Heart Rate 60 /min BP Systolic Sitting 114 mmHg BP Diastolic Sitting 60 mmHg Respiratory Rate 14 /min Body Temperature 97.0 F BMI (Body Mass Index) 20.0 kg/m2 11/18/2016 11:18am Height 75 inches 6'3" Weight 163.00 lb Heart Rate 63 /min BP Systolic 108 mmHg BP Diastolic 62 mmHg Body Temperature 97.6 F O2 % BldC Oximetry 98 % BMI (Body Mass Index) 20.4 kg/m2 08/26/2016 8:48am Weight 159.50 lb Heart Rate 56 /min BP Systolic Sitting 126 mmHg BP Diastolic Sitting 62 mmHg Body Temperature 96.9 F O2 % BldC Oximetry 98 % 08/23/2016 2:18pm Height 73 inches 6'1" Weight 166.00 lb with shoes Heart Rate 56 /min BP Systolic Sitting 108 mmHg Lue reg cuff BP Diastolic Sitting 60 mmHg Lue reg cuff BP Systolic Standing 98 mmHg Lue reg cuff BP Diastolic Standing 60 mmHg Lue reg cuff Respiratory Rate 17 /min BMI (Body Mass Index) 21.9 kg/m2 Ejection Fraction 50-55% 11/25/2014-echo 07/26/2016 10:54am Weight 168.00 lb with shoes Heart Rate 56 /min BP Systolic Sitting 90 mmHg Rue reg cuff BP Diastolic Sitting 54 mmHg Rue reg cuff BP Systolic Standing 98 mmHg Rue reg cuff BP Diastolic Standing 50 mmHg Rue reg cuff Ejection Fraction 55-60% date 11/25/2014 ECHO 07/08/2016 10:24am Weight 168.00 lb Heart Rate 64 /min BP Systolic Sitting 92 mmHg BP Diastolic Sitting 58 mmHg Body Temperature 97.7 F Pain Level 3 05/12/2016 11:18am Weight 171.00 lb Heart Rate 57 /min BP Systolic Sitting 122 mmHg BP Diastolic Sitting 56 mmHg Respiratory Rate 14 /min Body Temperature 98.0 F O2 % BldC Oximetry 97 % 05/09/2016 2:19pm Height 73 inches 6'1" Weight 170.38 lb Heart Rate 60 /min BP Systolic Sitting 110 mmHg BP Diastolic Sitting 60 mmHg Respiratory Rate 14 /min Body Temperature 97.9 F BMI (Body Mass Index) 22.5 kg/m2 04/21/2016 2:26pm Height 73 inches 6'1" Weight 171.50 lb with shoes Heart Rate 56 /min BP Systolic Sitting 94 mmHg Lue reg cuff BP Diastolic Sitting 56 mmHg Lue reg cuff BP Systolic Standing 92 mmHg Lue reg cuff BP Diastolic Standing 54 mmHg Lue reg cuff Respiratory Rate 17 /min BMI (Body Mass Index) 22.6 kg/m2 Ejection Fraction 50-55% 11/25/2014 echo 04/05/2016 10:16am Height 73 inches 6'1" Weight 168.00 lb Heart Rate 82 /min BP Systolic Sitting 122 mmHg BP Diastolic Sitting 58 mmHg Body Temperature 96.8 F O2 % BldC Oximetry 97 % BMI (Body Mass Index) 22.2 kg/m2 04/01/2016 10:46am Height 73 inches 6'1" Weight 166.00 lb Heart Rate 60 /min BP Systolic Sitting 100 mmHg BP Diastolic Sitting 58 mmHg Respiratory Rate 14 /min Body Temperature 97.9 F BMI (Body Mass Index) 21.9 kg/m2 03/28/2016 1:41pm Weight 169.00 lb Heart Rate 68 /min BP Systolic Sitting 122 mmHg BP Diastolic Sitting 68 mmHg Body Temperature 98.2 F O2 % BldC Oximetry 93 % 02/16/2016 1:45pm Weight 169.00 lb Heart Rate 60 /min BP Systolic Sitting 118 mmHg Ra reg cuff BP Diastolic Sitting 60 mmHg Ra reg cuff BP Systolic Standing 104 mmHg Ra BP Diastolic Standing 66 mmHg Ra Respiratory Rate 14 /min Ejection Fraction 50-55% 11/25/14 02/09/2016 9:50am Weight 170.00 lb Heart Rate 54 /min BP Systolic Sitting 106 mmHg BP Diastolic Sitting 60 mmHg Body Temperature 97.1 F O2 % BldC Oximetry 96 % 02/02/2016 12:58pm Height 73 inches 6'1" Weight 164.00 lb without shoes Heart Rate 64 /min BP Systolic Sitting 94 mmHg R arm , reg cuff. BP Diastolic Sitting 60 mmHg R arm , reg cuff. BP Systolic Standing 100 mmHg BP Diastolic Standing 60 mmHg Respiratory Rate 18 /min BMI (Body Mass Index) 21.6 kg/m2 01/18/2016 10:38am Height 73 inches 6'1" Weight 170.00 lb Heart Rate 66 /min BP Systolic Sitting 122 mmHg BP Diastolic Sitting 70 mmHg Pain Level 0 BMI (Body Mass Index) 22.4 kg/m2 01/08/2016 3:05pm Weight 170.00 lb Heart Rate 57 /min BP Systolic Sitting 107 mmHg BP Diastolic Sitting 62 mmHg Body Temperature 98.0 F O2 % BldC Oximetry 98 % 12/28/2015 10:48am Height 73 inches 6'1" Weight 155.00 lb BP Systolic Sitting 122 mmHg BP Diastolic Sitting 80 mmHg Pain Level 3 BMI (Body Mass Index) 20.4 kg/m2 11/17/2015 10:34am Weight 167.25 lb Heart Rate 71 /min BP Systolic Sitting 120 mmHg BP Diastolic Sitting 56 mmHg Body Temperature 98.0 F O2 % BldC Oximetry 96 % 11/06/2015 4:30pm Height 74 inches 6'2" Weight 161.12 lb Heart Rate 67 /min BP Systolic 132 mmHg BP Diastolic 74 mmHg Body Temperature 98.4 F O2 % BldC Oximetry 98 % BMI (Body Mass Index) 20.7 kg/m2 10/20/2015 1:37pm Height 74 inches 6'2" Weight 164.00 lb Heart Rate 60 /min BP Systolic Sitting 122 mmHg Ra reg cuff BP Diastolic Sitting 72 mmHg Ra reg cuff BP Systolic Standing 104 mmHg Ra BP Diastolic Standing 70 mmHg Ra Respiratory Rate 16 /min BMI (Body Mass Index) 21.1 kg/m2 Ejection Fraction 50-55% 11/25/14 10/13/2015 10:09am Height 76 inches 6'4" Heart Rate 54 /min BP Systolic Sitting 100 mmHg BP Diastolic Sitting 60 mmHg Body Temperature 97.1 F O2 % BldC Oximetry 98 % 09/03/2015 10:30am Height 76 inches 6'4" Heart Rate 51 /min BP Systolic Sitting 124 mmHg BP Diastolic Sitting 62 mmHg Body Temperature 97.1 F O2 % BldC Oximetry 96 % 07/23/2015 11:20am Height 76 inches 6'4" Weight 169.00 lb Heart Rate 60 /min BP Systolic Sitting 100 mmHg BP Diastolic Sitting 50 mmHg Body Temperature 97.2 F O2 % BldC Oximetry 94 % BMI (Body Mass Index) 20.6 kg/m2 04/07/2015 2:28pm Height 76 inches 6'4" Weight 169.00 lb BP Systolic Sitting 98 mmHg BP Diastolic Sitting 76 mmHg Body Temperature 98.2 F BMI (Body Mass Index) 20.6 kg/m2 03/23/2015 1:44pm Height 76 inches 6'4" Weight 170.00 lb Heart Rate 62 /min BP Systolic Sitting 116 mmHg BP Diastolic Sitting 62 mmHg Respiratory Rate 14 /min Body Temperature 98.2 F BMI (Body Mass Index) 20.7 kg/m2 02/09/2015 1:19pm Height 76 inches 6'4" Weight 167.12 lb Heart Rate 63 /min BP Systolic Sitting 110 mmHg BP Diastolic Sitting 58 mmHg Body Temperature 97.8 F O2 % BldC Oximetry 98 % BMI (Body Mass Index) 20.3 kg/m2 01/19/2015 1:36pm Height 76 inches 6'4" Weight 166.38 lb Heart Rate 64 /min BP Systolic Sitting 104 mmHg BP Diastolic Sitting 58 mmHg Respiratory Rate 14 /min Body Temperature 98.4 F BMI (Body Mass Index) 20.2 kg/m2 01/09/2015 2:23pm Height 76 inches 6'4" Weight 167.00 lb Heart Rate 56 /min BP Systolic Sitting 100 mmHg BP Diastolic Sitting 56 mmHg Body Temperature 98.3 F O2 % BldC Oximetry 96 % BMI (Body Mass Index) 20.3 kg/m2 12/24/2014 2:28pm Height 76 inches 6'4" Weight 162.00 lb with shoes Heart Rate 72 /min BP Systolic Sitting 108 mmHg LA, reg cuff BP Diastolic Sitting 66 mmHg LA, reg cuff BP Systolic Standing 98 mmHg LA BP Diastolic Standing 64 mmHg LA Respiratory Rate 14 /min BMI (Body Mass Index) 19.7 kg/m2 Ejection Fraction 50-55% 11/25/2014 12/19/2014 11:10am Height 76 inches 6'4" Weight 165.25 lb Heart Rate 88 /min BP Systolic Sitting 108 mmHg BP Diastolic Sitting 60 mmHg Body Temperature 97.6 F O2 % BldC Oximetry 91 % BMI (Body Mass Index) 20.1 kg/m2 12/17/2014 2:19pm Height 76 inches 6'4" Weight 167.50 lb Heart Rate 65 /min BP Systolic Sitting 102 mmHg BP Diastolic Sitting 60 mmHg Respiratory Rate 16 /min Body Temperature 97.6 F BMI (Body Mass Index) 20.4 kg/m2 12/10/2014 2:48pm Height 76 inches 6'4" Weight 164.00 lb w/o shoes Heart Rate 58 /min reg BP Systolic Sitting 100 mmHg Rue, reg cuff BP Diastolic Sitting 50 mmHg Rue, reg cuff BP Systolic Standing 90 mmHg Rue BP Diastolic Standing 56 mmHg Rue Respiratory Rate 18 /min BMI (Body Mass Index) 20.0 kg/m2 Ejection Fraction 50-55% as of 11/25/14 echo Results Test Date Facility Test Result H/L Range Note Basic Metabolic 11/03/2017 [facility] Sodium 136 mmol/L N 135- 145 Panel [address] [place] [address] [phone] Potassium 4.3 mmol/L N 3.5-5.0 Chloride 101 mmol/L N 101-111 Co2 Carbon Dioxide 31 mmol/L N 22-32 Anion Gap 4 mmol/L N 2-11 Glucose 65 mg/dL Low 70-100 Blood Urea Nitrogen 23 mg/dL N 6-24 Creatinine 0.85 mg/dL N 0.67-1.17 BUN/Creatinine Ratio 27.1 High 8-20 Calcium 9.0 mg/dL N 8.6-10.3 Egfr Non- 89.4 >60 Egfr 108.1 >60 1 Laboratory test 11/03/2017 [facility] Magnesium 2.3 mg/dL N 1.9-2.[address] [place] [address] [phone] CBC Auto Diff 09/12/2017 [facility] White Blood 5.9 N 3.5- 10.[address] Count 10^3/uL [place], [place] [id number] [phone] Red Blood Count 4.46 10^6/uL N 4.00-5.40 Hemoglobin 15.7 g/dL N 14.0-18.0 Hematocrit 45 % N 42-52 Mean Corpuscular Volume 100 fL High 80-94 Mean Corpuscular Hemoglobin 35 pg High 27-31 Mean Corpuscular HGB Conc 35 g/dL N 31-36 Red Cell Distribution Width 12 % N 10.5-15 Platelet Count 172 10^3/uL N 150-450 Mean Platelet Volume 9.0 um3 N 7.4-10.4 Abs Neutrophils 4.0 10^3/uL N 1.5-7.7 Abs Lymphocytes 1.0 10^3/uL N 1.0-4.8 Abs Monocytes 0.6 10^3/uL N 0-0.8 Abs Eosinophils 0.3 10^3/uL N 0-0.6 Abs Basophils 0.1 10^3/uL N 0-0.2 Abs Nucleated RBC 0 10^3/uL Granulocyte % 68.0 % N 38-83 Lymphocyte % 16.1 % Low 25-47 Monocyte % 10.1 % High 0-7 Eosinophil % 4.9 % N 0-6 Basophil % 0.9 % N 0-2 Nucleated Red Blood Cells % 0 Laboratory test 09/12/2017 [facility] C Difficile PCR SEE RESULT [address] [place] [address] [phone] Cyclospora Stain See Comment 3 Laboratory 06/07/2017 [facility] TSH (Thyroid 5.05 N 0.34- 5.60 test finding [address] Stim Horm) mcIU/mL [place], [place] [id number] [phone] Laboratory 05/23/2017 [facility] C Difficile SEE RESULT 4 test finding [address] [place] [address] [phone] Wound 05/12/2017 [facility] Wound/Misc SEE RESULT 5, 6 Culture/Sensi [address] [place] [address] Stain [phone] Laboratory 05/12/2017 [facility] MRSA/S. aureus SEE RESULT 7 test finding [address] [place] [address] [phone] Laboratory 03/03/2017 [facility] C Difficile SEE RESULT 8 test finding [address] [place] [address] [phone] Laboratory 03/03/2017 [facility] Blood Urea 21 mg/dL N 6-24 test finding [address] [place] [address] [phone] Creatinine 03/03/2017 [facility] Creatinine 0.87 mg/dL N 0.67- 1.[address] [place] [address] [phone] Egfr Non- 87.0 >60 Egfr 111.9 >60 9 Laboratory test 11/22/2016 [facility] C Reactive 1.97 mg/L N < 5.00 [address] [place] [address] [phone] Laboratory test 10/20/2016 [facility] TSH (Thyroid 2.86 N 0.34 -5.[address] Stim Horm) mcIU/[place] [address] [phone] Ua Routine 08/26/2016 [employer] [facility] Ua Specific 1.015 [place] Ua PH 7 Ua Color dark yellow Ua Appera clear Ua WBC neg Ua Protein trace Ua Glucose normal Ua Ketones neg Ua Bilirubin neg Ua Urobilinogen norm Ua Nitrite neg Ua Occult Blood neg Comp Metabolic Panel 08/26/2016 [facility] Sodium 136 mmol/L N 133-[address] [place] [address] [phone] Potassium 4.1 mmol/L N 3.5-5.0 Chloride 102 mmol/L N 101-111 Co2 Carbon Dioxide 29 mmol/L N 22-32 Anion Gap 5 mmol/L N 2-11 Glucose 81 mg/dL N 70-100 Blood Urea Nitrogen 13 mg/dL N 6-24 Creatinine 0.80 mg/dL N 0.67-1.17 BUN/Creatinine Ratio 16.3 N 8-20 Calcium 9.5 mg/dL N 8.6-10.3 Total Protein 7.2 g/dL N 6.4-8.9 Albumin 4.1 g/dL N 3.2-5.2 Globulin 3.1 g/dL N 2-4 Albumin/Globulin Ratio 1.3 N 1-3 Total Bilirubin 1.20 mg/dL High 0.2-1.0 Alkaline Phosphatase 81 U/L N 34-104 Alt 26 U/L N 7-52 Ast 34 U/L N 13-39 Egfr Non- 96.1 N >60 Egfr 123.6 N >60 11 Laboratory test 08/26/2016 [facility] Magnesium 2.3 mg/dL N 1.9-2.7 [address] [place] [address] [phone] TSH (Thyroid Stim Horm) 9.28 mcIU/mL High 0.34-5.60 13 Urine Culture And 08/26/2016 [facility] Urine Culture SEE RESULT [address] [place] [address] [phone] Comp Metabolic 04/01/2016 [facility] Sodium 135 mmol/L N 133- [address] [place] [address] [phone] Potassium 4.4 mmol/L N 3.5-5.0 Chloride 100 mmol/L Low 101-111 Co2 Carbon Dioxide 32 mmol/L N 22-32 Anion Gap 3 mmol/L N 2-11 Glucose 70 mg/dL N 70-100 Blood Urea Nitrogen 14 mg/dL N 6-24 Creatinine 0.72 mg/dL N 0.67-1.17 BUN/Creatinine Ratio 19.4 N 8-20 Calcium 9.2 mg/dL N 8.6-10.3 Total Protein 7.7 g/dL N 6.4-8.9 Albumin 3.2 g/dL N 3.2-5.2 Globulin 4.5 g/dL High 2-4 Albumin/Globulin Ratio 0.7 Low 1-3 Total Bilirubin 0.60 mg/dL N 0.2-1.0 Alkaline Phosphatase 71 U/L N 34-104 Alt 19 U/L N 7-52 Ast 26 U/L N 13-39 Egfr Non- 108.6 N >60 Egfr 139.6 N >60 15 CBC Auto Diff 03/28/2016 [facility] White Blood 9.7 10^3/uL N 3.5-10.[address] [place] [address] [phone] Red Blood Count 4.16 10^6/uL N 4.0-5.4 Hemoglobin 13.9 g/dL Low 14.0-18.0 Hematocrit 41 % Low 42-52 Mean Corpuscular Volume 100 fL High 80-94 Mean Corpuscular Hemoglobin 34 pg High 27-31 Mean Corpuscular HGB Conc 34 g/dL N 31-36 Red Cell Distribution Width 12 % N 10.5-15 Platelet Count 264 10^3/uL N 150-450 Mean Platelet Volume 9 um3 N 7.4-10.4 Abs Neutrophils 7.5 10^3/uL N 1.5-7.7 Abs Lymphocytes 1.1 10^3/uL N 1.0-4.8 Abs Monocytes 0.9 10^3/uL High 0-0.8 Abs Eosinophils 0.3 10^3/uL N 0-0.6 Abs Basophils 0 10^3/uL N 0-0.2 Abs Nucleated RBC 0 10^3/uL N Granulocyte % 76.5 % N 38-83 Lymphocyte % 11.0 % Low 25-47 Monocyte % 9.3 % High 1-9 Eosinophil % 2.8 % N 0-6 Basophil % 0.4 % N 0-2 Nucleated Red Blood Cells % 0 N Laboratory 03/28/2016 [facility] Erythrocyte Sed 95 mm/Hr High 0-40 test finding [address] [place] [address] [phone] Wound 03/28/2016 [facility] Wound/Misc SEE RESULT 16 Culture/Sensi [address] [place] [address] Stain [phone] Laboratory 11/06/2015 [facility] Partial Thrombo 43.2 High 26.0-36. test finding [address] Time PTT seconds 3 [place] [address] [phone] Inr/Protime 11/06/2015 [facility] Inr 2.99 High 0.89-1.[address] 1 [place] [address] [phone] Comp Metabolic 11/06/2015 [facility] Sodium 136 mmol/L N 133- [address] [place] [address] [phone] Potassium 4.9 mmol/L N 3.5-5.0 Chloride 100 mmol/L Low 101-111 Co2 Carbon Dioxide 32 mmol/L N 22-32 Anion Gap 4 mmol/L N 2-11 Glucose 93 mg/dL N 70-100 Blood Urea Nitrogen 15 mg/dL N 6-24 Creatinine 0.75 mg/dL N 0.67-1.17 BUN/Creatinine Ratio 20.0 N 8-20 Calcium 10.0 mg/dL N 8.6-10.3 Total Protein 7.7 g/dL N 6.4-8.9 Albumin 4.0 g/dL N 3.2-5.2 Globulin 3.7 g/dL N 2-4 Albumin/Globulin Ratio 1.1 N 1-3 Total Bilirubin 1.40 mg/dL High 0.2-1.0 Alkaline Phosphatase 75 U/L N 34-104 Alt 18 U/L N 7-52 Ast 25 U/L N 13-39 Egfr Non- 103.9 N >60 Egfr 133.6 N >60 17 CBC Auto Diff 11/06/2015 [facility] White Blood 7.0 10^3/uL N 3.5-10.[address] [place] [address] [phone] Red Blood Count 4.51 10^6/uL N 4.0-5.4 Hemoglobin 15.1 g/dL N 14.0-18.0 Hematocrit 45 % N 42-52 Mean Corpuscular Volume 99 fL High 80-94 Mean Corpuscular Hemoglobin 33 pg High 27-31 Mean Corpuscular HGB Conc 34 g/dL N 31-36 Red Cell Distribution Width 13 % N 10.5-15 Platelet Count 143 10^3/uL Low 150-450 Mean Platelet Volume 9 um3 N 7.4-10.4 Abs Neutrophils 5.2 10^3/uL N 1.5-7.7 Abs Lymphocytes 1.1 10^3/uL N 1.0-4.8 Abs Monocytes 0.6 10^3/uL N 0-0.8 Abs Eosinophils 0.2 10^3/uL N 0-0.6 Abs Basophils 0 10^3/uL N 0-0.2 Abs Nucleated RBC 0 10^3/uL N Granulocyte % 73.4 % N 38-83 Lymphocyte % 15.8 % Low 25-47 Monocyte % 8.1 % N 1-9 Eosinophil % 2.2 % N 0-6 Basophil % 0.5 % N 0-2 Nucleated Red Blood Cells % 0.1 N Laboratory test 11/06/2015 [facility] Erythrocyte Sed 35 mm/Hr N 0-[address] [place] [address] [phone] Thyroid Panel 10/27/2015 [facility] Free T4 (Free 1.19 High 0.61-1.[address] Thyroxine) ng/dL 2 [place] [address] [phone] Thyroxine 8.73 ?g/dL N 6.09-12.23 19 TSH (Thyroid Stim Horm) 3.88 mcIU/mL N 0.34-5.60 20 Protime W/ Inr 10/13/2015 [facility] Prothrombin Time 27.0 Inr 2.3 Protime W/ Inr 09/24/2015 [facility] Prothrombin Time 29.2 Inr 2.4 Protime W/ Inr 09/17/2015 [facility] Prothrombin Time 20.3 Inr 1.7 Comp Metabolic Panel 09/07/2015 [facility] Sodium 136 mmol/L N 133-[address] [place] [address] [phone] Potassium 4.5 mmol/L N 3.5-5.0 Chloride 100 mmol/L Low 101-111 Co2 Carbon Dioxide 24 mmol/L N 22-32 Anion Gap 12 mmol/L High 2-11 Glucose 80 mg/dL N 70-100 Blood Urea Nitrogen 15 mg/dL N 6-24 Creatinine 0.83 mg/dL N 0.67-1.17 BUN/Creatinine Ratio 18.1 N 8-20 Calcium 9.5 mg/dL N 8.6-10.3 Total Protein 7.3 g/dL N 6.4-8.9 Albumin 4.0 g/dL N 3.2-5.2 Globulin 3.3 g/dL N 2-4 Albumin/Globulin Ratio 1.2 N 1-3 Total Bilirubin 1.10 mg/dL High 0.2-1.0 Alkaline Phosphatase 81 U/L N 34-104 Alt 16 U/L N 7-52 Ast 31 U/L N 13-39 Egfr Non- 92.4 N >60 Egfr 118.8 N >60 21 Laboratory test 09/07/2015 [facility] PSA Screening 1.340 N 0- 4.000 [address] ng/[place] [address] [phone] Protime W/ Inr 09/03/2015 [facility] Prothrombin Time 22.7 Inr 1.9 Lipid Profile 08/28/2015 [facility] Triglycerides 77 mg/dL N 23 (Trig/Chol/HDL) [address] [place] [address] [phone] Cholesterol 118 mg/dL N 24 HDL Cholesterol 43.7 mg/dL N 25 LDL Cholesterol 59 mg/dL N 26 Protime W/ Inr 08/27/2015 [facility] Prothrombin Time 35.3 Inr 2.9 Protime W/ Inr 08/13/2015 [facility] Prothrombin Time 29.4 Inr 2.4 Protime W/ Inr 07/30/2015 [facility] Prothrombin Time 37.7 Inr 3.1 Protime W/ Inr 07/23/2015 [facility] Prothrombin Time 19.7 Inr 1.6 Protime W/ Inr 07/17/2015 [facility] Prothrombin Time 13.3 Inr 1.1 Protime W/ Inr 07/09/2015 [facility] Prothrombin Time 29.9 Inr 2.5 Protime W/ Inr 06/17/2015 [facility] Prothrombin Time 29.7 Inr 2.5 Protime W/ Inr 06/04/2015 [facility] Prothrombin Time 22.6 Inr 1.9 Protime W/ Inr 05/06/2015 [facility] Prothrombin Time 24.9 Inr 2.1 Protime W/ Inr 04/07/2015 [facility] Prothrombin Time 31.2 Inr 2.6 Laboratory test 03/23/2015 [facility] C Reactive 4.84 mg/L N < 5.00 [address] [place] [address] [phone] Protime W/ Inr 03/16/2015 [facility] Inr 2.5 CBC Auto Diff 03/11/2015 [facility] White Blood 6.2 N 3.5- 10.[address] Count 10^3/[place] [address] [phone] Red Blood Count 4.59 10^6/uL N 4.0-5.4 Hemoglobin 15.6 g/dL N 14.0-18.0 Hematocrit 47 % N 42-52 Mean Corpuscular Volume 102 fL High 80-94 Mean Corpuscular Hemoglobin 34 pg High 27-31 Mean Corpuscular HGB Conc 33 g/dL N 31-36 Red Cell Distribution Width 13 % N 10.5-15 Platelet Count 149 10^3/uL Low 150-450 Mean Platelet Volume 9 um3 N 7.4-10.4 Abs Neutrophils 3.9 10^3/uL N 1.5-7.7 Abs Lymphocytes 1.2 10^3/uL N 1.0-4.8 Abs Monocytes 0.6 10^3/uL N 0-0.8 Abs Eosinophils 0.4 10^3/uL N 0-0.6 Abs Basophils 0 10^3/uL N 0-0.2 Abs Nucleated RBC 0.01 10^3/uL N Granulocyte % 63.6 % N 38-83 Lymphocyte % 19.0 % Low 25-47 Monocyte % 9.9 % High 1-9 Eosinophil % 7.0 % High 0-6 Basophil % 0.5 % N 0-2 Nucleated Red Blood Cells % 0.1 N Comp Metabolic Panel 03/11/2015 [facility] Sodium 139 mmol/L N 133-[address] [place] [address] [phone] Potassium 4.3 mmol/L N 3.5-5.0 Chloride 102 mmol/L N 101-111 Co2 Carbon Dioxide 33 mmol/L High 22-32 Anion Gap 4 mmol/L N 2-11 Glucose 81 mg/dL N 70-100 Blood Urea Nitrogen 14 mg/dL N 6-24 Creatinine 0.83 mg/dL N 0.67-1.17 BUN/Creatinine Ratio 16.9 N 8-20 Calcium 9.4 mg/dL N 8.6-10.3 Total Protein 7.1 g/dL N 6.4-8.9 Albumin 3.9 g/dL N 3.2-5.2 Globulin 3.2 g/dL N 2-4 Albumin/Globulin Ratio 1.2 N 1-3 Total Bilirubin 1.20 mg/dL High 0.2-1.0 Alkaline Phosphatase 78 U/L N 34-104 Alt 15 U/L N 7-52 Ast 24 U/L N 13-39 Egfr Non- 92.4 N >60 Egfr 118.8 N >60 28 Laboratory test 03/11/2015 [facility] TSH (Thyroid 3.51 N 0.34 -5.[address] Stim Horm) ?IU/mL [place], [place] [address] [phone] Laboratory test 02/09/2015 [facility] TSH (Thyroid 3.45 N 0.34 -5.[address] Stim Horm) ?IU/[place] [address] [phone] Protime W/ Inr 02/09/2015 [facility] Prothrombin Time 26.7 Inr 2.2 Laboratory test 01/02/2015 [facility] TSH (Thyroid 6.06 High 0.34-5.[address] Stim Horm) ?IU/[place] [address] [phone] CBC Auto Diff 01/02/2015 [facility] White Blood 4.7 Low 4.8- 10.[address] Count 10^3/[place] [address] [phone] Red Blood Count 4.19 10^6/uL N 4.0-5.4 Hemoglobin 14.3 g/dL N 14.0-18.0 Hematocrit 43 % N 42-52 Mean Corpuscular Volume 103 fL High 80-94 Mean Corpuscular Hemoglobin 34 pg High 27-31 Mean Corpuscular HGB Conc 33 g/dL N 31-36 Red Cell Distribution Width 13 % N 10.5-15 Platelet Count 158 10^3/uL N 150-450 Mean Platelet Volume 10 um3 N 7.4-10.4 Abs Neutrophils 2.7 10^3/uL N 1.5-7.7 Abs Lymphocytes 1.2 10^3/uL N 1.0-4.8 Abs Monocytes 0.4 10^3/uL N 0-0.8 Abs Eosinophils 0.4 10^3/uL N 0-0.6 Abs Basophils 0 10^3/uL N 0-0.2 Abs Nucleated RBC 0.01 10^3/uL N Granulocyte % 58.2 % N 38-83 Lymphocyte % 24.7 % Low 25-47 Monocyte % 8.4 % N 1-9 Eosinophil % 7.9 % High 0-6 Basophil % 0.8 % N 0-2 Nucleated Red Blood Cells % 0.1 N Comp Metabolic Panel 01/02/2015 [facility] Sodium 136 mmol/L N 133-[address] [place] [address] [phone] Potassium 4.5 mmol/L N 3.5-5.0 Chloride 101 mmol/L N 101-111 Co2 Carbon Dioxide 33 mmol/L High 22-32 Anion Gap 2 mmol/L N 2-11 Glucose 76 mg/dL N 70-100 Blood Urea Nitrogen 18 mg/dL N 6-24 Creatinine 0.78 mg/dL N 0.67-1.17 BUN/Creatinine Ratio 23.1 High 8-20 Calcium 9.2 mg/dL N 8.6-10.3 Total Protein 7.1 g/dL N 6.4-8.9 Albumin 3.7 g/dL N 3.2-5.2 Globulin 3.4 g/dL N 2-4 Albumin/Globulin Ratio 1.1 N 1-3 Total Bilirubin 0.90 mg/dL N 0.2-1.0 Alkaline Phosphatase 83 U/L N 34-104 Alt 24 U/L N 7-52 Ast 30 U/L N 13-39 Egfr Non- 99.6 N >60 Egfr 128.1 N >60 29 Laboratory test 12/17/2014 [facility] C Reactive 14.40 mg/L High < 5.00 [address] [place] [address] [phone] 1 Because ethnic data is not always readily [...] 15-29 5 Kidney failure <15 (or dialysis) 2 SEE RESULT BELOW Name: JOSEPH BYRNE : [address]: Wily Cottrell MD Acct: [id number] Unit: [id number] AGE: 67 Location: [facility] Re09/12/17 SEX: M Status: REG REF SPEC: [id number] JUSTIN: 09/12/17-[address]: Wily Cottrell MD REQ: [id number] RECD: 09/12/17-1231 STATUS: COMP _ SOURCE: STOOL SPDESC: ORDERED: C. diff PCR, Stool Culture, O P: Giar/Crypt COMMENTS: Verbal to kaitlin saucedo by [id number] at 1450 on 09/12/17. Results read back accurately. Procedure Result Reported Site Stool Culture Final 09/14/17- 1018 ML Result No enteric pathogens isolated Testing for Salmonella, Shigella, Aeromonas, Plesiomonas, Yersinia and Campylobacter are included in a Stool Culture. Vibrio spp not routinely tested for in a stool culture. If testing is desired, please request specifically when placing test order. Sensitivities not routinely performed on stool isolates, as antibiotics may prolong the carriage rate of bacteria. Please contact the microbiology lab if sensitivities are required. Stool Specimen Description Final 09/12/17- 1253 ML Stool Color Brown Stool Form Nonformed Stool Consistency Soft Shiga Toxin 1 2 Final 09/13/17- 1358 ML Organism 1 Negative Shiga Toxin 1 2 Immunochromatographic Assay CONTINUED ON NEXT PAGE DEPARTMENT OF PATHOLOGY, [address] [place] [address] Lei Sellers M.D. Director [facility] # [id number] Patient: JOSEPH BYRNE [id number] (Continued) Specimen: [id number] Collected: 09/12/17 Received: 09/12/17 (Continued) Procedure Result Reported Site Shiga Toxin 1 2 Final (continued) 09/13/17- 1358 C. difficile PCR Final 09/12/17- 1429 ML Organism 1 027 Presumptive NEGATIVE Organism 2 Toxigenic C.diff POSITIVE O P: Giardia/Cryptospor Screen Final 09/13/17- 1232 ML Organism 1 Neg Cryptosporidium/Giardia Giardia and cryptosporidium antigen testing performed by enzyme immunoassay. If patient is immunocompromised or has traveled to or is from a developing country, a full ova and parasite exam with microscopic (OPMIC) is recommended. All samples will be held one month in case full ova and parasite testing is requested. Contact the Microbiology Department at [phone]. TEST LIMITATIONS: As with all diagnostic procedures, the results obtained should be used in conjunction with other clinical information available the physician, including confirmation by another method. Negative results can occur in samples containing antigen below lower limits of detection of the assay. One negative specimen does not rule out the possibility of a parasitic infection. To improve detection it is recommended that three specimens be collected on separate days over a period of not more than seven days. The use of colonic washes, aspirates or other diluted sample types has not been established and could affect the performance of the assay. Stool samples contaminated with an oily or particulate base (eg. Barium, mineral oil etc.) could interfere with the test and are not recommended. * - [facility] . END OF REPORT DEPARTMENT OF PATHOLOGY, [address] [place] [address] Lei Sellers M.D. Director [facility] # [id number] 3 SOURCE: STOOL CYCLOSPORA STAIN FINAL Negative. Test Performed by: [address] [address] 4 SEE RESULT BELOW Name: JOSEPH BYRNE : [address]: Wily Cottrell MD Acct: [id number] Unit: [id number] AGE: 67 Location: [facility] Re05/23/17 SEX: M Status: REG REF SPEC: [id number] JUSTIN: 05/23/17-[address]: Wily Cottrell MD REQ: [id number] RECD: 05/23/17 STATUS: COMP _ SOURCE: STOOL SPDESC: ORDERED: C. diff PCR Procedure Result Reported Site Stool Specimen Description Final 05/23/17- 1513 ML Stool Color Light Brown Stool Form Nonformed Stool Consistency Liquid C. difficile PCR Final 05/23/17- 1557 ML Organism 1 027 Presumptive NEGATIVE Organism 2 Toxigenic C.diff NEGATIVE * ML - Main Lab . END OF REPORT DEPARTMENT OF PATHOLOGY, [address] [place] [address] Lei Sellers M.D. Director [facility] # [id number] SEE RESULT BELOW Name: JOSEPH BYRNE : [address]: Marla Dixon MD Acct: [id number] Unit: [id number] AGE: 67 Location: [facility] Re05/12/17 SEX: M Status: DEP ER SPEC: [id number] JUSTIN: 05/12/[address] [facility] [address]: Ed GAYLE REQ: [id number] RECD: 05/12/17 STATUS: RES OTHR DR: Marla Sauceda MD _ SOURCE: KNEE,LEFT SPDESC: ORDERED: MRSA/SA SSTI, Culture Stain COMMENTS: [id number] Procedure Result Reported Site MRSA/S. aureus SSTI PCR PENDING Wound/Misc Gram Stain Final 05/13/17- 0751 ML 1+ Epithelial Cells No Neutrophils Observed No Organisms Seen Wound/Misc Culture Preliminary 05/13/17- 1107 ML Organism 1 STAPHYLOCOCCUS AUREUS Quantity 2+ * ML - MAIN LAB ([facility]) . END OF REPORT * ML=Testing performed at Main Lab DEPARTMENT OF PATHOLOGY, [address] [place] [address] Lei Sellers M.D. Director [facility] # [id number] 7 SEE RESULT BELOW Name: JOSEPH BYRNE : [address]: Marla Dixon MD Acct: [id number] Unit: [id number] AGE: 67 Location: [facility] Re05/12/17 SEX: M Status: DEP ER SPEC: [id number] JUSTIN: 05/12/17-[address] [facility] [address]: Ed GAYLE REQ: [id number] RECD: 05/12/17 STATUS: COMP OTHR DR: Marla Sauceda MD _ SOURCE: KNEE,LEFT SPDESC: ORDERED: MRSA/SA SSTI, Culture Stain COMMENTS: [id number] Verbal to shagufta by [id number] at 1239 on 05/13/17. Results read back accurately. Procedure Result Reported Site MRSA/S. aureus SSTI PCR Final 05/13/17- 1240 ML Organism 1 MRSA POSITIVE Organism 2 S.AUREUS POSITIVE Wound/Misc Gram Stain Final 05/13/17- 0751 ML 1+ Epithelial Cells No Neutrophils Observed No Organisms Seen Wound/Misc Culture Final 05/14/17- 0909 ML Organism 1 MRSA Quantity 2+ Consistent with previous results. 1. MRSA M.I.C. RX --------- ------ Penicillin >=0.5 R Clindamycin <=0.25 S Erythromycin >=8 R Gentamicin <=0.5 S Linezolid 2 S CONTINUED ON NEXT PAGE * ML=Testing performed at Main Lab DEPARTMENT OF PATHOLOGY, [address] [place] [address] Lei Sellers M.D. Director [facility] # [id number] Patient: JOSEPH BYRNE [id number] (Continued) Specimen: [id number] Collected: 05/12/17 Received: 05/12/17 (Continued) Procedure Result Reported Site Wound/Misc Culture Final (continued) 05/14/17908 1. MRSA (continued) M.I.C. RX --------- ------ Nitrofurantoin <=16 S Oxacillin >=4 R * Quinupristin/Dalfopristin 0.5 S Rifampin <=0.5 S Tetracycline <=1 S Doxycycline - Deduced S * Minocycline - Deduced S Trimethoprim/Sulfamethoxazole <=10 S Vancomycin 1 S Imipenem-Deduced R * Ampicillin/Sulbactam-Deduced R Cefazolin-Deduced R * These antibiotics are not available in the [facility] Formulary Contact the Microbiology Department for any additional antibiotic reporting. * ML - MAIN LAB ([facility]) . END OF REPORT * ML=Testing performed at Main Lab DEPARTMENT OF PATHOLOGY, [address] [place] [address] Lei Sellers M.D. Director [facility] # [id number] 8 SEE RESULT BELOW Name: JOSEPH BYRNE : [address]: Wily Cottrell MD Acct: [id number] Unit: [id number] AGE: 67 Location: [facility] Re03/03/17 SEX: M Status: REG REF SPEC: [id number] JUSTIN: 03/03/[address] [facility] [address]: Wily Cottrell MD REQ: [id number] RECD: 03/03/17 STATUS: COMP _ SOURCE: STOOL SPDESC: ORDERED: C. diff PCR Procedure Result Reported Site Stool Specimen Description Final 03/03/17- 1700 ML Stool Color Brown Stool Form Nonformed Stool Consistency Liquid C. difficile PCR Final 03/03/17- 1744 ML Organism 1 027 Presumptive NEGATIVE Organism 2 Toxigenic C.diff NEGATIVE * ML - MAIN LAB ([facility]) . END OF REPORT * ML=Testing performed at Main Lab DEPARTMENT OF PATHOLOGY, [address] [place] [address] Lei Sellers M.D. Director [facility] # [id number] 9 Because ethnic data is not always readily [...] 15-29 5 Kidney failure <15 (or dialysis) 10 Acute inflammation: >10.00 11 Because ethnic data is not always readily [...] 15-29 5 Kidney failure <15 (or dialysis) 12 tomorrow 08/26/16 non-fasting ok CC: PMD 13 tomorrow 08/26/16 non-fasting ok CC: PMD 14 SEE RESULT BELOW Name: JOSEPH BYRNE : [address]: Greg Iyer MD Acct: [id number] Unit: [id number] AGE: 66 Location: [facility] Re08/26/16 SEX: M Status: REG REF SPEC: [id number] JUSTIN: 08/26/[address] [facility] [address]: Jordan Iyer MD REQ: [id number] RECD: 08/26/16 STATUS: COMP _ SOURCE: URINE SPDESC: ORDERED: Urine Culture COMMENTS: [id number] Procedure Result Reported Site Urine Culture Final 08/27/16- 1331 ML No Growth (<1,000 CFU/mL) * ML - MAIN LAB ([facility]) . END OF REPORT * ML=Testing performed at Main Lab DEPARTMENT OF PATHOLOGY, [address] [place] [address] Lei Sellers M.D. Director [facility] # [id number] 15 Because ethnic data is not always [...] 5 Kidney failure <15 (or dialysis) 16 SEE RESULT BELOW Name: CESARJOSEPH E : [address]: Kiet Sauceda MD Acct: [id number] Unit: [id number] AGE: 66 Location: [facility] Re03/28/16 SEX: M Status: REG REF SPEC: [id number] JUSTIN: 03/28/16-[address] [facility] [address]: Kiet Sauceda MD REQ: [id number] RECD: 03/28/16 STATUS: COMP _ SOURCE: WOUND SPDESC: ORDERED: Culture Stain COMMENTS: [id number] Verbal to JHOANA Serrano (DRS OFFICE) by [id number] at 1231 on 03/29/16. Results read back accurately. Specimen Description draining from mandible Procedure Result Reported Site Wound/Misc Gram Stain Final 03/29/16722 ML 3+ Epithelial Cells 1+ Neutrophils 3+ [...] performed at Main Lab DEPARTMENT OF PATHOLOGY, [address] [place] [address] Lei Sellers M.D. Director [facility] # [id number] Patient: JOSEPH BYRNE [id number] (Continued) Specimen: [id number] Collected: 03/28/16 Received: 03/28/16 (Continued) Procedure Result Reported Site Wound/Misc Culture Final (continued) 03/31/16821 1. STREP PYOGENES (GRP A) (continued) M.I.C. RX --------- ------ Tetracycline >4 R Vancomycin 0.5 S * ML - MA[facility] LAB ([facility]) . END OF REPORT * ML=Testing performed at Main Lab DEPARTMENT OF PATHOLOGY, [address] [place] [address] Lei Sellers M.D. Director [facility] # [id number] 17 Because ethnic data is not always readily [...] 15-29 5 Kidney failure <15 (or dialysis) 18 Copy Result to: KIET SAUCEDA ([id number]) 19 Copy Result to: KIET SAUCEDA ([id number]) 20 Copy Result to: KIET SAUCEDA ([id number]) 21 Because ethnic data is not always [...] 5 Kidney failure <15 (or dialysis) 22 Serum levels of PSA measured using the [employer] DXI Hybritech immunoassay should not be interpreted as absolute evidence of the presence or absence of disease. The PSA value should be used in conjunction with other pertinent clinical diagnostic procedures. The values obtained with different assay methods or kits cannot be used interchangeably. 23 Desirable <150 Borderline high 150-199 High 200-499 Very High >500 24 Desirable <200 Borderline high 200-239 High >239 25 Low <40 Desirable: 40-60 High: >60 26 Desirable: <100 mg/dL Near Optimal: 100-129 mg/dL Borderline High: 130-159 mg/dL High: 160-189 mg/dL Very High: >189 mg/dL 27 Acute inflammation: >10.00 28 Because ethnic data is not always readily [...] 15-29 5 Kidney failure <15 (or dialysis) 29 Because ethnic data is not always readily [...] 15-29 5 Kidney failure <15 (or dialysis) 30 Acute inflammation: >10.00 Procedures Date Code Description Status 02/16/2018 14455 Nerve Conduction 03-04 Studies Completed 02/16/2018 82836 Needle Electromyography Complete, Five Or More Muscles Completed Studied 02/01/2018 01164 EKG Tracing & Interpretation Completed 01/23/2018 46814 Stress Test Completed 01/23/2018 36513 Myocardial Perfusion Imaging Tomographic (Spect) Completed Multiple Studies 01/17/2018 82341 Implantable Cardio System Loop Recorder Sys Remota Data Completed [facility] 01/17/2018 27685 Interrogation Dev Loop Recorder Incl Physician Completed Analysis,Rev,Repor 12/17/2017 76858 Implantable Cardio System Loop Recorder Sys Remota Data Completed [employer] 12/17/2017 74634 Interrogation Dev Loop Recorder Incl Physician Completed Analysis,Rev,Repor 11/16/2017 96023 Interrogation Dev Loop Recorder Incl Physician Completed Analysis,Rev,Repor 11/16/2017 87653 Implantable Cardio System Loop Recorder Sys Remota Data Completed [employer] 11/03/2017 23540 EKG Tracing & Interpretation Completed 11/03/2017 13583 EKG Tracing & Interpretation Completed 10/16/2017 84272 Implantable Cardio System Loop Recorder Sys Remota Data Completed [employer] 10/16/2017 79085 Interrogation Dev Loop Recorder Incl Physician Completed Analysis,Rev,Repor 09/15/2017 45686 Implantable Cardio System Loop Recorder Sys Remota Data Completed [employer] 09/15/2017 40079 Interrogation Dev Loop Recorder Incl Physician Completed Analysis,Rev,Repor 08/15/2017 79408 Implantable Cardio System Loop Recorder Sys Remota Data Completed [employer] 08/15/2017 48399 Interrogation Dev Loop Recorder Incl Physician Completed Analysis,Rev,Repor 07/15/2017 44481 Interrogation Dev Loop Recorder Incl Physician Completed Analysis,Rev,Repor 07/15/2017 29553 Implantable Cardio System Loop Recorder Sys Remota Data Completed [employer] 06/14/2017 11888 Implantable Cardio System Loop Recorder Sys Remota Data Completed [employer] 06/14/2017 19233 Interrogation Dev Loop Recorder Incl Physician Completed Analysis,Rev,Repor 05/16/2017 44317 I&D deep abscess,bursa or hematoma thigh or knee region Completed 05/16/2017 85365 I&D deep abscess,bursa or hematoma thigh or knee region Completed 05/16/2017 88075 I&D deep abscess,bursa or hematoma thigh or knee region Completed 05/16/2017 21445 I&D deep abscess,bursa or hematoma thigh or knee region Completed 05/14/2017 80905 Implantable Cardio System Loop Recorder Sys Remota Data Completed [employer] 05/14/2017 83203 Interrogation Dev Loop Recorder Incl Physician Completed Analysis,Rev,Repor 04/13/2017 34619 Interrogation Dev Loop Recorder Incl Physician Completed Analysis,Rev,Repor 04/13/2017 61868 Implantable Cardio System Loop Recorder Sys Remota Data Completed [employer] 04/06/2017 61273 EKG Tracing & Interpretation Completed 03/13/2017 16963 Implantable Cardio System Loop Recorder Sys Remota Data Completed [employer] 03/13/2017 41154 Interrogation Dev Loop Recorder Incl Physician Completed Analysis,Rev,Repor 02/10/2017 77003 Implantable Cardio System Loop Recorder Sys Remota Data Completed [facility] 02/10/2017 48104 Interrogation Dev Loop Recorder Incl Physician Completed Analysis,Rev,Repor 01/10/2017 09782 Implantable Cardio System Loop Recorder Sys Remota Data Completed [facility] 01/10/2017 98780 Interrogation Dev Loop Recorder Incl Physician Completed Analysis,Rev,Repor 12/10/2016 06718 Interrogation Dev Loop Recorder Incl Physician Completed Analysis,Rev,Repor 12/10/2016 34237 Implantable Cardio System Loop Recorder Sys Remota Data Completed [facility] 11/09/2016 64057 Implantable Cardio System Loop Recorder Sys Remota Data Completed [facility] 11/09/2016 19570 Interrogation Dev Loop Recorder Incl Physician Completed Analysis,Rev,Repor 10/09/2016 32089 Implantable Cardio System Loop Recorder Sys Remota Data Completed [facility] 10/09/2016 55718 Interrogation Dev Loop Recorder Incl Physician Completed Analysis,Rev,Repor 09/08/2016 09992 Implantable Cardio System Loop Recorder Sys Remota Data Completed [facility] 09/08/2016 75266 Interrogation Dev Loop Recorder Incl Physician Completed Analysis,Rev,Repor 08/23/2016 03842 EKG Tracing & Interpretation Completed 08/23/2016 66004 EKG Tracing & Interpretation Completed 08/08/2016 79893 Interrogation Dev Loop Recorder Incl Physician Completed Analysis,Rev,Repor 08/08/2016 61089 Implantable Cardio System Loop Recorder Sys Remota Data Completed [facility] 07/26/2016 49603 EKG Tracing & Interpretation Completed 07/08/2016 28825 Implantable Cardio System Loop Recorder Sys Remota Data Completed [facility] 07/08/2016 65891 Interrogation Dev Loop Recorder Incl Physician Completed Analysis,Rev,Repor 06/07/2016 94989 Implantable Cardio System Loop Recorder Sys Remota Data Completed [facility] 06/07/2016 04438 Interrogation Dev Loop Recorder Incl Physician Completed Analysis,Rev,Repor 05/07/2016 82223 Implantable Cardio System Loop Recorder Sys Remota Data Completed [facility] 05/07/2016 99512 Interrogation Dev Loop Recorder Incl Physician Completed Analysis,Rev,Repor 04/21/2016 03791 EKG Tracing & Interpretation Completed 04/06/2016 80707 Interrogation Dev Loop Recorder Incl Physician Completed Analysis,Rev,Repor 04/06/2016 48854 Implantable Cardio System Loop Recorder Sys Remota Data Completed [facility] 03/06/2016 23342 Implantable Cardio System Loop Recorder Sys Remota Data Completed [facility] 03/06/2016 54534 Interrogation Dev Loop Recorder Incl Physician Completed Analysis,Rev,Repor 02/16/2016 64070 Loop Recorder Device Eval W/Iterative Adj Implant Loop Completed Recorder 02/03/2016 52250 Implant Cardiac Loop Recorder Completed 02/02/2016 98609 EKG Tracing & Interpretation Completed 01/31/2016 63802 ECHO Transthorasic Realtime 2D W Doppler & Color Flow Completed Hosp 10/27/2015 23761 Nerve Conduction 07-08 Studies Completed 10/27/2015 56293 Needle Electromyography Complete, Five Or More Muscles Completed Studied 12/24/2014 59160 EKG Tracing & Interpretation Completed 12/24/2014 10589 EKG Tracing & Interpretation Completed 12/10/2014 42457 EKG Tracing & Interpretation Completed 11/27/2014 42038 EKG, Interpretation Only Completed 11/25/2014 10250 ECHO Transthorasic Realtime 2D W Doppler & Color Flow Completed Hosp 11/25/2014 95339 EKG, Interpretation Only Completed 02/26/2010 86417 Color Flow Doppler/Interp & Reprt Completed 02/26/2010 08307 Pulse Wave/Continuous-Interp.RPT Completed 02/26/2010 26779 ECHO Transthorasic Realtime 2D W Doppler & Color Flow Completed Hosp 2010 43414 ECHO Transthorasic Realtime 2D W Doppler & Color Flow Completed Hosp 03/20/2008 [id number] Colonoscopy Completed Encounters Type Date Location Provider Dx Diagnosis Office Visit 02/01/2018 [facility] Apryl Moreira, I48.0 Paroxysmal atrial 1:10p Of [facility] MJulianDJulian fibrillation M25.511 Pain in right shoulder F52.21 Male erectile disorder Office Visit 01/17/2018 [facility] Internal [place] E03.9 Hypothyroidism, 4:00p Wilder Sauceda M.D. unspecified [place] I48.0 Paroxysmal atrial fibrillation G56.01 Carpal tunnel syndrome, right upper limb M25.511 Pain in right shoulder R20.2 Paresthesia of skin Office Visit 12/26/2017 10:30a [facility] Wily Reed M27.2 Inflammatory For Infectious Channing Cottrell conditions of jaws Diseases Office Visit 11/03/2017 2:30p [facility] Carolyn Jacques, I48.0 Paroxysmal atrial Cardiology Of N.P. fibrillation [facility] I95.1 Orthostatic hypotension Office Visit 09/15/2017 11:10a [facility] Wily Reed K62.5 Hemorrhage of anus For Infectious Channing Cottrell and rectum Diseases Office Visit 09/07/2017 11:20a [facility] Internal [place] I48.0 Paroxysmal atrial Medicine - Apryl Sauceda M.D. fibrillation Rd E03.9 Hypothyroidism, unspecified K21.9 Gastro-esophageal reflux disease without esophagitis K62.5 Hemorrhage of anus and rectum Office Visit 08/15/2017 3:20p [facility] Wily Reed M27.2 Inflammatory For Infectious Channing Cottrell conditions of jaws Diseases R19.7 Diarrhea, unspecified Office Visit 06/26/2017 1:40p [facility] Shilo Reed M71.162 Other infective Infectious Channing Cottrell bursitis, left Diseases knee Z79.2 [facility] (current) use of antibiotics M27.2 Inflammatory conditions of jaws Office Visit 06/06/2017 4:20p [facility] Internal [place] I48.0 Paroxysmal atrial Medicine - Channing Sauceda fibrillation [address] E03.9 Hypothyroidism, unspecified K21.9 Gastro-esophageal reflux disease without esophagitis F17.210 Nicotine dependence, cigarettes, uncomplicated Z23 Encounter for immunization Office Visit 05/31/2017 9:10a [facility] Shilo Reed M71.162 Other infective Infectious Channing Cottrell bursitis, left Diseases knee M27.2 Inflammatory conditions of jaws R19.7 Diarrhea, unspecified Office Visit 05/18/2017 11:22a [facility] Shilo Reed M71.162 Other infective Infectious Channing Cottrell 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 M27.2 Inflammatory conditions of jaws Office Visit 05/18/2017 [facility] Virgen Garcia 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 fibrillation Z95.818 Presence of other cardiac implants and grafts I95.1 Orthostatic hypotension Office Visit 02/13/2017 3:00p [facility] Wily Reed L03.211 Cellulitis of For Infectious Chelsea Cottrell. face Diseases M27.2 Inflammatory conditions of jaws Office Visit 12/23/2016 10:30a [facility] Wily Reed M27.2 Inflammatory For Infectious [place], M.D. 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 fibrillation Z95.818 Presence of other cardiac implants and grafts I95.1 Orthostatic hypotension R07.89 Other chest pain Office Visit 07/08/2016 10:30a [facility] Wily Reed M27.2 Inflammatory For Infectious [place], M.D. 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 fibrillation [employer] Office Visit 04/05/2016 10:20a [facility] Internal [place] M27.2 Inflammatory Medicine - [place] Channing Sauceda conditions of jaws Rd Office Visit 04/01/2016 10:10a [facility] Wily Trevino7.2 Inflammatory For Infectious Channing Cottrell conditions of jaws Diseases Office Visit 03/28/2016 1:40p [facility] Internal [place] Trevino7.2 Inflammatory Medicine - Tbclaudio Sauceda M.D. conditions of jaws Rd Office Visit 02/09/2016 10:00a [facility] Internal [place] I48.0 Paroxysmal atrial Medicine - [place] Channing Sauceda fibrillation Rd E03.9 Hypothyroidism, unspecified K21.9 Gastro-esophageal reflux disease without esophagitis I62.00 Nontraumatic subdural hemorrhage, unspecified Office Visit 02/02/2016 1:00p [facility] Apryl Moreira I48.0 Paroxysmal atrial Of [employer] M.D. fibrillation I62.00 Nontraumatic subdural hemorrhage, unspecified F52.21 Male erectile disorder Office Visit 01/18/2016 Neuro[facility] Guero Yu, I62.00 Nontraumatic 10:45a Services Of [facility] M.D. subdural hemorrhage, unspecified Office Visit 01/08/2016 [facility] Internal [place] Reed I48.0 Paroxysmal atrial 2:40p Medicine - [place], fibrillation Rd M.D.,FACP I62.00 Nontraumatic subdural hemorrhage, unspecified Z23 Encounter for immunization Office Visit 12/28/2015 Neurosurgery Guero Yu, I62.00 Nontraumatic 11:00a Services Of [facility] M.D. subdural hemorrhage, unspecified I62.02 Nontraumatic subacute subdural hemorrhage Office Visit 11/17/2015 10:40a [facility] Internal [place] I62.00 Nontraumatic Medicine Luis A Sauceda M.D. subdural [address] hemorrhage, unspecified I48.0 Paroxysmal atrial fibrillation E03.9 Hypothyroidism, unspecified K21.9 Gastro-esophageal reflux disease without esophagitis Office Visit 11/09/2015 Neurosurgery Guero Yu, I62.00 Nontraumatic 2:28p Services Of [place] subdural hemorrhage, unspecified R51 Headache [facility] I62.00 Nontraumatic 10:06a monster Moore M.D. subdural Hospitalists hemorrhage, unspecified I48.2 Chronic atrial fibrillation E03.8 Other specified hypothyroidism Z85.819 Prsnl hx of malig neoplm of unsp site lip,oral cav,& pharynx Office Visit 11/08/2015 Neurosurgery Guero Yu, I62.00 Nontraumatic 1:39p Services Of [place] subdural hemorrhage, unspecified R51 Headache Z79.01 [facility] (current) use of anticoagulants Office Visit 11/08/2015 [facility], I62.00 Nontraumatic 10:05a monster Moore M.D. subdural Hospitalists hemorrhage, unspecified I48.2 Chronic atrial fibrillation E03.8 Other specified hypothyroidism Z85.819 Prsnl hx of malig neoplm of unsp site lip,oral cav,& pharynx Office Visit 11/07/2015 Neurosurgery Guero Yu, I62.00 Nontraumatic 7:00a Services Of [place] subdural hemorrhage, unspecified R51 Headache I48.91 Unspecified atrial fibrillation Z79.01 [facility] (current) use of anticoagulants Z85.830 Personal history of malignant neoplasm of bone Office Visit 11/06/2015 [facility] Ren Hernandez I62.00 Nontraumatic 10:04a Assmonster cintron II, M.D. subdural Hospitalists hemorrhage, unspecified I48.2 Chronic atrial fibrillation E03.8 Other specified hypothyroidism Z85.819 Prsnl hx of malig neoplm of unsp site lip,oral cav,& pharynx Office Visit 11/06/2015 [facility] Internal [place] R51 Headache 4:20p Medicine - Tbclaudio Sauceda M.D. Rd Office Visit 10/20/2015 Logan Bhagatsher, I48.0 Paroxysmal atrial 1:30p Cardiology Of M.D. fibrillation [facility] I95.1 Orthostatic hypotension H54.2 Low vision, both eyes E03.9 Hypothyroidism, unspecified Office Visit 10/13/2015 [facility] Internal [place] Z79.01 [facility] (current) 10:00a Wilder Sauceda M.D. use of [address] anticoagulants I48.0 Paroxysmal atrial fibrillation M54.12 Radiculopathy, cervical region Office Visit 07/23/2015 [facility] Internal [place] Z79.01 [facility] (current) 11:20a Wilder Sauceda M.D. 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 osteomyelitis, Diseases other site K02.9 Dental caries, unspecified M27.2 Inflammatory conditions of jaws Office Visit 02/09/2015 1:40p [facility] Internal Joseph Rosen, I48.0 Paroxysmal atrial Medicine - M.D. 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 osteomyelitis, Diseases other site M27.2 Inflammatory conditions of jaws Office Visit 01/09/2015 2:20p [facility] Internal Joseph Rosen, I48.0 Paroxysmal atrial Medicine - M.D. 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 osteomyelitis, Diseases other site M27.2 Inflammatory conditions of jaws Office Visit 12/10/2014 3:00p [facility] Apryl Moreira I48.0 Paroxysmal atrial Of [employer] M.D. 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 Opening Hospitalists Gastrostomy 244.9 Hypothyroidism Other Unspec 427.31 Atrial Fibrillation 526.4 Inflammatory Jaw Office Visit 11/27/2014 [facility] Apryl [place], 427.31 Atrial 1:26p Of [place] Fibrillation Office Visit 11/27/2014 [facility] Krystyna Adams, V44.1 Artificial 2:06p monster Moore M.D. Opening Hospitalists Gastrostomy 244.9 Hypothyroidism Other Unspec 526.4 Inflammatory Jaw 427.31 Atrial Fibrillation Office Visit 11/26/2014 11:20a [facility] Wily Reed 526.4 Inflammatory Jaw Infectious Channing Cottrell Diseases 239.0 Neoplasm Unspecified Digestive System [facility] V44.1 Artificial 2:06p monster Moore M.D. Opening Hospitalists Gastrostomy 244.9 Hypothyroidism Other Unspec 526.4 Inflammatory Jaw 427.31 Atrial Fibrillation [facility] V44.1 Artificial 2:04p monster Moore M.D. Opening Hospitalists Gastrostomy 244.9 Hypothyroidism Other Unspec 427.31 Atrial Fibrillation 526.4 Inflammatory Jaw Office 11/24/2014 [facility] V44.1 Artificial Visit 2:03p monster Moore N.Capri Opening Hospitalists Gastrostomy 244.9 Hypothyroidism Other Unspec 427.31 Atrial Fibrillation 526.4 Inflammatory Jaw Plan of Treatment Future Appointment(s):04/25/2018 10:00 am - Kiet Sauceda M.D. at [facility] Internal Medicine [facility]02/21/2018 - Kiet Sauceda M.D.M54.12 Radiculopathy, cervical regionNew Therapy:Physical TherapyFollow up:2 months / Medicare wellness [id number] Pain in right shoulderComments:Continue physical therapy
--- OUTSIDE RECORDS SUMMARY | 2018-02-27 11:20 | XMS REPORT | Continuity of Care Document ---
:1950 External Reference #:[id number] Author Name Miryam Quintero Care Team Providers Name Role Phone Kiet Sauceda MD Primary Care Physician Unavailable Payers Type Date Identification Numbers Payment Provider Subscriber Effective: Policy Number: Medicare Blue Ppo Joseph Byrne 2016 [id number] Group Number: [id number] [address] [address] PayID: [id number] [place] [address] Advance Directives Description No Information Available Problems [...] wrist Onset: 12/10/2014 Paroxysmal atrial fibrillation Apryl Moreira [...] chewing tobacco. Quit end Smoking Status Reviewed: 02/01/18 Former Cigarette Smoker Pt denies use of [...] - s mouth DJulian Raphaeld, 11/21/ every M.D.,[facility] 2017 evening Synthroid 08/26/ Hx Tablets 150mcg 30tab 1 by E03.9 Jordan 2017 - s mouth Derek [place], 08/26/ every day M.D.,[facility] 2017 Metoprolol 05/12/ Hx Tablets 25mg 30tab 1/2 tab I48.0 Kiet Sheldontrate 2016 - s by mouth [place] 07/26/ twice a , M.D. 2016 day Amoxicillin 05/09/ Hx Tablets 500mg 90tab 1 by M27.2 Wily 2017 - s mouth two D. 11/18/ times a [facility], 2016 day M.D. please dispense tablets [...] by Apryl Alba 2014 - s mouth [place], 01/09/ twice a M.D. 2014 Lactulose 12/10/ [...] - s peg twice D. 05/18/ daily Bisi 2017 M.D. Aspirin / Hx Tablets 325mg take 1 by Unknown 0000 - mouth 11/02/ once a 2018 day Medications Administered in Office Medication Date Status Form Strength Qnty SIG Indications Ordering Provider Inj, Administered Injection Ryan S. Regadenoson, 018 Rogers, DO 0.1 MG FACC Thallium Administered Injection Ryan S. 018 Rogers, DO FACC Immunizations CPT Code Status Date Vaccine Reaction Lot # [id number] Given 06/06/2017 Zoster (Zostavax) no reaction [id number] Given 06/06/2017 Pneumonia Vaccine pt tolerated well [id number] Given 01/08/2016 Pneumococcal Conjugate Vaccine [id number] Valent For Intramuscular Use Vital Signs Date Vital Result Comment 02/01/2018 12:50pm Height 75 inches 6'3" Weight [...] Result H/L Range Note Basic Metabolic 11/03/2017 [facility] Sodium 136 mmol/L N 135- 145 Panel [address] [place] [address] [phone] Potassium 4.3 mmol/L N 3.5-5.0 Chloride 101 mmol/L N 101-111 Co2 Carbon Dioxide 31 mmol/L N 22-32 Anion Gap 4 mmol/L N 2-11 Glucose 65 mg/dL Low 70-100 Blood Urea Nitrogen 23 mg/dL N 6-24 Creatinine 0.85 mg/dL N 0.67-1.17 BUN/Creatinine Ratio 27.1 High 8-20 Calcium 9.0 mg/dL N 8.6-10.3 Egfr Non- 89.4 >60 Egfr 108.1 >60 1 Laboratory test 11/03/2017 [facility] Magnesium 2.3 mg/dL N 1.9-2.[address] [place] [address] [phone] CBC Auto Diff 09/12/2017 [facility] White Blood 5.9 N 3.5- 10.[address] Count 10^3/[place] [address] [phone] Red Blood Count 4.46 10^6/uL N 4.00-5.40 [...] Blood Cells % 0 Laboratory test 09/12/2017 [facility] C Difficile PCR SEE RESULT [address] [place] [address] [phone] Cyclospora Stain See Comment 3 Laboratory 06/07/2017 [facility] TSH (Thyroid 5.05 N 0.34- 5.60 test finding [address] Stim Horm) mcIU/mL [place], [place] [address] [phone] Laboratory 05/23/2017 [facility] C Difficile SEE RESULT 4 test finding [address] [address] [phone] Wound 05/12/2017 [facility] Wound/Misc SEE RESULT 5, 6 Culture/Sensi [address] [place] [address] Stain [phone] Laboratory 05/12/2017 [facility] MRSA/S. aureus SEE RESULT 7 test finding [address] S[place] [address] [phone] Laboratory 03/03/2017 [facility] C Difficile SEE RESULT 8 test finding [address] [address] [phone] Laboratory 03/03/2017 [facility] Blood Urea 21 mg/dL N 6-[address] [address] [phone] Creatinine 03/03/2017 [facility] Creatinine 0.87 mg/dL N 0.67- 1.[address] [place] [address] [phone] Egfr Non- 87.0 >60 Egfr 111.9 >60 9 Laboratory test 11/22/2016 [facility] C Reactive 1.97 mg/L N < 5.[address] [place] [address] [phone] Laboratory test 10/20/2016 [facility] TSH (Thyroid 2.86 N 0.34 -5.[address] Stim Horm) mcIU/[place] [address] [phone] Ua Routine 08/26/2016 [facility] Ua Specific 1.015 [place] Ua PH 7 Ua Color dark yellow Ua Appera clear Ua WBC neg Ua Protein trace Ua Glucose normal Ua Ketones neg Ua Bilirubin neg Ua Urobilinogen norm Ua Nitrite neg Ua Occult Blood neg Comp Metabolic Panel 08/26/2016 [facility] Sodium 136 mmol/L N 133-[address] [place] [address] [phone] Potassium 4.1 mmol/L N 3.5-5.0 Chloride 102 [...] 123.6 N >60 11 Laboratory test 08/26/2016 [facility] Magnesium 2.3 mg/dL N 1.9-2.7 [address] [place] [address] [phone] TSH (Thyroid Stim Horm) 9.28 mcIU/mL High 0.34-5.60 13 Urine Culture And 08/26/2016 [facility] Urine Culture SEE RESULT [address] [place] [address] [phone] Comp Metabolic 04/01/2016 [facility] Sodium 135 mmol/L N 133- [address] [place] [address] [phone] Potassium 4.4 mmol/L N 3.5-5.0 Chloride 100 [...] N >60 Egfr 139.6 N >60 15 Wound 03/28/2016 [facility] Wound/Misc SEE RESULT 16 Culture/Sensi [address] [place] [address] Stain [phone] Laboratory test 03/28/2016 [facility] Erythrocyte Sed 95 mm/Hr High 0-[address] [place] [address] [phone] CBC Auto Diff 03/28/2016 [facility] White Blood 9.7 N 3.5- [address] Count 10^3/uL 10.8 [place] [address] [phone] Red Blood Count 4.16 10^6/uL N 4.0-5.4 [...] Nucleated Red Blood Cells % 0 N Inr/Protime 11/06/2015 [facility] Inr 2.99 High 0.89-1.[address] [place], [place] [address] [phone] Laboratory test 11/06/2015 [facility] Partial 43.2 High 26.0- 36.[address] [place] [address] Time PTT [phone] Comp Metabolic 11/06/2015 [facility] Sodium 136 mmol/L N 133- [address] [place] [address] [phone] Potassium 4.9 mmol/L N 3.5-5.0 Chloride 100 [...] N >60 17 CBC Auto Diff 11/06/2015 [facility] White Blood 7.0 10^3/uL N 3.5-10.[address] [place] [address] [phone] Red Blood Count 4.51 10^6/uL N 4.0-5.4 [...] Cells % 0.1 N Laboratory test 11/06/2015 [facility] Erythrocyte Sed 35 mm/Hr N 0-[address] [place] [address] [phone] Thyroid Panel 10/27/2015 [facility] Free T4 (Free 1.19 High 0.61-1.[address] Thyroxine) ng/dL 2 [place] [address] [phone] Thyroxine 8.73 ?g/dL N 6.09-12.23 19 TSH (Thyroid Stim Horm) 3.88 mcIU/mL N 0.34-5.60 20 Protime W/ Inr 10/13/2015 [facility] Prothrombin Time 27.0 Inr 2.3 Protime W/ Inr 09/24/2015 [facility] Prothrombin Time 29.2 Inr 2.4 Protime W/ Inr 09/17/2015 [facility] Prothrombin Time 20.3 Inr 1.7 Laboratory test 09/07/2015 [facility] PSA Screening 1.340 ng/mL N 0-4.000 [address] [place] [address] [phone] Comp Metabolic 09/07/2015 [facility] Sodium 136 mmol/L N 133- [address] [place] [address] [phone] Potassium 4.5 mmol/L N 3.5-5.0 Chloride 100 [...] 92.4 N >60 Egfr 118.8 N >60 22 Protime W/ Inr 09/03/2015 [facility] Prothrombin Time 22.7 Inr 1.9 Lipid Profile 08/28/2015 [facility] Triglycerides 77 mg/dL N 23 (Trig/Chol/HDL) [address] [place] [address] [phone] Cholesterol 118 mg/dL N 24 HDL Cholesterol 43.7 mg/dL N 25 LDL Cholesterol 59 mg/dL N 26 Protime W/ Inr 08/27/2015 [facility] Prothrombin Time 35.3 Inr 2.9 Protime W/ Inr 08/13/2015 [facility] Prothrombin Time 29.4 Inr 2.4 Protime W/ Inr 07/30/2015 [facility] Prothrombin Time 37.7 Inr 3.1 Protime W/ Inr 07/23/2015 [facility] Prothrombin Time 19.7 Inr 1.6 Protime W/ Inr 07/17/2015 [facility] Prothrombin Time 13.3 Inr 1.1 Protime W/ Inr 07/09/2015 [facility] Prothrombin Time 29.9 Inr 2.5 Protime W/ Inr 06/17/2015 [facility] Prothrombin Time 29.7 Inr 2.5 Protime W/ Inr 06/04/2015 [facility] Prothrombin Time 22.6 Inr 1.9 Protime W/ Inr 05/06/2015 [facility] Prothrombin Time 24.9 Inr 2.1 Protime W/ Inr 04/07/2015 [facility] Prothrombin Time 31.2 Inr 2.6 Laboratory test 03/23/2015 [facility] C Reactive 4.84 mg/L N < 5.00 [address] [place] [address] [phone] Protime W/ Inr 03/16/2015 [facility] Inr 2.5 Laboratory test 03/11/2015 [facility] TSH (Thyroid 3.51 N 0.34 -5.[address] Stim Horm) ?IU/[place] [address] [phone] Comp Metabolic 03/11/2015 [facility] Sodium 139 mmol/L N 133- [address] [place] [address] [phone] Potassium 4.3 mmol/L N 3.5-5.0 Chloride 102 [...] N >60 Egfr 118.8 N >60 28 CBC Auto Diff 03/11/2015 [facility] White Blood 6.2 10^3/uL N 3.5-10.[address] [place] [address] [phone] Red Blood Count 4.59 10^6/uL N 4.0-5.4 [...] Nucleated Red Blood Cells % 0.1 N Protime W/ Inr 02/09/2015 [facility] Prothrombin Time 26.7 Inr 2.2 Laboratory test 02/09/2015 [facility] TSH (Thyroid 3.45 ?IU/mL N 0.34-5.[address] Stim Horm) [place] [address] [phone] Comp Metabolic 01/02/2015 [facility] Sodium 136 mmol/L N 133- [address] [place] [address] [phone] Potassium 4.5 mmol/L N 3.5-5.0 Chloride 101 [...] N >60 Egfr 128.1 N >60 29 CBC Auto 01/02/2015 [facility] White Blood 4.7 10^3/uL Low 4.8 -10.[address] [place] [address] [phone] Red Blood Count 4.19 10^6/uL N 4.0-5.4 [...] Blood Cells % 0.1 N Laboratory test 01/02/2015 [facility] TSH (Thyroid 6.06 High 0.34-5.[address] Stim Horm) ?IU/[place] [address] [phone] Laboratory test 12/17/2014 [facility] C Reactive 14.40 mg/L High < 5.00 [address] [place] [address] [phone] 1 Because ethnic data is not always [...] [address]: Wily Cottrell MD Acct: [id number] Unit: [id number] AGE: 67 Location: [facility] Re09/12/17 SEX: M Status: REG REF SPEC: [id number] JUSTIN: 09/12/17-[address] [facility] [address]: Wily Cottrell MD REQ: [id number] RECD: 09/12/171231 STATUS: COMP _ SOURCE: STOOL SPDESC: ORDERED: C. diff PCR, Stool Culture, O P: Giar/Crypt COMMENTS: Verbal to kaitlin saucedo by [email or web address] at 1450 on 09/12/17. Results read back [...] CONTINUED ON NEXT PAGE DEPARTMENT OF PATHOLOGY, [address] [place] [address] Lei Sellers M.D. Director [facility] # [id number] Patient: JOSEPH BYRNE [id number] (Continued) Specimen: [id number] Collected: 09/12/17-0 Received: 09/12/17-123 (Continued) Procedure Result Reported Site Shiga Toxin [...] is requested. Contact the Microbiology Department at [phone]. TEST LIMITATIONS: As with all diagnostic procedures, [...] test and are not recommended. * - [facility] . END OF REPORT DEPARTMENT OF PATHOLOGY, [address] [place] [address] Lei Sellers M.D. Director [facility] # [id number] 3 SOURCE: STOOL CYCLOSPORA STAIN FINAL Negative. Test Performed by: [address] [address] 4 SEE RESULT BELOW Name: JOSEPH BYRNE : [address]: Wily Cottrell MD Acct: [id number] Unit: [id number] AGE: 67 Location: [facility] Re05/23/17 SEX: M Status: REG REF SPEC: [id number] JUSTIN: 05/23/17 [facility] [address]: Wily Cottrell MD REQ: [id number] RECD: 05/23/17406 STATUS: COMP _ SOURCE: STOOL SPDESC: ORDERED: C. diff PCR Procedure Result Reported Site Stool Specimen Description Final 05/23/17- 1513 ML Stool Color Light Brown Stool Form Nonformed Stool Consistency Liquid C. difficile PCR Final 05/23/17- 1557 ML Organism 1 027 Presumptive NEGATIVE Organism 2 Toxigenic C.diff NEGATIVE * ML - Main Lab . END OF REPORT DEPARTMENT OF PATHOLOGY, [address] [place] [address] Lei Sellers M.D. Director [facility] # [id number] SEE RESULT BELOW Name: JOSEPH BYRNE : [address]: Marla Dixon MD Acct: [id number] Unit: [id number] AGE: 67 Location: [facility] Re05/12/17 SEX: M Status: DEP ER SPEC: [id number] JUSTIN: 05/12/17-[address] [facility] [address]: Ed GAYLE REQ: [id number] RECD: 05/12/17 STATUS: RES OTHR DR: Marla Sauceda MD _ SOURCE: KNEE,LEFT SPDESC: ORDERED: MRSA/SA SSTI, Culture Stain COMMENTS: [id number] Procedure Result Reported Site MRSA/S. aureus SSTI PCR PENDING Wound/Misc Gram Stain Final 05/13/17- 0751 ML 1+ Epithelial Cells No Neutrophils Observed No Organisms Seen Wound/Misc Culture Preliminary 05/13/17- 1107 ML Organism 1 STAPHYLOCOCCUS AUREUS Quantity 2+ * ML - MAIN LAB ([facility]) . END OF REPORT * ML=Testing performed at Main Lab DEPARTMENT OF PATHOLOGY, [address] [place] [address] Lie Sellers M.D. Director [facility] # [id number] 7 SEE RESULT BELOW Name: JOSEPH BYRNE : [address]: Marla Dixon MD Acct: [id number] Unit: [id number] AGE: 67 Location: [facility] Re05/12/17 SEX: M Status: DEP ER SPEC: [id number] JUSTIN: 05/12/17-[address] [facility] [address]: Ed GAYLE REQ: [id number] RECD: 05/12/17 STATUS: COMP [facility] DR: Marla Sauceda MD _ SOURCE: KNEE,LEFT SPDESC: ORDERED: MRSA/SA SSTI, Culture Stain COMMENTS: [id number] Verbal to [email or web address] by [id number] at 1239 on 05/13/17. Results read back [...] performed at Main Lab DEPARTMENT OF PATHOLOGY, [address] [place] [address] Lei Sellers M.D. Director [facility] # [id number] Patient: JOSEPH BYRNE [id number] (Continued) Specimen: [id number] Collected: 05/12/17 Received: 05/12/17 (Continued) Procedure Result Reported Site Wound/Misc Culture Final (continued) 05/14/17- 908 1. MRSA (continued) M.I.C. RX --------- ------ Nitrofurantoin <=16 S Oxacillin >=4 R * Quinupristin/Dalfopristin 0.5 S Rifampin <=0.5 S Tetracycline <=1 S Doxycycline - Deduced S * Minocycline - Deduced S Trimethoprim/Sulfamethoxazole <=10 S Vancomycin 1 S Imipenem-Deduced R * Ampicillin/Sulbactam-Deduced R Cefazolin-Deduced R * These antibiotics are not available in the [facility] Formulary Contact the Microbiology Department for any additional antibiotic reporting. * ML - MAIN LAB ([facility]) . END OF REPORT * ML=Testing performed at Main Lab DEPARTMENT OF PATHOLOGY, [address] [place] [address] Lei Sellers M.D. Director [facility] # [id number] 8 SEE RESULT BELOW Name: JOSEPH BYRNE : [address]: Wily Cottrell MD Acct: [id number] Unit: [id number] AGE: 67 Location: [facility] Re03/03/17 SEX: M Status: REG REF SPEC: [id number] JUSTIN: 03/03/17-[address] [facility] [address]: Wily Cottrell MD REQ: [id number] RECD: 03/03/17 STATUS: COMP _ SOURCE: STOOL SPDESC: ORDERED: Arely fraire PCR Procedure Result Reported Site Stool Specimen Description Final 03/03/17- 1700 ML Stool Color Brown Stool Form Nonformed Stool Consistency Liquid C. difficile PCR Final 03/03/17- 1744 ML Organism 1 027 Presumptive NEGATIVE Organism 2 Toxigenic C.diff NEGATIVE * ML - MAIN LAB ([facility]) . END OF REPORT * ML=Testing performed at Main Lab DEPARTMENT OF PATHOLOGY, [address] [place] [address] Lei Sellers M.D. Director [facility] # [id number] 9 Because ethnic data is not always [...] [address]: Greg Iyer MD Acct: [id number] Unit: [id number] AGE: 66 Location: [facility] Re08/26/16 SEX: M Status: REG REF SPEC: [id number] JUSTIN: 08/26/[address] [facility] [address]: Jordan Iyer MD REQ: [id number] RECD: 08/26/16 STATUS: COMP _ SOURCE: URINE SPDESC: ORDERED: Urine Culture COMMENTS: [id number] Procedure Result Reported Site Urine Culture Final 08/27/16- 1331 ML No Growth (<1,000 CFU/mL) * ML - MAIN LAB ([facility]) . END OF REPORT * ML=Testing performed at Main Lab DEPARTMENT OF PATHOLOGY, [address] [place] [address] Lei Sellers M.D. Director [facility] # [id number] 15 Because ethnic data is not always [...] [address]: Kiet Sauceda MD Acct: [id number] Unit: [id number] AGE: 66 Location: [facility] Re03/28/16 SEX: M Status: REG REF SPEC: [id number] JUSTIN: 03/28/16969 [facility] DR: Kiet Sauceda MD REQ: [id number] RECD: 03/28/16 STATUS: COMP _ SOURCE: WOUND SPDESC: ORDERED: Culture Stain COMMENTS: [id number] Verbal to JHOANA Serrano (DRS OFFICE) by [id number] at 1231 on 03/29/16. Results read back accurately. Specimen Description draining from mandible Procedure Result Reported Site Wound/Misc Gram Stain Final 03/29/16722 ML 3+ Epithelial Cells 1+ Neutrophils 3+ Gram Positive Cocci Wound/Misc Culture Final 03/31/16821 ML Organism 1 STREP PYOGENES (GRP A) Quantity 1+ 1. STREP PYOGENES (GRP A) M.I.C. RX --------- ------ Chloramphenicol 4 S Ampicillin <=0.06 S Penicillin <=0.03 S Cefepime <=0.25 S * Cefotaxime <=0.25 S Ceftriaxone <=0.25 S Levofloxacin 0.5 S Azithromycin >2 R Clindamycin >0.5 R Erythromycin >0.5 R CONTINUED ON NEXT PAGE * ML=Testing performed at Main Lab DEPARTMENT OF PATHOLOGY, [address] [place] [address] Lei Sellers M.D. Director [facility] # [id number] Patient: JOSEPH BYRNE [id number] (Continued) Specimen: [id number] Collected: 03/28/16 Received: 03/28/16 (Continued) Procedure Result Reported Site Wound/Misc Culture Final (continued) 03/31/16821 1. STREP PYOGENES (GRP A) (continued) M.I.C. RX --------- ------ Tetracycline >4 R Vancomycin 0.5 S * ML - MAIN LAB ([facility]) . END OF REPORT * ML=Testing performed at Main Lab DEPARTMENT OF PATHOLOGY, [address] [place] [address] Lei Sellers M.D. Director [facility] # [id number] 17 Because ethnic data is not always [...] dialysis) 18 Copy Result to: KIET SAUCEDA ([id number]) 19 Copy Result to: KIET SAUCEDA ([id number]) 20 Copy Result to: KIET SAUCEDA ([id number]) 21 Serum levels of PSA measured using the [employer] [place] DXI Hybritech immunoassay should not be interpreted as absolute evidence of the presence or absence of disease. The PSA value should be used in conjunction with other pertinent clinical diagnostic procedures. The values obtained with different assay methods or kits cannot be used interchangeably. 22 Because ethnic data is not always [...] 5 Kidney failure <15 (or dialysis) 23 Desirable <150 Borderline high 150-199 High [...] inflammation: >10.00 Procedures Date Code Description Status 02/01/2018 89457 EKG Tracing & Interpretation Completed 01/23/2018 50202 Stress Test Completed 01/23/2018 97138 Myocardial Perfusion Imaging Tomographic (Spect) Completed Multiple Studies 12/17/2017 94222 Implantable Cardio System Loop Recorder Sys Remota Data Completed Acquistio 12/17/2017 56443 Interrogation Dev Loop Recorder Incl Physician Completed Analysis,Rev,Repor 11/16/2017 06456 Implantable Cardio System Loop Recorder Sys Remota Data Completed [facility] 11/16/2017 77856 Interrogation Dev Loop Recorder Incl Physician Completed Analysis,Rev,Repor 11/03/2017 87093 EKG Tracing & Interpretation Completed 11/03/2017 01776 EKG Tracing & Interpretation Completed 10/16/2017 07308 Interrogation Dev Loop Recorder Incl Physician Completed Analysis,Rev,Repor 10/16/2017 25924 Implantable Cardio System Loop Recorder Sys Remota Data Completed [employer] 09/15/2017 35380 Implantable Cardio System Loop Recorder Sys Remota Data Completed [employer] 09/15/2017 36730 Interrogation Dev Loop Recorder Incl Physician Completed Analysis,Rev,Repor 08/15/2017 42872 Implantable Cardio System Loop Recorder Sys Remota Data Completed [employer] 08/15/2017 37772 Interrogation Dev Loop Recorder Incl Physician Completed Analysis,Rev,Repor 07/15/2017 03736 Implantable Cardio System Loop Recorder Sys Remota Data Completed [facility] 07/15/2017 22501 Interrogation Dev Loop Recorder Incl Physician Completed Analysis,Rev,Repor 06/14/2017 65606 Interrogation Dev Loop Recorder Incl Physician Completed Analysis,Rev,Repor 06/14/2017 53082 Implantable Cardio System Loop Recorder Sys Remota Data Completed [facility] 05/16/2017 69810 I&D deep abscess,bursa or hematoma thigh or knee region Completed 05/16/2017 39621 I&D deep abscess,bursa or hematoma thigh or knee region Completed 05/16/2017 11421 I&D deep abscess,bursa or hematoma thigh or knee region Completed 05/16/2017 77728 I&D deep abscess,bursa or hematoma thigh or knee region Completed 05/14/2017 24252 Implantable Cardio System Loop Recorder Sys Remota Data Completed [facility] 05/14/2017 72940 Interrogation Dev Loop Recorder Incl Physician Completed Analysis,Rev,Repor 04/13/2017 68702 Implantable Cardio System Loop Recorder Sys Remota Data Completed [facility] 04/13/2017 43078 Interrogation Dev Loop Recorder Incl Physician Completed Analysis,Rev,Repor 04/06/2017 83813 EKG Tracing & Interpretation Completed 03/13/2017 07737 Implantable Cardio System Loop Recorder Sys Remota Data Completed [facility] 03/13/2017 16408 Interrogation Dev Loop Recorder Incl Physician Completed Analysis,Rev,Repor 02/10/2017 54462 Implantable Cardio System Loop Recorder Sys Remota Data Completed [facility] 02/10/2017 71200 Interrogation Dev Loop Recorder Incl Physician Completed Analysis,Rev,Repor 01/10/2017 53784 Implantable Cardio System Loop Recorder Sys Remota Data Completed [facility] 01/10/2017 94269 Interrogation Dev Loop Recorder Incl Physician Completed Analysis,Rev,Repor 12/10/2016 10183 Implantable Cardio System Loop Recorder Sys Remota Data Completed [facility] 12/10/2016 48570 Interrogation Dev Loop Recorder Incl Physician Completed Analysis,Rev,Repor 11/09/2016 39002 Interrogation Dev Loop Recorder Incl Physician Completed Analysis,Rev,Repor 11/09/2016 32786 Implantable Cardio System Loop Recorder Sys Remota Data Completed [facility] 10/09/2016 30913 Implantable Cardio System Loop Recorder Sys Remota Data Completed [facility] 10/09/2016 84008 Interrogation Dev Loop Recorder Incl Physician Completed Analysis,Rev,Repor 09/08/2016 69879 Implantable Cardio System Loop Recorder Sys Remota Data Completed [facility] 09/08/2016 54208 Interrogation Dev Loop Recorder Incl Physician Completed Analysis,Rev,Repor 08/23/2016 09907 EKG Tracing & Interpretation Completed 08/23/2016 66669 EKG Tracing & Interpretation Completed 08/08/2016 56213 Implantable Cardio System Loop Recorder Sys Remota Data Completed [facility] 08/08/2016 77937 Interrogation Dev Loop Recorder Incl Physician Completed Analysis,Rev,Repor 07/26/2016 14170 EKG Tracing & Interpretation Completed 07/08/2016 81108 Interrogation Dev Loop Recorder Incl Physician Completed Analysis,Rev,Repor 07/08/2016 11219 Implantable Cardio System Loop Recorder Sys Remota Data Completed [facility] 06/07/2016 30225 Implantable Cardio System Loop Recorder Sys Remota Data Completed [facility] 06/07/2016 79275 Interrogation Dev Loop Recorder Incl Physician Completed Analysis,Rev,Repor 05/07/2016 33558 Implantable Cardio System Loop Recorder Sys Remota Data Completed [facility] 05/07/2016 92569 Interrogation Dev Loop Recorder Incl Physician Completed Analysis,Rev,Repor 04/21/2016 37741 EKG Tracing & Interpretation Completed 04/06/2016 66448 Implantable Cardio System Loop Recorder Sys Remota Data Completed Acquistio 04/06/2016 70668 Interrogation Dev Loop Recorder Incl Physician Completed Analysis,Rev,Repor 03/06/2016 25989 Interrogation Dev Loop Recorder Incl Physician Completed Analysis,Rev,Repor 03/06/2016 86308 Implantable Cardio System Loop Recorder Sys Remota Data Completed Acquistio 02/16/2016 01948 Loop Recorder Device Eval W/Iterative Adj Implant Loop Completed Recorder 02/03/2016 06127 Implant Cardiac Loop Recorder Completed 02/02/2016 74176 EKG Tracing & Interpretation Completed 01/31/2016 83403 ECHO Transthorasic Realtime 2D W Doppler & Color Flow Completed Hosp 10/27/2015 82019 Nerve Conduction 07-08 Studies Completed 10/27/2015 19939 Needle Electromyography Complete, Five Or More Muscles Completed Studied 12/24/2014 22107 EKG Tracing & Interpretation Completed 12/24/2014 06771 EKG Tracing & Interpretation Completed 12/10/2014 44460 EKG Tracing & Interpretation Completed 11/27/2014 69243 EKG, Interpretation Only Completed 11/25/2014 19349 ECHO Transthorasic Realtime 2D W Doppler & Color Flow Completed Hosp 11/25/2014 97332 EKG, Interpretation Only Completed 02/26/2010 95298 Color Flow Doppler/Interp & Reprt Completed 02/26/2010 13815 Pulse Wave/Continuous-Interp.RPT Completed 02/26/2010 84935 ECHO Transthorasic Realtime 2D W Doppler & Color Flow Completed Hosp 2010 10184 ECHO Transthorasic Realtime 2D W Doppler & Color Flow Completed Hosp 03/20/2008 [id number] Colonoscopy Completed Encounters Type Date Location Provider Dx Diagnosis Office Visit 01/17/2018 [facility] [place] E03.9 Hypothyroidism, 4:00p Medicine - [place], M.D. 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 fibrillation [facility] I95.1 Orthostatic hypotension Office Visit 09/15/2017 11:10a [facility] iWly Reed K62.5 Hemorrhage of anus For Infectious Channing Cottrell and rectum Diseases Office Visit 09/07/2017 11:20a [facility] Internal [place] I48.0 Paroxysmal atrial Medicine - Tbclaudio Sauceda M.D. 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 fibrillation [address] E03.9 Hypothyroidism, unspecified K21.9 Gastro-esophageal reflux disease without esophagitis F17.210 Nicotine dependence, cigarettes, uncomplicated Z23 Encounter for immunization Office Visit 05/31/2017 9:10a [facility] Shilo Reed M71.162 Other infective Infectious Channing Cottrell bursitis, left Diseases knee M27.2 Inflammatory conditions of jaws R19.7 Diarrhea, unspecified Office Visit 05/18/2017 [facility] Virgen Garcia M00.9 Pyogenic 10:30a Assoc,pc Liliana, SAW GRINDER arthritis, Hospitalists unspecified I48.91 Unspecified atrial fibrillation 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, unspecified Office Visit 05/18/2017 11:22a [facility] Shilo Reed M71.162 Other infective Infectious Channing Cottrell 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 bursa, left knee M25.562 Pain in left knee Office Visit 05/15/2017 [facility] Keon M00.9 Pyogenic 10:27a Assoc,monster Zimmerman N.P. 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 bursa, left knee M25.562 Pain in left knee Office Visit 04/06/2017 2:40p [place] [facility] Apryl Moreira, I48.0 Paroxysmal atrial Of [employer] Operator M.D. fibrillation Z95.818 Presence of other cardiac implants and grafts I95.1 Orthostatic hypotension Office Visit 02/13/2017 3:00p [facility] Wily Reed L03.211 Cellulitis of For Infectious Channing Cottrell face Diseases M27.2 Inflammatory conditions of jaws Office Visit 12/23/2016 10:30a [facility] Wily Reed M27.2 Inflammatory For Infectious [place], M.D. 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 conditions of jaws Diseases Z79.2 skilled nursing (current) use of antibiotics Office Visit 08/26/2016 9:00a [facility] Internal Jordan Iyer, R30.0 Dysuria Medicine - [address] M.D.,FACP R07.89 Other chest pain I48.0 Paroxysmal atrial fibrillation Office Visit 08/23/2016 2:30p [place] [facility] Sarah Torrez, I48.0 Paroxysmal atrial Of [facility] PA fibrillation Z95.818 Presence of other cardiac implants and grafts Office Visit 07/26/2016 11:15a [place] [facility] Apryl Moreira, I48.0 Paroxysmal atrial Of [employer] Operator M.D. fibrillation Z95.818 Presence of other cardiac implants and grafts I95.1 Orthostatic hypotension R07.89 Other chest pain Office Visit 07/08/2016 10:30a [facility] Wily Reed M27.2 Inflammatory For Infectious Chelsea Cottrell. 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 conditions of jaws Diseases Office Visit 04/21/2016 2:30p [place] Apryl Moreira I48.0 Paroxysmal atrial Cardiology Of M.D. fibrillation [employer] Office Visit 04/05/2016 10:20a [facility] Internal K[place] M27.2 Inflammatory Medicine - [place] Cehlsea Sauceda. conditions of jaws Rd Office Visit 04/01/2016 10:10a [facility] Wily Reed M27.2 Inflammatory For Infectious Chelsea Cottrell. conditions of jaws Diseases Office Visit 03/28/2016 1:40p [facility] Internal Kiet M27.2 Inflammatory Medicine - Tbclaudio Sauceda M.D. conditions of jaws Rd Office Visit 02/09/2016 10:00a [facility] Internal [place] I48.0 Paroxysmal atrial Medicine - Tbclaudio Sauceda M.D. fibrillation Rd E03.9 Hypothyroidism, unspecified K21.9 Gastro-esophageal reflux disease without esophagitis I62.00 Nontraumatic subdural hemorrhage, unspecified Office Visit 02/02/2016 1:00p [place] [facility] Apryl Moreira, I48.0 Paroxysmal atrial Of [place] fibrillation I62.00 Nontraumatic subdural hemorrhage, unspecified F52.21 Male erectile disorder Office Visit 01/18/2016 Neurosurgery Guero Yu I62.00 Nontraumatic 10:45a Services Of [facility] Channing subdural hemorrhage, unspecified Office Visit 01/08/2016 [facility] Internal Jordan Reed I48.0 Paroxysmal atrial 2:40p Medicine - [place], fibrillation Rd Channing,FACP I62.00 Nontraumatic subdural hemorrhage, unspecified Z23 Encounter for immunization Office Visit 12/28/2015 Neurosurgery Guero Yu I62.00 Nontraumatic 11:00a Services Of [place] subdural hemorrhage, unspecified I62.02 Nontraumatic subacute subdural hemorrhage Office Visit 11/17/2015 10:40a [facility] Internal [place] I62.00 Nontraumatic Medicine Luis A Sauceda M.D. subdural [address] hemorrhage, unspecified I48.0 Paroxysmal atrial fibrillation E03.9 Hypothyroidism, unspecified K21.9 Gastro-esophageal reflux disease without esophagitis Office Visit 11/09/2015 Neurosurgery Guero Yu I62.00 Nontraumatic 2:28p Services Of [facility] Channing subdural hemorrhage, unspecified R51 Headache Office Visit 11/09/2015 [facility] Josh Sauceda, I62.00 Nontraumatic 10:06a Assmonster cintron M.D. subdural Hospitalists hemorrhage, unspecified I48.2 Chronic atrial fibrillation E03.8 Other specified hypothyroidism Z85.819 Prsnl hx of malig neoplm of [facility] site lip,oral cav,& pharynx Office Visit 11/08/2015 Neurosurgery Guero Gigi, I62.00 Nontraumatic 1:39p Services Of [facility] M.D. subdural hemorrhage, unspecified R51 Headache Z79.01 skilled nursing (current) use of anticoagulants Office Visit 11/08/2015 [facility] Josh Sauceda, I62.00 Nontraumatic 10:05a monster Moore M.D. subdural Hospitalists hemorrhage, unspecified I48.2 Chronic atrial fibrillation E03.8 Other specified hypothyroidism Z85.819 Prsnl hx of malig neoplm of unsp site lip,oral cav,& pharynx Office Visit 11/07/2015 Neurosurgery Guero Yu, I62.00 Nontraumatic 7:00a Services Of [facility] M.D. subdural hemorrhage, unspecified R51 Headache I48.91 Unspecified atrial fibrillation Z79.01 skilled nursing (current) use of anticoagulants Z85.830 Personal history of malignant neoplasm of bone Office Visit 11/06/2015 [facility] Ren Jasdusty I62.00 Nontraumatic 10:04a Assmonster cintron II, M.D. subdural Hospitalists hemorrhage, unspecified I48.2 Chronic atrial fibrillation E03.8 Other specified hypothyroidism Z85.819 Prsnl hx of malig neoplm of unsp site lip,oral cav,& pharynx Office Visit 11/06/2015 [facility] Ambrocio Santa R51 Headache 4:20p Wilder Sauceda M.D. Rd Office Visit 10/20/2015 [place], I48.0 Paroxysmal atrial 1:30p Cardiology Of M.D. 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 use of [address] anticoagulants I48.0 Paroxysmal atrial fibrillation M79.672 Pain in left foot E03.9 Hypothyroidism, unspecified K21.9 Gastro-esophageal reflux disease without esophagitis Office Visit 04/07/2015 2:20p [facility] Internal Joseph Rosen, I48.0 Paroxysmal atrial Medicine - M.D. 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 osteomyelitis, Diseases other site K02.9 Dental caries, unspecified M27.2 Inflammatory conditions of jaws Office Visit 02/09/2015 1:40p [facility] Internal Joseph Rosen, I48.0 Paroxysmal atrial Medicine - M.D. 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 osteomyelitis, Diseases other site M27.2 Inflammatory conditions of jaws Office Visit 01/09/2015 2:20p [facility] Internal Joseph Rosen, I48.0 Paroxysmal atrial Medicine - M.D. 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 Opening Hospitalists Gastrostomy 244.9 Hypothyroidism Other Unspec 427.31 Atrial Fibrillation 526.4 Inflammatory Jaw Office Visit 11/27/2014 [place] [facility] Apryl Moreira, 427.31 Atrial 1:26p Of [facility] M.D. Fibrillation Office Visit 11/27/2014 [facility] Krystyna Adams V44.1 Artificial 2:06p monster Moore M.D. Opening Hospitalists Gastrostomy 244.9 Hypothyroidism Other Unspec 526.4 Inflammatory Jaw 427.31 Atrial Fibrillation Office Visit 11/26/2014 11:20a [facility] Shilo Reed 526.4 Inflammatory Jaw Infectious Channing Cottrell Diseases 239.0 Neoplasm Unspecified Digestive System [facility] V44.1 Artificial 2:06p monster Moore M.D. Opening Hospitalists Gastrostomy 244.9 Hypothyroidism Other Unspec 526.4 Inflammatory Jaw 427.31 Atrial Fibrillation Office Visit 11/25/2014 [facility] Krystyna Adams, V44.1 Artificial 2:04p monster Moore M.D. Opening Hospitalists Gastrostomy 244.9 Hypothyroidism Other Unspec 427.31 Atrial Fibrillation 526.4 Inflammatory Jaw [facility] Visit 2:03p Assoc,monster Torres N.Capri Opening Hospitalists Gastrostomy 244.9 Hypothyroidism Other Unspec 427.31 Atrial Fibrillation 526.4 Inflammatory Jaw Plan of Treatment Future Appointment(s):02/21/2018 11:00 am - Kiet Sauceda M.D. at [facility] Internal Medicine [facility]02/01/2018 - Apryl Moreira M.D.I48.0 Paroxysmal atrial fibrillationComments:You are in the normal rhythm today, good rate control. Good intervals.No afib x 1 month on Linq event monitor.Follow up:6 months with ECG, MD or NPRecommendations:Continue Multaq for now, if more breakthroughs we can discuss changing.M25.511 Pain in right shoulderComments: Does not appear to be cardiac based on stress test.F52.21 Male erectile disorderComments:Viagra ok to take from cardiac standpoint, ensure you are hydrated, take your time going from lying to sitting to standing after use.
[2018-02-27 11:22] VITALS: BP 113/57
--- NOTE | 2018-02-27 12:32 | UC ---
General HPI - HPI Summary HPI Summary: Pleasant 68 yo gentleman presents accompanied by brother, sent by PCP Dr. Westbrook ( [facility]). C/o fever last couple nights up to 102F. Also abd pain, and nausea. 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 Hx atrial fibrillation, cad, osteomyelitis. No melena / brbpr. No urinary difficulties, unsure if color different, but w/o lima blood. + cough, min productive (uses suction). - History of Current Complaint Chief Complaint: UCGeneralIllness Stated Complaint: DEHYRATION,LOW BP Time Seen by Provider: 02/27/18 11:26 Hx Obtained From: Patient, Family/Tourist Camp Attendant Pain Intensity: 0 - Allergy/Home Medications Allergies/Adverse Reactions: Allergies Allergy/AdvReac Type Severity Reaction Status Date / Time sulfamethoxazole Allergy Rash Verified 02/27/18 11:38 [From Bactrim] trimethoprim [From Bactrim] Allergy Rash Verified 02/27/18 11:38 Home Medications: Home Medications Lactose-Reduced Food/Fiber [Jevity 1.5 Tenzin Liquid] 237 ml PO SEE INSTRUCTIONS [History Confirmed 02/27/18] PMH/Surg Hx/FS Hx/Imm Hx Previously Healthy: No - see pmh. also reviewed recent Cynny report(s) - Surgical History Surgical History: Yes Surgery Procedure, Year, and Place: mandibulectomy, + neck resection r/t CA,. LINQ EVENT MONITOR - Family History Known Family History: Positive: Unknown - Social History Alcohol Use: None Substance Use Type: None Smoking Status (MU): Former Smoker Have You Smoked in the Last Year: No - Immunization History Most Recent Influenza Vaccination: none Most Recent Tetanus Shot: <5yrs Most Recent Pneumonia Vaccination: 2017 Review of Systems All Other Systems Reviewed And Are Negative: Yes Constitutional: Positive: Fever Skin: Positive: Other - see hpi Eyes: Positive: Negative ENT: Positive: Other - see hpi Respiratory: Positive: Cough Cardiovascular: Positive: Other - see hpi Gastrointestinal: Positive: Other - see hpi Motor: Positive: Other - see hpi Neurovascular: Positive: Other - see hpi Musculoskeletal: Positive: Other: - see hpi Neurological: Positive: Other - see hpi Psychological: Positive: Negative Is Patient Immunocompromised?: No Physical Exam Triage Information Reviewed: Yes Appearance: Thin, Other: - sitting up, able to ambulate. Nondiaphoretic. Vital Signs: Initial Vital Signs Temp 97.3 F 02/27/18 11:16 Pulse 46 02/27/18 11:16 Resp 18 02/27/18 11:16 BP 113/57 02/27/18 11:16 Pulse Ox 95 02/27/18 11:16 Vital Signs Reviewed: Yes Eye Exam: Normal - grossly normal ENT Exam: Other - S/p surgery and radiation to neck / mouth / mandible. Oroph - pale, dry c/w xrt. Also fully J tube nutrition. Neck exam: Normal Neck: Positive: Supple Respiratory Exam: Other - Poor full insps. BS however, equal. Without noteworthy adventitious sounds. Cardiovascular Exam: Other - Irreg rhythm HR varies up to 120 (108 by ekg) correlates with L radial pulse Abdominal Exam: Other - Abd distended. Low bowel sounds. Generally tender R abdomen. Without lima abd mass, but exam limited d/t distension. + J tube in place, without redness. No cvat. Musculoskeletal Exam: Other - Gait steady, moves x 4 ext's. Neurological Exam: Other - grossly nonfocal (with the exception of facial issues ), detailed exam not performed. Psychological Exam: Normal - conversing easily and appropriately Skin Exam: Normal - no visible or reported rash. Nondiaphoretic. BLE mild edema, mild hemosideric. Course/Dx - Course Course Of Treatment: Atrial fibrillation at 108 bpm. Incomplete RBBB and LAFB, borderline low voltage, ext leads, probable as infarct. I spoke with Dr. Westbrook on just prior to my evaluation of pt. Reviewed my concerns of potential serious issue(s). Including albeit not limited to volume depletion, sepsis / infection, abdominal concern including pain, electrolyte imbalance. Reviewed my recommendation for evaluation and management in the Emergency Department. He and his brother carefully considered this, and will go to the ED. EMS declined, brother will drive. I spoke with Dr. Omalley, ED. Bld glucose 105mg / dl here. Questions as posed answered to the best of my ability. - Diagnoses Provider Diagnosis: Fever, Tachycardia, Abdominal pain Discharge - Sign-Out/Discharge Documenting (check all that apply): Patient Departure All imaging exams completed and their final reports reviewed: No Studies - Discharge Plan Condition: Guarded Disposition: HOME-RECOMMEND TO ED Patient Education Materials: Fever in Adults (ED), Acute Abdominal Pain (ED) Referrals: Kiet Sauceda MD [Primary Care Provider] - Additional Instructions: Please go directly to the Emergency Room. Call 911 if problems in the meantime. - Billing Disposition and Condition Condition: GUARDED Disposition: Home-Recommend to ED
== END 2018-02-27 12:22 | disposition home health service (06) ==
LOC: UCEAST 11:13
DX: R50.9 Fever, unspecified (principal); R00.0 Tachycardia, unspecified; C76.0 Malignant neoplasm of head, face and neck; Z87.891 Personal history of nicotine dependence; Z92.3 Personal history of irradiation; Z93.4 Other artificial openings of gastrointestinal tract status; Z88.1 Allergy status to other antibiotic agents
CPT/HCPCS: 93005; 99212; G0463

== ENCOUNTER 2018-02-27 12:42 | Inpatient (IN) | payer MEDICARE ==
[2018-02-27] MEDS ORDERED: NS 0.9% 1000 ML* 1,000 ML IV ONE (13:04)
--- OUTSIDE RECORDS SUMMARY | 2018-02-27 13:13 | XMS REPORT | Continuity of Care Document ---
:1950 External Reference #:[id number] Author Name Miracle Henry Care Team Providers Name Role Phone Kiet Sauceda MD Primary Care Physician Unavailable Payers Type Date Identification Numbers Payment Provider Subscriber Effective: Policy Number: Medicare Blue Ppo Joseph Byrne 2016 [id number] Group Number: [id number] [address] [address] PayID: [id number] [place] [address] Advance Directives Description No Information Available Problems [...] chewing tobacco. Quit end Smoking Status Reviewed: 02/27/18 Former Cigarette Smoker Pt denies use of [...] Active Tablets 400mg 60tab 1 by Kiet 2017 s mouth [place] twice a , M.D. day Ranitidine HCL 02/08/ Active Tablets 150mg 60tab take one K21.9 Kiet 2016 s tablet by Komal arriaza , M.DJulian twice a day Tylenol 11/09/ Active Tablets [...] 600mg 42tab crush one Unknown 2017 - s tab via G 06/02/ tube bid 2018 [...] 500mg 60tab 1 tab via M27.2 Wily 2017 - s peg twice D. 03/09/ daily 2016 M.D. Alfuzosin HCL 08/31/ Hx Tablets ER 10mg 1 po qd Jordan HUTTON 2017 - 24HR Derek Iyer, 09/02/ MAlfa,FACP 2016 Tamsulosin HCL 08/26/ Hx Capsules 0.4mg 30cap 1 by Jordan 2017 - s mouth Derek Iyer, 11/21/ every M.D.,[facility] 2017 evening Synthroid 08/26/ Hx Tablets 150mcg 30tab 1 by E03.9 Jordan 2016 - s mouth Derek Iyer, 08/26/ every day M.D.,[facility] 2017 Metoprolol 05/12/ Hx Tablets 25mg 30tab [...] 25mg 30tab 1 by Kiet Succinate ER 2016 - 24HR s mouth Pachikara 05/12/ every day , M.D. 2016 Synthroid 10/26/ Hx Tablets 150mcg 90tab 1 by E03.9 Kiet 2016 - s mouth Pachikara 10/26/ every day , M.D. 2016 Synthroid 10/26/ Hx Tablets 125mcg 30tab every day E03.9 Kiet 2016 - s in in the Pachikara 08/26/ morning , M.D. 2017 in the empty stomach Warfarin Sodium 02/11/ Hx Tablets 5mg 100ta take 1.5 Kiet 2015 - bs tabs Pachikara 02/08/ daily ( , M.D. 2015 On Hold) Metoprolol 01/09/ Hx Tablets 25mg 60tab 1 by Jordan Alba 2014 - s mouth Derek Iyer, 02/01/ twice a M.D.,FAC 2015 Synthroid 01/09/ Hx Tablets 137mcg 30tab 1 by E03.9 Kiet 2014 - s mouth Pachikara day , MAlfa 2015 Metoprolol 12/17/ Hx Tablets 50mg 60tab 1 by Apryl Alba 2014 - s mouth [place], 01/09/ twice a M.D. 2014 Lactulose 12/10/ Hx Solution 10GM/15ML 500ml take as Wily 2014 - directed Derek 05/25/ Chepe, 2017 M.D. Cardizem 12/08/ Hx Tablets 30mg 120ta 1 by Jamaal Pink 2014 - bs tube q 6 Lillie, 12/10/ hours. M.DJulian 2014 Augmentin /00/ Hx Tablets one by Unknown 0000 - mouth 04/11/ every 2014 hours for ten days Lovenox // Hx Solution 80mg/0.8ML sc every Unknown 0000 - 12 hours 2014 Pepcid / Hx Tablets 20mg 1 by Unknown 0000 - mouth every day 2014 Lactulose // Hx prn Unknown [...] twice a 2016 day 3 weeks Amoxicillin /00/ Hx Tablets 500mg 60tab 1 tab via M27.2 Wily 0000 - s peg twice D. 05/18/ daily Chepe 2017 M.DJulian Aspirin / Hx Tablets 325mg take 1 by Unknown 0000 - mouth 11/02/ once a 2018 day Medications Administered in Office Medication Date Status Form Strength Qnty SIG Indications Ordering Provider Inj, Administered Injection Ryan SJulian Regadenoson, 018 Rogers, DO 0.1 MG FACC Thallium Administered Injection Ryan S. 018 Rogers, DO FACC Immunizations CPT Code Status Date Vaccine Reaction Lot # 62500 Given 06/06/2017 Zoster (Zostavax) no reaction [id number] Given 06/06/2017 Pneumonia Vaccine pt tolerated well [id number] Given 01/08/2016 Pneumococcal Conjugate Vaccine [id number] Valent For Intramuscular Use Vital Signs Date Vital Result Comment 02/27/2018 10:31am Height 75 inches 6'3" Weight 198.00 lb Heart Rate 56 /min BP Systolic Sitting 86 mmHg BP Diastolic Sitting 40 mmHg Body Temperature 98.4 F O2 % BldC Oximetry 94 % BMI (Body Mass Index) 24.7 kg/m2 02/21/2018 11:07am Height 75 inches 6'3" Weight [...] Result H/L Range Note Basic Metabolic 11/03/2017 [facility] Sodium 136 mmol/L N 135- [address] [place] [address] [phone] Potassium 4.3 mmol/L N 3.5-5.0 Chloride 101 mmol/L N 101-111 Co2 Carbon Dioxide 31 mmol/L N 22-32 Anion Gap 4 mmol/L N 2-11 Glucose 65 mg/dL Low 70-100 Blood Urea Nitrogen 23 mg/dL N 6-24 Creatinine 0.85 mg/dL N 0.67-1.17 BUN/Creatinine Ratio 27.1 High 8-20 Calcium 9.0 mg/dL N 8.6-10.3 Egfr Non- 89.4 >60 Egfr 108.1 >60 1 Laboratory test 11/03/2017 [facility] Magnesium 2.3 mg/dL N 1.9-2.[address] [place] [address] [phone] CBC Auto Diff 09/12/2017 [facility] White Blood 5.9 N 3.5- 10.[address] Count 10^3/[place] [address] [phone] Red Blood Count 4.46 10^6/uL N 4.00-5.40 [...] Blood Cells % 0 Laboratory test 09/12/2017 [facility] C Difficile PCR SEE RESULT [address] [place] [address] [phone] Cyclospora Stain See Comment 3 Laboratory 06/07/2017 [facility] TSH (Thyroid 5.05 N 0.34- 5.60 test finding [address] Stim Horm) mcIU/[place] [address] [phone] Laboratory 05/23/2017 [facility] C Difficile SEE RESULT 4 test finding [address] [place] [address] [phone] Wound 05/12/2017 [facility] Wound/Misc SEE RESULT 5, 6 Culture/Sensi [address] [place] [address] Stain [phone] Laboratory 05/12/2017 [facility] MRSA/S. aureus SEE RESULT 7 test finding [address] [place] [address] [phone] Laboratory 03/03/2017 [facility] C Difficile SEE RESULT 8 test finding [address] [place] [address] [phone] Laboratory 03/03/2017 [facility] Blood Urea 21 mg/dL N 6-24 test finding [address] [place] [address] [phone] Creatinine 03/03/2017 [facility] Creatinine 0.87 mg/dL N 0.67- 1.[address] [place] [address] [phone] Egfr Non- 87.0 >60 Egfr 111.9 >60 9 Laboratory test 11/22/2016 [facility] C Reactive 1.97 mg/L N < 5.00 [address] [place] [address] [phone] Laboratory test 10/20/2016 [facility] TSH (Thyroid 2.86 N 0.34 -5.[address] Stim Horm) mcIU/mL [place], [place] [phone] Comp Metabolic 08/26/2016 [facility] Sodium 136 mmol/L N 133- [address] [place] [address] [phone] Potassium 4.1 mmol/L N 3.5-5.0 Chloride 102 [...] 123.6 N >60 11 Laboratory test 08/26/2016 [facility] Magnesium 2.3 mg/dL N 1.9-2.7 [address] [place] [address] [phone] TSH (Thyroid Stim Horm) 9.28 mcIU/mL High 0.34-5.60 13 Urine Culture And 08/26/2016 [facility] Urine Culture SEE RESULT [address] [place] [address] [phone] Ua Routine 08/26/2016 [facility] Ua Specific 1.015 [place] Ua PH 7 Ua Color dark yellow Ua Appera clear Ua WBC neg Ua Protein trace Ua Glucose normal Ua Ketones neg Ua Bilirubin neg Ua Urobilinogen norm Ua Nitrite neg Ua Occult Blood neg Comp Metabolic Panel 04/01/2016 [facility] Sodium 135 mmol/L N 133-[address] [place] [address] [phone] Potassium 4.4 mmol/L N 3.5-5.0 Chloride 100 [...] N >60 15 CBC Auto Diff 03/28/2016 [facility] White Blood 9.7 10^3/uL N 3.5-10.[address] [place] [address] [phone] Red Blood Count 4.16 10^6/uL N 4.0-5.4 [...] Red Blood Cells % 0 N Laboratory test 03/28/2016 [facility] Erythrocyte Sed 95 mm/Hr High 0-[address] [place] [address] [phone] Wound 03/28/2016 [facility] Wound/Misc SEE RESULT 16 Culture/Sensi [address] [place] [address] Stain [phone] Comp Metabolic 11/06/2015 [facility] Sodium 136 mmol/L N 133- [address] [place] [address] [phone] Potassium 4.9 mmol/L N 3.5-5.0 Chloride 100 [...] N >60 Egfr 133.6 N >60 17 Laboratory 11/06/2015 [facility] Partial Thrombo 43.2 High 26.0-36.3 test finding [address] [address] [phone] Inr/Protime 11/06/2015 [facility] Inr 2.99 High 0.89-1.[address] [place] [address] [phone] Laboratory 11/06/2015 [facility] Erythrocyte Sed 35 mm/Hr N 0- 40 test finding [address] [place] [address] [phone] CBC Auto Diff 11/06/2015 [facility] White Blood 7.0 N 3.5- 10.[address] Count 10^3/[place] [address] [phone] Red Blood Count 4.51 10^6/uL N 4.0-5.4 [...] Nucleated Red Blood Cells % 0.1 N Thyroid 10/27/2015 [facility] Free T4 (Free 1.19 ng/dL High 0.61-1.[address] Thyroxine) [place] [address] [phone] Thyroxine 8.73 ?g/dL N 6.09-12.23 19 TSH (Thyroid Stim Horm) 3.88 mcIU/mL N 0.34-5.60 20 Protime W/ Inr 10/13/2015 [facility] Prothrombin Time 27.0 Inr 2.3 Protime W/ Inr 09/24/2015 [facility] Prothrombin Time 29.2 Inr 2.4 Protime W/ Inr 09/17/2015 [facility] Prothrombin Time 20.3 Inr 1.7 Comp Metabolic Panel 09/07/2015 [facility] Sodium 136 mmol/L N 133-[address] [place] [address] [phone] Potassium 4.5 mmol/L N 3.5-5.0 Chloride 100 [...] 118.8 N >60 21 Laboratory test 09/07/2015 [facility] PSA Screening 1.340 N 0- 4.000 [address] ng/[place] [address] [phone] Protime W/ Inr 09/03/2015 [facility] Prothrombin Time 22.7 Inr 1.9 Lipid Profile 08/28/2015 [facility] Triglycerides 77 mg/dL N 23 (Trig/Chol/HDL) [address] [place] [address] [phone] Cholesterol 118 mg/dL N 24 HDL Cholesterol 43.7 mg/dL N 25 LDL Cholesterol 59 mg/dL N 26 Protime W/ Inr 08/27/2015 [facility] Prothrombin Time 35.3 Inr 2.9 Protime W/ Inr 08/13/2015 [facility] Prothrombin Time 29.4 Inr 2.4 Protime W/ Inr 07/30/2015 [facility] Prothrombin Time 37.7 Inr 3.1 Protime W/ Inr 07/23/2015 [facility] Prothrombin Time 19.7 Inr 1.6 Protime W/ Inr 07/17/2015 [facility] Prothrombin Time 13.3 Inr 1.1 Protime W/ Inr 07/09/2015 [facility] Prothrombin Time 29.9 Inr 2.5 Protime W/ Inr 06/17/2015 [facility] Prothrombin Time 29.7 Inr 2.5 Protime W/ Inr 06/04/2015 [facility] Prothrombin Time 22.6 Inr 1.9 Protime W/ Inr 05/06/2015 [facility] Prothrombin Time 24.9 Inr 2.1 Protime W/ Inr 04/07/2015 [facility] Prothrombin Time 31.2 Inr 2.6 Laboratory test 03/23/2015 [facility] C Reactive 4.84 mg/L N < 5.00 [address] [place] [address] [phone] Protime W/ Inr 03/16/2015 [facility] Inr 2.5 CBC Auto Diff 03/11/2015 [facility] White Blood 6.2 N 3.5- 10.[address] Count 10^3/[place] [address] [phone] Red Blood Count 4.59 10^6/uL N 4.0-5.4 [...] % 0.1 N Comp Metabolic Panel 03/11/2015 [facility] Sodium 139 mmol/L N 133-[address] [place] [address] [phone] Potassium 4.3 mmol/L N 3.5-5.0 Chloride 102 [...] 118.8 N >60 28 Laboratory test 03/11/2015 [facility] TSH (Thyroid 3.51 N 0.34 -5.[address] Stim Horm) ?IU/[place] [address] [phone] Laboratory test 02/09/2015 [facility] TSH (Thyroid 3.45 N 0.34 -5.[address] Stim Horm) ?IU/[place] [address] [phone] Protime W/ Inr 02/09/2015 [facility] Prothrombin Time 26.7 Inr 2.2 Comp Metabolic Panel 01/02/2015 [facility] Sodium 136 mmol/L N 133-[address] [place] [address] [phone] Potassium 4.5 mmol/L N 3.5-5.0 Chloride 101 [...] 128.1 N >60 29 CBC Auto 01/02/2015 [facility] White Blood 4.7 10^3/uL Low 4.8 -10.[address] [place] [address] [phone] Red Blood Count 4.19 10^6/uL N 4.0-5.4 [...] Cells % 0.1 N Laboratory test 01/02/2015 [facility] TSH (Thyroid 6.06 High 0.34-5.[address] Stim Horm) ?IU/[place] [address] [phone] Laboratory test 12/17/2014 [facility] C Reactive 14.40 mg/L High < 5.00 [address] [place] [address] [phone] 1 Because ethnic data is not always [...] 2 SEE RESULT BELOW Name: JOSEPH BYRNE Jose Miguel : [address]: Wily Cottrell MD Acct: [id number] Unit: [id number] AGE: 67 Location: [facility] Re09/12/17 SEX: M Status: REG REF SPEC: [id number] JUSTIN: 09/12/17-1030 [facility] DR: Wily Cottrell MD REQ: [id number] RECD: 09/12/17-1231 STATUS: COMP _ SOURCE: STOOL SPDESC: ORDERED: C. diff PCR, Stool Culture, O P: Giar/Crypt COMMENTS: Verbal to kaitlin saucedo by [id number] at 1450 on 09/12/17. Results read back [...] CONTINUED ON NEXT PAGE DEPARTMENT OF PATHOLOGY, [address] [place] [address] Lei Sellers M.D. Director JULIAN # [id number] Patient: JOSEPH BYRNE [id number] (Continued) Specimen: [id number] Collected: 09/12/17-0 Received: 09/12/17-1230 (Continued) Procedure Result Reported Site Shiga Toxin [...] is requested. Contact the Microbiology Department at [phone]. TEST LIMITATIONS: As with all diagnostic procedures, [...] test and are not recommended. * - [facility] . END OF REPORT DEPARTMENT OF PATHOLOGY, [address] [place] [address] Lei Sellers M.D. Director [facility] # [id number] 3 SOURCE: STOOL CYCLOSPORA STAIN FINAL Negative. Test Performed by: [address] [address] 4 SEE RESULT BELOW Name: JOSEPH BYRNE : [address]: Wily Cottrell MD Acct: [id number] Unit: [id number] AGE: 67 Location: [facility] Re05/23/17 SEX: M Status: REG REF SPEC: [id number] JUSTIN: 05/23/17 [facility] DR: Wily Cottrell MD REQ: [id number] RECD: 05/23/17 STATUS: COMP _ SOURCE: STOOL SPDESC: ORDERED: C. diff PCR Procedure Result Reported Site Stool Specimen Description Final 05/23/17- 1513 ML Stool Color Light Brown Stool Form Nonformed Stool Consistency Liquid C. difficile PCR Final 05/23/17- 1557 ML Organism 1 027 Presumptive NEGATIVE Organism 2 Toxigenic C.diff NEGATIVE * ML - Main Lab . END OF REPORT DEPARTMENT OF PATHOLOGY, [address] [place] [address] Lei Sellers M.D. Director JULIAN # [id number] SEE RESULT BELOW Name: JOSEPH BYRNE : [address]: Marla Dixon MD Acct: [id number] Unit: [id number] AGE: 67 Location: [facility] Re05/12/17 SEX: M Status: DEP ER SPEC: [id number] JUSTIN: 05/12/17-1453 [facility] DR: Ed GAYLE REQ: [id number] RECD: 05/12/17 STATUS: RES OTHR DR: Marla Sauceda MD _ SOURCE: KNEE,LEFT SPDESC: ORDERED: MRSA/SA SSTI, Culture Stain COMMENTS: [id number] Procedure Result Reported Site MRSA/S. aureus SSTI PCR PENDING Wound/Misc Gram Stain Final 05/13/17- 0751 ML 1+ Epithelial Cells No Neutrophils Observed No Organisms Seen Wound/Misc Culture Preliminary 05/13/17- 1107 ML Organism 1 STAPHYLOCOCCUS AUREUS Quantity 2+ * ML - MAIN LAB ([facility]) . END OF REPORT * ML=Testing performed at Main Lab DEPARTMENT OF PATHOLOGY, [address] [place] [address] Lei Sellers M.D. Director [facility] # [id number] 7 SEE RESULT BELOW Name: JOSEPH BYRNE : [address]: Marla Dixon MD Acct: [id number] Unit: [id number] AGE: 67 Location: [facility] Re05/12/17 SEX: M Status: DEP ER SPEC: [id number] JUSTIN: 05/12/17-1454 [facility] DR: Ed FITCHQ: [id number] RECD: 05/12/17 STATUS: COMP [facility] DR: Marla Sauceda MD _ SOURCE: KNEE,LEFT SPDESC: ORDERED: MRSA/SA SSTI, Culture Stain COMMENTS: [id number] Verbal to [id number] by [id number] at 1239 on 05/13/17. Results read back [...] performed at Main Lab DEPARTMENT OF PATHOLOGY, [address] [place] [address] Lei Sellers M.D. Director [facility] # [id number] Patient: JOSEPH BYRNE [id number] (Continued) Specimen: [id number] Collected: 05/12/17 Received: 05/12/17 (Continued) Procedure Result [...] These antibiotics are not available in the [facility] Formulary Contact the Microbiology Department for any additional antibiotic reporting. * ML - MAIN LAB ([facility]) . END OF REPORT * ML=Testing performed at Main Lab DEPARTMENT OF PATHOLOGY, [address] [place] [address] Lei Sellers M.D. Director [facility] # [id number] 8 SEE RESULT BELOW Name: JOSEPH BYRNE : [address]: Wily Cottrell MD Acct: [id number] Unit: [id number] AGE: 67 Location: [facility] Re03/03/17 SEX: M Status: REG REF SPEC: [id number] JUSTIN: 03/03/17-1440 [facility] DR: Wily Cottrell MD REQ: [id number] RECD: 03/03/17 STATUS: COMP _ SOURCE: STOOL SPDESC: ORDERED: C. diff PCR Procedure Result Reported Site Stool Specimen Description Final 03/03/17- 1700 ML Stool Color Brown Stool Form Nonformed Stool Consistency Liquid C. difficile PCR Final 03/03/17- 1744 ML Organism 1 027 Presumptive NEGATIVE Organism 2 Toxigenic C.diff NEGATIVE * ML - MAIN LAB ([facility]) . END OF REPORT * ML=Testing performed at Main Lab DEPARTMENT OF PATHOLOGY, [address] [place] [address] Lei Sellers M.D. Director [facility] # [id number] 9 Because ethnic data is not always [...] 14 SEE RESULT BELOW Name: JOSEPH BYRNE DOB: [address]: Greg Iyer MD Acct: [id number] Unit: [id number] AGE: 66 Location: [facility] Re08/26/16 SEX: M Status: REG REF SPEC: [id number] JUSTIN: 08/26/16-944 [facility] DR: Jordan Iyer MD REQ: [id number] RECD: 08/26/16120 STATUS: COMP _ SOURCE: URINE SPDESC: ORDERED: Urine Culture COMMENTS: [id number] Procedure Result Reported Site Urine Culture Final 08/27/16- 1331 ML No Growth (<1,000 CFU/mL) * ML - MAIN LAB ([facility]) . END OF REPORT * ML=Testing performed at Main Lab DEPARTMENT OF PATHOLOGY, [address] [place] [address] Lei Sellers M.D. Director [facility] # [id number] 15 Because ethnic data is not always [...] (or dialysis) 16 SEE RESULT BELOW Name: JOSEPH BYRNE : [address]: Kiet Sauceda MD Acct: [id number] Unit: [id number] AGE: 66 Location: [facility] Re03/28/16 SEX: M Status: REG REF SPEC: [id number] JUSTIN: 03/28/16-8859 [facility] DR: Kiet Sauceda MD REQ: [id number] RECD: 03/28/16 STATUS: COMP _ SOURCE: WOUND SPDESC: ORDERED: Culture Stain COMMENTS: [id number] Verbal to JHOANA Serrano (DRS OFFICE) by [id number] at 1231 on 03/29/16. Results read back [...] performed at Main Lab DEPARTMENT OF PATHOLOGY, [address] [place] [address] Lei Sellers M.D. Director MANISHAANNA MARIE # [id number] Patient: JOSEPH BYRNE [id number] (Continued) Specimen: [id number] Collected: 03/28/16 Received: 03/28/16 (Continued) Procedure Result Reported Site Wound/Misc Culture Final (continued) 03/31/16821 1. STREP PYOGENES (GRP A) (continued) M.I.C. RX --------- ------ Tetracycline >4 R Vancomycin 0.5 S * ML - MAIN LAB ([facility]) . END OF REPORT * ML=Testing performed at Main Lab DEPARTMENT OF PATHOLOGY, [address] [place] [address] Lei Sellers M.D. Director [facility] # [id number] 17 Because ethnic data is not always [...] dialysis) 18 Copy Result to: KIET SAUCEDA ([id number]) 19 Copy Result to: KIET SAUCEDA ([id number]) 20 Copy Result to: KIET SAUCEDA ([id number]) 21 Because ethnic data is not always [...] Serum levels of PSA measured using the [employer] DXI Hybritech immunoassay should not be interpreted [...] inflammation: >10.00 Procedures Date Code Description Status 02/17/2018 63428 Implantable Cardio System Loop Recorder Sys Remota Data Completed Acquistio 02/17/2018 87180 Interrogation Dev Loop Recorder Incl Physician Completed Analysis,Rev,Repor 02/16/2018 26035 Nerve Conduction 03-04 Studies Completed 02/16/2018 52453 Needle Electromyography Complete, Five Or More Muscles Completed Studied 02/01/2018 19090 EKG Tracing & Interpretation Completed 01/23/2018 18019 Stress Test Completed 01/23/2018 65697 Myocardial Perfusion Imaging Tomographic (Spect) Completed Multiple Studies 01/17/2018 13168 Implantable Cardio System Loop Recorder Sys Remota Data Completed Acquistio 01/17/2018 92606 Interrogation Dev Loop Recorder Incl Physician Completed Analysis,Rev,Repor 12/17/2017 04820 Interrogation Dev Loop Recorder Incl Physician Completed Analysis,Rev,Repor 12/17/2017 56573 Implantable Cardio System Loop Recorder Sys Remota Data Completed Acquistio 11/16/2017 18497 Implantable Cardio System Loop Recorder Sys Remota Data Completed Acquistio 11/16/2017 05296 Interrogation Dev Loop Recorder Incl Physician Completed Analysis,Rev,Repor 11/03/2017 08900 EKG Tracing & Interpretation Completed 11/03/2017 62442 EKG Tracing & Interpretation Completed 10/16/2017 90952 Implantable Cardio System Loop Recorder Sys Remota Data Completed Acquistio 10/16/2017 65751 Interrogation Dev Loop Recorder Incl Physician Completed Analysis,Rev,Repor 09/15/2017 71948 Implantable Cardio System Loop Recorder Sys Remota Data Completed Acquistio 09/15/2017 65868 Interrogation Dev Loop Recorder Incl Physician Completed Analysis,Rev,Repor 08/15/2017 55822 Interrogation Dev Loop Recorder Incl Physician Completed Analysis,Rev,Repor 08/15/2017 93143 Implantable Cardio System Loop Recorder Sys Remota Data Completed Acquistio 07/15/2017 63144 Implantable Cardio System Loop Recorder Sys Remota Data Completed Acquistio 07/15/2017 22545 Interrogation Dev Loop Recorder Incl Physician Completed Analysis,Rev,Repor 06/14/2017 43411 Implantable Cardio System Loop Recorder Sys Remota Data Completed Acquistio 06/14/2017 03207 Interrogation Dev Loop Recorder Incl Physician Completed Analysis,Rev,Repor 05/16/2017 37628 I&D deep abscess,bursa or hematoma thigh or knee region Completed 05/16/2017 65654 I&D deep abscess,bursa or hematoma thigh or knee region Completed 05/16/2017 80883 I&D deep abscess,bursa or hematoma thigh or knee region Completed 05/16/2017 98750 I&D deep abscess,bursa or hematoma thigh or knee region Completed 05/14/2017 13321 Interrogation Dev Loop Recorder Incl Physician Completed Analysis,Rev,Repor 05/14/2017 95768 Implantable Cardio System Loop Recorder Sys Remota Data Completed Acquistio 04/13/2017 93238 Implantable Cardio System Loop Recorder Sys Remota Data Completed Acquistio 04/13/2017 35285 Interrogation Dev Loop Recorder Incl Physician Completed Analysis,Rev,Repor 04/06/2017 21370 EKG Tracing & Interpretation Completed 03/13/2017 07369 Implantable Cardio System Loop Recorder Sys Remota Data Completed Acquistio 03/13/2017 43444 Interrogation Dev Loop Recorder Incl Physician Completed Analysis,Rev,Repor 02/10/2017 97944 Implantable Cardio System Loop Recorder Sys Remota Data Completed Acquistio 02/10/2017 57513 Interrogation Dev Loop Recorder Incl Physician Completed Analysis,Rev,Repor 01/10/2017 21558 Implantable Cardio System Loop Recorder Sys Remota Data Completed Acquistio 01/10/2017 25523 Interrogation Dev Loop Recorder Incl Physician Completed Analysis,Rev,Repor 12/10/2016 22937 Interrogation Dev Loop Recorder Incl Physician Completed Analysis,Rev,Repor 12/10/2016 98764 Implantable Cardio System Loop Recorder Sys Remota Data Completed Acquistio 11/09/2016 70496 Implantable Cardio System Loop Recorder Sys Remota Data Completed Acquistio 11/09/2016 58109 Interrogation Dev Loop Recorder Incl Physician Completed Analysis,Rev,Repor 10/09/2016 49599 Implantable Cardio System Loop Recorder Sys Remota Data Completed Acquistio 10/09/2016 39609 Interrogation Dev Loop Recorder Incl Physician Completed Analysis,Rev,Repor 09/08/2016 61947 Implantable Cardio System Loop Recorder Sys Remota Data Completed [facility]quistio 09/08/2016 29827 Interrogation Dev Loop Recorder Incl Physician Completed Analysis,Rev,Repor 08/23/2016 59827 EKG Tracing & Interpretation Completed 08/23/2016 21785 EKG Tracing & Interpretation Completed 08/08/2016 92223 Interrogation Dev Loop Recorder Incl Physician Completed Analysis,Rev,Repor 08/08/2016 19213 Implantable Cardio System Loop Recorder Sys Remota Data Completed Acquistio 07/26/2016 01166 EKG Tracing & Interpretation Completed 07/08/2016 25789 Implantable Cardio System Loop Recorder Sys Remota Data Completed Acquistio 07/08/2016 84661 Interrogation Dev Loop Recorder Incl Physician Completed Analysis,Rev,Repor 06/07/2016 10712 Implantable Cardio System Loop Recorder Sys Remota Data Completed Acquistio 06/07/2016 37210 Interrogation Dev Loop Recorder Incl Physician Completed Analysis,Rev,Repor 05/07/2016 06893 Implantable Cardio System Loop Recorder Sys Remota Data Completed [facility]io 05/07/2016 09190 Interrogation Dev Loop Recorder Incl Physician Completed Analysis,Rev,Repor 04/21/2016 36516 EKG Tracing & Interpretation Completed 04/06/2016 38347 Interrogation Dev Loop Recorder Incl Physician Completed Analysis,Rev,Repor 04/06/2016 27853 Implantable Cardio System Loop Recorder Sys Remota Data Completed [facility] 03/06/2016 83974 Implantable Cardio System Loop Recorder Sys Remota Data Completed Acquistio 03/06/2016 88215 Interrogation Dev Loop Recorder Incl Physician Completed Analysis,Rev,Repor 02/16/2016 02482 Loop Recorder Device Eval W/Iterative Adj Implant Loop Completed Recorder 02/03/2016 85898 Implant Cardiac Loop Recorder Completed 02/02/2016 42213 EKG Tracing & Interpretation Completed 01/31/2016 88957 ECHO Transthorasic Realtime 2D W Doppler & Color Flow Completed Hosp 10/27/2015 82664 Nerve Conduction 07-08 Studies Completed 10/27/2015 86426 Needle Electromyography Complete, Five Or More Muscles Completed Studied 12/24/2014 45254 EKG Tracing & Interpretation Completed 12/24/2014 34911 EKG Tracing & Interpretation Completed 12/10/2014 79358 EKG Tracing & Interpretation Completed 11/27/2014 77382 EKG, Interpretation Only Completed 11/25/2014 24997 ECHO Transthorasic Realtime 2D W Doppler & Color Flow Completed Hosp 11/25/2014 44600 EKG, Interpretation Only Completed 02/26/2010 62277 Color Flow Doppler/Interp & Reprt Completed 02/26/2010 32052 Pulse Wave/Continuous-Interp.RPT Completed 02/26/2010 44321 ECHO Transthorasic Realtime 2D W Doppler & Color Flow Completed Hosp 2010 05139 ECHO Transthorasic Realtime 2D W Doppler & Color Flow Completed Hosp 03/20/2008 [id number] Colonoscopy Completed Encounters Type Date Location Provider Dx Diagnosis Office Visit 02/01/2018 [facility] Apryl Moreira, I48.0 Paroxysmal atrial 1:10p Of [place] fibrillation M25.511 Pain in right shoulder F52.21 Male erectile disorder Office Visit 01/17/2018 [facility] [place] E03.9 Hypothyroidism, 4:00p Wilder Sauceda M.D. unspecified [place] I48.0 Paroxysmal atrial fibrillation G56.01 Carpal tunnel syndrome, right upper limb M25.511 Pain in right shoulder R20.2 Paresthesia of skin Office Visit 12/26/2017 10:30a [facility] Wily Reed M27.2 Inflammatory For Infectious Channing Cottrell conditions of jaws Diseases Office Visit 11/03/2017 2:30p [place] Carolyn Jacques I48.0 Paroxysmal atrial Cardiology Of N.P. fibrillation [facility] I95.1 Orthostatic hypotension Office Visit 09/15/2017 11:10a [facility] Wily Reed K62.5 Hemorrhage of anus For Han Cottrell M.D. and rectum Diseases Office Visit 09/07/2017 11:20a [facility] [place] I48.0 Paroxysmal atrial Medicine - Apryl Sauceda M.D. fibrillation Rd E03.9 Hypothyroidism, unspecified K21.9 Gastro-esophageal reflux disease without esophagitis K62.5 Hemorrhage of anus and rectum Office Visit 08/15/2017 3:20p [facility] Wily Reed M27.2 Inflammatory For Infectious Channing Cottrell conditions of jaws Diseases R19.7 Diarrhea, unspecified Office Visit 06/26/2017 1:40p [facility] Shilo Reed M71.162 Other infective Infectious Channing Cottrell bursitis, left Diseases knee Z79.2 MCC (current) use of antibiotics M27.2 Inflammatory conditions of jaws Office Visit 06/06/2017 4:20p [facility] [place] I48.0 Paroxysmal atrial Medicine - Channing Sauceda fibrillation [address] E03.9 Hypothyroidism, unspecified K21.9 Gastro-esophageal reflux disease without esophagitis F17.210 Nicotine dependence, cigarettes, uncomplicated Z23 Encounter for immunization Office Visit 05/31/2017 9:10a [facility] Shilo Reed M71.162 Other infective Infectious Channing Cottrell bursitis, left Diseases knee M27.2 Inflammatory conditions of jaws R19.7 Diarrhea, unspecified Office Visit 05/18/2017 11:22a [facility] Shilo Reed M71.162 Other infective Infectious Ch[place] Cottrell 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 [place] Cathy Zavala, M00.9 Pyogenic Assoc,pc N.P. 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 MJulianD. bursa, left knee M25.562 Pain in left knee Office Visit 05/15/2017 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 M.D. bursa, left knee M25.562 Pain in left knee Office Visit 04/06/2017 2:40p [facility] Apryl Moreira, I48.0 Paroxysmal atrial Of Marketing Effectiveness Manager M.D. fibrillation Z95.818 Presence of other cardiac implants and grafts I95.1 Orthostatic hypotension Office Visit 02/13/2017 3:00p [facility] Wily Reed L03.211 Cellulitis of For Infectious Channing Cottrell face Diseases M27.2 Inflammatory conditions of jaws Office Visit 12/23/2016 10:30a [facility] Wily Reed M27.2 Inflammatory For Infectious Channing Cottrell conditions of jaws Diseases Z79.2 MCC (current) use of antibiotics Office Visit 11/22/2016 2:40p [facility] Wily Reed M27.2 Inflammatory For Infectious Channing Cottrell conditions of jaws Diseases Z79.2 senior data modeler (current) use of antibiotics Office Visit 08/26/2016 9:00a [facility] Jordan Iyer, R30.0 Dysuria Medicine - [address] M.D.,FACP R07.89 Other chest pain I48.0 Paroxysmal atrial fibrillation Office Visit 08/23/2016 2:30p [facility] Sarah Torrez, I48.0 Paroxysmal atrial Of Marketing Effectiveness Manager PA fibrillation Z95.818 Presence of other cardiac implants and grafts Office Visit 07/26/2016 11:15a [facility] Apryl Moreira I48.0 Paroxysmal atrial Of Marketing Effectiveness Manager M.D. fibrillation Z95.818 Presence of other cardiac implants and grafts I95.1 Orthostatic hypotension R07.89 Other chest pain Office Visit 07/08/2016 10:30a [facility] Wily Reed M27.2 Inflammatory For Infectious Channing Cottrell conditions of jaws Diseases Z79.2 senior data modeler (current) use of antibiotics Office Visit 05/12/2016 11:20a [facility] [place] I48.0 Paroxysmal atrial Medicine - Channing Sauceda fibrillation [address] E03.9 Hypothyroidism, unspecified K21.9 Gastro-esophageal reflux disease without esophagitis N48.89 Other specified disorders of penis Office Visit 05/09/2016 2:20p [facility] Wily Reed M27.2 Inflammatory For Infectious Channing Cottrell conditions of jaws Diseases Office Visit 04/21/2016 2:30p [place] Apryl Moreira I48.0 Paroxysmal atrial Cardiology Of M.DJulian fibrillation Marketing Effectiveness Manager Office Visit 04/05/2016 10:20a [facility] [place] M27.2 Inflammatory Medicine - Tbclaudio Sauceda M.D. conditions of jaws Rd Office Visit 04/01/2016 10:10a [facility] Wily Reed M27.2 Inflammatory For Infectious Channing Cottrell conditions of jaws Diseases Office Visit 03/28/2016 1:40p [facility] [place] M27.2 Inflammatory Medicine - [place] Channing Sauceda conditions of jaws Rd Office Visit 02/09/2016 10:00a [facility] [place] I48.0 Paroxysmal atrial Medicine - [place] Channing Sauceda fibrillation Rd E03.9 Hypothyroidism, unspecified K21.9 Gastro-esophageal reflux disease without esophagitis I62.00 Nontraumatic subdural hemorrhage, unspecified Office Visit 02/02/2016 1:00p [facility] Apryl Moreira I48.0 Paroxysmal atrial Of [facility] M.DJulian fibrillation I62.00 Nontraumatic subdural hemorrhage, unspecified F52.21 Male erectile disorder Office Visit 01/18/2016 Neurosurgery Guero Yu, I62.00 Nontraumatic 10:45a Services Of [facility] Channing subdural hemorrhage, unspecified Office Visit 01/08/2016 [facility] Jordan Reed I48.0 Paroxysmal atrial 2:40p Medicine - [place], fibrillation Rd M.D.,FACP I62.00 Nontraumatic subdural hemorrhage, unspecified Z23 Encounter for immunization Office Visit 12/28/2015 Neurosurgery Guero Yu I62.00 Nontraumatic 11:00a Services Of [place] subdural hemorrhage, unspecified I62.02 Nontraumatic subacute subdural hemorrhage Office Visit 11/17/2015 10:40a [facility] [place] I62.00 Nontraumatic Medicine - Channing Sauceda subdural [address] hemorrhage, unspecified I48.0 Paroxysmal atrial fibrillation E03.9 Hypothyroidism, unspecified K21.9 Gastro-esophageal reflux disease without esophagitis Office Visit 11/09/2015 Neurosurgery Guero Yu I62.00 Nontraumatic 2:28p Services Of [place] subdural hemorrhage, unspecified R51 Headache Office Visit 11/09/2015 [facility] [place] Josh Sauceda, I62.00 Nontraumatic 10:06a Assmonster cintron M.D. subdural Hospitalists hemorrhage, unspecified I48.2 Chronic atrial fibrillation E03.8 Other specified hypothyroidism Z85.819 Prsnl hx of malig neoplm of unsp site lip,oral cav,& pharynx Office Visit 11/08/2015 Neurosurgery Guero Yu I62.00 Nontraumatic 1:39p Services Of [place] subdural hemorrhage, unspecified R51 Headache Z79.01 senior data modeler (current) use of anticoagulants Office Visit 11/08/2015 [facility] [place] Josh Sauceda, I62.00 Nontraumatic 10:05a Assmonster cintron M.D. subdural Hospitalists hemorrhage, unspecified I48.2 Chronic atrial fibrillation E03.8 Other specified hypothyroidism Z85.819 Prsnl hx of malig neoplm of unsp site lip,oral cav,& pharynx Office Visit 11/07/2015 Neurosurgery Guero Yu I62.00 Nontraumatic 7:00a Services Of [place] subdural hemorrhage, unspecified R51 Headache I48.91 Unspecified atrial fibrillation Z79.01 senior data modeler (current) use of anticoagulants Z85.830 Personal history of malignant neoplasm of bone Office Visit 11/06/2015 [facility] [place] Ren Hernandez I62.00 Nontraumatic 10:04a Assmonster cintron II, M.D. subdural Hospitalists hemorrhage, unspecified I48.2 Chronic atrial fibrillation E03.8 Other specified hypothyroidism Z85.819 Prsnl hx of malig neoplm of unsp site lip,oral cav,& pharynx Office Visit 11/06/2015 [facility] [place] R51 Headache 4:20p Medicine Luis A Sauceda M.D. Rd Office Visit 10/20/2015 [place] Apryl Bhagatsher, I48.0 Paroxysmal atrial 1:30p Cardiology Of M.D. fibrillation [facility] I95.1 Orthostatic hypotension H54.2 Low vision, both eyes E03.9 Hypothyroidism, unspecified Office Visit 10/13/2015 [facility] [place] Z79.01 MCC (current) 10:00a Wilder Sauceda M.D. use of [address] anticoagulants I48.0 Paroxysmal atrial fibrillation M54.12 Radiculopathy, cervical region Office Visit 07/23/2015 [facility] Ambrocio Santa Z79.01 MCC (current) 11:20a Wilder Sauceda M.D. use of [address] anticoagulants I48.0 Paroxysmal atrial fibrillation M79.672 Pain in left foot E03.9 Hypothyroidism, unspecified K21.9 Gastro-esophageal reflux disease without esophagitis Office Visit 04/07/2015 2:20p [facility] Joseph Rosen I48.0 Paroxysmal atrial Medicine - M.D. 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 M27.2 Inflammatory conditions of jaws Z85.830 Personal history of malignant neoplasm of bone Z85.819 Prsnl hx of malig neoplm of unsp site lip,oral cav,& pharynx Office Visit 12/17/2014 [facility] Wily Reed M86.28 Subacute 2:20p For Infectious Channing Cottrell osteomyelitis, Diseases other site M27.2 Inflammatory conditions of jaws Office Visit 12/10/2014 3:00p [facility] Apryl Moreira, I48.0 Paroxysmal atrial Of [facility] [place] fibrillation 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 Opening Hospitalists Gastrostomy 244.9 Hypothyroidism Other Unspec 427.31 Atrial Fibrillation 526.4 Inflammatory Jaw Office Visit 11/27/2014 [facility] Apryl Kumarer, 427.31 Atrial 1:26p Of [facility] [place] Fibrillation [facility] V[facility].1 Artificial 2:06p monster Moore M.D. Opening Hospitalists Gastrostomy 244.9 Hypothyroidism Other Unspec 526.4 Inflammatory Jaw 427.31 Atrial Fibrillation Office Visit 11/26/2014 11:20a [facility] Wily Reed 526.4 Inflammatory Jaw Infectious Channing Cottrell Diseases 239.0 Neoplasm Unspecified Digestive System [facility] V[facility].1 Artificial 2:06p monster Moore M.D. Opening Hospitalists Gastrostomy 244.9 Hypothyroidism Other Unspec 526.4 Inflammatory Jaw 427.31 Atrial Fibrillation [facility] V44.1 Artificial 2:04p monster Moore M.D. Opening Hospitalists Gastrostomy 244.9 Hypothyroidism Other Unspec 427.31 Atrial Fibrillation 526.4 Inflammatory Jaw Office 11/24/2014 [facility] V44.1 Artificial Visit 2:03p monster Moore N.[place] Opening Hospitalists Gastrostomy 244.9 Hypothyroidism Other Unspec 427.31 Atrial Fibrillation 526.4 Inflammatory Jaw Plan of Treatment Future Appointment(s):05/02/2018 2:00 pm - Kiet Sauceda M.D. at [facility]04/25/2018 10:00 am - Kiet Sauceda M.D. at [facility]08/15/2017 - Wily Cottrell M.D.M27.2 Inflammatory conditions of jawsR19.7 Diarrhea, unspecifiedComments:?abx or TF side effect vs infection vs inflammatory bowel
--- NOTE | 2018-02-27 13:20 | ED ---
Complex/Multi-Sys Presentation - HPI Summary HPI Summary: This patient is a 68 year old M presenting to [facility] accompanied by his brother with a chief complaint of general malaise that began 2 days ago. The patient rates the pain 0/10 in severity. Patient reports chills, GARCIA, 102.9 fever, and nausea. Patient denies pain, ABD bloating, urinary sx, trouble passing stool, unusual BM, SOB, and trouble breathing. Pt states he has been feeling better but does feel dehydrated. Pt does have a feeding tube in place and is unable to vomit. 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 No hx Afib. He did take Tylenol PSYCHIATRIC ASSISTANT. The patient still has his appendix. - History Of Current Complaint Chief Complaint: EDGeneral Time Seen by Provider: 02/27/18 13:01 Hx Obtained From: Patient, Family/President And Ceo Onset/Duration: Lasting Days, Still Present Timing: Constant, Days Severity Currently: Mild Associated Signs And Symptoms: Positive: Other - chills, GARCIA, 102.9 fever, urinary sx, and nausea. - Allergies/Home Medications Allergies/Adverse Reactions: Allergies Allergy/AdvReac Type Severity Reaction Status Date / Time sulfamethoxazole Allergy Rash Verified 02/27/18 13:04 [From Bactrim] trimethoprim [From Bactrim] Allergy Rash Verified 02/27/18 13:04 Home Medications: Home Medications Acetaminophen TAB* [Tylenol TAB*] 650 mg PO Q4HR PRN 02/27/18 [History Confirmed 02/27/18] Dronedarone TAB* [Multaq TAB*] 400 mg G TUBE BID 02/27/18 [History Confirmed 02/04] Lactose-Reduced Food/Fiber [Jevity 1 Tenzin Liquid] 2,133 ml FEED TUBE DAILY [History Confirmed 02/27/18] Ranitidine TAB (NF) [Zantac TAB (NF)] 150 mg G TUBE BID 02/27/18 [History Confirmed 02/27/18] PMH/Surg Hx/FS Hx/Imm Hx Endocrine/Hematology History: Reports: Hx Thyroid Disease Denies: Hx Diabetes Cardiovascular History: Reports: Hx Congestive Heart Failure Denies: Hx Hypertension, Hx Pacemaker/ICD Respiratory History: Reports: Other Respiratory Problems/Disorders - throat and mandiibular CA Denies: Hx Asthma, Hx Chronic Obstructive Pulmonary Disease (COPD) GI History: Reports: Other GI Disorders - PEG tube tube in place Denies: Hx Ulcer History: Denies: Hx Renal Disease Musculoskeletal History: Reports: Hx Arthritis Sensory History: Reports: Hx Contacts or Glasses Denies: Hx Hearing Aid Opthamlomology History: Reports: Hx Contacts or Glasses Neurological History: Reports: Other Neuro Impairments/Disorders - decreased sensation to bilateral feet R>L Psychiatric History: Denies: Hx Panic Disorder - Cancer History Cancer Type, 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, 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: Yes - Surgical History Surgery Procedure, Year, and Place: mandibulectomy, + neck resection r/t CA,. [employer] Hx Anesthesia Reactions: No - Immunization History Immunizations Up to Date: Yes Infectious Disease History: No Infectious Disease History: Reports: Hx Clostridium Difficile, Hx of Known/ Suspected MRSA Denies: Hx Hepatitis, Hx Human Immunodeficiency Virus (HIV), Traveled Outside the [place] in Last 30 Days - Family History Known Family History: Negative: Respiratory Disease, Seizure Disorder - Social History Lives: With Family Alcohol Use: None Substance Use Type: Reports: None Smoking Status (MU): Former Smoker Have You Smoked in the Last Year: No Review of Systems Constitutional: Other - dehydrated Positive: Fever, Chills, Other - general malaise Respiratory: Negative - trouble breathing Positive: Cough. Negative: Shortness Of Breath Gastrointestinal: Negative - bloating, trouble passing stool, unusual BM, SOB Positive: Abdominal Pain - TTP but not reported, Nausea. Negative: Vomiting Positive: no symptoms reported Musculoskeletal: Negative - pain Positive: Headache All Other Systems Reviewed And Are Negative: Yes Physical Exam - Summary Physical Exam Summary: Appearance: Ill appearing, no pain distress Skin: warm, dry, reflects adequate perfusion Head/face: normal Eyes: EOMI, SANA ENT: mucous membranes moist Neck: supple, non-tender Respiratory: fine crackles in the left base Cardiovascular: RRR, pulses symmetrical Abdomen: RLQ is TTP there is no rebound Bowel Sounds: hypoactive with occasional high pitched sounds Musculoskeletal: normal, strength/ROM intact Neuro: normal, sensory motor intact, A&Ox3 Triage Information Reviewed: Yes Vital Signs On Initial Exam: Initial Vitals Temp Pulse Resp BP Pulse Ox 99.2 F 59 20 105/58 95 02/27/18 12:45 02/27/18 12:45 02/27/18 12:45 02/27/18 12:45 02/27/18 12:45 Vital Signs Reviewed: Yes Diagnostics - Vital Signs Vital Signs Temp Pulse Resp BP Pulse Ox 02/27/18 12:45 99.2 F 59 20 105/58 95 - Laboratory Result Diagrams: 02/27/18 13:43 02/27/18 13:43 Lab Statement: Any lab studies that have been ordered have been reviewed, and results considered in the medical decision making process. - CT CT ABD/Pelvis CT Interpretation Completed By: Radiologist Summary of CT Findings: STATUS POST PERCUTANEOUS GASTROSTOMY. NO ACUTE CT PATHOLOGY OF THE VISUALIZED ABDOMEN OR. PELVIS. ED physician has reviewed this radiology report. - EKG 1320 Cardiac Rate: NL EKG Rhythm: Sinus Rhythm - at [address] Segment: Normal Summary of EKG Findings: PAC. Incomplete RBBB, poor R wave progression Complex Multi-Symp Course/Dx Course Of Treatment: Patient with a remote history of esophageal CA who presents with fever/sepsis syndrome as well as abdominal discomfort and a cough that is productive of yellowish sputum. X-rays negative for infiltrate. CT scan of the abdomen and pelvis is negative for acute inflammation. His tenderness is mostly in the right lower quadrant. It has improved with treatment here. IV antibiotics given and patient will be admitted for observation and further evaluation. - Diagnoses Differential Diagnoses/HQI/PQRI: Aspiration, Metabolic Abnormality, Sepsis, Urinary Tract Infection, Other - Pneumonia, gallbladder disease, appendicitis Provider Diagnoses: Sepsis, Cough, Abdominal pain - Physician Notifications Discussed Care Of Patient With: Tommy Garner Time Discussed With Above Provider: 15:25 Instructed by Provider To: Admit As Inpatient Discharge - Sign-Out/Discharge Documenting (check all that apply): Patient Departure - admitted - Discharge Plan Condition: Fair Disposition: ADMITTED TO [facility] - Billing Disposition and Condition Condition: FAIR Disposition: Admitted to [facility] - Attestation Statements Document Initiated by Scribe: Yes Documenting Scribe: Eros Ray Provider For Whom Scribe is Documenting (Include Credential): Nash Bell MD Scribe Attestation: Eros Costello , scribed for Nash Bell MD on 02/27/18 at 1956. Scribe Documentation Reviewed: Yes Provider Attestation: The documentation as recorded by the Eros kam accurately reflects the service I personally performed and the decisions made by me, Nash Bell MD Status of Girish Document: Viewed
[2018-02-27] MEDS ORDERED: Ondansetron INJ* 2 MG/ML VIAL IV ONE ×2 (13:21→23:43)
[2018-02-27 14:00] LABS: Hematocrit 47 % (42-52); Hemoglobin 16.2 g/dl (14.0-18.0); Mean Corpuscular HGB Conc 34 g/dl (31-36); Mean Corpuscular Hemoglobin 35 pg (27-31); Mean Corpuscular Volume 101 fL (80-94); Mean Platelet Volume 9.2 fL (7.4-10.4); Platelet Count 183 10^3/ul (150-450); Red Blood Count 4.65 10^6/ul (4.00-5.40); Red Cell Distribution Width 12 % (10.5-15); White Blood Count 20.2 10^3/ul (3.5-10.8)
[2018-02-27 14:12] LABS: INR 1.1 (0.77-1.02)
[2018-02-27 14:18] LABS: EGFR Non-African American 69.1 (>60)
[2018-02-27] MEDS ORDERED: Iohexol 300* (CONTRAST) 10 ML SDV IV ONE (14:26)
[2018-02-27] MEDS ORDERED: Piperacillin/Tazobac ADVAN(*) 3.375 GM in NS 0.9% 100 ML* 100 ML IVPB ONE (15:20)
[2018-02-27] MEDS ORDERED: Levofloxacin 750 MG IVPREMIX(* 750 MG/150 ML BAG IVPB ONE (15:21)
[2018-02-27 15:41] LABS: ABS Basophils 0 10^3/ul (0-0.2); ABS Eosinophils 0 10^3/ul (0-0.6); ABS Lymphocytes 1.4 10^3/ul (1.0-4.8); ABS Monocytes 1.6 10^3/ul (0-0.8); ABS Neutrophils 17.1 10^3/ul (1.5-7.7); ABS Nucleated RBC 0 10^3/ul; Eosinophil % 0.2 %; Lymphocyte % 6.7 %; Nucleated Red Blood Cells % 0
[2018-02-27] MEDS ORDERED: Acetaminophen TAB* 325 MG PO PRN (17:00)
[2018-02-27] MEDS ORDERED: NS 0.9% 1000 ML* 1,000 ML IV SCH (17:00)
[2018-02-27] MEDS ORDERED: Zosyn per Pharmacy* NOTE FOLLOW UP SCH (18:00)
[2018-02-27] MEDS ORDERED: Vancomycin per Pharmacy* NOTE FOLLOW UP SCH (18:00)
[2018-02-27] MEDS ORDERED: Vancomycin(*) 1,500 MG in NS 0.9% 250 ML* 250 ML IVPB ONE (19:30)
[2018-02-27 19:55] LABS: Urine Appearance Cloudy; Urine Blood Negative (Negative); Urine Color Yellow; Urine Ketones Negative (Negative); Urine Protein 1+(30 mg/dL) (Negative); Urine Red Blood Cell 2+(6-10/hpf) (Absent); Urine Specific Gravity 1.054 (1.010-1.030); Urine Urobilinogen Positive (Negative); Urine White Blood Cell Trace(0-5/hpf) (Absent)
[2018-02-27] MEDS: Famotidine SUSP* 40 MG/5 ML ORAL.SUSP 50 ML BOTTLE G TUBE SCH (21:17)
[2018-02-27] MEDS: Dronedarone TAB* 400 MG G TUBE SCH (21:17)
--- NOTE | 2018-02-27 23:07 | HP ---
CC: Dr. Kiet Sauceda * HISTORY AND PHYSICAL: DATE OF ADMISSION: 02/27/18 PROVIDER: Zaria Recinos NP PRIMARY CARE PHYSICIAN: Dr. Kiet Saucdea. ATTENDING PHYSICIAN: Dr. Pulido * (dictated by Zaria Recinos NP) CHIEF COMPLAINT: Fever and chills, general malaise, and nausea. HISTORY OF PRESENT ILLNESS: This is a 68-year-old male with a past medical history significant for throat and mandible cancer, status post mandibulectomy and neck resection; AFib, not on anticoagulation due to history of spontaneous subdural hematoma in 2016; coronary artery disease; hypothyroidism; chronic osteomyelitis; cervical radiculopathy, who presented to the ED with a 2-day history of fever and chills with a T-max of 102.9 accompanied by nausea, general malaise, and cough. The patient does report that initially he did feel some chest pain when he first started getting sick; however, this has dissipated. The patient denies chest pain currently as well as shortness of breath, any diarrhea, or changes in bowel movements, dysuria, or abdominal pain. The patient does have a PEG tube in place and is unable to vomit due to his psot-op anatomy. In the ED, the patient had a low-grade temp of 99.2, and his labs were notable for a white blood cell count of 20.2 and his CRP of 219.58 , as well as an elevated total bilirubin. The hospitalist team was asked to admit this patient for further evaluation of sepsis, the patient did have an elevated heart rate to a maximum of 110 in addition to his elevated white blood cell count, which brings his sepsis score to 2. PAST MEDICAL HISTORY: 1. Throat and mandible cancer, status post mandibulectomy and neck resection. 2. Hypothyroidism. 3. Chronic osteomyelitis. 4. Cervical radiculopathy. 5. AFib, not on anticoagulation due to history of spontaneous subdural hematoma , on Coumadin. 6. Coronary artery disease. PAST SURGICAL HISTORY: Mandibulectomy, G-tube placement. FAMILY HISTORY: Positive for cancer. His father had colorectal cancer. SOCIAL HISTORY: The patient is a former smoker. 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 REVIEW OF SYSTEMS: I performed a 14-point review of systems. All the pertinent positives and negatives are mentioned in the history of present illness. The remaining review of systems is negative. PHYSICAL EXAMINATION GENERAL APPEARANCE: The patient is alert, pleasant, and appears to be in no acute distress. VITAL SIGNS: Temperature 99.2, heart rate 87, respiratory rate 16, oxygen saturation 96% on room air, blood pressure 138/52. HEENT: Normocephalic. He is status post mandibulectomy and has scarring over the reconstruction of the mandible. Pupils are equal, round, and reactive to light and accommodation. NECK: Supple. No lymphadenopathy noted. No JVD appreciated. RESPIRATORY: No accessory muscle use; however, rales were auscultated in bilateral lower lobes posteriorly. Normal work of breathing. CARDIAC: He has regular rate and rhythm. No murmurs, rubs, or gallops. ABDOMEN: Soft, nontender, nondistended. Hypoactive bowel sounds x4. PEG tube in place. One small raised area of erythema on the lateral aspect of his right chest wall. The patient reports that this is itchy. EXTREMITIES: No lower extremity edema. DP and PT pulses are 2+ and symmetric. MUSCULOSKELETAL: No clubbing or cyanosis noted. The patient exhibited 5/5 strength in all 4 extremities. NEURO: The patient is alert and oriented. PSYCH: The patient is calm and cooperative. SKIN: No rashes or abnormalities seen. DIAGNOSTIC STUDIES/LAB DATA: White blood cell count 20.2, RBC 4.65, hemoglobin 16.2, hematocrit 47, MCV 101, MCH 35, platelet count 138. Sodium 135 , potassium 4.3, chloride 99, carbon dioxide 31, anion gap 5, BUN 28, creatinine 1.06, glucose 100, lactic acid 1.5, calcium 9.3. Total bili 1.7, AST 28, ALT 17, alk phos 59. Troponin 0.01. CRP 219.58. Total protein 7.1, albumin 3.5, globulin 3.6. Abdomen and pelvis CT: Status post percutaneous gastrostomy. No acute pathology of the visualized abdomen or pelvis. Chest x-ray: Lungs are hyperinflated; however, upon analyzing the film with Dr. Pulido, the right heart border is blurry suggesting a right middle lobe and lower lobe consolidation. There is also some questionable left lower lobe consolidation. ASSESSMENT: The patient is a 68-year-old male with a past medical history significant for throat and mandible cancer, status post mandibulectomy and neck resection; atrial fibrillation; chronic osteomyelitis, who presented to the ED with a 2-day history of general malaise, fever, nausea, cough, and was found to have an elevated white blood cell count of 20.2, admitted to the hospitalist service for further workup of sepsis. PLAN: 1. Sepsis. The patient did meet sepsis criteria due to his elevated white blood cell count as well as tachycardia on initial presentation. The patient did receive IV fluids in the ED and I will continue IV fluids at 75 mL an hour for another bag. The patient has been placed on broad-spectrum antibiotics with vancomycin and Zosyn as we have not yet identified the source of the patient's infection. The patient does report a cough with yellow sputum as well as initial presentation of now resolved chest pain when he first started feeling sick. The patient's bilirubin is elevated, which is concerning for a gastrointestinal source; however, it is possible that this is just in the setting of sepsis and it appears that the patient has had an elevated bilirubin on previous admissions unrelated to GI issues. The patient's abdomen and pelvis CT did not display any acute findings; however, as the patient did initially present with nausea, this cannot entirely be ruled out. UA and urine culture as well as blood cultures are pending. I have also ordered Strep pneumoniae and legionella urine tests. 2. History of intermittent AFib. The patient does have a history of going into a rapid AFib with sepsis, so he will be monitored on telemetry. The patient's most recent heart rate was 87, so I will continue his home Multaq. 3. Hypothyroid. I will continue the patient's Synthroid. 4. History of GERD. I will continue the patient's ranitidine. 5. Diet. The patient has tube feeds with Jevity 1.5. He uses three 8-ounce cans 3 times a day. The hospital does not stock Jevity 1.5; however, the patient says that his brother can bring this in. I have also placed a nutrition consult for him. 6. DVT prophylaxis. Heparin subcu. 7. Code status. The patient is full code. 8. Disposition. Inpatient. Anticipate discharge home when medically stable. TIME SPENT: Time spent for this admission was 50 minutes, 35 minutes was spent with the patient discussing medications, past medical history, and events leading up to his arrival today and performing a physical exam. The case has been reviewed with the attending, Dr. Pulido, who agrees with the plan of care. ZARIA RECINOS, SURAJ [id number]/CPS #: [id number] PARVIZ
[2018-02-27] MEDS: ZOSYN 3.375 GM Q8H per EXTENDED INFUSION IVPB SCH ×2 (23:32)
[2018-02-28] MEDS: ZOSYN 3.375 GM Q8H per EXTENDED INFUSION IVPB SCH ×6 (06:14→23:33)
[2018-02-28] MEDS: Levothyroxine TAB* 137 MCG TAB G TUBE SCH (06:19)
[2018-02-28 06:22] LABS: ABS Basophils 0 10^3/ul (0-0.2); ABS Eosinophils 0.1 10^3/ul (0-0.6); ABS Lymphocytes 0.9 10^3/ul (1.0-4.8); ABS Neutrophils 9.6 10^3/ul (1.5-7.7); ABS Nucleated RBC 0 10^3/ul; Eosinophil % 0.6 %; Hematocrit 42 % (42-52); Hemoglobin 14.5 g/dl (14.0-18.0); Lymphocyte % 7.4 %; Mean Corpuscular HGB Conc 35 g/dl (31-36); Mean Corpuscular Hemoglobin 35 pg (27-31); Mean Corpuscular Volume 101 fL (80-94); Mean Platelet Volume 9.2 fL (7.4-10.4); Nucleated Red Blood Cells % 0; Platelet Count 153 10^3/ul (150-450); Red Blood Count 4.13 10^6/ul (4.00-5.40); Red Cell Distribution Width 12 % (10.5-15); White Blood Count 11.6 10^3/ul (3.5-10.8)
[2018-02-28] MEDS: Famotidine SUSP* 40 MG/5 ML ORAL.SUSP 50 ML BOTTLE G TUBE SCH ×2 (08:25→21:39)
[2018-02-28] MEDS: Dronedarone TAB* 400 MG G TUBE SCH ×2 (08:26→21:39)
[2018-02-28] MEDS ORDERED: Vancomycin(*) 1,250 MG in NS 0.9% 250 ML* 250 ML IVPB SCH (09:00)
--- NOTE | 2018-02-28 11:37 | PN ---
Subjective Date of Service: 02/28/18 Interval History: Pt resting comfortably in bed. Feels cough is at his baseline. Denies shortness of breath, chest pain, palpitations. Denies nausea, however has not yet had his jevity as it is non-formulary and his brother is bringing it in and his nausea has previously been in the setting of eating via his PEG. Pt is unable to vomit due to post-op anatomy. Last BM yesterday or day before. Denies abdominal pain. Denies headache, dizziness, numbness or tingling in extremities, jaw pain, joint pain. Objective Active Medications: Acetaminophen (Tylenol Tab*) 650 mg PO Q4H PRN PRN Reason: FEVER/PAIN Last Admin: 02/27/18 21:17 Dose: 650 mg Dronedarone (Multaq Tab*) 400 mg G TUBE BID [facility] Last Admin: 02/28/18 08:26 Dose: 400 mg Famotidine (Pepcid Susp*) 20 mg G TUBE BID [facility]; Protocol Last Admin: 02/28/18 08:25 Dose: 20 mg Piperacillin Sod/Tazobactam (Sod 3.375 gm/ Sodium Chloride) 100 mls @ 25 mls/ hr IVPB Q8H [facility] Last Admin: 02/28/18 06:14 Dose: 25 mls/hr Levothyroxine Sodium (Synthroid Tab*) 137 mcg G TUBE 0600 [facility] Last Admin: 02/28/18 06:19 Dose: 137 mcg Pharmacy Consult (Zosyn Per Pharmacy*) 1 note FOLLOW UP .ZOSYN PER PHARMACY [facility] Pharmacy Profile Note (Vancomycin Trough Check) 1 note FOLLOW UP .ENTER TIME ONE Stop: 03/01/18 08:31 Vital Signs - 8 hr 02/28/18 02/28/18 07:54 08:30 Temperature 99.2 F Pulse Rate 79 Respiratory 16 16 Rate Blood Pressure 124/65 (mmHg) O2 Sat by Pulse 92 Oximetry Oxygen Devices in Use Now: None Eyes: No Scleral Icterus, PERRLA Ears/Nose/Mouth/Throat: NL Teeth, Lips, Gums, - - Status post mandibulectomy Neck: NL Appearance and Movements; NL JVP, Trachea Midline Respiratory: Symmetrical Chest Expansion and Respiratory Effort, Clear to Auscultation Cardiovascular: NL Sounds; No Murmurs; No JVD Abdominal: - - Hypoactive bowel sounds. No tenderness or distension. PEG tube in place. Extremities: No Edema Skin: No Rash or Ulcers, No Nodules or Sclerosis Neurological: Alert and Oriented x 3, NL Muscle Strength and Tone Result Diagrams: 02/28/18 05:34 02/28/18 05:36 Microbiology and Other Data: Microbiology 02/27/18 17:24 Legionella Urinary Antigen - Final Urine Negative Legionella Antigen Streptococcus pneumoniae Ag Screen - Final Negative S. 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 No abd pain. Pancultured, started on broad spectrum abx. CXR with right heart border blurring, possible infiltrate. CT abd negative. - Patient Problems (1) Sepsis Current Visit: Yes Status: Acute Comment: - Resolving. Afebrile today. Leukocytoisis trended down from 20.2 to 11.6 today. Pt reports feeling better after IVf and abx - No source identified at present. CXR with right heart border blurry, possible infiltrate - CAP vs Aspiriation is in the differential. Pt does have history of chronic purulent cough consistent with chronic aspiration. GI source also in the differential due to nausea. CT abd negative and no abd pain. - Blood cluture, urine culture pending - Neg urine strep and legionella - Discussed with Dr Mo whois familiar with this patient from previous admissions. Will d/c vanco but continue zosyn at present. (2) Nausea Current Visit: Yes Status: Acute Code(s): R11.0 - NAUSEA SNOMED Code(s): 045029723 Comment: - No nausea present on exam, however pt says nausea come on with eating and pt has not yet had his PEG tube feeds as hospital does not stock and brother is bringing. - CT abd negative, No abdominal pain on exam. (3) Afib Current Visit: No Status: Chronic Code(s): I48.91 - UNSPECIFIED ATRIAL FIBRILLATION SNOMED Code(s): 53678375 Comment: - Rate controlled but irregular. Continue multaq. (4) GERD (gastroesophageal reflux disease) Current Visit: No Status: Chronic Code(s): K21.9 - GASTRO-ESOPHAGEAL REFLUX DISEASE WITHOUT ESOPHAGITIS SNOMED Code(s): 117896337 Comment: - Continue home ranitidine (5) Hypothyroidism Current Visit: No Status: Chronic Code(s): E03.9 - HYPOTHYROIDISM, UNSPECIFIED SNOMED Code(s): 52386186 Comment: - Stable. - Continue synthroid. (6) DVT prophylaxis Current Visit: No Status: Acute Code(s): HGL3089 - SNOMED Code(s): 592540837 Comment: - Cont SQ heparin (7) Full code status Current Visit: No Status: Acute Code(s): Z78.9 - OTHER SPECIFIED HEALTH STATUS SNOMED Code(s): 752016190 Status and Disposition: Anticipate discharge to home when medically stable
[2018-02-28] MEDS ORDERED: Ondansetron INJ* 2 MG/ML VIAL IV ONE (14:45)
[2018-02-28] MEDS ORDERED: Ondansetron INJ* 2 MG/ML VIAL ONE (14:49)
[2018-02-28] MEDS: Metoclopramide LIQ* 10 MG/10 ML ORAL.SOLN PO SCH (21:38)
[2018-03-01] MEDS: Levothyroxine TAB* 137 MCG TAB G TUBE SCH (06:03)
[2018-03-01] MEDS: ZOSYN 3.375 GM Q8H per EXTENDED INFUSION IVPB SCH ×2 (06:03)
[2018-03-01 06:05] LABS: ABS Basophils 0 10^3/ul (0-0.2); ABS Eosinophils 0.2 10^3/ul (0-0.6); ABS Lymphocytes 1.1 10^3/ul (1.0-4.8); ABS Monocytes 0.7 10^3/ul (0-0.8); ABS Neutrophils 4.5 10^3/ul (1.5-7.7); ABS Nucleated RBC 0 10^3/ul; Eosinophil % 3.5 %; Hematocrit 44 % (42-52); Hemoglobin 15.3 g/dl (14.0-18.0); Lymphocyte % 16.5 %; Mean Corpuscular HGB Conc 35 g/dl (31-36); Mean Corpuscular Hemoglobin 35 pg (27-31); Mean Corpuscular Volume 102 fL (80-94); Nucleated Red Blood Cells % 0.2; Platelet Count 160 10^3/ul (150-450); Red Blood Count 4.34 10^6/ul (4.00-5.40); Red Cell Distribution Width 12 % (10.5-15); White Blood Count 6.4 10^3/ul (3.5-10.8)
[2018-03-01 06:18] LABS: EGFR Non-African American 99.9 (>60)
[2018-03-01] MEDS ORDERED: Vancomycin Trough Check NOTE FOLLOW UP ONE (08:30)
[2018-03-01] MEDS: Dronedarone TAB* 400 MG G TUBE SCH (08:40)
[2018-03-01] MEDS: Metoclopramide LIQ* 10 MG/10 ML ORAL.SOLN PO SCH (08:40)
[2018-03-01] MEDS: Famotidine SUSP* 40 MG/5 ML ORAL.SUSP 50 ML BOTTLE G TUBE SCH (08:40)
[2018-03-01 12:15] VITALS: BP 125/67
--- NOTE | 2018-03-01 19:54 | DS ---
CC: Dr. Kiet Sauceda.* DISCHARGE SUMMARY: DATE OF ADMISSION: 02/27/18 DATE OF DISCHARGE: 03/01/18 ATTENDING PHYSICIAN: Dr. Garner * (dictated by Zaria Recinos NP). PRIMARY CARE PROVIDER: Dr. Kiet Sauceda. PRIMARY DIAGNOSIS: Sepsis, resolved. No source identified. SECONDARY DIAGNOSES: 1. History of intermittent atrial fibrillation. 2. Hypothyroid. 3. History of gastroesophageal reflux disease. DIAGNOSTIC STUDIES WHILE IN THE ED: 1. Chest x-ray showed findings consistent with COPD. No evidence for acute findings. 2. Abdomen and pelvis CT showed status post percutaneous gastrostomy. No acute CT pathology of the visualized abdomen or pelvis. HISTORY OF PRESENT ILLNESS: Mr. 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 He did not have any shortness of breath or chest pain, diarrhea, constipation, abdominal pain or dysuria. The patient does have a PEG tube in place and is unable to vomit due to his anatomy ; however, he described feeling like he wanted to vomit. In the ED, the patient had a low- grade temp to 99.2. He was also found to have a white blood cell count of 20.2 and the CRP of 219. The patient did receive IV fluids in the ED as well as maintenance fluids. The patient underwent a CT abdomen and pelvis, which showed no acute findings. He also had a chest x-ray, which showed no acute findings as well. The patient was aggarwal cultured and started empirically on vancomycin and Zosyn. The next day after discussing this patient 's case with Dr. Cottrell, vancomycin was discontinued. The patient had an urine culture with no growth. He also had blood cultures with no growth to date. His urine was negative for Strep pneumo and legionella. He was able to resume his tube feeds initially with some nausea that resolved with Zofran; however, on the day of discharge, the patient denies any additional nausea, and states that he feels like he is in his usual state of health. He denies chest pain, shortness of breath, nausea, vomiting, diarrhea, abdominal pain. On day of discharge, his white blood cell count had normalized and his electrolytes were all within normal limits. His total bilirubin was initially elevated on admission, but trended down and this has been seen on some of his previous admissions as well. After discussing with Dr. Cottrell and seeing the negative culture results, we feel that this is likely represented a viral infection and the patient will be discharged without antibiotics. PHYSICAL EXAMINATION: Vitals: Temp 98.3, heart rate 95, respiratory rate 26, oxygen saturation 95% on room air, and blood pressure 125/67. General: The patient is alert, pleasant, appears to be in no acute distress. HEENT: Normocephalic, atraumatic. The patient is status post mandibulectomy. Pupils are equal, round, reactive to light and accommodation. Extraocular movements are intact. Neck: Supple. No lymphadenopathy noted. No JVD appreciated. Respiratory: Ne accessary muscle use. Lungs: Clear to auscultation. Normal work of breathing. Cardiac: Regular rate and rhythm. S1 and S2 present. No murmurs, rubs, or gallops heard. Abdomen: Soft, nontender, nondistended. PEG tube in place. Bowel sounds x4. Extremities: No lower extremity edema. DP and PT pulses are 2+ and symmetric. Musculoskeletal: No clubbing or cyanosis noted. The patient exhibited 5/5 strength in all 4 extremities. Neuro: The patient is alert and oriented x3. Psych: The patient is calm and cooperative. Skin: There are no rashes or abnormality seen. DISPOSITION: The patient is stable for discharge to home. DIET: The patient to continue his regular tube feed diet. ACTIVITY: Activity as tolerated. FOLLOWUP: The patient is instructed to follow up with his primary care provider, Dr. Kiet Sauceda in 4 to 7 days. TIME SPENT: Time spent on this discharge was 35 minutes. ZARIA RECINOS, SURAJ [id number]/[facility] #: [id number] [facility] HOSPITALStephen
== END 2018-03-01 14:41 | disposition home or self-care (01) | DRG 872 ==
LOC: ED 12:42 → MEDTELE 16:50
PROVIDERS: ADMIT Internal Medicine; ATTEND Internal Medicine
DX: A41.9 Sepsis, unspecified organism (principal); M86.60 Other chronic osteomyelitis, unspecified site; R17 Unspecified jaundice; I50.9 Heart failure, unspecified; M19.90 Unspecified osteoarthritis, unspecified site; I48.91 Unspecified atrial fibrillation; I25.10 Atherosclerotic heart disease of native coronary artery without angina pectoris; E03.9 Hypothyroidism, unspecified; M54.12 Radiculopathy, cervical region; K21.9 Gastro-esophageal reflux disease without esophagitis; J44.9 Chronic obstructive pulmonary disease, unspecified; E86.0 Dehydration; I45.10 Unspecified right bundle-branch block; R11.0 Nausea; B34.9 Viral infection, unspecified; R51 Headache; Z93.1 Gastrostomy status; Z86.14 Personal history of Methicillin resistant Staphylococcus aureus infection; Z87.891 Personal history of nicotine dependence; Z85.01 Personal history of malignant neoplasm of esophagus; Z85.819 Personal history of malignant neoplasm of unspecified site of lip, oral cavity, and pharynx; Z88.1 Allergy status to other antibiotic agents; Z88.2 Allergy status to sulfonamides; Z92.3 Personal history of irradiation; Z80.0 Family history of malignant neoplasm of digestive organs
CPT/HCPCS: 36415; 71045; 74177; 80048; 80053; 81003; 81015; 82247; 83605; 84484; 85025; 85610; 85730; 86140; 87040; 87086; 87899; 93005; 99284; A9270-GY; J2405; J2543; J3370; Q9967

== ENCOUNTER 2018-03-23 11:39 | Emergency (ER) | payer MEDICARE ==
--- OUTSIDE RECORDS SUMMARY | 2018-03-23 11:52 | XMS REPORT | Continuity of Care Document ---
:1950 External Reference #:[id number] Author Name Rachelle Marti Care Team Providers Name Role Phone Kiet Sauceda MD Primary Care Physician Unavailable Payers Type Date Identification Numbers Payment Provider Subscriber Effective: Policy Number: Medicare Blue Ppo Joseph Byrne 2016 [id number] Group Number: [id number] [address] [address] PayID: [id number] [place] [address] Advance Directives Description No Information Available Problems [...] chewing tobacco. Quit end Smoking Status Reviewed: 03/05/18 Former Cigarette Smoker Pt denies use of [...] - s mouth Derek Iyer, 11/21/ every M.D.,[facility] 2017 evening Synthroid 08/26/ Hx Tablets 150mcg 30tab 1 by E03.9 Jordan 2016 - s mouth Derek Iyer, 08/26/ every day M.D.,[facility] 2017 Metoprolol 05/12/ Hx Tablets 25mg [...] by Apryl Alba 2014 - s mouth [place], 01/09/ twice a M.D. 2014 Lactulose 12/10/ [...] peg twice D. 05/18/ daily Bisi 2017 M.DJulian Aspirin / Hx Tablets 325mg take 1 by Unknown 0000 - mouth 11/02/ once a 2018 day Medications Administered in Office Medication Date Status Form Strength Qnty SIG Indications Ordering Provider Inj, Administered Injection Ryan S. Regadenoson, 018 Rogers, DO 0.1 MG FACC Thallium Administered Injection Ryan S. 018 Rogers, DO FACC Immunizations CPT Code Status Date Vaccine Reaction Lot # [id number] Given 06/06/2017 Zoster (Zostavax) no reaction [id number] Given 06/06/2017 Pneumonia Vaccine pt tolerated well [id number] Given 01/08/2016 Pneumococcal Conjugate Vaccine [id number] Valent For Intramuscular Use Vital Signs Date Vital Result Comment 03/05/2018 11:49am Height 75 inches 6'3" Weight 202.25 lb Heart Rate 64 /min BP Systolic 103 mmHg BP Diastolic 57 mmHg Body Temperature 96.8 F O2 % BldC Oximetry 96 % BMI (Body Mass Index) 25.3 kg/m2 02/27/2018 10:31am Height 75 inches 6'3" Weight [...] Date Facility Test Result H/L Range Note Laboratory test [facility] Point of 105 mg/dL High 70-100 1 finding 8 [address] [facility] Glucose [place], [place] [id number] [phone] Urine Culture And [facility] Urine SEE RESULT 2 Sensitivities [address] Culture BELOW [place], [place] [id number] [phone] Laboratory test [facility] Blood SEE RESULT 3 finding [address] Culture BELOW [place], [place] [address] [phone] Laboratory test [facility] Lactic Acid 1.6 mmol/L N 0.5-2.0 4 finding [address] [place] [address] [phone] Laboratory test [facility] Lactic Acid 1.5 mmol/L N 0.5-2.0 5 finding [address] [place], [place] [address] [phone] Inr/Protime [facility] Inr 1.10 High 0.77-1.[address] [place] [address] [phone] Laboratory test [facility] Partial 31.4 seconds N 26.0-36.3 finding [address] [place] [address] PTT [phone] Urinalysis Profile [facility] Urine Color Yellow [address] [place] [address] [phone] Urine Appearance Cloudy Urine Specific Beulah 1.054 High 1.010-1.030 Urine pH 7.0 N 5-9 Urine Urobilinogen Positive Abnormal Negative Urine Ketones Negative Negative Urine Protein 1+(30 mg/dL) Abnormal Negative Urine Leukocytes Negative Negative Urine Blood Negative Negative * * Abnormal Negative 6 Urine Nitrite Negative Negative Urine Bilirubin Negative Negative Urine Glucose Negative Negative Urine White Blood Cell Trace(0-5/hpf) Absent Urine Red Blood Cell 2+(6-10/hpf) Abnormal Absent Urine Bacteria Absent Absent CBC Auto 02/27/2018 [facility] White Blood 20.2 10^3/uL High 3.5-10.[address] [place] [address] [phone] Red Blood Count 4.65 10^6/uL N 4.00-5.40 Hemoglobin 16.2 g/dL N 14.0-18.0 Hematocrit 47 % N 42-52 Mean Corpuscular Volume 101 fL High 80-94 Mean Corpuscular Hemoglobin 35 pg High 27-31 Mean Corpuscular HGB Conc 34 g/dL N 31-36 Red Cell Distribution Width 12 % N 10.5-15 Platelet Count 183 10^3/uL N 150-450 Mean Platelet Volume 9.2 fL N 7.4-10.4 Abs Neutrophils 17.1 10^3/uL High 1.5-7.7 Abs Lymphocytes 1.4 10^3/uL N 1.0-4.8 Abs Monocytes 1.6 10^3/uL High 0-0.8 Abs Eosinophils 0 10^3/uL N 0-0.6 Abs Basophils 0 10^3/uL N 0-0.2 Abs Nucleated RBC 0 10^3/uL Granulocyte % 84.8 % Lymphocyte % 6.7 % Monocyte % 8.1 % Eosinophil % 0.2 % Basophil % 0.2 % Nucleated Red Blood Cells % 0 Laboratory test 02/27/2018 [facility] C Reactive 219.58 mg/L High <8.[address] [place] [address] [phone] Troponin-I (TnI) 0.01 ng/mL <0.04 7 Comp Metabolic Panel 02/27/2018 [facility] Sodium 135 mmol/L N 135-[address] [place] [address] [phone] Potassium 4.3 mmol/L N 3.5-5.0 Chloride 99 mmol/L Low 101-111 Co2 Carbon Dioxide 31 mmol/L N 22-32 Anion Gap 5 mmol/L N 2-11 Glucose 100 mg/dL N 70-100 Blood Urea Nitrogen 28 mg/dL High 6-24 Creatinine 1.06 mg/dL N 0.67-1.17 BUN/Creatinine Ratio 26.4 High 8-20 Calcium 9.3 mg/dL N 8.6-10.3 Total Protein 7.1 g/dL N 6.4-8.9 Albumin 3.5 g/dL N 3.2-5.2 Globulin 3.6 g/dL N 2-4 Albumin/Globulin Ratio 1.0 N 1-3 Total Bilirubin 1.70 mg/dL High 0.2-1.0 Alkaline Phosphatase 59 U/L N 34-104 Alt 17 U/L N 7-52 Ast 28 U/L N 13-39 Egfr Non- 69.1 >60 Egfr 83.6 >60 8 Basic Metabolic Panel 11/03/2017 [facility] Sodium 136 mmol/L N 135-[address] [place] [address] [phone] Potassium 4.3 mmol/L N 3.5-5.0 Chloride 101 mmol/L N 101-111 Co2 Carbon Dioxide 31 mmol/L N 22-32 Anion Gap 4 mmol/L N 2-11 Glucose 65 mg/dL Low 70-100 Blood Urea Nitrogen 23 mg/dL N 6-24 Creatinine 0.85 mg/dL N 0.67-1.17 BUN/Creatinine Ratio 27.1 High 8-20 Calcium 9.0 mg/dL N 8.6-10.3 Egfr Non- 89.4 >60 Egfr 108.1 >60 9 Laboratory test 11/03/2017 [facility] Magnesium 2.3 mg/dL N 1.9-2.[address] [place] [address] [phone] CBC Auto Diff 09/12/2017 [facility] White Blood 5.9 N 3.5- 10.[address] Count 10^3/[place] [address] [phone] Red Blood Count 4.46 10^6/uL N 4.00-5.40 [...] Blood Cells % 0 Laboratory test 09/12/2017 [facility] C Difficile PCR SEE RESULT [address] [place] [address] [phone] Cyclospora Stain See Comment 11 Laboratory 06/07/2017 [facility] TSH (Thyroid 5.05 N 0.34- 5.60 test finding [address] Stim Horm) mcIU/[place] [address] [phone] Laboratory 05/23/2017 [facility] C Difficile SEE RESULT 12 test finding [address] [place] [address] [phone] Wound 05/12/2017 [facility] Wound/Misc SEE RESULT 13, Culture/Sensi [address] Culture-Gram BELOW 14 [place] [address] Stain [phone] Laboratory 05/12/2017 [facility] MRSA/S. aureus SEE RESULT 15 test finding [address] [place] [address] [phone] Laboratory 03/03/2017 [facility] C Difficile SEE RESULT 16 test finding [address] [place] [address] [phone] Laboratory 03/03/2017 [facility] Blood Urea 21 mg/dL N 6-24 test finding [address] [place] [address] [phone] Creatinine 03/03/2017 [facility] Creatinine 0.87 mg/dL N 0.67- 1.[address] [place] [address] [phone] Egfr Non- 87.0 >60 Egfr 111.9 >60 17 Laboratory test 11/22/2016 [facility] C Reactive 1.97 mg/L N < 5.00 [address] [place] [address] [phone] Laboratory test 10/20/2016 [facility] TSH (Thyroid 2.86 N 0.34 -5.[address] Stim Horm) mcIU/mL [place], [place] [address] [phone] Comp Metabolic 08/26/2016 [facility] Sodium 136 mmol/L N 133- 145 Panel [address] [place] [address] [phone] Potassium 4.1 mmol/L N 3.5-5.0 Chloride 102 [...] 96.1 N >60 Egfr 123.6 N >60 19 Laboratory test 08/26/2016 [facility] Magnesium 2.3 mg/dL N 1.9-2.7 20 finding [address] [place] [address] [phone] TSH (Thyroid Stim Horm) 9.28 mcIU/mL High 0.34-5.60 21 Urine Culture And 08/26/2016 [facility] Urine Culture SEE RESULT [address] [place] [address] [phone] Ua Routine 08/26/2016 [facility] Ua Specific 1.015 Beulah Ua PH 7 Ua Color dark yellow Ua Appera clear Ua WBC neg Ua Protein trace Ua Glucose normal Ua Ketones neg Ua Bilirubin neg Ua Urobilinogen norm Ua Nitrite neg Ua Occult Blood neg Comp Metabolic Panel 04/01/2016 [facility] Sodium 135 mmol/L N 133-145 [address] [place] [address] [phone] Potassium 4.4 mmol/L N 3.5-5.0 Chloride 100 [...] 108.6 N >60 Egfr 139.6 N >60 23 CBC Auto Diff 03/28/2016 [facility] White Blood 9.7 10^3/uL N 3.5-10.[address] [place] [address] [phone] Red Blood Count 4.16 10^6/uL N 4.0-5.4 [...] Cells % 0 N Laboratory test 03/28/2016 [facility] Erythrocyte Sed 95 mm/Hr High 0-[address] [place] [address] [phone] Wound 03/28/2016 [facility] Wound/Misc SEE RESULT 24 Culture/Sensi [address] [place] [address] Stain [phone] Comp Metabolic 11/06/2015 [facility] Sodium 136 mmol/L N 133- [address] [place] [address] [phone] Potassium 4.9 mmol/L N 3.5-5.0 Chloride 100 [...] 103.9 N >60 Egfr 133.6 N >60 25 Laboratory 11/06/2015 [facility] Partial Thrombo 43.2 High 26.0-36.3 test finding [address] [place] [address] [phone] Inr/Protime 11/06/2015 [facility] Inr 2.99 High 0.89-1.[address] [place] [address] [phone] Laboratory 11/06/2015 [facility] Erythrocyte Sed 35 mm/Hr N 0- 40 test finding [address] [place] [address] [phone] CBC Auto Diff 11/06/2015 [facility] White Blood 7.0 N 3.5- 10.[address] Count 10^3/[place] [address] [phone] Red Blood Count 4.51 10^6/uL N 4.0-5.4 [...] Blood Cells % 0.1 N Thyroid 10/27/2015 [facility] Free T4 (Free 1.19 ng/dL High 0.61-1.[address] Thyroxine) [place] [address] [phone] Thyroxine 8.73 ?g/dL N 6.09-12.23 27 TSH (Thyroid Stim Horm) 3.88 mcIU/mL N 0.34-5.60 28 Protime W/ Inr 10/13/2015 [facility] Prothrombin Time 27.0 Inr 2.3 Protime W/ Inr 09/24/2015 [facility] Prothrombin Time 29.2 Inr 2.4 Protime W/ Inr 09/17/2015 [facility] Prothrombin Time 20.3 Inr 1.7 Comp Metabolic Panel 09/07/2015 [facility] Sodium 136 mmol/L N 133-[address] [place] [address] [phone] Potassium 4.5 mmol/L N 3.5-5.0 Chloride 100 [...] 92.4 N >60 Egfr 118.8 N >60 29 Laboratory test 09/07/2015 [facility] PSA Screening 1.340 N 0- 4.000 [address] ng/[place] [address] [phone] Protime W/ Inr 09/03/2015 [facility] Prothrombin Time 22.7 Inr 1.9 Lipid Profile 08/28/2015 [facility] Triglycerides 77 mg/dL N 31 (Trig/Chol/HDL) [address] [place] [address] [phone] Cholesterol 118 mg/dL N 32 HDL Cholesterol 43.7 mg/dL N 33 LDL Cholesterol 59 mg/dL N 34 Protime W/ Inr 08/27/2015 [facility] Prothrombin Time 35.3 Inr 2.9 Protime W/ Inr 08/13/2015 [facility] Prothrombin Time 29.4 Inr 2.4 Protime W/ Inr 07/30/2015 [facility] Prothrombin Time 37.7 Inr 3.1 Protime W/ Inr 07/23/2015 [facility] Prothrombin Time 19.7 Inr 1.6 Protime W/ Inr 07/17/2015 [facility] Prothrombin Time 13.3 Inr 1.1 Protime W/ Inr 07/09/2015 [facility] Prothrombin Time 29.9 Inr 2.5 Protime W/ Inr 06/17/2015 [facility] Prothrombin Time 29.7 Inr 2.5 Protime W/ Inr 06/04/2015 [facility] Prothrombin Time 22.6 Inr 1.9 Protime W/ Inr 05/06/2015 [facility] Prothrombin Time 24.9 Inr 2.1 Protime W/ Inr 04/07/2015 [facility] Prothrombin Time 31.2 Inr 2.6 Laboratory test 03/23/2015 [facility] C Reactive 4.84 mg/L N < 5.00 [address] [place] [address] [phone] Protime W/ Inr 03/16/2015 [facility] Inr 2.5 CBC Auto Diff 03/11/2015 [facility] White Blood 6.2 N 3.5- 10.[address] Count 10^3/[place] [address] [phone] Red Blood Count 4.59 10^6/uL N 4.0-5.4 [...] % 0.1 N Comp Metabolic Panel 03/11/2015 [facility] Sodium 139 mmol/L N 133-[address] [place] [address] [phone] Potassium 4.3 mmol/L N 3.5-5.0 Chloride 102 [...] 92.4 N >60 Egfr 118.8 N >60 36 Laboratory test 03/11/2015 [facility] TSH (Thyroid 3.51 N 0.34 -5.[address] Stim Horm) ?IU/[place] [address] [phone] Laboratory test 02/09/2015 [facility] TSH (Thyroid 3.45 N 0.34 -5.[address] Stim Horm) ?IU/[place] [address] [phone] Protime W/ Inr 02/09/2015 [facility] In House Prothrombin Time 26.7 Inr 2.2 Comp Metabolic Panel 01/02/2015 [facility] Sodium 136 mmol/L N 133-[address] [place] [address] [phone] Potassium 4.5 mmol/L N 3.5-5.0 Chloride 101 [...] 99.6 N >60 Egfr 128.1 N >60 37 CBC Auto 01/02/2015 [facility] White Blood 4.7 10^3/uL Low 4.8 -10.[address] [place] [address] [phone] Red Blood Count 4.19 10^6/uL N 4.0-5.4 [...] Cells % 0.1 N Laboratory test 01/02/2015 [facility] TSH (Thyroid 6.06 High 0.34-5.[address] Stim Horm) ?IU/[place] [address] [phone] Laboratory test 12/17/2014 [facility] C Reactive 14.40 mg/L High < 5.00 [address] [place] [address] [phone] 1 [employer] [facility]: [id number] 2 SEE RESULT BELOW Name: JOSEPH BYRNE : [address]: Pat Bowen MD Acct: [id number] Unit: [id number] AGE: 68 Location: [place] [address] Re02/27/18 SEX: M Status: ADM IN SPEC: [id number] JUSTIN: 02/27/18-[address] [facility] [address]: Nash Bell MD REQ: [id number] RECD: 02/27/18 STATUS: NAOMI KESSLER DR: Kiet Sauceda MD _ SOURCE: URINE SPDESC: ORDERED: Urine Culture Procedure Result Reported Site Urine Culture Final 02/28/18- 1604 ML No Growth (<1,000 CFU/mL) * ML - Main Lab . END OF REPORT DEPARTMENT OF PATHOLOGY, [address] [place] [address] Lei Sellers M.D. Director [facility] # [id number] 3 SEE RESULT BELOW Name: JOSEPH BYRNE : [address]: Pat Bowen MD Acct: [id number] Unit: [id number] AGE: 68 Location: [place] [address] Re02/27/18 Dis: 03/01/18 SEX: M Status: DIS IN SPEC: [id number] JUSTIN: 02/27/[address] [facility] [address]: Nash Bell MD REQ: [id number] RECD: 02/27/18 STATUS: COMP RICKHR DR: Kiet Sauceda MD _ SOURCE: BLOOD,VENO SPDESC: ORDERED: Blood Cult COMMENTS: Blood Culture bottle(s) are underfilled. Testing may be less sensitive due to less than recommended fill level. Verbal to [id number] by [id number] at 1624 on 02/27/18. Procedure Result Reported Site Aerobic Culture Bottle Final 03/04/18- 1614 ML No Growth Day 5 Anaerobic Culture Bottle Final 03/04/18- 1614 ML No Growth Day 5 * ML - Main Lab . END OF REPORT DEPARTMENT OF PATHOLOGY, [address] [place] [address] Lei Sellers M.D. Director [facility] # [id number] 4 [facility] Severe Sepsis and Septic Shock Management Bundle Measure requires all lactic acids initially measuring >2.0 mmol/L be repeated. 5 [facility] Severe Sepsis and Septic Shock Management Bundle Measure requires all lactic acids initially measuring >2.0 mmol/L be repeated. 6 *Ascorbic acid is present which may interfere with detection of blood. 7 Troponin-I testing on Plasma Separator Tubes (PST) has a known false positive rate of 0.20-0.40%. All positive troponins reflex immediate secondary confirmatory testing. 8 Because ethnic data is not always [...] 5 Kidney failure <15 (or dialysis) 9 Because ethnic data is not always [...] 5 Kidney failure <15 (or dialysis) 10 SEE RESULT BELOW Name: JOSEPH BYRNE Jose Miguel : [address]: Wily Cottrell MD Acct: [id number] Unit: [id number] AGE: 67 Location: [facility] Re09/12/17 SEX: M Status: REG REF SPEC: [id number] JUSTIN: 09/12/17-[address] [facility] [address]: Wily Cottrell MD REQ: [id number] RECD: 09/12/17-1231 STATUS: COMP _ SOURCE: STOOL SPDESC: ORDERED: C. diff PCR, Stool Culture, O P: Giar/Crypt COMMENTS: Verbal to kaitlin saucedo by [email or web address] at 1450 on 09/12/17. Results read back [...] CONTINUED ON NEXT PAGE DEPARTMENT OF PATHOLOGY, [address] [place] [address] Lei Sellers M.D. Director [facility] # [id number] Patient: JOSEPH BYRNE [id number] (Continued) Specimen: [id number] Collected: 09/12/17-1030 Received: 09/12/17123 (Continued) Procedure Result Reported Site Shiga Toxin [...] is requested. Contact the Microbiology Department at [phone]. TEST LIMITATIONS: As with all diagnostic procedures, [...] test and are not recommended. * - [facility] . END OF REPORT DEPARTMENT OF PATHOLOGY, [address] [place] [address] Lei Sellers M.D. Director [facility] # [id number] 11 SOURCE: STOOL CYCLOSPORA STAIN FINAL Negative. Test Performed by: [address] [address] 12 SEE RESULT BELOW Name: JOSEPH BYRNE : [address]: Wily Cottrell MD Acct: [id number] Unit: [id number] AGE: 67 Location: [facility] Re05/23/17 SEX: M Status: REG REF SPEC: [id number] JUSTIN: 05/23/[address] [facility] [address]: Wily Cottrell MD REQ: [id number] RECD: 05/23/17879 STATUS: COMP _ SOURCE: STOOL SPDESC: ORDERED: CJulian fraire PCR Procedure Result Reported Site Stool Specimen Description Final 05/23/17- 1513 ML Stool Color Light Brown Stool Form Nonformed Stool Consistency Liquid C. difficile PCR Final 05/23/17- 1557 ML Organism 1 027 Presumptive NEGATIVE Organism 2 Toxigenic C.diff NEGATIVE * ML - Main Lab . END OF REPORT DEPARTMENT OF PATHOLOGY, [address] [place] [address] Lei Sellers M.D. Director [facility] # [id number] 13 [id number] 14 SEE RESULT BELOW Name: JOSEPH BYRNE : [address]: Marla Dixon MD Acct: [id number] Unit: [id number] AGE: 67 Location: [facility] Re05/12/17 SEX: M Status: DEP ER SPEC: [id number] JUSTIN: 05/12/17-[address] [facility] [address]: Ed GAYLE REQ: [id number] RECD: 05/12/17 STATUS: RES VICTORIA DR: Marla Sauceda MD _ SOURCE: KNEE,LEFT SPDESC: ORDERED: MRSA/SA SSTI, Culture Stain COMMENTS: [id number] Procedure Result Reported Site MRSA/S. aureus SSTI PCR PENDING Wound/Misc Gram Stain Final 05/13/17- 0751 ML 1+ Epithelial Cells No Neutrophils Observed No Organisms Seen Wound/Misc Culture Preliminary 05/13/17- 1107 ML Organism 1 STAPHYLOCOCCUS AUREUS Quantity 2+ * ML - MAIN LAB ([facility]) . END OF REPORT * ML=Testing performed at Main Lab DEPARTMENT OF PATHOLOGY, [address] [place] [address] Lei Sellers M.D. Director [facility] # [id number] 15 SEE RESULT BELOW Name: JOSEPH BYRNE : [address]: Marla Dixon MD Acct: [id number] Unit: [id number] AGE: 67 Location: [facility] Re05/12/17 SEX: M Status: DEP ER SPEC: [id number] JUSTIN: 05/12/17-[address] [facility] [address]: Ed GAYLE REQ: [id number] RECD: 05/12/17 STATUS: NAOMI KESSLER DR: Marla Sauceda MD _ SOURCE: KNEE,LEFT SPDESC: ORDERED: MRSA/SA SSTI, Culture Stain COMMENTS: [id number] Verbal to [email or web address] by [email or web address] at 1239 on 05/13/17. Results read back [...] at Main Lab DEPARTMENT OF PATHOLOGY, [address] [place] [address] Lei Sellers M.D. Director [facility] # [id number] Patient: JOSEPH BYRNE [id number] (Continued) Specimen: [id number] Collected: 05/12/17 Received: 05/12/17 (Continued) Procedure Result [...] These antibiotics are not available in the [facility] Formulary Contact the Microbiology Department for any additional antibiotic reporting. * ML - MAIN LAB ([facility]) . END OF REPORT * ML=Testing performed at Main Lab DEPARTMENT OF PATHOLOGY, [address] [place] [address] Lei Sellers M.D. Director [facility] # [id number] 16 SEE RESULT BELOW Name: JOSEPH BYRNE : [address]: Wily Cottrell MD Acct: [id number] Unit: [id number] AGE: 67 Location: [facility] Re03/03/17 SEX: M Status: REG REF SPEC: [id number] JUSTIN: 03/03/17-[address] [facility] [address]: Wily Cottrell MD REQ: [id number] RECD: 03/03/17 STATUS: COMP _ SOURCE: STOOL SPDESC: ORDERED: Arely fraire PCR Procedure Result Reported Site Stool Specimen Description Final 03/03/17- 1700 ML Stool Color Brown Stool Form Nonformed Stool Consistency Liquid C. difficile PCR Final 03/03/17- 1744 ML Organism 1 027 Presumptive NEGATIVE Organism 2 Toxigenic C.diff NEGATIVE * ML - MAIN LAB ([facility]) . END OF REPORT * ML=Testing performed at Main Lab DEPARTMENT OF PATHOLOGY, [address] [place] [address] Lei Sellers M.D. Director [facility] # [id number] 17 Because ethnic data is not always [...] 5 Kidney failure <15 (or dialysis) 18 Acute inflammation: >10.00 19 Because ethnic data is not always readily [...] 15-29 5 Kidney failure <15 (or dialysis) 20 tomorrow 08/26/16 non-fasting ok CC: PMD 21 tomorrow 08/26/16 non-fasting ok CC: PMD 22 SEE RESULT BELOW Name: JOSEPH BYRNE : [address]: Greg Iyer MD Acct: [id number] Unit: [id number] AGE: 66 Location: [facility] Re08/26/16 SEX: M Status: REG REF SPEC: [id number] JUSTIN: 08/26/[address] [facility] [address]: Jordan Iyer MD REQ: [id number] RECD: 08/26/16 STATUS: COMP _ SOURCE: URINE SPDESC: ORDERED: Urine Culture COMMENTS: [id number] Procedure Result Reported Site Urine Culture Final 08/27/16- 1331 ML No Growth (<1,000 CFU/mL) * ML - MAIN LAB ([facility]) . END OF REPORT * ML=Testing performed at Main Lab DEPARTMENT OF PATHOLOGY, [address] [place] [address] Lei Sellers M.D. Director [facility] # [id number] 23 Because ethnic data is not always readily [...] 15-29 5 Kidney failure <15 (or dialysis) 24 SEE RESULT BELOW Name: CESARJOESPH E : [address]: Kiet Sauceda MD Acct: [id number] Unit: [id number] AGE: 66 Location: [facility] Re03/28/16 SEX: M Status: REG REF SPEC: [id number] JUSTIN: 03/28/164164 [facility] DR: Kiet Sauceda MD REQ: [id number] RECD: 03/28/16 STATUS: COMP _ SOURCE: WOUND SPDESC: ORDERED: Culture Stain COMMENTS: [id number] Verbal to JHOANA Serrano (DRS OFFICE) by [id number] at 1231 on 03/29/16. Results read back [...] at Main Lab DEPARTMENT OF PATHOLOGY, [address] [place] [address] Lei Sellers M.D. Director [facility] # [id number] Patient: JOSEPH BYRNE [id number] (Continued) Specimen: [id number] Collected: 03/28/16 Received: 03/28/16 (Continued) Procedure Result Reported Site Wound/Misc Culture Final (continued) 03/31/16821 1. STREP PYOGENES (GRP A) (continued) M.I.C. RX --------- ------ Tetracycline >4 R Vancomycin 0.5 S * ML - MA[facility] LAB ([facility]) . END OF REPORT * ML=Testing performed at Main Lab DEPARTMENT OF PATHOLOGY, [address] [place] [address] Lei Sellers M.D. Director [facility] # [id number] 25 Because ethnic data is not always readily [...] 15-29 5 Kidney failure <15 (or dialysis) 26 Copy Result to: KIET SAUCEDA ([id number]) 27 Copy Result to: KIET SAUCEDA ([id number]) 28 Copy Result to: KIET SAUCEDA ([id number]) 29 Because ethnic data is not always [...] 5 Kidney failure <15 (or dialysis) 30 Serum levels of PSA measured using the Katelin Lima DXI Hybritech immunoassay should not be interpreted as absolute evidence of the presence or absence of disease. The PSA value should be used in conjunction with other pertinent clinical diagnostic procedures. The values obtained with different assay methods or kits cannot be used interchangeably. 31 Desirable <150 Borderline high 150-199 High 200-499 Very High >500 32 Desirable <200 Borderline high 200-239 High >239 33 Low <40 Desirable: 40-60 High: >60 34 Desirable: <100 mg/dL Near Optimal: 100-129 mg/dL Borderline High: 130-159 mg/dL High: 160-189 mg/dL Very High: >189 mg/dL 35 Acute inflammation: >10.00 36 Because ethnic data is not always readily [...] 15-29 5 Kidney failure <15 (or dialysis) 37 Because ethnic data is not always readily [...] 15-29 5 Kidney failure <15 (or dialysis) 38 Acute inflammation: >10.00 Procedures Date Code Description Status 02/17/2018 48232 Implantable Cardio System Loop Recorder Sys Remota Data Completed Acquist[facility] 02/17/2018 39005 Interrogation Dev Loop Recorder Incl Physician Completed Analysis,Rev,Repor 02/16/2018 18598 Nerve Conduction 03-04 Studies Completed 02/16/2018 91567 Needle Electromyography Complete, Five Or More Muscles Completed Studied 02/01/2018 77294 EKG Tracing & Interpretation Completed 01/23/2018 01204 Stress Test Completed 01/23/2018 00580 Myocardial Perfusion Imaging Tomographic (Spect) Completed Multiple Studies 01/17/2018 07901 Implantable Cardio System Loop Recorder Sys Remota Data Completed [facility] 01/17/2018 35788 Interrogation Dev Loop Recorder Incl Physician Completed Analysis,Rev,Repor 12/17/2017 23857 Interrogation Dev Loop Recorder Incl Physician Completed Analysis,Rev,Repor 12/17/2017 89529 Implantable Cardio System Loop Recorder Sys Remota Data Completed [facility] 11/16/2017 98606 Implantable Cardio System Loop Recorder Sys Remota Data Completed [facility] 11/16/2017 40465 Interrogation Dev Loop Recorder Incl Physician Completed Analysis,Rev,Repor 11/03/2017 98514 EKG Tracing & Interpretation Completed 11/03/2017 85811 EKG Tracing & Interpretation Completed 10/16/2017 97465 Implantable Cardio System Loop Recorder Sys Remota Data Completed [facility] 10/16/2017 46863 Interrogation Dev Loop Recorder Incl Physician Completed Analysis,Rev,Repor 09/15/2017 77012 Implantable Cardio System Loop Recorder Sys Remota Data Completed [facility]io 09/15/2017 82288 Interrogation Dev Loop Recorder Incl Physician Completed Analysis,Rev,Repor 08/15/2017 52414 Interrogation Dev Loop Recorder Incl Physician Completed Analysis,Rev,Repor 08/15/2017 20688 Implantable Cardio System Loop Recorder Sys Remota Data Completed [facility] 07/15/2017 18052 Implantable Cardio System Loop Recorder Sys Remota Data Completed [facility] 07/15/2017 68103 Interrogation Dev Loop Recorder Incl Physician Completed Analysis,Rev,Repor 06/14/2017 23899 Implantable Cardio System Loop Recorder Sys Remota Data Completed [facility] 06/14/2017 25232 Interrogation Dev Loop Recorder Incl Physician Completed Analysis,Rev,Repor 05/16/2017 79263 I&D deep abscess,bursa or hematoma thigh or knee region Completed 05/16/2017 68618 I&D deep abscess,bursa or hematoma thigh or knee region Completed 05/16/2017 28325 I&D deep abscess,bursa or hematoma thigh or knee region Completed 05/16/2017 63477 I&D deep abscess,bursa or hematoma thigh or knee region Completed 05/14/2017 57544 Interrogation Dev Loop Recorder Incl Physician Completed Analysis,Rev,Repor 05/14/2017 08841 Implantable Cardio System Loop Recorder Sys Remota Data Completed [facility] 04/13/2017 26333 Implantable Cardio System Loop Recorder Sys Remota Data Completed [facility] 04/13/2017 24075 Interrogation Dev Loop Recorder Incl Physician Completed Analysis,Rev,Repor 04/06/2017 44402 EKG Tracing & Interpretation Completed 03/13/2017 10837 Implantable Cardio System Loop Recorder Sys Remota Data Completed [facility] 03/13/2017 26062 Interrogation Dev Loop Recorder Incl Physician Completed Analysis,Rev,Repor 02/10/2017 39563 Implantable Cardio System Loop Recorder Sys Remota Data Completed [facility] 02/10/2017 15557 Interrogation Dev Loop Recorder Incl Physician Completed Analysis,Rev,Repor 01/10/2017 13827 Implantable Cardio System Loop Recorder Sys Remota Data Completed [facility] 01/10/2017 77517 Interrogation Dev Loop Recorder Incl Physician Completed Analysis,Rev,Repor 12/10/2016 00522 Interrogation Dev Loop Recorder Incl Physician Completed Analysis,Rev,Repor 12/10/2016 54564 Implantable Cardio System Loop Recorder Sys Remota Data Completed [facility] 11/09/2016 01811 Implantable Cardio System Loop Recorder Sys Remota Data Completed [facility] 11/09/2016 24653 Interrogation Dev Loop Recorder Incl Physician Completed Analysis,Rev,Repor 10/09/2016 81188 Implantable Cardio System Loop Recorder Sys Remota Data Completed [facility] 10/09/2016 53886 Interrogation Dev Loop Recorder Incl Physician Completed Analysis,Rev,Repor 09/08/2016 29878 Implantable Cardio System Loop Recorder Sys Remota Data Completed [facility] 09/08/2016 72702 Interrogation Dev Loop Recorder Incl Physician Completed Analysis,Rev,Repor 08/23/2016 65839 EKG Tracing & Interpretation Completed 08/23/2016 08324 EKG Tracing & Interpretation Completed 08/08/2016 03563 Interrogation Dev Loop Recorder Incl Physician Completed Analysis,Rev,Repor 08/08/2016 22876 Implantable Cardio System Loop Recorder Sys Remota Data Completed [facility] 07/26/2016 51751 EKG Tracing & Interpretation Completed 07/08/2016 98278 Implantable Cardio System Loop Recorder Sys Remota Data Completed [facility] 07/08/2016 09014 Interrogation Dev Loop Recorder Incl Physician Completed Analysis,Rev,Repor 06/07/2016 49083 Implantable Cardio System Loop Recorder Sys Remota Data Completed [facility] 06/07/2016 08985 Interrogation Dev Loop Recorder Incl Physician Completed Analysis,Rev,Repor 05/07/2016 73814 Implantable Cardio System Loop Recorder Sys Remota Data Completed [facility] 05/07/2016 55488 Interrogation Dev Loop Recorder Incl Physician Completed Analysis,Rev,Repor 04/21/2016 57253 EKG Tracing & Interpretation Completed 04/06/2016 74769 Interrogation Dev Loop Recorder Incl Physician Completed Analysis,Rev,Repor 04/06/2016 07135 Implantable Cardio System Loop Recorder Sys Remota Data Completed [facility] 03/06/2016 20407 Implantable Cardio System Loop Recorder Sys Remota Data Completed [facility] 03/06/2016 02450 Interrogation Dev Loop Recorder Incl Physician Completed Analysis,Rev,Repor 02/16/2016 92470 Loop Recorder Device Eval W/Iterative Adj Implant Loop Completed Recorder 02/03/2016 61543 Implant Cardiac Loop Recorder Completed 02/02/2016 05286 EKG Tracing & Interpretation Completed 01/31/2016 73803 ECHO Transthorasic Realtime 2D W Doppler & Color Flow Completed Hosp 10/27/2015 70908 Nerve Conduction 07-08 Studies Completed 10/27/2015 77958 Needle Electromyography Complete, Five Or More Muscles Completed Studied 12/24/2014 29978 EKG Tracing & Interpretation Completed 12/24/2014 40275 EKG Tracing & Interpretation Completed 12/10/2014 70169 EKG Tracing & Interpretation Completed 11/27/2014 89685 EKG, Interpretation Only Completed 11/25/2014 30686 ECHO Transthorasic Realtime 2D W Doppler & Color Flow Completed Hosp 11/25/2014 20238 EKG, Interpretation Only Completed 02/26/2010 14874 Color Flow Doppler/Interp & Reprt Completed 02/26/2010 74836 Pulse Wave/Continuous-Interp.RPT Completed 02/26/2010 26883 ECHO Transthorasic Realtime 2D W Doppler & Color Flow Completed Hosp 2010 03243 ECHO Transthorasic Realtime 2D W Doppler & Color Flow Completed Hosp 03/20/2008 [id number] Colonoscopy Completed Encounters Type Date Location Provider Dx Diagnosis Office Visit 03/05/2018 [facility] Internal Krystina Westbrook MD A41.9 Sepsis, unspecified 12:00p Medicine - organism Ashley R19.7 Diarrhea, unspecified Office Visit 02/27/2018 10:30a [facility] Internal Krystina Westbrook, R50.9 Fever, unspecified Medicine - MD Ramirez R10.9 Unspecified abdominal pain I95.9 Hypotension, unspecified Office Visit 02/21/2018 [facility] Ambrocio Santa M54.12 Radiculopathy, 11:00a Wilder Sauceda M.D. cervical region [place] M25.511 Pain in right shoulder Office Visit 02/01/2018 1:10p [facility] Apryl Moreira, I48.0 Paroxysmal atrial Of [place] fibrillation M25.511 Pain in right shoulder F52.21 Male erectile disorder Office Visit 01/17/2018 [facility] Ambrocio Santa E03.9 Hypothyroidism, 4:00p Wilder Sauceda M.D. unspecified [place] I48.0 Paroxysmal atrial fibrillation G56.01 Carpal tunnel syndrome, right upper limb M25.511 Pain in right shoulder R20.2 Paresthesia of skin Office Visit 12/26/2017 10:30a [facility] Wily Reed M27.2 Inflammatory For Infectious Channing Cottrell conditions of jaws Diseases Office Visit 11/03/2017 2:30p [place] Carolyn Jacques I48.0 Paroxysmal atrial Cardiology Of N.P. fibrillation [facility] I95.1 Orthostatic hypotension Office Visit 09/15/2017 11:10a [facility] Wily Reed K62.5 Hemorrhage of anus For Infectious Channing Cottrell and rectum Diseases Office Visit 09/07/2017 11:20a [facility] Internal [place] I48.0 Paroxysmal atrial Medicine - Tbclaudio Sauceda M.D. fibrillation Rd E03.9 Hypothyroidism, unspecified K21.9 Gastro-esophageal reflux disease without esophagitis K62.5 Hemorrhage of anus and rectum Office Visit 08/15/2017 3:20p [facility] Wily Reed M27.2 Inflammatory For Infectious Chelsea Cottrell. conditions of jaws Diseases R19.7 Diarrhea, unspecified Office Visit 06/26/2017 1:40p [facility] Shilo Reed M71.162 Other infective Infectious Jayleen CottrellDJulian bursitis, left Diseases knee Z79.2 longterm (current) use of antibiotics M27.2 Inflammatory conditions of jaws Office Visit 06/06/2017 4:20p [facility] Internal [place] I48.0 Paroxysmal atrial Medicine - Channing Sauceda fibrillation [address] E03.9 Hypothyroidism, unspecified K21.9 Gastro-esophageal reflux disease without esophagitis F17.210 Nicotine dependence, cigarettes, uncomplicated Z23 Encounter for immunization Office Visit 05/31/2017 9:10a [facility] Shilo Reed M71.162 Other infective Infectious Channing Cottrell bursitis, left Diseases knee M27.2 Inflammatory conditions of jaws R19.7 Diarrhea, unspecified Office Visit 05/18/2017 11:22a [facility] Shilo Reed M71.162 Other infective Infectious Chepe MJulianD. 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 MJulianD. 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 MJulianD. bursa, left knee M25.562 Pain in left knee Office Visit 04/06/2017 2:40p [facility] Apryl Moreira I48.0 Paroxysmal atrial Of Swage Tender M.D. fibrillation Z95.818 Presence of other cardiac implants and grafts I95.1 Orthostatic hypotension Office Visit 02/13/2017 3:00p [facility] Wily Reed L03.211 Cellulitis of For Infectious Channing Cottrell face Diseases M27.2 Inflammatory conditions of jaws Office Visit 12/23/2016 10:30a [facility] Wily Reed M27.2 Inflammatory For Infectious Channing Cottrell conditions of jaws Diseases Z79.2 longterm (current) use of antibiotics Office Visit 11/22/2016 2:40p [facility] Wily Reed M27.2 Inflammatory For Infectious Jayleen CottrellD. conditions of jaws Diseases Z79.2 longterm (current) use of antibiotics Office Visit 08/26/2016 9:00a [facility] Internal Jordan Iyer, R30.0 Dysuria Medicine - [address] M.Derek,FACP R07.89 Other chest pain I48.0 Paroxysmal atrial fibrillation Office Visit 08/23/2016 2:30p [facility] Sarah Torrez, I48.0 Paroxysmal atrial Of Swage Tender PA fibrillation Z95.818 Presence of other cardiac implants and grafts Office Visit 07/26/2016 11:15a [facility] Apryl Moreira I48.0 Paroxysmal atrial Of Sw[place] Tender M.D. fibrillation Z95.818 Presence of other cardiac implants and grafts I95.1 Orthostatic hypotension R07.89 Other chest pain Office Visit 07/08/2016 10:30a [facility] Wily Reed M27.2 Inflammatory For Infectious Channing Cottrell conditions of jaws Diseases Z79.2 longterm (current) use of antibiotics Office Visit 05/12/2016 11:20a [facility] Internal [place] I48.0 Paroxysmal atrial Medicine - Channing Sauceda fibrillation [address] E03.9 Hypothyroidism, unspecified K21.9 Gastro-esophageal reflux disease without esophagitis N48.89 Other specified disorders of penis Office Visit 05/09/2016 2:20p [facility] Wily Reed M27.2 Inflammatory For Infectious Channing Cottrell conditions of jaws Diseases Office Visit 04/21/2016 2:30p [place] Apryl Moreira I48.0 Paroxysmal atrial Cardiology Of M.D. fibrillation [place] Office Visit 04/05/2016 10:20a [facility] Internal [place] M27.2 Inflammatory Medicine - [place] Channing Sauceda conditions of jaws Rd Office Visit 04/01/2016 10:10a [facility] Wily Reed M27.2 Inflammatory For Infectious Channing Cottrell conditions of jaws Diseases Office Visit 03/28/2016 1:40p [facility] Internal [place] M27.2 Inflammatory Medicine - [place] Channing Sauceda conditions of jaws Rd Office Visit 02/09/2016 10:00a [facility] Internal [place] I48.0 Paroxysmal atrial Medicine - [place] Channing Sauceda fibrillation Rd E03.9 Hypothyroidism, unspecified K21.9 Gastro-esophageal reflux disease without esophagitis I62.00 Nontraumatic subdural hemorrhage, unspecified Office Visit 02/02/2016 1:00p [facility] Apryl Moreira I48.0 Paroxysmal atrial Of Sw[place] Tender M.D. fibrillation I62.00 Nontraumatic subdural hemorrhage, unspecified F52.21 Male erectile disorder Office Visit 01/18/2016 Neurosurgery Guero Yu, I62.00 Nontraumatic 10:45a Services Of [facility] M.D. subdural hemorrhage, unspecified Office Visit 01/08/2016 [facility] Internal Jordan Reed I48.0 Paroxysmal atrial 2:40p Medicine - [place], fibrillation Rd M.DJulian,FACP I62.00 Nontraumatic subdural hemorrhage, unspecified Z23 Encounter for immunization Office Visit 12/28/2015 Neurosurgery Guero Yu, I62.00 Nontraumatic 11:00a Services Of [place] subdural hemorrhage, unspecified I62.02 Nontraumatic subacute subdural hemorrhage Office Visit 11/17/2015 10:40a [facility] Internal [place] I62.00 Nontraumatic Medicine Channing Sauceda subdural [address] hemorrhage, unspecified I48.0 Paroxysmal atrial fibrillation E03.9 Hypothyroidism, unspecified K21.9 Gastro-esophageal reflux disease without esophagitis Office Visit 11/09/2015 [facility] Sohail, I62.00 Nontraumatic 10:06a monster Moore M.D. subdural Hospitalists hemorrhage, unspecified I48.2 Chronic atrial fibrillation E03.8 Other specified hypothyroidism Z85.819 Prsnl hx of malig neoplm of [facility] site lip,oral cav,& pharynx Office Visit 11/09/2015 Neurosurgery Guero Yu, I62.00 Nontraumatic 2:28p Services Of [place] subdural hemorrhage, unspecified R51 Headache Office Visit 11/08/2015 [facility] Sohail, I62.00 Nontraumatic 10:05a monster Moore M.D. subdural Hospitalists hemorrhage, unspecified I48.2 Chronic atrial fibrillation E03.8 Other specified hypothyroidism Z85.819 Prsnl hx of malig neoplm of [facility] site lip,oral cav,& pharynx Office Visit 11/08/2015 Neurosurgery Guero Yu, I62.00 Nontraumatic 1:39p Services Of [place] subdural hemorrhage, unspecified R51 Headache Z79.01 longterm (current) use of anticoagulants Office Visit 11/07/2015 Neurosurgery Guero Yu I62.00 Nontraumatic 7:00a Services Of [place] subdural hemorrhage, unspecified R51 Headache I48.91 Unspecified atrial fibrillation Z79.01 longterm (current) use of anticoagulants Z85.830 Personal history of malignant neoplasm of bone Office Visit 11/06/2015 [facility] Ren Hernandez I62.00 Nontraumatic 10:04a monster Moore II, M.D. subdural Hospitalists hemorrhage, unspecified I48.2 Chronic atrial fibrillation E03.8 Other specified hypothyroidism Z85.819 Prsnl hx of malig neoplm of unsp site lip,oral cav,& pharynx Office Visit 11/06/2015 [facility] Internal Kiet R51 Headache 4:20p Medicine Luis A Tbclaudio Sauceda M.D. Rd Office [place] 10/20[place], I48.0 Paroxysmal atrial 1:30p Cardiology Of M.D. fibrillation [facility] I95.1 Orthostatic hypotension H54.2 Low vision, both eyes E03.9 Hypothyroidism, unspecified Office Visit 10/13/2015 [facility] Ambrocio Santa Z79.01 longterm (current) 10:00a Wilder Sauceda M.D. use of [address] anticoagulants I48.0 Paroxysmal atrial fibrillation M54.12 Radiculopathy, cervical region Office Visit 07/23/2015 [facility] Ambrocio [place] Z79.01 longterm (current) 11:20a Wilder Sauceda M.D. 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 Opening Hospitalists Gastrostomy 244.9 Hypothyroidism Other Unspec 427.31 Atrial Fibrillation 526.4 Inflammatory Jaw Office Visit 11/27/2014 [facility] Apryl Moreira, 427.31 Atrial 1:26p Of [place] Fibrillation [facility] V[facility].1 Artificial 2:06p monster Moore M.D. Opening Hospitalists Gastrostomy 244.9 Hypothyroidism Other Unspec 526.4 Inflammatory Jaw 427.31 Atrial Fibrillation Office [facility]2014 [facility].4 Inflammatory Jaw Infectious Channing Cottrell Diseases 239.0 Neoplasm Unspecified Digestive System Office [facility] V44.1 Artificial 2:06p monster Moore M.D. Opening Hospitalists Gastrostomy 244.9 Hypothyroidism Other Unspec 526.4 Inflammatory Jaw 427.31 Atrial Fibrillation [facility] Visit [facility]2014 [facility], V44.1 Artificial 2:04p monster Moore M.D. Opening Hospitalists Gastrostomy 244.9 Hypothyroidism Other Unspec 427.31 Atrial Fibrillation 526.4 Inflammatory Jaw [facility] 2:03p Assmonster cintron N.PJulian Opening Hospitalists Gastrostomy 244.9 Hypothyroidism Other Unspec 427.31 Atrial Fibrillation 526.4 Inflammatory Jaw Plan of Treatment Future Appointment(s):03/27/2018 11:00 am - Carolyn Jacques [place] at [facility]05/02/2018 2:00 pm - Kiet Sauceda M.D. at [facility] Internal Medicine [facility]04/25/2018 10:00 am - Kiet Sauceda M.D. at [facility] Internal Medicine [facility]08/15/2017 - Wily Cottrell M.D.M27.2 Inflammatory conditions of jawsR19.7 Diarrhea, unspecifiedComments:?abx or TF side effect vs infection vs inflammatory bowel
--- OUTSIDE RECORDS SUMMARY | 2018-03-23 11:53 | XMS REPORT | Continuity of Care Document ---
:1950 External Reference #:[id number] Author Name Omega Morejon Care Team Providers Name Role Phone Kiet Sauceda MD Primary Care Physician Unavailable Payers Type Date Identification Numbers Payment Provider Subscriber Effective: Policy Number: Medicare Blue Ppo Joseph Byrne 2016 [id number] Group Number: [id number] [address] [id number] PayID: [id number] [place] [address] Advance Directives Description No Information Available Problems [...] - s mouth DJulian Raphaeld, 11/21/ every M.D.,[facility] 2017 evening Synthroid 08/26/ Hx Tablets 150mcg 30tab 1 by E03.9 Jordan 2017 - s mouth Derek Scranton, 08/26/ every day M.D.,[facility] 2017 Metoprolol 05/12/ Hx Tablets 25mg 30tab 1/2 tab I48.0 Kiet Sheldontrate 2016 - s by mouth Pachikara 07/26/ twice a , M.D. 2016 day Amoxicillin 05/09/ Hx Tablets 500mg 90tab 1 by M27.2 Wily 2017 - s mouth two D. 11/18/ times a [facility], 2016 day M.D. please dispense tablets [...] by Apryl Alba 2014 - s mouth Caroline, 01/09/ twice a M.D. 2014 Lactulose 12/10/ [...] - s peg twice D. 05/18/ daily Macque, 2017 M.D. Aspirin / Hx Tablets 325mg take 1 by Unknown 0000 - mouth 11/02/ once a 2018 day Medications Administered in Office Medication Date Status Form Strength Qnty SIG Indications Ordering Provider Inj, Administered Injection Ryan S. Regadenoson, 018 Rgoers, DO 0.1 MG FACC Thallium Administered Injection Ryan S. 018 Rogers, DO FACC Immunizations CPT Code Status Date Vaccine Reaction Lot # [id number] Given 06/06/2017 Zoster (Zostavax) no reaction [id number] Given 06/06/2017 Pneumonia Vaccine pt tolerated well [id number] Given 01/08/2016 Pneumococcal Conjugate Vaccine [id number] Valent For Intramuscular Use Vital Signs [...] Test Result H/L Range Note Laboratory test [facility] Point of 105 mg/dL High 70-100 1 finding [address] [place] [address] [phone] Urine Culture And [facility] Urine SEE RESULT 2 Sensitivities [address] [place] [address] [phone] Laboratory test [facility] Blood SEE RESULT 3 finding [address] [place] [address] [phone] Laboratory test [facility] Lactic Acid 1.6 mmol/L N 0.5-2.0 4 finding [address] [place] [address] [phone] Laboratory test [facility] Lactic Acid 1.5 mmol/L N 0.5-2.0 5 finding [address] [place], [place] [phone] Inr/Protime [facility] Inr 1.10 High 0.77-1.[address] [place] [address] [phone] Laboratory test [facility] Partial 31.4 seconds N 26.0-36.3 finding [address] [place] [address] [phone] [phone] Urinalysis Profile [facility] Urine Color Yellow [address] [place] [address] [phone] Urine Appearance Cloudy Urine Specific [place] 1.054 High 1.010-1.030 Urine pH 7.0 N [...] Urine Bacteria Absent Absent CBC Auto 02/27/2018 [facility] White Blood 20.2 10^3/uL High 3.5-10.[address] [place] [address] [phone] Red Blood Count 4.65 10^6/uL N 4.00-5.40 [...] Blood Cells % 0 Laboratory test 02/27/2018 [facility] C Reactive 219.58 mg/L High <8.[address] [place] [address] [phone] Troponin-I (TnI) 0.01 ng/mL <0.04 7 Comp Metabolic Panel 02/27/2018 [facility] Sodium 135 mmol/L N 135-[address] [place] [address] [phone] Potassium 4.3 mmol/L N 3.5-5.0 Chloride 99 [...] 83.6 >60 8 Basic Metabolic Panel 11/03/2017 [facility] Sodium 136 mmol/L N 135-[address] [place] [address] [phone] Potassium 4.3 mmol/L N 3.5-5.0 Chloride 101 mmol/L N 101-111 Co2 Carbon Dioxide 31 mmol/L N 22-32 Anion Gap 4 mmol/L N 2-11 Glucose 65 mg/dL Low 70-100 Blood Urea Nitrogen 23 mg/dL N 6-24 Creatinine 0.85 mg/dL N 0.67-1.17 BUN/Creatinine Ratio 27.1 High 8-20 Calcium 9.0 mg/dL N 8.6-10.3 Egfr Non- 89.4 >60 Egfr 108.1 >60 9 Laboratory test 11/03/2017 [facility] Magnesium 2.3 mg/dL N 1.9-2.[address] [place] [address] [phone] CBC Auto Diff 09/12/2017 [facility] White Blood 5.9 N 3.5- 10.8 101 [facility] Count 10^3/[place] [address] [phone] Red Blood Count 4.46 10^6/uL N 4.00-5.40 [...] Blood Cells % 0 Laboratory test 09/12/2017 [facility] C Difficile PCR SEE RESULT [address] [place] [address] [phone] Cyclospora Stain See Comment 11 Laboratory 06/07/2017 [facility] TSH (Thyroid 5.05 N 0.34- 5.60 test finding [address] Stim Horm) mcIU/[place] [address] [phone] Laboratory 05/23/2017 [facility] C Difficile SEE RESULT 12 test finding [address] [place] [address] [phone] Wound 05/12/2017 [facility] Wound/Misc SEE RESULT 13, Culture/Sensi [address] Culture-Gram BELOW 14 [place] [address] Stain [phone] Laboratory 05/12/2017 [facility] MRSA/S. aureus SEE RESULT 15 test finding [address] S[place] [address] [phone] Laboratory 03/03/2017 [facility] C Difficile SEE RESULT 16 test finding [address] [place] [address] [phone] Laboratory 03/03/2017 [facility] Blood Urea 21 mg/dL N 6-24 test finding [address] [place] [address] [phone] Creatinine 03/03/2017 [facility] Creatinine 0.87 mg/dL N 0.67- 1.[address] [place] [address] [phone] Egfr Non- 87.0 >60 Egfr 111.9 >60 17 Laboratory test 11/22/2016 [facility] C Reactive 1.97 mg/L N < 5.00 [address] [place] [address] [phone] Laboratory test 10/20/2016 [facility] TSH (Thyroid 2.86 N 0.34 -5.[address] Stim Horm) mcIU/mL [place], [place] [address] [phone] Comp Metabolic 08/26/2016 [facility] Sodium 136 mmol/L N 133- [address] [place] [address] [phone] Potassium 4.1 mmol/L N 3.5-5.0 Chloride 102 [...] 123.6 N >60 19 Laboratory test 08/26/2016 [facility] Magnesium 2.3 mg/dL N 1.9-2.[address] [place] [address] [phone] TSH (Thyroid Stim Horm) 9.28 mcIU/mL High 0.34-5.60 21 Urine Culture And 08/26/2016 [facility] Urine Culture SEE RESULT [address] [place] [address] [phone] Ua Routine 08/26/2016 [facility] Ua Specific 1.015 [place] Ua PH 7 Ua Color dark yellow Ua Appera clear Ua WBC neg Ua Protein trace Ua Glucose normal Ua Ketones neg Ua Bilirubin neg Ua Urobilinogen norm Ua Nitrite neg Ua Occult Blood neg Comp Metabolic Panel 04/01/2016 [facility] Sodium 135 mmol/L N 133-[address] [place] [address] [phone] Potassium 4.4 mmol/L N 3.5-5.0 Chloride 100 [...] N >60 23 CBC Auto Diff 03/28/2016 [facility] White Blood 9.7 10^3/uL N 3.5-10.[address] [place] [address] [phone] Red Blood Count 4.16 10^6/uL N 4.0-5.4 [...] Cells % 0 N Laboratory test 03/28/2016 [facility] Erythrocyte Sed 95 mm/Hr High 0-[address] [place] [address] [phone] Wound 03/28/2016 [facility] Wound/Misc SEE RESULT 24 Culture/Sensi [address] [place] [address] Stain [phone] Comp Metabolic 11/06/2015 [facility] Sodium 136 mmol/L N 133- [address] [place] [address] [phone] Potassium 4.9 mmol/L N 3.5-5.0 Chloride 100 [...] Egfr 133.6 N >60 25 Laboratory 11/06/2015 [facility] Partial Thrombo 43.2 High 26.0-36.3 test finding [address] [place] [address] [phone] Inr/Protime 11/06/2015 [facility] Inr 2.99 High 0.89-1.[address] [place] [address] [phone] Laboratory 11/06/2015 [facility] Erythrocyte Sed 35 mm/Hr N 0- 40 test finding [address] [place] [address] [phone] CBC Auto Diff 11/06/2015 [facility] White Blood 7.0 N 3.5- 10.[address] Count 10^3/[place] [address] [phone] Red Blood Count 4.51 10^6/uL N 4.0-5.4 [...] Blood Cells % 0.1 N Thyroid 10/27/2015 [facility] Free T4 (Free 1.19 ng/dL High 0.61-1.[address] Thyroxine) [place] [address] [phone] Thyroxine 8.73 ?g/dL N 6.09-12.23 27 TSH (Thyroid Stim Horm) 3.88 mcIU/mL N 0.34-5.60 28 Protime W/ Inr 10/13/2015 [facility] Prothrombin Time 27.0 Inr 2.3 Protime W/ Inr 09/24/2015 [facility] Prothrombin Time 29.2 Inr 2.4 Protime W/ Inr 09/17/2015 [facility] [employer] [facility] Prothrombin Time 20.3 Inr 1.7 Comp Metabolic Panel 09/07/2015 [facility] Sodium 136 mmol/L N 133-[address] [place] [address] [phone] Potassium 4.5 mmol/L N 3.5-5.0 Chloride 100 [...] 118.8 N >60 29 Laboratory test 09/07/2015 [facility] PSA Screening 1.340 N 0- 4.000 [address] ng/[place] [address] [phone] Protime W/ Inr 09/03/2015 [facility] [employer] [facility] Prothrombin Time 22.7 Inr 1.9 Lipid Profile 08/28/2015 [facility] Triglycerides 77 mg/dL N 31 (Trig/Chol/HDL) [address] [place] [address] [phone] Cholesterol 118 mg/dL N 32 HDL Cholesterol 43.7 mg/dL N 33 LDL Cholesterol 59 mg/dL N 34 Protime W/ Inr 08/27/2015 [facility] [employer] [facility] Prothrombin Time 35.3 Inr 2.9 Protime W/ Inr 08/13/2015 [facility] [employer] [facility] Prothrombin Time 29.4 Inr 2.4 Protime W/ Inr 07/30/2015 [facility] [employer] [facility] Prothrombin Time 37.7 Inr 3.1 Protime W/ Inr 07/23/2015 [facility] [employer] [facility] Prothrombin Time 19.7 Inr 1.6 Protime W/ Inr 07/17/2015 [facility] [employer] [facility] Prothrombin Time 13.3 Inr 1.1 Protime W/ Inr 07/09/2015 [facility] [employer] [facility] Prothrombin Time 29.9 Inr 2.5 Protime W/ Inr 06/17/2015 [facility] [employer] [facility] Prothrombin Time 29.7 Inr 2.5 Protime W/ Inr 06/04/2015 [facility] [employer] [facility] Prothrombin Time 22.6 Inr 1.9 Protime W/ Inr 05/06/2015 [facility] [employer] [facility] Prothrombin Time 24.9 Inr 2.1 Protime W/ Inr 04/07/2015 [facility] [employer] [facility] Prothrombin Time 31.2 Inr 2.6 Laboratory test 03/23/2015 [facility] C Reactive 4.84 mg/L N < 5.00 [address] [place] [address] [phone] Protime W/ Inr 03/16/2015 [facility] [employer] [facility] Inr 2.5 CBC Auto Diff 03/11/2015 [facility] White Blood 6.2 N 3.5- 10.[address] Count 10^3/[place] [address] [phone] Red Blood Count 4.59 10^6/uL N 4.0-5.4 [...] % 0.1 N Comp Metabolic Panel 03/11/2015 [facility] Sodium 139 mmol/L N 133-[address] [place] [address] [phone] Potassium 4.3 mmol/L N 3.5-5.0 Chloride 102 [...] 118.8 N >60 36 Laboratory test 03/11/2015 [facility] TSH (Thyroid 3.51 N 0.34 -5.[address] Stim Horm) ?IU/[place] [address] [phone] Laboratory test 02/09/2015 [facility] TSH (Thyroid 3.45 N 0.34 -5.[address] Stim Horm) ?IU/[place] [address] [phone] Protime W/ Inr 02/09/2015 [facility] [employer] [facility] Prothrombin Time 26.7 Inr 2.2 Comp Metabolic Panel 01/02/2015 [facility] Sodium 136 mmol/L N 133-[address] [place] [address] [phone] Potassium 4.5 mmol/L N 3.5-5.0 Chloride 101 [...] 128.1 N >60 37 CBC Auto 01/02/2015 [facility] White Blood 4.7 10^3/uL Low 4.8 -10.[address] [place] [address] [phone] Red Blood Count 4.19 10^6/uL N 4.0-5.4 [...] Cells % 0.1 N Laboratory test 01/02/2015 [facility] TSH (Thyroid 6.06 High 0.34-5.[address] Stim Horm) ?IU/[place] [address] [phone] Laboratory test 12/17/2014 [facility] C Reactive 14.40 mg/L High < 5.00 [address] [place] [address] [phone] 1 [employer] Hand: [id number] SEE RESULT BELOW Name: JOSEPH BYRNE : [address]: Pat Bowen MD Acct: [id number] Unit: [id number] AGE: 68 Location: [place] [address] Re02/27/18 SEX: M Status: ADM IN SPEC: [id number] JUSTIN: 02/27/18-4 [facility] [address]: Nash Bell MD REQ: [id number] RECD: 02/27/18 STATUS: NAOMI KESSLER DR: Kiet Sauceda MD _ SOURCE: URINE SPDESC: ORDERED: Urine Culture Procedure Result Reported Site Urine Culture Final 02/28/18- 1604 ML No Growth (<1,000 CFU/mL) * ML - Main Lab . END OF REPORT DEPARTMENT OF PATHOLOGY, [address] [place] [address] Lei Sellers M.D. Director [facility] # [id number] 3 SEE RESULT BELOW Name: JOSEPH BYRNE : [address]: Pat Bowen MD Acct: [id number] Unit: [id number] AGE: 68 Location: [place] [address] Re02/27/18 Dis: 03/01/18 SEX: M Status: DIS IN SPEC: [id number] JUSTIN: 02/27/18 [facility] DR: Nash Bell MD REQ: [id number] RECD: 02/27/18 STATUS: COMP RICKHR DR: Kiet Sauceda MD _ SOURCE: BLOOD,VENO SPDESC: ORDERED: Blood Cult COMMENTS: Blood Culture bottle(s) are underfilled. Testing may be less sensitive due to less than recommended fill level. Verbal to [id number] by [id number] at 1624 on 02/27/18. Procedure Result Reported Site Aerobic Culture Bottle Final 03/04/18- 1614 ML No Growth Day 5 Anaerobic Culture Bottle Final 03/04/18- 1614 ML No Growth Day 5 * ML - Main Lab . END OF REPORT DEPARTMENT OF PATHOLOGY, [address] [place] [address] Lei Sellers M.D. Director [facility] # [id number] 4 [facility] Severe Sepsis and Septic Shock Management Bundle Measure requires all lactic acids initially measuring >2.0 mmol/L be repeated. 5 [facility] Severe Sepsis and Septic Shock Management Bundle [...] [address]: Wily Cottrell MD Acct: [id number] Unit: [id number] AGE: 67 Location: [facility] Re09/12/17 SEX: M Status: REG REF SPEC: [id number] JUSTIN: 09/12/17-1030 [facility] DR: Wily Cottrell MD REQ: [id number] RECD: 09/12/17-1231 STATUS: COMP _ SOURCE: STOOL SPDESC: ORDERED: C. diff PCR, Stool Culture, O P: Giar/Crypt COMMENTS: Verbal to kaitlin saucedo by [id number] at 1450 on 09/12/17. Results read back [...] CONTINUED ON NEXT PAGE DEPARTMENT OF PATHOLOGY, [address] [place] [address] Lei Sellers M.D. Director [facility] # [id number] Patient: JOSEPH BYRNE [id number] (Continued) Specimen: [id number] Collected: 09/12/17-0 Received: 09/12/17123 (Continued) Procedure Result Reported Site [...] is requested. Contact the Microbiology Department at [phone]. TEST LIMITATIONS: As with all diagnostic procedures, [...] test and are not recommended. * - [facility] . END OF REPORT DEPARTMENT OF PATHOLOGY, [address] [place] [address] Lei Sellers M.D. Director [facility] # [id number] 11 SOURCE: STOOL CYCLOSPORA STAIN FINAL Negative. Test Performed by: [address] [address] 12 SEE RESULT BELOW Name: JOSEPH BYRNE : [address]: Wily Cottrell MD Acct: [id number] Unit: [id number] AGE: 67 Location: [facility] Re05/23/17 SEX: M Status: REG REF SPEC: [id number] JUSTIN: 05/23/17 [facility] [address]: Wily Cottrell MD REQ: [id number] RECD: 05/23/17495 STATUS: COMP _ SOURCE: STOOL SPDESC: ORDERED: C. diff PCR Procedure Result Reported Site Stool Specimen Description Final 05/23/17- 1513 ML Stool Color Light Brown Stool Form Nonformed Stool Consistency Liquid C. difficile PCR Final 05/23/17- 1557 ML Organism 1 027 Presumptive NEGATIVE Organism 2 Toxigenic C.diff NEGATIVE * ML - Main Lab . END OF REPORT DEPARTMENT OF PATHOLOGY, [address] [place] [address] Lei Sellers M.D. Director [facility] # [id number] 13 [id number] 14 SEE RESULT BELOW Name: JOSEPH BYRNE : [address]: Marla Dixon MD Acct: [id number] Unit: [id number] AGE: 67 Location: [facility] Re05/12/17 SEX: M Status: DEP ER SPEC: [id number] JUSTIN: 05/12/17-1453 [facility] DR: Ed GAYLE REQ: [id number] RECD: 05/12/17 STATUS: RES VICTORIA DR: Marla Sauceda MD _ SOURCE: KNEE,LEFT SPDESC: ORDERED: MRSA/SA SSTI, Culture Stain COMMENTS: [id number] Procedure Result Reported Site MRSA/S. aureus SSTI PCR PENDING Wound/Misc Gram Stain Final 05/13/17- 0751 ML 1+ Epithelial Cells No Neutrophils Observed No Organisms Seen Wound/Misc Culture Preliminary 05/13/17- 1107 ML Organism 1 STAPHYLOCOCCUS AUREUS Quantity 2+ * ML - MAIN LAB ([facility]) . END OF REPORT * ML=Testing performed at Main Lab DEPARTMENT OF PATHOLOGY, [address] [place] [address] Lei Sellers M.D. Director [facility] # [id number] 15 SEE RESULT BELOW Name: JOSEPH BYRNE : [address]: Marla Dixon MD Acct: [id number] Unit: [id number] AGE: 67 Location: [facility] Re05/12/17 SEX: M Status: DEP ER SPEC: [id number] JUSTIN: 05/12/17-1454 [facility] DR: Ed GAYLE REQ: [id number] RECD: 05/12/17 STATUS: NAOMI KESSLER DR: Marla Sauceda MD _ SOURCE: KNEE,LEFT SPDESC: ORDERED: MRSA/SA SSTI, Culture Stain COMMENTS: [id number] Verbal to [email or web address] by [id number] at 1239 on 05/13/17. Results read back [...] performed at Main Lab DEPARTMENT OF PATHOLOGY, [address] [place] [address] Lei Sellers M.D. Director [facility] # [id number] Patient: JOSEPH BYRNE [id number] (Continued) Specimen: [id number] Collected: 05/12/17 Received: 05/12/17 (Continued) Procedure Result [...] These antibiotics are not available in the [facility] Formulary Contact the Microbiology Department for any additional antibiotic reporting. * ML - MAIN LAB ([facility]) . END OF REPORT * ML=Testing performed at Main Lab DEPARTMENT OF PATHOLOGY, [address] [place] [address] Lei Sellers M.D. Director [facility] # [id number] 16 SEE RESULT BELOW Name: JOSEPH BYRNE : [address]: Wily Cottrell MD Acct: [id number] Unit: [id number] AGE: 67 Location: [facility] Re03/03/17 SEX: M Status: REG REF SPEC: [id number] JUSTIN: 03/03/17 [facility] [address]: Wily Cottrell MD REQ: [id number] RECD: 03/03/17 STATUS: COMP _ SOURCE: STOOL SPDESC: ORDERED: Arely fraire PCR Procedure Result Reported Site Stool Specimen Description Final 03/03/17- 1700 ML Stool Color Brown Stool Form Nonformed Stool Consistency Liquid C. difficile PCR Final 03/03/17- 1744 ML Organism 1 027 Presumptive NEGATIVE Organism 2 Toxigenic C.diff NEGATIVE * ML - MAIN LAB ([facility]) . END OF REPORT * ML=Testing performed at Main Lab DEPARTMENT OF PATHOLOGY, [address] [place] [address] Lei Sellers M.D. Director [facility] # [id number] 17 Because ethnic data is not always [...] [address]: Greg Iyer MD Acct: [id number] Unit: [id number] AGE: 66 Location: [facility] Re08/26/16 SEX: M Status: REG REF SPEC: [id number] JUSTIN: 08/26/16 [facility] [address]: Jordan Iyer MD REQ: [id number] RECD: 08/26/16 STATUS: COMP _ SOURCE: URINE SPDESC: ORDERED: Urine Culture COMMENTS: [id number] Procedure Result Reported Site Urine Culture Final 08/27/16- 1331 ML No Growth (<1,000 CFU/mL) * ML - MAIN LAB ([facility]) . END OF REPORT * ML=Testing performed at Main Lab DEPARTMENT OF PATHOLOGY, [address] [place] [address] Lei Sellers M.D. Director [facility] # [id number] 23 Because ethnic data is not always [...] (or dialysis) 24 SEE RESULT BELOW Name: CESARJOSEPH E : [address]: Kiet Sauceda MD Acct: [id number] Unit: [id number] AGE: 66 Location: [facility] Re03/28/16 SEX: M Status: REG REF SPEC: [id number] JUSTIN: 03/28/168784 [facility] DR: Kiet Sauceda MD REQ: [id number] RECD: 03/28/16 STATUS: COMP _ SOURCE: WOUND SPDESC: ORDERED: Culture Stain COMMENTS: [id number] Verbal to JHOAAN Serrano (DRS OFFICE) by [id number] at 1231 on 03/29/16. Results read back [...] performed at Main Lab DEPARTMENT OF PATHOLOGY, [address] [place] [address] Lei Sellers M.D. Director [facility] # [id number] Patient: JOSEPH BYRNE [id number] (Continued) Specimen: [id number] Collected: 03/28/16 Received: 03/28/16 (Continued) Procedure Result Reported Site Wound/Misc Culture Final (continued) 03/31/16- 821 1. STREP PYOGENES (GRP A) (continued) M.I.C. RX --------- ------ Tetracycline >4 R Vancomycin 0.5 S * ML - MAIN LAB ([facility]) . END OF REPORT * ML=Testing performed at Main Lab DEPARTMENT OF PATHOLOGY, [address] [place] [address] Lei Sellers M.D. Director [facility] # [id number] 25 Because ethnic data is not always [...] dialysis) 26 Copy Result to: KIET SAUCEDA ([id number]) 27 Copy Result to: KIET SAUCEDA ([id number]) 28 Copy Result to: KIET SAUCEDA ([id number]) 29 Because ethnic data is not always [...] levels of PSA measured using the Katelin Sherita DXI Hybritech immunoassay should not be interpreted [...] >10.00 Procedures Date Code Description Status 02/17/2018 77220 Implantable Cardio System Loop Recorder Sys Remota Data Completed Acquistio 02/17/2018 69383 Interrogation Dev Loop Recorder Incl Physician Completed Analysis,Rev,Repor 02/16/2018 89763 Nerve Conduction 03-04 Studies Completed 02/16/2018 64012 Needle Electromyography Complete, Five Or More Muscles Completed Studied 02/01/2018 50566 EKG Tracing & Interpretation Completed 01/23/2018 04448 Stress Test Completed 01/23/2018 59774 Myocardial Perfusion Imaging Tomographic (Spect) Completed Multiple Studies 01/17/2018 67061 Implantable Cardio System Loop Recorder Sys Remota Data Completed Acquistio 01/17/2018 21246 Interrogation Dev Loop Recorder Incl Physician Completed Analysis,Rev,Repor 12/17/2017 54795 Interrogation Dev Loop Recorder Incl Physician Completed Analysis,Rev,Repor 12/17/2017 00724 Implantable Cardio System Loop Recorder Sys Remota Data Completed Acquistio 11/16/2017 70484 Implantable Cardio System Loop Recorder Sys Remota Data Completed Acquistio 11/16/2017 37844 Interrogation Dev Loop Recorder Incl Physician Completed Analysis,Rev,Repor 11/03/2017 90716 EKG Tracing & Interpretation Completed 11/03/2017 33756 EKG Tracing & Interpretation Completed 10/16/2017 24962 Implantable Cardio System Loop Recorder Sys Remota Data Completed Acquistio 10/16/2017 24783 Interrogation Dev Loop Recorder Incl Physician Completed Analysis,Rev,Repor 09/15/2017 36987 Implantable Cardio System Loop Recorder Sys Remota Data Completed Acquistio 09/15/2017 74295 Interrogation Dev Loop Recorder Incl Physician Completed Analysis,Rev,Repor 08/15/2017 60985 Interrogation Dev Loop Recorder Incl Physician Completed Analysis,Rev,Repor 08/15/2017 09964 Implantable Cardio System Loop Recorder Sys Remota Data Completed [employer] 07/15/2017 02787 Implantable Cardio System Loop Recorder Sys Remota Data Completed [employer] 07/15/2017 44453 Interrogation Dev Loop Recorder Incl Physician Completed Analysis,Rev,Repor 06/14/2017 76911 Implantable Cardio System Loop Recorder Sys Remota Data Completed [facility] 06/14/2017 24190 Interrogation Dev Loop Recorder Incl Physician Completed Analysis,Rev,Repor 05/16/2017 98801 I&D deep abscess,bursa or hematoma thigh or knee region Completed 05/16/2017 12823 I&D deep abscess,bursa or hematoma thigh or knee region Completed 05/16/2017 56764 I&D deep abscess,bursa or hematoma thigh or knee region Completed 05/16/2017 67948 I&D deep abscess,bursa or hematoma thigh or knee region Completed 05/14/2017 98532 Interrogation Dev Loop Recorder Incl Physician Completed Analysis,Rev,Repor 05/14/2017 86915 Implantable Cardio System Loop Recorder Sys Remota Data Completed [facility] 04/13/2017 39938 Implantable Cardio System Loop Recorder Sys Remota Data Completed [facility] 04/13/2017 60403 Interrogation Dev Loop Recorder Incl Physician Completed Analysis,Rev,Repor 04/06/2017 21314 EKG Tracing & Interpretation Completed 03/13/2017 20673 Implantable Cardio System Loop Recorder Sys Remota Data Completed [facility] 03/13/2017 90205 Interrogation Dev Loop Recorder Incl Physician Completed Analysis,Rev,Repor 02/10/2017 77391 Implantable Cardio System Loop Recorder Sys Remota Data Completed [facility] 02/10/2017 84883 Interrogation Dev Loop Recorder Incl Physician Completed Analysis,Rev,Repor 01/10/2017 74042 Implantable Cardio System Loop Recorder Sys Remota Data Completed [facility] 01/10/2017 65617 Interrogation Dev Loop Recorder Incl Physician Completed Analysis,Rev,Repor 12/10/2016 82596 Interrogation Dev Loop Recorder Incl Physician Completed Analysis,Rev,Repor 12/10/2016 05063 Implantable Cardio System Loop Recorder Sys Remota Data Completed [facility] 11/09/2016 66819 Implantable Cardio System Loop Recorder Sys Remota Data Completed [facility] 11/09/2016 12513 Interrogation Dev Loop Recorder Incl Physician Completed Analysis,Rev,Repor 10/09/2016 37746 Implantable Cardio System Loop Recorder Sys Remota Data Completed [facility] 10/09/2016 85921 Interrogation Dev Loop Recorder Incl Physician Completed Analysis,Rev,Repor 09/08/2016 33519 Implantable Cardio System Loop Recorder Sys Remota Data Completed [facility] 09/08/2016 08565 Interrogation Dev Loop Recorder Incl Physician Completed Analysis,Rev,Repor 08/23/2016 48608 EKG Tracing & Interpretation Completed 08/23/2016 20868 EKG Tracing & Interpretation Completed 08/08/2016 33856 Interrogation Dev Loop Recorder Incl Physician Completed Analysis,Rev,Repor 08/08/2016 86471 Implantable Cardio System Loop Recorder Sys Remota Data Completed [facility] 07/26/2016 48487 EKG Tracing & Interpretation Completed 07/08/2016 32085 Implantable Cardio System Loop Recorder Sys Remota Data Completed [facility] 07/08/2016 21909 Interrogation Dev Loop Recorder Incl Physician Completed Analysis,Rev,Repor 06/07/2016 18912 Implantable Cardio System Loop Recorder Sys Remota Data Completed [facility] 06/07/2016 29070 Interrogation Dev Loop Recorder Incl Physician Completed Analysis,Rev,Repor 05/07/2016 29605 Implantable Cardio System Loop Recorder Sys Remota Data Completed [facility] 05/07/2016 84783 Interrogation Dev Loop Recorder Incl Physician Completed Analysis,Rev,Repor 04/21/2016 83464 EKG Tracing & Interpretation Completed 04/06/2016 13380 Interrogation Dev Loop Recorder Incl Physician Completed Analysis,Rev,Repor 04/06/2016 07743 Implantable Cardio System Loop Recorder Sys Remota Data Completed [facility] 03/06/2016 21109 Implantable Cardio System Loop Recorder Sys Remota Data Completed [facility] 03/06/2016 43475 Interrogation Dev Loop Recorder Incl Physician Completed Analysis,Rev,Repor 02/16/2016 74256 Loop Recorder Device Eval W/Iterative Adj Implant Loop Completed Recorder 02/03/2016 49130 Implant Cardiac Loop Recorder Completed 02/02/2016 64933 EKG Tracing & Interpretation Completed 01/31/2016 75531 ECHO Transthorasic Realtime 2D W Doppler & Color Flow Completed Hosp 10/27/2015 24978 Nerve Conduction 07-08 Studies Completed 10/27/2015 34666 Needle Electromyography Complete, Five Or More Muscles Completed Studied 12/24/2014 86366 EKG Tracing & Interpretation Completed 12/24/2014 06800 EKG Tracing & Interpretation Completed 12/10/2014 31007 EKG Tracing & Interpretation Completed 11/27/2014 30491 EKG, Interpretation Only Completed 11/25/2014 16585 ECHO Transthorasic Realtime 2D W Doppler & Color Flow Completed Hosp 11/25/2014 68738 EKG, Interpretation Only Completed 02/26/2010 08351 Color Flow Doppler/Interp & Reprt Completed 02/26/2010 61450 Pulse Wave/Continuous-Interp.RPT Completed 02/26/2010 57522 ECHO Transthorasic Realtime 2D W Doppler & Color Flow Completed Hosp 2010 13526 ECHO Transthorasic Realtime 2D W Doppler & Color Flow Completed Hosp 03/20/2008 [id number] Colonoscopy Completed Encounters Type Date Location Provider Dx Diagnosis Office Visit 02/27/2018 [facility] Internal Krystina Westbrook MD R50.9 Fever, unspecified 10:30a Medicine - [place] R10.9 Unspecified abdominal pain I95.9 Hypotension, unspecified Office Visit 02/01/2018 1:10p [facility] Apryl Moreira, I48.0 Paroxysmal atrial Of [place] fibrillation M25.511 Pain in right shoulder F52.21 Male erectile disorder Office Visit 01/17/2018 [facility] Internal [place] E03.9 Hypothyroidism, 4:00p Wilder Sauceda M.D. unspecified [place] I48.0 Paroxysmal atrial fibrillation G56.01 Carpal tunnel syndrome, right upper limb M25.511 Pain in right shoulder R20.2 Paresthesia of skin Office Visit 12/26/2017 10:30a [facility] Wily Reed M27.2 Inflammatory For Infectious Channing Cottrell conditions of jaws Diseases Office Visit 11/03/2017 2:30p [facility] Carolyn Jacques, I48.0 Paroxysmal atrial Cardiology Of N.P. fibrillation [facility] I95.1 Orthostatic hypotension Office Visit 09/15/2017 11:10a [facility] Wily Reed K62.5 Hemorrhage of anus For Infectious Channing Cottrell and rectum Diseases Office Visit 09/07/2017 11:20a [facility] Internal [place] I48.0 Paroxysmal atrial Wilder Sauceda M.D. fibrillation Rd E03.9 Hypothyroidism, unspecified K21.9 Gastro-esophageal reflux disease without esophagitis K62.5 Hemorrhage of anus and rectum Office Visit 08/15/2017 3:20p [facility] Wily Reed M27.2 Inflammatory For Infectious Channing Cottrell conditions of jaws Diseases R19.7 Diarrhea, unspecified Office Visit 06/26/2017 1:40p [facility] Shilo Reed M71.162 Other infective Infectious Channing Cottrell bursitis, left Diseases knee Z79.2 group home (current) use of antibiotics M27.2 Inflammatory conditions of jaws Office Visit 06/06/2017 4:20p [facility] Internal [place] I48.0 Paroxysmal atrial Medicine - Ch[place] Sauceda fibrillation [address] E03.9 Hypothyroidism, unspecified K21.9 Gastro-esophageal reflux disease without esophagitis F17.210 Nicotine dependence, cigarettes, uncomplicated Z23 Encounter for immunization Office Visit 05/31/2017 9:10a [facility] Shilo Reed M71.162 Other infective Infectious Channing Cottrell bursitis, left Diseases knee M27.2 Inflammatory conditions of jaws R19.7 Diarrhea, unspecified [facility] Pyogenic 10:30a Assoc,monster [place] NP arthritis, Hospitalists unspecified I48.91 Unspecified atrial fibrillation 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, unspecified Office Visit 05/18/2017 11:22a [facility] Shilo Reed M71.162 Other infective Infectious Channing Cottrell 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 Office Visit 11/22/2016 2:40p [facility] Wily Reed M27.2 Inflammatory For Infectious Channing Cottrell conditions of jaws Diseases 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 fibrillation [address] E03.9 Hypothyroidism, unspecified K21.9 Gastro-esophageal reflux disease without esophagitis N48.89 Other specified disorders of penis Office Visit 05/09/2016 2:20p [facility] Wily Reed M27.2 Inflammatory For Infectious [place] Cottrell. conditions of jaws Diseases Office Visit 04/21/2016 2:30p [facility] Apryl Moreira I48.0 Paroxysmal atrial Cardiology Of M.D. fibrillation [employer] Office Visit 04/05/2016 10:20a [facility] Internal [place] M27.2 Inflammatory Medicine - [place] Channing Sauceda conditions of jaws Rd Office Visit 04/01/2016 10:10a [facility] Wily Reed M27.2 Inflammatory For Infectious [place] Cottrell. conditions of jaws Diseases Office Visit 03/28/2016 1:40p [facility] Internal [place] Trevino7.2 Inflammatory Medicine - [place] Channing Sauceda conditions of jaws Rd Office Visit 02/09/2016 10:00a [facility] Internal [place] I48.0 Paroxysmal atrial Medicine - [place] Channing Sauceda fibrillation Rd E03.9 Hypothyroidism, unspecified K21.9 Gastro-esophageal reflux disease without esophagitis I62.00 Nontraumatic subdural hemorrhage, unspecified Office Visit 02/02/2016 1:00p [facility] Apryl Moreira I48.0 Paroxysmal atrial Of [employer] M.D. fibrillation I62.00 Nontraumatic subdural hemorrhage, unspecified F52.21 Male erectile disorder Office Visit 01/18/2016 Neurosurgery Guero Yu, I62.00 Nontraumatic 10:45a Services Of [facility] M.D. subdural hemorrhage, unspecified Office Visit 01/08/2016 [facility] Internal Jordan Reed I48.0 Paroxysmal atrial 2:40p Medicine - [place], fibrillation Rd M.D.,FACP I62.00 Nontraumatic subdural hemorrhage, unspecified Z23 Encounter for immunization Office Visit 12/28/2015 Neurosurgery Guero Yu I62.00 Nontraumatic 11:00a Services Of [facility] M.D. subdural hemorrhage, unspecified I62.02 Nontraumatic subacute subdural hemorrhage Office Visit 11/17/2015 10:40a [facility] Internal [place] I62.00 Nontraumatic Medicine - Channing Sauceda subdural [address] hemorrhage, unspecified I48.0 Paroxysmal atrial fibrillation E03.9 Hypothyroidism, unspecified K21.9 Gastro-esophageal reflux disease without esophagitis Office Visit 11/09/2015 Neurosurgery Guero Yu, I62.00 Nontraumatic 2:28p Services Of [place] subdural hemorrhage, unspecified R51 Headache [facility] I62.00 Nontraumatic 10:06a monster Moore M.D. 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 subdural Hospitalists hemorrhage, unspecified I48.2 Chronic atrial fibrillation E03.8 Other specified hypothyroidism Z85.819 Prsnl hx of malig neoplm of unsp site lip,oral cav,& pharynx Office Visit 11/06/2015 [facility] Internal [place] R51 Headache 4:20p Medicine Luis A Sauceda M.D. Rd Office Visit 10/20/2015 Logan Moreira, I48.0 Paroxysmal atrial 1:30p Cardiology Of M.D. fibrillation [facility] I95.1 Orthostatic hypotension H54.2 Low vision, both eyes E03.9 Hypothyroidism, unspecified Office Visit 10/13/2015 [facility] Internal [place] Z79.01 group home (current) 10:00a Wilder Sauceda M.D. use of [address] anticoagulants I48.0 Paroxysmal atrial fibrillation M54.12 Radiculopathy, cervical region Office Visit 07/23/2015 [facility] Internal [place] Z79.01 group home (current) 11:20a Wilder Sauceda M.D. 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 osteomyelitis, Diseases other site M27.2 Inflammatory conditions of jaws Office Visit 01/09/2015 2:20p [facility] Internal Joseph Swanino, I48.0 Paroxysmal atrial Medicine - M.D. 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 Opening Hospitalists Gastrostomy 244.9 Hypothyroidism Other Unspec 427.31 Atrial Fibrillation 526.4 Inflammatory Jaw Office Visit 11/27/2014 [facility] Apryl Kumarer, 427.31 Atrial 1:26p Of [place] Fibrillation Office Visit 11/27/2014 [facility] Angie, V44.1 Artificial 2:06p monster Moore M.D. Opening Hospitalists Gastrostomy 244.9 Hypothyroidism Other Unspec 526.4 Inflammatory Jaw 427.31 Atrial Fibrillation Office Visit 11/26/2014 11:20a [facility] Wily Reed 526.4 Inflammatory Jaw Infectious Channing Cottrell Diseases 239.0 Neoplasm Unspecified Digestive System Office Visit [facility]/26[facility] V44.1 Artificial 2:06p monster Mooer M.D. Opening Hospitalists Gastrostomy 244.9 Hypothyroidism Other Unspec 526.4 Inflammatory Jaw 427.31 Atrial Fibrillation Office Visit 11/25/2014 [facility] Angie, V44.1 Artificial 2:04p monster Moore M.D. Opening Hospitalists Gastrostomy 244.9 Hypothyroidism Other Unspec 427.31 Atrial Fibrillation 526.4 Inflammatory Jaw Office 11/24/2014 [facility] V44.1 Artificial Visit 2:03p Assmonster cintron, N.PJulian Opening Hospitalists Gastrostomy 244.9 Hypothyroidism Other Unspec 427.31 Atrial Fibrillation 526.4 Inflammatory Jaw Plan of Treatment Future Appointment(s):05/02/2018 2:00 pm - Kiet Sauceda M.D. at [facility] Internal Medicine [facility]04/25/2018 10:00 am - Kiet Sauceda M.D. at [facility] Internal Medicine [facility]08/15/2017 - Wily Cottrell M.D.M27.2 Inflammatory conditions of jawsR19.7 Diarrhea, unspecifiedComments:?abx or TF side effect vs infection vs inflammatory bowel
[2018-03-23] MEDS ORDERED: NS 0.9% 1000 ML* 1,000 ML IV ONE (12:07)
[2018-03-23] MEDS ORDERED: cefTRIAXone(*) 1 GM in NS 0.9% 50 ML* 50 ML IVPB ONE (12:07)
[2018-03-23] MEDS ORDERED: Piperacillin/Tazobac ADVAN(*) 3.375 GM in NS 0.9% 100 ML* 100 ML IVPB ONE (12:41)
--- NOTE | 2018-03-23 13:25 | ED ---
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 He states it has worsened over the past 2 days. He believes it is from a cat scratch that is unsure. He endorses pain to palpation. He denies any fevers, sweats, chills. Patient has brother at bedside who is helping with much of the communication. Currently has a feeding tube. Vital signs on arrival temp temp 98.1, HR 76, respirations 19, O2 98, 114/60. He appears well on arrival. - History of Current Complaint Chief Complaint: EDExtremityUpper Time Seen by Provider: 03/23/18 12:07 Stated Complaint: LT FORARM CAT SCRATCH Hx Obtained From: Patient Onset/Duration: Started Hours Ago Skin Exposure Onset/Duration: Hours Ago Timing: Constant Onset Severity: Moderate Current Severity: Moderate Pain Intensity: 3 Pain Scale Used: 0-10 Numeric Skin Location: Arm Character: Swelling, Pain, Redness, Raised, Painful Aggravating Symptom(s): Nothing Alleviating Symptom(s): Nothing Associated Signs & Symptoms: Red Streaks - Additional Pertinent History Primary Care Physician: [id number] - Allergy/Home Medications Allergies/Adverse Reactions: Allergies Allergy/AdvReac Type Severity Reaction Status Date / Time sulfamethoxazole Allergy Rash Verified 03/23/18 11:44 [From Bactrim] trimethoprim [From Bactrim] Allergy Rash Verified 03/23/18 11:44 PMH/Surg Hx/FS Hx/Imm Hx Previously Healthy: Yes Endocrine/Hematology History: Reports: Hx Thyroid Disease Denies: Hx Anticoagulant Therapy, Hx Blood Disorders, Hx Diabetes, Hx Systemic Lupus Erythematosus, Hx Sickle Cell Disease, Hx Unexplained Bleeding, Other Endocrine/Hematological Disorders Cardiovascular History: Reports: Hx Congestive Heart Failure Denies: Hx Cardiomegaly, Hx Congenital Heart Disease, Hx Coronary Artery Disease, Hx Deep Vein Thrombosis, Hx Hypercholesterolemia, Hx Hypotension, Hx Hypertension, Hx Pacemaker/ICD, Hx Peripheral Vascular Disease, Hx Rheumatic Fever, Other Cardiovascular Problems/Disorders Respiratory History: Reports: Other Respiratory Problems/Disorders - throat and mandiibular CA Denies: Hx Asthma, Hx Bronchopulmonary Dysplasia, Hx Chronic Bronchitis, Hx Chronic Obstructive Pulmonary Disease (COPD), Hx Cystic Fibrosis, Hx Pleural Effusion, Hx Pulmonary Edema, Hx Pulmonary Embolism GI History: Reports: Hx Gastroesophageal Reflux Disease, Other GI Disorders - PEG tube tube in place Denies: Hx Crohn's Disease, Hx Diverticulosis, Hx Gastrointestinal Bleed, Hx Hiatal Hernia, Hx Obstructive Bowel, Hx Pyloric Stenosis, Hx Ulcer History: Denies: Hx Benign Prostatic Hyperplasia, Hx Chronic Renal Failure, Hx Kidney Infection, Hx Kidney Stones, Hx Renal Disease Musculoskeletal History: Reports: Hx Arthritis, Hx Bursitis Sensory History: Reports: Hx Contacts or Glasses Denies: Hx Cataracts, Hx Eye Injury, Hx Eye Prosthesis, Hx Glaucoma, Hx Legally Blind, Hx Macular Degeneration, Hx Vision Problem, Hx Hearing Aid, Hx Hearing Problem, Other Sensory Impairments Opthamlomology History: Reports: Hx Contacts or Glasses Denies: Hx Cataracts, Hx Eye Injury, Hx Eye Prosthesis, Hx Glaucoma, Hx Legally Blind, Hx Macular Degeneration, Hx Vision Problem, Other Sensory Impairments Neurological History: Reports: Other Neuro Impairments/Disorders - decreased sensation to bilateral feet R>L Denies: Hx Dementia, Hx Headaches, Hx Nerve Disease, Hx Seizures, Hx Transient Ischemic Attacks (TIA) Psychiatric History: Denies: Hx Autism, Hx Oppositional [place] Disorder, Hx Depression, Hx Panic Disorder, Hx Community Mental Health Tx, Hx Bipolar Disorder - Cancer History Cancer Type, 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, 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: Yes - Surgical History Surgery Procedure, Year, and Place: mandibulectomy, + neck resection r/t CA,. LINQ EVENT MONITOR Hx Anesthesia Reactions: No - Immunization History Hx Pertussis Vaccination: No Immunizations Up to Date: Yes Infectious Disease History: No Infectious Disease History: Reports: Hx Clostridium Difficile, Hx of Known/ Suspected MRSA Denies: Hx Hepatitis, Hx Human Immunodeficiency Virus (HIV), Hx Shingles, Hx Tuberculosis, Hx Known/Suspected VRE, Traveled Outside the [place] in Last 30 Days - Family History Known Family History: Negative: Respiratory Disease, Seizure Disorder - Social History Occupation: Employed Full-time Lives: With Family Alcohol Use: None Hx Substance Use: No Substance Use Type: Reports: None Hx Tobacco Use: Yes Smoking Status (MU): Former Smoker Have You Smoked in the Last Year: No Review of Systems Constitutional: Negative Negative: Fever, Chills, Fatigue, Skin Diaphoresis Negative: Palpitations, Chest Pain Negative: Shortness Of Breath, Cough Genitourinary: Negative Positive: no symptoms reported, see HPI Negative: Arthralgia, Myalgia Positive: Other All Other Systems Reviewed And Are Negative: Yes Physical Exam Triage Information Reviewed: Yes Vital Signs On Initial Exam: Initial Vitals Temp Pulse Resp BP Pulse Ox 98.1 F 76 19 114/60 98 03/23/18 11:41 03/23/18 11:41 03/23/18 11:41 03/23/18 11:41 03/23/18 11:41 Vital Signs Reviewed: Yes Appearance: Positive: Well-Appearing, Well-Nourished Skin: Positive: Warm, Skin Color Reflects Adequate Perfusion Head/Face: Positive: Other - s/p mandibulectomy Eyes: Positive: EOMI, SANA, Conjunctiva Clear ENT: Positive: Other - s/p mandibulectomy Respiratory/Lung Sounds: Positive: Clear to Auscultation, Breath Sounds Present Cardiovascular: Positive: RRR, Pulses are Symmetrical in both Upper and Lower Extremities Musculoskeletal: Positive: Normal, Strength/ROM Intact Psychiatric: Positive: Affect/Mood Appropriate AVPU Assessment: Alert Diagnostics - Vital Signs Vital Signs Temp Pulse Resp BP Pulse Ox 03/23/18 11:41 98.1 F 76 19 114/60 98 - Laboratory Lab Results: Lab Results 03/23/18 03/23/18 03/23/18 Range/Units 11:43 11:43 11:43 WBC 1.3 L (3.5-10.8) 10^3/ul RBC 0.68 L (4.00-5.40) 10^6/ul Hgb 2.4 L* (14.0-18.0) g/dl Hct 8 L (42-52) % MCV 111 H (80-94) fL MCH 36 H (27-31) pg MCHC 32 (31-36) g/dl RDW 13 (10.5-15) % Plt Count 34 L D (150-450) 10^3/ul MPV 8.2 (7.4-10.4) fL Neut % (Auto) Pending Lymph % (Auto) Pending Warren % (Auto) Pending Eos % (Auto) Pending Baso % (Auto) Pending Absolute Neuts (auto) Pending Absolute Lymphs (auto) Pending Absolute Monos (auto) Pending Absolute Eos (auto) Pending Absolute Basos (auto) Pending Absolute Nucleated RBC Pending Nucleated RBC % Pending ESR Pending Sodium Cancelled Potassium Cancelled Chloride Cancelled Carbon Dioxide Cancelled Anion Gap Cancelled BUN Cancelled Creatinine Cancelled Est GFR ( Amer) Cancelled Est GFR (Non-Af Amer) Cancelled BUN/Creatinine Ratio Cancelled Glucose Cancelled Lactic Acid < 0.3 L (0.5-2.0) mmol/L Calcium Cancelled Total Bilirubin Cancelled AST Cancelled ALT Cancelled Alkaline Phosphatase Cancelled C-Reactive Protein Cancelled Total Protein Cancelled Albumin Cancelled Globulin Cancelled Albumin/Globulin Ratio Cancelled Result Diagrams: 03/23/18 14:12 03/23/18 14:12 Lab Statement: Any lab studies that have been ordered have been reviewed, and results considered in the medical decision making process. Course/Dx - Course Course Of Treatment: During the course of treatment, the patient is evaluated for cellulitis and abscess. Labs obtained. He is given fluids and Zosyn in the ED. Blood cultures obtained and are sent, awaiting. Wound cultures sent and awaiting. Labs obtained are WNL except for an elevated CRP and ESR. Patient appears well with normal vital signs. He is afebrile. He states he is feeling at his baseline. I have offered admission into the hospital due to an abscess with surrounding cellulitis due to streaking up the arm just proximal to the elbow. He states he would like to try outpatient antibiotics and would not like to stay in the ED. I feel at this time he is stable and is okay for discharge home with outpatient antibiotics, however he is given strict return precautions for worsening erythema or streaking or difficulty with flexion or extension at the elbow joint. Will await cultures. Clindamycin given. This is safe to go through feeding tube. Cover MRSA, will await cultures. - Diagnoses Provider Diagnoses: Abscess Discharge - Sign-Out/Discharge Documenting (check all that apply): Patient Departure - Discharge Plan Condition: Stable Disposition: HOME Prescriptions: Clindamycin Cap(NF) [Clindamycin Cap 300 mg Cap(NF)] 300 mg PO Q6H #28 cap Patient Education Materials: Abscess (ED) Referrals: Kiet Sauceda MD [Primary Care Provider] - Additional Instructions: Please return to the ED if he develop any fevers, sweats, chills, red streaking up the arm, worsening redness around the arm, inability to move or rotate about the elbow joint Clindamycin 4 times daily - these may be crushed Warm compresses to the abscess several times daily - Billing Disposition and Condition Condition: STABLE Disposition: Home
[2018-03-23 14:19] LABS: ABS Basophils 0 10^3/ul (0-0.2); ABS Eosinophils 0.2 10^3/ul (0-0.6); ABS Monocytes 0.8 10^3/ul (0-0.8); ABS Neutrophils 5.5 10^3/ul (1.5-7.7); ABS Nucleated RBC 0 10^3/ul; Eosinophil % 2.7 %; Hematocrit 44 % (42-52); Lymphocyte % 13.2 %; Mean Corpuscular HGB Conc 34 g/dl (31-36); Mean Corpuscular Hemoglobin 35 pg (27-31); Mean Corpuscular Volume 102 fL (80-94); Mean Platelet Volume 8.5 fL (7.4-10.4); Nucleated Red Blood Cells % 0; Platelet Count 197 10^3/ul (150-450); Red Blood Count 4.32 10^6/ul (4.00-5.40); Red Cell Distribution Width 12 % (10.5-15); White Blood Count 7.5 10^3/ul (3.5-10.8)
[2018-03-23 14:45] VITALS: BP 133/74
[2018-03-23 15:01] LABS: Albumin 3.1 g/dL (3.2-5.2); Albumin/Globulin Ratio 0.9 (1-3); BUN/Creatinine Ratio 24.4 (8-20); C Reactive Protein 22.77 mg/L (<8.01); Calcium 8.7 mg/dL (8.6-10.3); EGFR Non-African American 87.9 (>60); Globulin 3.6 g/dL (2-4); Potassium 4.3 mmol/L (3.5-5.0); Total Bilirubin 0.9 mg/dL (0.2-1.0); Total Protein 6.7 g/dL (6.4-8.9)
[2018-03-23 15:22] LABS: Erythrocyte Sed Rate 42 mm/Hr (0-40)
--- NOTE | 2018-03-24 05:38 | PN ---
Progress Note - Progress Note Date of Service: 03/23/18 Note: Wound culture grew MRSA, MSSA Patient has appropriate treatment with clindamycin We will await sensitivities
--- NOTE | 2018-03-26 09:29 | PN ---
Progress Note - Progress Note Date of Service: 03/23/18 Note: Pt. seen in ED 03/23 for wound. Culture obtained at that time. Was placed on Clindamycin. Culture +MRSA susceptible to Clinda. No change in treatment needed at this time.
== END 2018-03-23 15:29 | disposition home or self-care (01) ==
LOC: ED 11:39
DX: L02.414 Cutaneous abscess of left upper limb (principal); Z85.830 Personal history of malignant neoplasm of bone; I25.10 Atherosclerotic heart disease of native coronary artery without angina pectoris; Z87.891 Personal history of nicotine dependence
CPT/HCPCS: 36415; 80053; 83605; 85025; 85652; 86140; 87040; 87070; 87077; 87186; 87205; 87640; 87641; 96361; 96365; 99283; J2543

== ENCOUNTER 2019-01-14 08:04 | Emergency (ER) | payer MEDICARE ==
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
[2019-01-14] MEDS ORDERED: Acetaminophen TAB* 325 MG PO ONE (08:42)
[2019-01-14] MEDS ORDERED: Tetan/Diph/Pertus SYR(Tdap)* 0.5 ML SYR(BOOSTRIX) use SYR contains LATEX IM ONE (08:42)
--- OUTSIDE RECORDS SUMMARY | 2019-01-14 08:46 | XMS REPORT | Continuity of Care Document ---
:1950 External Reference #:[id number] Author Name Carolyn Jacques N.P. (transmitted by agent of provider Miryam Quintero) Address [address] [place] [address] Care Team Providers Name Role Phone Martinez Denny MD - Family Medicine Care Team Information Hand Ii Cutter Apryl Moreira MD - Cardiovascular Care Team Information Hand Ii Cutter Disease Stanley Negron MD - Neurological Care Team Information Hand Ii Cutter Surgery Problems Active Problems Provider Date Paroxysmal atrial fibrillation Jordan Iyer M.D.,FACP Onset: 01/08/2016 Atrial paroxysmal tachycardia Chris Rosen M.D. Onset: 12/19/2014 Malignant neoplasm of mandible Chris Rosen M.D. Onset: 12/19/2014 Hypothyroidism Kiet Sauceda M.D. Onset: 09/03/2015 Gastroesophageal reflux disease Kiet Sauceda M.D. Onset: 09/03/2015 Brachial neuritis Kiet Sauceda M.D. Onset: 09/03/2015 Cervical radiculopathy Jordan Iyer M.D.,FACP Onset: 12/18/2015 Note: bilat nerve impingement on NCS Subdural hemorrhage Guero Yu M.D. Onset: 12/28/2015 Inflammatory disorder of jaw region Kiet Sauceda M.D. Onset: 03/28/2016 Chronic obstructive lung disease Jordan Iyer M.D.,FACP Onset: 2016 Note: suspect on CXR Weight decreased Kiet Sauceda M.D. Onset: 11/18/2016 Unilateral recurrent simple inguinal hernia Kiet Sauceda M.D. Onset: 03/2016 Abscess of bursa of left knee Paulette Roche M.D. Onset: 05/15/2017 Carpal tunnel syndrome of right wrist Kiet Sauceda M.D. Onset: 2017 Shoulder joint pain Kiet Sauceda M.D. Onset: 01/17/2018 Strain of rotator cuff capsule Christine Parks MD Onset: 06/07/2018 Bicipital tenosynovitis Christine Parks MD Onset: 06/07/2018 Localized, secondary osteoarthritis of the Christine Parks MD Onset: 06/07/2018 shoulder region Localized, primary osteoarthritis of the Christine Parks MD Onset: 07/03/2018 shoulder region Superior glenoid labrum lesion of right Christine Parks MD Onset: 09/06/2018 shoulder, subsequent encounter Social History Type Date Description Comments Sex Unknown Tobacco Use Start: Unknown End: Former Cigarette Smoker Pt denies use of Unknown cigar, pipe, e-cigarettes, or chewing tobacco. Quit end Smoking Status Reviewed: 11/22/18 Former Cigarette Smoker Pt denies use of cigar, pipe, e-cigarettes, or chewing tobacco. Quit end ETOH Use consumed 1-2 beers per Quit 1996. day Recreational Drug Use Denies Drug Use Tobacco Use Start: Unknown End: Patient is a former Unknown smoker Exercise Type/Frequency Exercises regularly Allergies, Adverse Reactions, Alerts Active Allergies Reaction Severity Comments Date Bactrim rash 12/10/2014 Medications Active Medications SIG Qnty Indications Ordering Date Provider Jevity 1.0 9 cans daily via 279units R63.4 Krystina Westbrook MD 11/13/2018 peg tube Cetirizine HCL take 10 120ml J06.9 oCty Black, 08/22/2018 milliliters once a N.P. 5mg/5ML Solution day Sotalol HCL (AF) take 1 tablet by 180tabs I48.0 Apryl Moreira, 04/19/2018 80mg mouth twice a day M.D. Tablets Levothyroxine Sodium 1 by mouth every 90tabs E03.9 Krystina Westbrook MD 2016 day 137mcg Tablets Ranitidine HCL take one tablet by 180tabs K21.9 Krystina Westbrook MD 02/09/2016 150mg mouth twice a day Tablets Tylenol 2 by mouth 4 hrs 90tabs Kiet 11/10/2015 325mg Tablets as needed, SARITHA Sauceda M.D. 4000mg Medications Administered in Office Medication SIG Qnty Indications Ordering Provider Date Triamcinolone (Kenalog) Christine Parks MD 10/05/2018 Injection Triamcinolone (Kenalog) Christine Parks MD 07/03/2018 Injection Inj, Regadenoson, 0.1 MG Ryan Rogers, DO [facility]AC 01/23/2018 Injection Thallium Ryan Rogers, DO [facility] 01/23/2018 Injection Immunizations CPT Code Status Date Vaccine Reaction Lot # [id number] Given 06/06/2017 Zoster (Zostavax) no reaction [id number] Given 06/06/2017 Pneumonia Vaccine pt tolerated well [id number] Given 01/08/2016 Pneumococcal Conjugate Vaccine [id number] Valent For Intramuscular Use Vital Signs Date Vital Result Comment 11/22/2018 11:15am Height 75 inches 6'3" Weight 214.00 lb with shoes Heart Rate 64 /min BP Systolic Sitting 120 mmHg rue reg cuff BP Diastolic Sitting 64 mmHg rue reg cuff BP Systolic Standing 114 mmHg rue reg cuff BP Diastolic Standing 64 mmHg rue reg cuff Respiratory Rate 14 /min BMI (Body Mass Index) 26.7 kg/m2 Ejection Fraction 50-55% echo. 11/25/2014 11/08/2018 2:08pm Height 75 inches 6'3" Weight 214.00 lb Heart Rate 56 /min BP Systolic Sitting 127 mmHg BP Diastolic Sitting 70 mmHg Body Temperature 97.6 F O2 % BldC Oximetry 94 % BMI (Body Mass Index) 26.7 kg/m2 Results Test Date Facility Test Result H/L Range Note Laboratory test 11/22/2018 [facility] Magnesium <pending> finding [address] [place] [address] [phone] Laboratory test 11/22/2018 [facility] TSH (Thyroid <pending> finding [address] Stim Horm) [place] [address] [phone] Procedures Date Code Description Status 11/22/2018 82767 EKG Tracing & Interpretation Completed 10/05/2018 04807 Inject/Drain Joint/Bursa Major W/O US Completed 09/22/2018 30870 Implantable Cardio System Loop Recorder Sys Remota Data Completed [facility] 09/22/2018 43943 Interrogation Dev Loop Recorder Incl Physician Completed Analysis,Rev,Repor 08/28/2018 78841 EKG Tracing & Interpretation Completed 08/22/2018 72008 Implantable Cardio System Loop Recorder Sys Remota Data Completed [facility] 08/22/2018 07908 Interrogation Dev Loop Recorder Incl Physician Completed Analysis,Rev,Repor 08/21/2018 42504 EKG Tracing & Interpretation Completed 07/22/2018 43668 Implantable Cardio System Loop Recorder Sys Remota Data Completed [facility] 07/22/2018 90169 Interrogation Dev Loop Recorder Incl Physician Completed Analysis,Rev,Repor 07/03/2018 62248 Inject/Drain Joint/Bursa Major W/O US Completed 06/21/2018 68065 Implantable Cardio System Loop Recorder Sys Remota Data Completed [facility] 06/21/2018 01818 Interrogation Dev Loop Recorder Incl Physician Completed Analysis,Rev,Repor 07/16/2015 [id number] Colonoscopy Completed 03/20/2008 [id number] Colonoscopy Completed Medical Devices Description No Information Available Encounters Type Date Location Provider Dx Diagnosis Office Visit 11/08/2018 Kinga Westbrook MD J30.2 Other seasonal 2:00p Medicine - [facility] allergic rhinitis Z93.1 Gastrostomy status I48.0 Paroxysmal atrial fibrillation Office Visit 10/05/2018 Orthopedic Christine Parks M19.011 Primary 10:15a Services Of MD mora C.M.A. right shoulder S43.431D Superior glenoid labrum lesion of right shoulder, subs S46.011D Strain of musc/tend the rotator cuff of right shoulder, subs Office Visit 09/06/2018 Mitchell Dias9.011 Primary 2:15p Services Of MD mora C.M.A. right shoulder S43.431D Superior glenoid labrum lesion of right shoulder, subs S46.011D Strain of musc/tend the rotator cuff of right shoulder, subs Office Visit 08/22/2018 9:00a Kinga Westbrook J06.9 Acute upper Medicine - [facility] respiratory infection, unspecified Office Visit 08/22/2018 3:30p Spine Navigator Anita Good, M50.30 Other cervical Of Java Technical Manager PA-C disc degeneration, unsp cervical region M50.321 Other cervical disc degeneration at C4-C5 level M50.322 Other cervical disc degeneration at C5-C6 level Office Visit 08/21/2018 11:15a [facility] Apryl Moreira, I48.0 Paroxysmal atrial Of Java Technical Manager M.D. fibrillation Z95.818 Presence of other cardiac implants and grafts R91.8 Other nonspecific abnormal finding of lung field Office Visit 08/02/2018 Orthopedic Christine Parks, M19.011 Primary 10:45a Services Of osteoarthritis, C.M.A. right shoulder S43.431D Superior glenoid labrum lesion of right shoulder, subs S46.011D Strain of musc/tend the rotator cuff of right shoulder, subs Office Visit 07/03/2018 Orthopedic Christine Parks, M19.011 Primary 10:30a Services Of osteoarthritis, C.M.A. right shoulder S43.431D Superior glenoid labrum lesion of right shoulder, subs S46.011D Strain of musc/tend the rotator cuff of right shoulder, subs Office Visit 06/07/2018 3:00p Orthopedic Christine Parks, S46.011A Strain of Services Of musc/tend the C.M.A. rotator cuff of right shoulder, init M75.21 Bicipital tendinitis, right shoulder M19.011 Primary osteoarthritis, right shoulder Office Visit 05/30/2018 2:30p Spine Navigator Anita Good, M47.22 Other spondylosis Of Java Technical Manager PA-C with radiculopathy, cervical region M25.511 Pain in right shoulder Office Visit 05/28/2018 4:00p [facility] Internal Krystina Pietro, M25.511 Pain in right Medicine - [facility] shoulder M54.12 Radiculopathy, cervical region Assessments Date Code Description Provider 11/22/2018 I48.0 Paroxysmal atrial fibrillation Carolyn Jacques, N.P. 11/22/2018 R94.31 Abnormal electrocardiogram [ECG] [EKG] Carolyn Jacques, N.P. 11/22/2018 Z95.818 Presence of other cardiac implants and Carolyn S. Foster, N.[place]. grafts 11/08/2018 J30.2 Other seasonal allergic rhinitis Krystina Westbrook MD 11/08/2018 Z93.1 Gastrostomy status Krystina Westbrook MD 11/08/2018 I48.0 Paroxysmal atrial fibrillation Krystina Westbrook MD 10/05/2018 M19.011 Primary osteoarthritis, right shoulder Christine Parks MD 10/05/2018 S43.431D Superior glenoid labrum lesion of right Christine Parks MD shoulder, subsequent 10/05/2018 S46.011D Strain of muscle(s) and tendon(s) of the Christine Parks MD rotator cuff of rig 09/22/2018 I48.0 Paroxysmal atrial fibrillation Apryl Moreira M.D. 09/22/2018 Z95.818 Presence of other cardiac implants and Apryl Moreira M.D. grafts 09/06/2018 M19.011 Primary osteoarthritis, right shoulder Christine Parks MD 09/06/2018 S43.431D Superior glenoid labrum lesion of right Christine Parks MD shoulder, subsequent 09/06/2018 S46.011D Strain of muscle(s) and tendon(s) of the Christine Parks MD rotator cuff of rig 08/28/2018 I48.0 Paroxysmal atrial fibrillation Nurse Visit IC 08/28/2018 Z51.81 Encounter for therapeutic drug level Nurse Visit IC monitoring 08/22/2018 I48.0 Paroxysmal atrial fibrillation Apryl Moreira M.D. 08/22/2018 M50.30 Other cervical disc degeneration, Anita Good PA-C unspecified cervical regio 08/22/2018 Z95.818 Presence of other cardiac implants and Apryl Moreira M.D. grafts 08/22/2018 J06.9 Acute upper respiratory infection, Krystina Westbrook MD unspecified 08/22/2018 M50.321 Other cervical disc degeneration at C4-C5 NALINI Rags[place] level 08/22/2018 M50.322 Other cervical disc degeneration at C5-C6 NALINI [place]ags[place] level 08/21/2018 I48.0 Paroxysmal atrial fibrillation Apryl Moreira M.D. 08/21/2018 Z95.818 Presence of other cardiac implants and Apryl Moreira M.D. grafts 08/21/2018 R91.8 Other nonspecific abnormal finding of lung Apryl Moreira M.D. field 08/02/2018 M19.011 Primary osteoarthritis, right shoulder Christine Parks MD 08/02/2018 S43.431D Superior glenoid labrum lesion of right Christine Parks MD shoulder, subsequent 08/02/2018 S46.011D Strain of muscle(s) and tendon(s) of the Christine Parks MD rotator cuff of rig 07/22/2018 I48.0 Paroxysmal atrial fibrillation Apryl Moreira M.D. 07/22/2018 Z95.818 Presence of other cardiac implants and Apryl Moreira M.D. grafts 07/03/2018 M19.011 Primary osteoarthritis, right shoulder Christine Parks MD 07/03/2018 S43.431D Superior glenoid labrum lesion of right Christine Parks MD shoulder, subs 07/03/2018 S46.011D Strain of musc/tend the rotator cuff of Christine Parks MD right shoulder, subs 06/21/2018 I48.0 Paroxysmal atrial fibrillation Apryl Moreira M.D. 06/21/2018 Z95.818 Presence of other cardiac implants and Apryl Moreira M.D. grafts 06/07/2018 S46.011A Strain of muscle(s) and tendon(s) of the Christine Parks MD rotator cuff of rig 06/07/2018 M75.21 Bicipital tendinitis, right shoulder Christine Parks MD 06/07/2018 M19.011 Primary osteoarthritis, right shoulder Christine Parks MD 05/30/2018 M47.22 Other spondylosis with radiculopathy, Anita Good PA-C cervical region 05/30/2018 M25.511 Pain in right shoulder Anita Good PA-C 05/28/2018 M25.511 Pain in right shoulder Krystina Westbrook MD 05/28/2018 M54.12 Radiculopathy, cervical region Krystina Westbrook MD Plan of Treatment Future Appointment(s):11/23/2018 11:15 am - Christine [facility] MD [facility].11/22/2018 - Carolyn Jacques, N.P.I48.0 Paroxysmal atrial fibrillationFollow up:OV LS 6mo w/ ECGR94.31 Abnormal electrocardiogram [ECG] [ EKG]Z95.818 Presence of other cardiac implants and graftsRecommendations:I will talk to Dr Moreira about what to do when battery runs out. Functional Status Description No Information Available Mental Status Description No Information Available Referrals Refer to Reason for Referral Status Appt Date [facility] Pt's family will schedule appt for Created him. S[address] [place] [phone] Pernell Mahan MD Sent 08/31/[address] [place] [address] [phone] Иван Ayers MD neck pain and N/T, h/o jaw surgery Created [address] [facility], [place] [address] [phone] Christine Parks MD Received Partial 06/07/2018 [address] [facility] [place] [address] [place] [address] [phone] Иван Ayers MD Sent 05/30/2018 [address] [facility], [place] [address] [phone]
[2019-01-14 09:03] LABS: ABS Eosinophils 0.1 10^3/ul (0-0.6); ABS Lymphocytes 0.7 10^3/ul (1.0-4.8); ABS Monocytes 0.7 10^3/ul (0-0.8); ABS Neutrophils 8.2 10^3/ul (1.5-7.7); Eosinophil % 0.6 %; Hematocrit 48 % (42-52); Hemoglobin 16.8 g/dL (14.0-18.0); Mean Corpuscular HGB Conc 35 g/dL (31-36); Mean Corpuscular Hemoglobin 36 pg (27-31); Mean Corpuscular Volume 104 fL (80-94); Mean Platelet Volume 8.9 fL (7.4-10.4); Nucleated Red Blood Cells % 0.1; Platelet Count 174 10^3/uL (150-450); Red Blood Count 4.63 10^6 /uL (4.18-5.48); Red Cell Distribution Width 13 % (10-15); White Blood Count 9.6 10^3/uL (3.5-10.8)
[2019-01-14 09:20] LABS: Albumin 3.9 g/dL (3.2-5.2); BUN/Creatinine Ratio 23.1 (8-20); Calcium 9.9 mg/dL (8.6-10.3); EGFR African American 119.1 (>60); EGFR Non-African American 98.4 (>60); Globulin 3.8 g/dL (2-4); Potassium 3.8 mmol/L (3.5-5.0); Total Bilirubin 1.4 mg/dL (0.2-1.0); Total Protein 7.7 g/dL (6.4-8.9)
[2019-01-14 10:11] LABS: Urine Appearance Clear; Urine Bilirubin Negative (Negative); Urine Blood Negative (Negative); Urine Color Yellow; Urine Glucose Negative (Negative); Urine Ketones 1+ (Negative); Urine Nitrite Negative (Negative); Urine Protein Negative (Negative); Urine Specific Gravity 1.013 (1.010-1.030); Urine Urobilinogen Negative (Negative)
[2019-01-14] MEDS ORDERED: Iohexol 300* (CONTRAST) 10 ML SDV IV ONE (11:11)
[2019-01-14] MEDS ORDERED: Ketorolac INJ* 30 MG/ML 1 ML VIAL IV PUSH ONE (12:53)
[2019-01-14] MEDS ORDERED: Azithromycin TAB* 250 MG PO ONE (13:03)
[2019-01-14 13:17] VITALS: BP 159/86
== END 2019-01-14 13:25 | disposition home or self-care (01) ==
LOC: ED 08:04
DX: S02.2XXA Fracture of nasal bones, initial encounter for closed fracture (principal); S01.21XA Laceration without foreign body of nose, initial encounter; S20.219A Contusion of unspecified front wall of thorax, initial encounter; S30.1XXA Contusion of abdominal wall, initial encounter; J18.9 Pneumonia, unspecified organism; R10.9 Unspecified abdominal pain; E03.9 Hypothyroidism, unspecified; K21.9 Gastro-esophageal reflux disease without esophagitis; Z93.1 Gastrostomy status; Z87.891 Personal history of nicotine dependence; Y09 Assault by unspecified means; Y92.9 Unspecified place or not applicable
CPT/HCPCS: 12001; 36415; 70450; 70486; 71260; 72125; 72128; 72131; 74177; 80053; 81003; 83605; 85025; 86850; 86900; 86901; 90471; 90715; 93005; 99283; J1885; Q9967

== ENCOUNTER 2020-02-28 11:32 | Inpatient (IN) ==
[2020-02-28] MEDS ORDERED: Morphine 2 MG/ML SYRINGE IV PRN (16:35)
[2020-02-28] MEDS ORDERED: oxyCODONE/Acetamin 5/325 mg TAB PO PRN (16:37)
[2020-02-28] MEDS ORDERED: oxyCODONE/Acetamin 5/325 mg TAB J TUBE PRN (16:53)
[2020-02-28] MEDS ORDERED: Docusate LIQ 100 MG/10 ML UDC G TUBE PRN (16:57)
[2020-02-28] MEDS ORDERED: GUAIFENESIN 1200 MG PO SCH (21:00)
[2020-02-28] MEDS: guaiFENesin 100 mg/5 ml LIQ unit dose cup J TUBE SCH (22:14)
[2020-02-29] MEDS: guaiFENesin 100 mg/5 ml LIQ unit dose cup J TUBE SCH ×5 (06:03→21:48)
[2020-02-29] MEDS ORDERED: LACTOSE REDUCED FOOD WITH FIBR FEED TUBE SCH ×2 (09:00)
[2020-02-29] MEDS: Fluticasone NASAL SPRAY 50MCG 16 gm SPRAY BTL BOTH NARES SCH (09:09)
[2020-02-29] MEDS: Lansoprazole SUSP ORALSYR 3 MG/ML J TUBE SCH (09:10)
[2020-02-29] MEDS: Magnesium Hydroxide LIQ 30 ML UDC PO SCH (21:38)
[2020-03-01] MEDS: guaiFENesin 100 mg/5 ml LIQ unit dose cup J TUBE SCH ×3 (06:05→10:30)
[2020-03-01 07:56] VITALS: BP 144/73
[2020-03-01] MEDS: Magnesium Hydroxide LIQ 30 ML UDC PO SCH (09:57)
[2020-03-01] MEDS: Fluticasone NASAL SPRAY 50MCG 16 gm SPRAY BTL BOTH NARES SCH (09:57)
[2020-03-01] MEDS: Lansoprazole SUSP ORALSYR 3 MG/ML J TUBE SCH (09:57)
== END 2020-03-01 12:30 | disposition home or self-care (01) | DRG 552 ==
LOC: ED 11:32 → SSU 16:20
PROVIDERS: ADMIT Internal Medicine; ATTEND Internal Medicine

== ENCOUNTER 2022-10-11 15:14 | Inpatient (IN) ==
[2022-10-11] MEDS ORDERED: Albuterol/Ipratropium NEB.SOL (2.5/0.5 MG) 3 ML NEB.SOLN INH ONE (15:49)
[2022-10-11 16:55] LABS: ABS Basophils 0.1 10^3/uL (0.0-0.1); ABS Eosinophils 0.2 10^3/uL (0.0-0.5); ABS Monocytes 0.8 10^3/uL (0.0-1.1); ABS Neutrophils 6.8 10^3/uL (1.5-7.6); ABS Nucleated RBC 0.01 10^3/ul; Eosinophil % 2.6 %; Lymphocyte % 11.9 %; Mean Corpuscular Hemoglobin 33.5 pg (27-33); Mean Corpuscular Volume 98.7 fL (80-97); Mean Platelet Volume 8.7 fL (7.5-11.2); Nucleated Red Blood Cells % 0.1 /100 WBC (0.0-0.4); Platelet Count 177 10^3/uL (150-450); Red Blood Count 5.07 10^6/uL (4.06-5.63); Red Cell Distribution Width 13.1 % (12-17); White Blood Count 8.8 10^3/uL (3.6-10.2)
[2022-10-11 17:10] LABS: INR 1.48 (0.88-1.18)
[2022-10-11] MEDS ORDERED: Furosemide 20 mg/2 ml IV VIAL IV SLOW PU ONE (17:32)
[2022-10-11 17:34] LABS: Albumin 3.4 g/dL (3.2-5.2); Albumin/Globulin Ratio 0.8 (1-3); C Reactive Protein 16.41 mg/L (<8.01); Calcium 9.6 mg/dL (8.6-10.3); Creatinine, Serum 0.65 mg/dL (0.67-1.17); Globulin 4.5 g/dL (2-4); Potassium 4.9 mmol/L (3.5-5.0); Total Bilirubin 0.8 mg/dL (0.2-1.0); Total Protein 7.9 g/dL (6.4-8.9); eGFR CKD-EPI 98.9 (>60)
[2022-10-11] MEDS ORDERED: Iodixanol (CONTRAST) 320 MG/ML 100 ML SDV IV ONE (18:15)
[2022-10-11] MEDS ORDERED: Labetalol IV 5 MG/ML 20 ml VIAL IV PUSH ONE ×2 (18:46→21:23)
[2022-10-11 19:21] LABS: Urine Appearance Clear; Urine Bilirubin Negative (Negative); Urine Blood Negative (Negative); Urine Color Yellow; Urine Glucose 3+(>=500 mg/dL) (Negative); Urine Ketones Negative (Negative); Urine Nitrite Negative (Negative); Urine Protein Negative (Negative); Urine Specific Gravity 1.011 (1.002-1.030); Urine Urobilinogen Negative (Negative)
[2022-10-11 21:39] LABS: Magnesium 2.3 mg/dL (1.9-2.7)
[2022-10-11] MEDS: Enoxaparin 100 MG/ML SYR SUBCUT SCH (23:08)
[2022-10-11] MEDS ORDERED: Albuterol HFA INHALER 8 gm MDI INH PRN (23:29)
[2022-10-11] MEDS ORDERED: Magnesium Hydroxide LIQ 30 ML UDC PEG TUBE PRN (23:29)
[2022-10-11] MEDS ORDERED: Albuterol/Ipratropium NEB.SOL (2.5/0.5 MG) 3 ML NEB.SOLN INH PRN (23:29)
[2022-10-12] MEDS: AZELASTINE BOTH NARES SCH ×3 (07:15→23:07)
[2022-10-12 07:27] LABS: Hematocrit 52.3 % (38-53); Hemoglobin 17.6 g/dL (13.2-16.3); Mean Corpuscular Hemoglobin 33.8 pg (27-33); Mean Corpuscular Hgb Conc 33.8 g/dL (31-36); Mean Platelet Volume 8.6 fL (7.5-11.2); Platelet Count 146 10^3/uL (150-450); Red Blood Count 5.23 10^6/uL (4.06-5.63); Red Cell Distribution Width 13.1 % (12-17)
[2022-10-12 07:44] LABS: Calcium 9.2 mg/dL (8.6-10.3); Creatinine, Serum 0.7 mg/dL (0.67-1.17); Potassium 4.2 mmol/L (3.5-5.0); eGFR CKD-EPI 96.7 (>60)
[2022-10-12] MEDS ORDERED: Mupirocin 2% OINT TUBE TOPICAL SCH (09:00)
[2022-10-12] MEDS ORDERED: [UNRECOGNIZED DRUG - OTHER] FEED TUBE SCH (09:00)
[2022-10-12] MEDS ORDERED: CETIRIZINE 5 MG/5 ML SCH (09:00)
[2022-10-12] MEDS ORDERED: GUAIFENESIN 1200 MG PO SCH (09:00)
[2022-10-12] MEDS: NF: IPRATROPIUM BR (NF)0.06% NASAL 1 SPRAY BTL BOTH NARES SCH ×3 (12:57→21:31)
[2022-10-12] MEDS: SPIRIVA Respimat (tiotropium) 2.5 mcg/inh Inhaler INH SCH (12:58)
[2022-10-12] MEDS: Enoxaparin 100 MG/ML SYR SUBCUT SCH ×2 (13:55→22:28)
[2022-10-12] MEDS: CETIRIZINE 5 MG/5 ML SCH ×3 (14:41→23:07)
[2022-10-12] MEDS: Fluticasone NASAL SPRAY 50MCG 16 gm SPRAY BTL BOTH NARES SCH (14:42)
[2022-10-13 05:58] LABS: Hematocrit 50.7 % (38-53); Mean Corpuscular Hgb Conc 33.5 g/dL (31-36); Mean Corpuscular Volume 101.4 fL (80-97); Mean Platelet Volume 8.7 fL (7.5-11.2); Platelet Count 133 10^3/uL (150-450); Red Cell Distribution Width 13.4 % (12-17); White Blood Count 5.6 10^3/uL (3.6-10.2)
[2022-10-13 06:06] LABS: Calcium 9.4 mg/dL (8.6-10.3); Potassium 4.3 mmol/L (3.5-5.0)
[2022-10-13 06:12] LABS: Creatinine, Serum 0.7 mg/dL (0.67-1.17); eGFR CKD-EPI 96.7 (>60)
[2022-10-13] MEDS: Dextran 70/Hypromellose Tears Eye Drops 15 ml BTL (for Artificials Tears) BOTH EYES PRN ×2 (07:20→22:48)
[2022-10-13] MEDS: SPIRIVA Respimat (tiotropium) 2.5 mcg/inh Inhaler INH SCH (07:26)
[2022-10-13] MEDS ORDERED: IPRATROPIUM BR 0.06% BOTH NARES PRN (09:34)
[2022-10-13] MEDS: NF: IPRATROPIUM BR (NF)0.06% NASAL 1 SPRAY BTL BOTH NARES SCH (09:40)
[2022-10-13] MEDS: Enoxaparin 100 MG/ML SYR SUBCUT SCH ×2 (10:29→22:45)
[2022-10-13] MEDS: Fluticasone NASAL SPRAY 50MCG 16 gm SPRAY BTL BOTH NARES SCH (11:00)
[2022-10-13] MEDS: AZELASTINE BOTH NARES SCH ×2 (11:24→22:45)
[2022-10-13] MEDS ORDERED: Fluticasone NASAL SPRAY 50MCG 16 gm SPRAY BTL BOTH NARES SCH (21:00)
[2022-10-13] MEDS: CETIRIZINE 5 MG/5 ML SCH (22:44)
[2022-10-14] MEDS: SPIRIVA Respimat (tiotropium) 2.5 mcg/inh Inhaler INH SCH (07:11)
[2022-10-14] MEDS: Enoxaparin 100 MG/ML SYR SUBCUT SCH (08:49)
[2022-10-14] MEDS: AZELASTINE BOTH NARES SCH (08:49)
[2022-10-14 13:56] VITALS: BP 106/63
== END 2022-10-14 17:40 | disposition home or self-care (01) | DRG 176 ==
LOC: ED 15:14 → SUATTDRO 20:54 → EDHOLD 20:54 → MED 10-12 09:53
PROVIDERS: ADMIT Internal Medicine; ATTEND Internal Medicine

== ENCOUNTER 2022-10-23 10:56 | Observation (INO) ==
[2022-10-23] MEDS ORDERED: Labetalol IV 5 MG/ML 20 ml VIAL IV PUSH ONE (11:57)
[2022-10-23] MEDS ORDERED: NS 0.9% 1000 ml BAG 1,000 ML IV ONE (12:38)
[2022-10-23 12:41] LABS: ABS Eosinophils 0.3 10^3/uL (0.0-0.5); ABS Lymphocytes 0.6 10^3/uL (1.0-4.8); ABS Monocytes 0.5 10^3/uL (0.0-1.1); ABS Neutrophils 4.5 10^3/uL (1.5-7.6); ABS Nucleated RBC 0.01 10^3/ul; Eosinophil % 4.4 %; Hematocrit 49.6 % (38-53); Hemoglobin 16.7 g/dL (13.2-16.3); Lymphocyte % 10.5 %; Mean Corpuscular Hemoglobin 33.7 pg (27-33); Mean Corpuscular Hgb Conc 33.7 g/dL (31-36); Mean Corpuscular Volume 99.9 fL (80-97); Mean Platelet Volume 9.3 fL (7.5-11.2); Nucleated Red Blood Cells % 0.1 /100 WBC (0.0-0.4); Platelet Count 160 10^3/uL (150-450); Red Blood Count 4.96 10^6/uL (4.06-5.63); Red Cell Distribution Width 13.3 % (12-17); White Blood Count 5.9 10^3/uL (3.6-10.2)
[2022-10-23 13:00] LABS: Activated Partial Thrombo Time 48.7 seconds (26.0-38.0); INR 1.24 (0.88-1.18)
[2022-10-23 13:01] LABS: Albumin 3.8 g/dL (3.2-5.2); Albumin/Globulin Ratio 0.8 (1-3); Calcium 9.7 mg/dL (8.6-10.3); Creatinine, Serum 0.65 mg/dL (0.67-1.17); Globulin 4.8 g/dL (2-4); Potassium 4.4 mmol/L (3.5-5.0); Total Protein 8.6 g/dL (6.4-8.9); eGFR CKD-EPI 98.9 (>60)
[2022-10-23] MEDS ORDERED: Iodixanol (CONTRAST) 320 MG/ML 100 ML SDV IV ONE (13:08)
[2022-10-23] MEDS ORDERED: Albuterol/Ipratropium NEB.SOL (2.5/0.5 MG) 3 ML NEB.SOLN INH PRN (17:24)
[2022-10-23] MEDS ORDERED: Magnesium Hydroxide LIQ 30 ML UDC PO PRN (17:24)
[2022-10-23] MEDS ORDERED: Albuterol HFA INHALER 8 gm MDI INH PRN (17:24)
[2022-10-23 19:50] LABS: ABS Eosinophils 0.2 10^3/uL (0.0-0.5); ABS Lymphocytes 0.7 10^3/uL (1.0-4.8); ABS Monocytes 0.6 10^3/uL (0.0-1.1); ABS Neutrophils 4.7 10^3/uL (1.5-7.6); Eosinophil % 2.5 %; Hematocrit 46.2 % (38-53); Hemoglobin 15.8 g/dL (13.2-16.3); Lymphocyte % 11.7 %; Mean Corpuscular Hgb Conc 34.2 g/dL (31-36); Mean Corpuscular Volume 99.6 fL (80-97); Mean Platelet Volume 9.2 fL (7.5-11.2); Nucleated Red Blood Cells % 0.1 /100 WBC (0.0-0.4); Platelet Count 142 10^3/uL (150-450); Red Blood Count 4.64 10^6/uL (4.06-5.63); White Blood Count 6.2 10^3/uL (3.6-10.2)
[2022-10-23] MEDS ORDERED: Magnesium Hydroxide LIQ 30 ML UDC FEED TUBE PRN (22:58)
[2022-10-23] MEDS: PTO: Azelastine 0.15% NASAL(NF) 30 ML BTL BOTH NARES SCH (23:20)
[2022-10-23] MEDS: IPRATROPIUM BR 0.06% BOTH NARES SCH (23:21)
[2022-10-24] MEDS: Mupirocin 2% OINT TUBE TOPICAL SCH ×3 (01:49→21:07)
[2022-10-24 05:44] LABS: ABS Eosinophils 0.2 10^3/uL (0.0-0.5); ABS Neutrophils 4.3 10^3/uL (1.5-7.6); ABS Nucleated RBC 0.01 10^3/ul; Eosinophil % 2.7 %; Hematocrit 40.3 % (38-53); Hemoglobin 13.9 g/dL (13.2-16.3); Lymphocyte % 15.6 %; Mean Corpuscular Hemoglobin 34.6 pg (27-33); Mean Corpuscular Hgb Conc 34.5 g/dL (31-36); Mean Corpuscular Volume 100.3 fL (80-97); Mean Platelet Volume 8.9 fL (7.5-11.2); Nucleated Red Blood Cells % 0.1 /100 WBC (0.0-0.4); Platelet Count 131 10^3/uL (150-450); Red Blood Count 4.02 10^6/uL (4.06-5.63); Red Cell Distribution Width 13.2 % (12-17); White Blood Count 6.4 10^3/uL (3.6-10.2)
[2022-10-24 06:00] LABS: Calcium 8.8 mg/dL (8.6-10.3); Creatinine, Serum 0.61 mg/dL (0.67-1.17); Potassium 4.4 mmol/L (3.5-5.0); eGFR CKD-EPI 100.8 (>60)
[2022-10-24] MEDS: PTO: Azelastine 0.15% NASAL(NF) 30 ML BTL BOTH NARES SCH ×2 (06:30→18:56)
[2022-10-24] MEDS: SPIRIVA Respimat (tiotropium) 2.5 mcg/inh Inhaler INH SCH (07:15)
[2022-10-24] MEDS: Fluticasone NASAL SPRAY 50MCG 16 gm SPRAY BTL BOTH NARES SCH (09:39)
[2022-10-24] MEDS: IPRATROPIUM BR 0.06% BOTH NARES SCH ×3 (09:40→21:07)
[2022-10-24] MEDS: CETIRIZINE 5 MG/5 ML PO SCH (09:52)
[2022-10-24] MEDS ORDERED: fentaNYL 100 mcg/2 ml 50 MCG/ML VIAL ONE (13:52)
[2022-10-24] MEDS ORDERED: Heparin 2 UNITS/ML 1000 mls 1,000 ML IV ONE (13:59)
[2022-10-25 05:52] LABS: ABS Eosinophils 0.3 10^3/uL (0.0-0.5); ABS Monocytes 0.9 10^3/uL (0.0-1.1); ABS Neutrophils 4.3 10^3/uL (1.5-7.6); ABS Nucleated RBC 0.01 10^3/ul; Eosinophil % 4.9 %; Hemoglobin 13.5 g/dL (13.2-16.3); Lymphocyte % 15.8 %; Mean Corpuscular Hemoglobin 33.9 pg (27-33); Mean Corpuscular Hgb Conc 33.8 g/dL (31-36); Mean Corpuscular Volume 100.5 fL (80-97); Nucleated Red Blood Cells % 0.1 /100 WBC (0.0-0.4); Platelet Count 138 10^3/uL (150-450); Red Blood Count 3.98 10^6/uL (4.06-5.63); Red Cell Distribution Width 13.1 % (12-17); White Blood Count 6.5 10^3/uL (3.6-10.2)
[2022-10-25] MEDS: PTO: Azelastine 0.15% NASAL(NF) 30 ML BTL BOTH NARES SCH (06:17)
[2022-10-25] MEDS: SPIRIVA Respimat (tiotropium) 2.5 mcg/inh Inhaler INH SCH (08:01)
[2022-10-25] MEDS: IPRATROPIUM BR 0.06% BOTH NARES SCH (09:08)
[2022-10-25] MEDS: Mupirocin 2% OINT TUBE TOPICAL SCH (09:08)
[2022-10-25] MEDS: Fluticasone NASAL SPRAY 50MCG 16 gm SPRAY BTL BOTH NARES SCH (09:08)
[2022-10-25] MEDS: CETIRIZINE 5 MG/5 ML PO SCH (09:09)
[2022-10-25 09:59] VITALS: BP 100/65
== END 2022-10-25 14:05 | disposition home or self-care (01) ==
LOC: ED 10:56 → EDHOLD 10:56 → SUATTDRO 16:34 → MED 18:00
PROVIDERS: ADMIT Hospitalist; ATTEND Internal Medicine